=== PATIENT | male | born 1945 | race Caucasian/White ===

== ENCOUNTER 2017-04-28 06:37 | Day surgery (SDC) | payer MEDICARE ==
[2017-04-21 23:06] VITALS: BMI 24.0
[~2017-04-28 06:37] MED LIST: SODIUM CHLORIDE 0.9% 1,000 ML in EMPTY BAG 1 BAG IV ONE
[2017-04-28] MEDS ORDERED: ASPIRIN 81 MG ONE (06:57)
[2017-04-28] MEDS ORDERED: ALPRAZolam 0.25 MG TAB ONE (06:58)
[2017-04-28] MEDS ORDERED: ALPRAZolam 0.25 MG TAB PO PRN (07:00)
[2017-04-28 07:20] LABS: Glucose,Whole Blood 237 mg/dL (75-99)
[2017-04-28 07:26] LABS: Basophils % (A) 1 %; Eosinophils # (A) 0.1 k/uL (0-0.7); Eosinophils % (A) 2 %; HCT 45.9 % (39.0-53.0); HGB 14.6 gm/dL (13.0-17.5); Lymphocytes # (A) 1.3 k/uL (1.0-4.8); Lymphocytes % (A) 22 %; MCH 27.8 pg (25.0-35.0); MCHC 31.8 g/dL (31.0-37.0); MCV 87.3 fL (80.0-100.0); Mean Platelet Volume 9.1; Monocytes # (A) 0.4 k/uL (0-1.0); Monocytes % (A) 6 %; Neutrophils # (A) 4.2 k/uL (1.3-7.7); Neutrophils % (A) 69 %; Platelet Count 183 k/uL (150-450); RBC 5.26 m/uL (4.30-5.90); WBC 6.2 k/uL (3.8-10.6)
[2017-04-28] MEDS ORDERED: MIDAZOLAM 2 MG/2 ML VIAL IV ONE ×2 (07:54→08:21)
[2017-04-28] MEDS ORDERED: SODIUM CHLORIDE 0.9% 500 ML with niCARdipine 6.25 MG, NITROGLYCERIN-D5W PMX 0.05 MG, HE... IV ONE ×4 (08:11)
[2017-04-28] MEDS ORDERED: LIDOCAINE 2% INJ 20 MG/ML SQ ONE (08:17)
[2017-04-28] MEDS ORDERED: fentaNYL (PF) 50 MCG/ML 2 ML AMP IV ONE (08:20)
[2017-04-28] MEDS ORDERED: HEPARIN SODIUM 1,000 UN/ML (10ML VL) IV ONE ×2 (08:20→10:31)
[2017-04-28] MEDS: fentaNYL (PF) 50 MCG/ML 2 ML AMP IV ONE ×2 (09:08→09:47)
[2017-04-28] MEDS: MIDAZOLAM 2 MG/2 ML VIAL IV ONE ×2 (09:17→09:49)
[2017-04-28] MEDS ORDERED: NITROGLYCERIN 1000MCG/10ML SYRINGE INTRACORON ONE (10:13)
[2017-04-28] MEDS ORDERED: niCARdipine Syringe (1,000 mcg/10 mL) INTRACORON ONE (10:13)
[2017-04-28] MEDS ORDERED: CLOPIDOGREL 75 MG TAB PO ONE (10:42)
[2017-04-28] MEDS ORDERED: IODIXANOL 320 MG/ML 100 ML INTRAARTER ONE (10:42)
[2017-04-28] MEDS ORDERED: SODIUM CHLORIDE 0.9% 1,000 ML IV SCH (11:00)
[2017-04-28 11:22] LABS: Glucose,Whole Blood 177 mg/dL (75-99)
[2017-04-28] MEDS: CARVEDILOL 6.25 MG TAB PO SCH (12:28)
--- NOTE | 2017-04-28 12:36 | LTR ---
DATE OF SERVICE: 05/08/2017 RE: Rush Krueger Dear Donavan; Mr. Rush Krueger underwent successful stenting of the right femoral artery with good angiographic results and without any complication. I want to thank you for allowing me to participate in his care and please do not hesitate to call if you have any question or concern. Sincerely, MD CHELITA SánchezL / SARAHN: [id number] /
--- NOTE | 2017-04-28 12:36 | AN ---
ANGIOGRAPHY REPORT DATE OF SERVICE: 04/28/2017. PERFORMING PHYSICIAN: Ryan Benoit MD, Shingle Packer. PROCEDURE PERFORMED: 1. An abdominal aortogram. 2. Bilateral iliacs angiogram. 3. Selective bilateral [id number] angiogram. 4. Selective bilateral popliteals/SFA angiogram. 5. 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 6. Balloon angioplasty of the right superficial femoral artery in the proximal, mid, and distal portion. 7. Stenting of the right superficial femoral artery as it will be described later in this report. INDICATION: This is a pleasant 71-year-old gentleman who sees Dr. Keon River as an outpatient and sees Dr. Hill as well as an outpatient who was diagnosed recently with critical limb ischemia of the right foot. The patient has been seen and evaluated by Dr. Parkinson. He underwent selective right leg angiogram, which revealed an occluded right SFA from the ostium. The patient initially treated conservatively without any improvement, then we decided to pursue with an interventional procedure on him. APPROACH: Left common femoral artery. COMPLICATION: None. LEVEL OF SEDATION: Moderate with sedation length of 144 minutes. PROCEDURE DESCRIPTION: After obtaining an informed consent, the patient was brought to the [facility]. The left common femoral artery was cannulated using micropuncture technique under ultrasound guidance, the micropuncture wire passed easily. Subsequently, I did place an 11 cm 6-[place] sheath in the left common femoral artery. After that, I did an abdominal aortogram and bilateral iliacs angiogram. I did that using 5-[place] pigtail catheter which was placed at the level of the renal arteries. After that, I did select the right profunda using an 0.35 Advantage wire. I did use also a 5-[place] rim catheter. Subsequently. I did exchange my 11 cm 6-[place] sheath into 70 cm 6-[place] Raabe sheath using the Advantage wire. After that, I did start anticoagulation using heparin and the patient initially given 10,000 units of heparin in at the beginning of the procedure and subsequently 3,000 units in the middle of the procedure with continuous monitoring ACT throughout the procedure. I did cross the chronic total occlusion of the right superficial femoral artery using an 0.18 wire. After that, I did prove that I was in the true lumen using an injection through an 0.18 CXI catheter. After that, I did balloon angioplasty of the right superficial femoral artery using initially 2.0 mm balloon because I was unable to advance 4.0 balloon and subsequently 4.0 balloon. After that, I did drug-coated balloon of the distal right superficial femoral artery where I did use 5.0 x 120 mm balloon and subsequently, for the proximal and mid right SFA, I stented both of them in view of the large residual thrombus at these segments. For the mid right SFA, I did use Zilver PTX drug-coated stent and I did deploy 7.0 x 120 mm stent. For the ostial and proximal right SFA, I did deploy 7.0 x 100 mm stents. Subsequently, both the stents were dilated using 6 mm balloon. The following angiogram showed good angiographic results for that segment. For the distal right SFA, I did another balloon angioplasty using 6 mm balloon but the following angiogram continues to show residual thrombus/dissection which I decided to cover using stent. At that point, I did deploy just regular self-expandable stent, which was 7.0 x 120 mm self-expandable stent and subsequently the stent was dilated using 6 mm balloon. The final angiogram showed good angiographic results without perforation and without dissection with good flow. SELECTIVE PERIPHERAL ANGIOGRAM: 1. The abdominal aorta appeared to be calcified with mild disease only. 2. COMMON ILIAC ARTERIES: The right and left common iliac arteries appear to have mild disease only. 3. EXTERNAL ILIAC ARTERIES: The right and left external iliac arteries are angiographically normal. 4. INTERNAL ILIAC ARTERIES: The right internal iliac artery is patent and the left internal iliac artery appeared to be occluded. 5. COMMON FEMORAL ARTERIES: The right and left common femoral artery appeared to have mild disease only. 6. SFA: The right SFA is known to be totally and chronically occluded from before. The left SFA appeared to have mild to moderate diffuse disease. 7. POPLITEAL: The right popliteal appeared to have moderate diffuse disease and the left popliteal is occluded in the proximal portion. 8. BELOW THE KNEE: Below the knee I could not visualize any vessel below the knee bilaterally. By the foot, I was able to visualize the anterior tibial and posterior tibial arteries. POSTPROCEDURE MANAGEMENT: 1. Maximize medical treatment. 2. Follow up with the patient. MMODL / IJN: [id number] /
[2017-04-28] MEDS: INSULIN ASPART 100 UNIT/ML 1 ML 10 ML VIAL SQ SCH ×4 (12:45→20:46)
[2017-04-28] MEDS: LISINOPRIL 20 MG TAB PO SCH (13:37)
[2017-04-28] MEDS ORDERED: ATROPINE SULFATE 0.1 MG/ML 10ML SYRINGE ONE (14:33)
[2017-04-28] MEDS ORDERED: hydrALAZINE HCL 20 MG/ML 1 ML VIAL IVP PRN (14:42)
--- NOTE | 2017-04-28 14:59 | IR ---
Fluoroscopy HISTORY: Peripheral vascular occlusive disease 46.6 minutes fluoroscopy time supplied to the referring clinician. 1000 intraoperative C-arm images document the procedure. See dictated report from cardiology.
[2017-04-28] MEDS: ALPRAZolam 0.5 MG TAB PO PRN ×2 (15:30→21:12)
[2017-04-28] MEDS ORDERED: ONDANSETRON 4 MG/2 ML VIAL IVP STA (15:39)
[2017-04-28 16:42] LABS: Glucose,Whole Blood 257 mg/dL (75-99)
[2017-04-28 19:52] VITALS: RESP 16
[2017-04-28 20:55] LABS: Glucose,Whole Blood 293 mg/dL (75-99)
[2017-04-29 05:56] LABS: Basophils % (A) 0 %; Eosinophils # (A) 0.1 k/uL (0-0.7); Eosinophils % (A) 1 %; HCT 46.3 % (39.0-53.0); HGB 15.1 gm/dL (13.0-17.5); Lymphocytes # (A) 0.9 k/uL (1.0-4.8); Lymphocytes % (A) 10 %; MCH 28.6 pg (25.0-35.0); MCHC 32.5 g/dL (31.0-37.0); MCV 87.8 fL (80.0-100.0); Mean Platelet Volume 8.6; Monocytes # (A) 0.5 k/uL (0-1.0); Monocytes % (A) 6 %; Neutrophils # (A) 7.4 k/uL (1.3-7.7); Neutrophils % (A) 82 %; Platelet Count 167 k/uL (150-450); RBC 5.28 m/uL (4.30-5.90); RDW 14.2 % (11.5-15.5)
[2017-04-29 06:16] LABS: Glucose,Whole Blood 227 mg/dL (75-99)
[2017-04-29 06:21] LABS: Anion Gap 10 mmol/L; Blood Urea Nitrogen 21 mg/dL (9-20); Carbon Dioxide 25 mmol/L (22-30); Chloride 102 mmol/L (98-107); Glucose 228 mg/dL (74-99); Potassium 4.5 mmol/L (3.5-5.1); Sodium 137 mmol/L (137-145)
[2017-04-29] MEDS: INSULIN ASPART 100 UNIT/ML 1 ML 10 ML VIAL SQ SCH ×2 (06:23→12:12)
[2017-04-29] MEDS: CARVEDILOL 6.25 MG TAB PO SCH (08:26)
[2017-04-29 08:44] VITALS: TEMP 100
[2017-04-29] MEDS ORDERED: FUROSEMIDE 40 MG TAB PO SCH (09:00)
[2017-04-29] MEDS ORDERED: ASPIRIN 325 MG TAB PO SCH ×2 (09:00)
[2017-04-29] MEDS ORDERED: ASPIRIN 81 MG PO SCH (09:00)
[2017-04-29] MEDS ORDERED: CLOPIDOGREL 75 MG TAB PO SCH ×2 (09:00)
[2017-04-29] MEDS ORDERED: ATORVASTATIN 40 MG TAB PO SCH (09:00)
--- NOTE | 2017-04-29 09:31 | DS ---
DISCHARGE SUMMARY ADMISSION DATE: 04/28/2017 DISCHARGE DATE: 04/29/2017 BRIEF HISTORY: This is a pleasant 71-year-old gentleman who sees Dr. oMdesta River on a regular basis who was diagnosed recently with critical limb ischemia of the right leg. He underwent a peripheral angiogram and that revealed the occlusion of the SFA from the ostium to the popliteal. He was admitted to the hospital yesterday and underwent successful angioplasty and stenting of the right SFA with good angiographic results and without any complication where the procedure was performed from the left groin, which is soft and nontender and without any bruises. The patient is going to be discharged home on dual anti-platelet therapy and I will follow up with the patient next week in the office. MMEFRAIN / PREET: [id number] /
[2017-04-29 11:28] LABS: Glucose,Whole Blood 303 mg/dL (75-99)
[2017-04-29 12:08] VITALS: BP 174/93; PULSE 75
[2017-04-29] MEDS: LISINOPRIL 20 MG TAB PO SCH (12:12)
== END 2017-04-29 13:06 | disposition home or self-care (01) ==
LOC: CATHCVL 06:37 → 6SEL 10:50 → CATHCVL 04-29 13:06
PROVIDERS: ATTEND Internal Medicine Interventional Cardiology
DX: I70.92 Chronic total occlusion of artery of the extremities (principal); I77.9 Disorder of arteries and arterioles, unspecified; I70.0 Atherosclerosis of aorta; I73.9 Peripheral vascular disease, unspecified; E78.00 Pure hypercholesterolemia, unspecified; I25.10 Atherosclerotic heart disease of native coronary artery without angina pectoris; E11.9 Type 2 diabetes mellitus without complications; I10 Essential (primary) hypertension; Z95.5 Presence of coronary angioplasty implant and graft; Z95.1 Presence of aortocoronary bypass graft; Z86.73 Personal history of transient ischemic attack (TIA), and cerebral infarction without residual deficits; Z82.49 Family history of ischemic heart disease and other diseases of the circulatory system; Z79.84 Long term (current) use of oral hypoglycemic drugs; Z79.82 Long term (current) use of aspirin; Z79.4 Long term (current) use of insulin; Z79.899 Other long term (current) drug therapy
CPT/HCPCS: 37226; 75625; 75716; 85347; 80048; 85025 ×2; C1894 ×2; C1725 ×2; C1769 ×5; C1887; C1876; C2623; C1874 ×2; J2001; J2250; J0360; Q9967; J2405; J3010; J1644

== ENCOUNTER 2017-09-06 15:05 | Emergency (ER) | payer MEDICARE ==
[2017-09-06 15:46] VITALS: PULSE 93; RESP 18; TEMP 98
--- NOTE | 2017-09-06 16:31 | XR ---
EXAMINATION TYPE: XR shoulder complete RT DATE OF EXAM: 09/06/2017 CLINICAL HISTORY: pain TECHNIQUE: Three views of the right shoulder are obtained. COMPARISON: None FINDINGS: There is no acute fracture/dislocation evident. The acromioclavicular and glenohumeral fernando int spaces appear mildly narrowed. The visualized ribs are intact and unremarkable. IMPRESSION: 1. There is no acute fracture or dislocation. ICD 10 NO FRACTURE, INITIAL EVALUATION
--- NOTE | 2017-09-06 16:32 | ED ---
General Adult HPI - General Chief complaint: Extremity Injury, Upper Stated complaint: shoulder pain Time Seen by Provider: 09/06/17 15:50 Source: patient, RN notes reviewed Mode of arrival: ambulatory Limitations: no limitations - History of Present Illness Initial comments: 72-year-old male presents to the emergency department for a chief complaint of right shoulder pain. Patient states that 2 days ago he was pull starting his lawnmower when he injured his right shoulder. Patient states it is painful to move ever since. Patient denies pain at rest. Patient denies falling or any other injuries from this incident. Patient denies pain in the hand or forearm. Patient has no other complaints at this time including shortness of breath, chest pain, abdominal pain, nausea or vomiting, headache, or visual changes. - Related Data Home Medications Medication Instructions Recorded Confirmed ALPRAZolam [Xanax] 0.5 mg PO TID PRN 09/26/13 09/06/17 Insulin Aspart Protam & Aspart 20 units SQ BID 09/26/13 09/06/17 [NovoLOG MIX 70-30 Flexpen] Atorvastatin [Lipitor] 40 mg PO DAILY 03/30/17 09/06/17 Carvedilol [Coreg] 6.25 mg PO BID 03/30/17 09/06/17 metFORMIN HCL [Glucophage] 500 mg PO BID 03/30/17 09/06/17 Aspirin 81 mg PO DAILY 04/20/17 09/06/17 Lisinopril [Zestril] 20 mg PO BID 04/20/17 09/06/17 Furosemide [Lasix] 40 mg PO DAILY 09/06/17 09/06/17 Isosorbide Mononitrate ER [Imdur] 60 mg PO BID 09/06/17 09/06/17 Previous Rx's Medication Instructions Recorded Clopidogrel [Plavix] 75 mg PO DAILY #90 tab 03/20/17 Ibuprofen [Motrin] 600 mg PO Q8HR PRN #20 tab 09/06/17 Allergies Allergy/AdvReac Type Severity Reaction Status Date / Time No Known Allergies Allergy Verified 09/06/17 16:05 Review of Systems ROS Statement: Those systems with pertinent positive or pertinent negative responses have been documented in the HPI. ROS Other: All systems not noted in ROS Statement are negative. Past Medical History Past Medical History: Coronary Artery Disease (CAD), Heart Failure, CVA/TIA, Diabetes Mellitus, Hyperlipidemia, Hypertension, Myocardial Infarction ([place]), Osteoarthritis ([place]) Additional Past Medical History / Comment(s): GOUT,NEUROPATHY IN FEET, TIA 2014- no residual effects, STENT LEFT CAROTID ARTERY 03/19/17., WOUNDS ON RIGHT FOOT- STATES HEEL AND RIGHT SIDE OF FOOT. Last Myocardial Infarction Date:: 2010 History of Any Multi-Drug Resistant Organisms: None Reported Past Surgical History: Coronary Bypass/CABG, Heart Catheterization With Stent, Hernia Repair Additional Past Surgical History / Comment(s): 5 VESSELS, NASAL SURG., LEFT CAROTID STENT (03/19/17). Past Anesthesia/Blood Transfusion Reactions: No Reported Reaction Date of Last Stent Placement:: 2015 Past Psychological History: No Psychological Hx Reported Smoking Status: Never smoker Past Alcohol Use History: None Reported Past Drug Use History: None Reported - Past Family History Father Family Medical History: Hypertension, Myocardial Infarction ([place]) Mother Family Medical History: No Reported History, Myocardial Infarction ([place]) Brother(s) Family Medical History: Hypertension, Myocardial Infarction ([place]) General Exam Limitations: no limitations General appearance: alert, in no apparent distress Head exam: Present: atraumatic, normocephalic, normal inspection Respiratory exam: Present: normal lung sounds bilaterally. Absent: respiratory distress, wheezes, rales, rhonchi, stridor Cardiovascular Exam: Present: regular rate, normal rhythm, normal heart sounds. Absent: systolic murmur, diastolic murmur, rubs, gallop, clicks Extremities exam: Present: normal capillary refill (Refill less than 2 seconds in the right upper extremity and radial pulse 2+.), other (Sensation intact in the right upper extremity.). Absent: full ROM (Patient has about 30 of flexion of the right shoulder and about 90 abduction. 15 extension. Positive Burnett and empty can test.), tenderness (No tenderness to palpation of the acromioclavicular joint or shoulder joint on the right upper extremity.) , pedal edema, joint swelling, calf tenderness Course Vital Signs 09/06/17 09/06/17 15:41 16:48 Temperature 98.0 F Pulse Rate 93 Respiratory 18 Rate Blood Pressure 191/93 182/80 O2 Sat by Pulse 99 Oximetry Medical Decision Making - Medical Decision Making 72-year-old male presents to the emergency department for a chief complaint of right shoulder pain 2 days. Patient was pull starting his lawnmower when he injured his right shoulder. Patient has no other complaints. On exam patient has limited range of motion of the right shoulder. Neurovascular intact. X- ray shows no fractures or dislocations. Patient will be referred to orthopedics for further workup. He will return to the emergency room if he has any worsening symptoms. In the meantime he'll take Motrin or Tylenol for pain and ice the shoulder. A sling was given in the emergency department. Patient was educated on the importance of range of motion exercises for the shoulder. Disposition Clinical Impression: Shoulder pain, right Disposition: HOME SELF-CARE Condition: Good Instructions: Shoulder Pain (ED) Additional Instructions: Please take Motrin or Tylenol for pain. Please follow-up with orthopedics in one to 2 days. Return to the emergency department if you have any worsening symptoms. Remember to do range of motion exercises while wearing the sling. Prescriptions: Ibuprofen [Motrin] 600 mg PO Q8HR PRN #20 tab PRN Reason: Pain Is patient prescribed a controlled substance at d/c from ED?: No Referrals: Donavan Hill MD [Primary Care Provider] - 1-2 days Time of Disposition: 16:43
[2017-09-06 16:49] VITALS: BP 182/80
== END 2017-09-06 17:00 | disposition home or self-care (01) ==
LOC: EC 15:05
DX: M25.511 Pain in right shoulder (principal); I25.10 Atherosclerotic heart disease of native coronary artery without angina pectoris; I11.0 Hypertensive heart disease with heart failure; I50.9 Heart failure, unspecified; E78.5 Hyperlipidemia, unspecified; I25.2 Old myocardial infarction; E11.40 Type 2 diabetes mellitus with diabetic neuropathy, unspecified; Z86.73 Personal history of transient ischemic attack (TIA), and cerebral infarction without residual deficits; Z95.1 Presence of aortocoronary bypass graft; Z95.5 Presence of coronary angioplasty implant and graft; Z79.4 Long term (current) use of insulin; Z79.02 Long term (current) use of antithrombotics/antiplatelets; Z79.82 Long term (current) use of aspirin; Z79.899 Other long term (current) drug therapy; X50.9XXA Other and unspecified overexertion or strenuous movements or postures, initial encounter; Y93.A6 Activity, grass drills
CPT/HCPCS: 99283

== ENCOUNTER 2018-08-08 16:38 | Emergency (ER) | payer MEDICARE ==
[2018-08-08 17:43] VITALS: RESP 18
[2018-08-08 17:54] LABS: Glucose,Whole Blood 529 mg/dL (75-99)
[2018-08-08] MEDS ORDERED: SODIUM CHLORIDE 0.9% 1,000 ML IV ONE (18:15)
[2018-08-08 18:36] LABS: Basophils % (A) 0 %; Eosinophils # (A) 0.1 k/uL (0-0.7); Eosinophils % (A) 1 %; HCT 50.3 % (39.0-53.0); HGB 16.5 gm/dL (13.0-17.5); Lymphocytes # (A) 1.5 k/uL (1.0-4.8); Lymphocytes % (A) 19 %; MCHC 32.9 g/dL (31.0-37.0); MCV 88.1 fL (80.0-100.0); Mean Platelet Volume 9.1; Monocytes # (A) 0.4 k/uL (0-1.0); Monocytes % (A) 5 %; Neutrophils # (A) 5.5 k/uL (1.3-7.7); Neutrophils % (A) 72 %; Platelet Count 169 k/uL (150-450); RBC 5.71 m/uL (4.30-5.90); RDW 13.3 % (11.5-15.5); WBC 7.7 k/uL (3.8-10.6)
[2018-08-08 18:47] LABS: ALT 32 U/L (21-72); AST 21 U/L (17-59); Albumin 4.5 g/dL (3.5-5.0); Alkaline Phosphatase 199 U/L (38-126); Anion Gap 9 mmol/L; Blood Urea Nitrogen 41 mg/dL (9-20); Calcium 10.2 mg/dL (8.4-10.2); Carbon Dioxide 27 mmol/L (22-30); Chloride 98 mmol/L (98-107); Glucose 461 mg/dL (74-99); Sodium 134 mmol/L (137-145); Total Bilirubin 0.7 mg/dL (0.2-1.3); Total Protein 7.1 g/dL (6.3-8.2)
[2018-08-08] MEDS ORDERED: INSULIN ASPART (NovoLOG) 100 UNIT/ML VIAL SQ STA ×2 (18:48→19:58)
[2018-08-08] MEDS ORDERED: SODIUM CHLORIDE 0.9% 500 ML 500 ML IV ONE (18:55)
--- NOTE | 2018-08-08 18:55 | ED ---
General Adult HPI - General Chief complaint: Recheck/Abnormal Lab/Rx Stated complaint: High sugar/lightheaded Time Seen by Provider: 08/08/18 18:05 Source: patient Mode of arrival: ambulatory Limitations: no limitations - History of Present Illness Initial comments: 73-year-old male patient presents to the emergency department today for evaluation of hyperglycemia. Patient states he has a history of type 2 diabetes, generally takes oral medication and insulin. States he has been out of his insulin for the last 2 weeks. States that his doctor's office today his glucose and HgbA1C were reading "high". Patient states he is feeling well. States he is eating without difficulty. He denies any abdominal pain, nausea, vomiting, constipation, diarrhea, hematuria, dysuria, urinary frequency, urinary urgency. Patient states he has been taking all of his other medications as directed. Patient denies any recent rash, fever, chills, shortness breath, chest pain, back pain, numbness, tingling, dizziness, weakness, headache, visual changes, or any other complaints. - Related Data Home Medications Medication Instructions Recorded Confirmed ALPRAZolam [Xanax] 0.5 mg PO TID PRN 09/26/13 08/08/18 Atorvastatin [Lipitor] 40 mg PO DAILY 03/30/17 08/08/18 Carvedilol [Coreg] 6.25 mg PO BID 03/30/17 08/08/18 metFORMIN HCL [Glucophage] 500 mg PO BID 03/30/17 08/08/18 Aspirin 81 mg PO DAILY 04/20/17 08/08/18 Lisinopril [Zestril] 20 mg PO BID 04/20/17 08/08/18 Isosorbide Mononitrate ER [Imdur] 60 mg PO BID 09/06/17 08/08/18 Insulin Aspart Protam & Aspart 30 units SQ BID 08/08/18 08/08/18 [NovoLOG MIX 70-30 Flexpen] Allergies Allergy/AdvReac Type Severity Reaction Status Date / Time No Known Allergies Allergy Verified 08/08/18 18:42 Review of Systems ROS Statement: Those systems with pertinent positive or pertinent negative responses have been documented in the HPI. ROS Other: All systems not noted in ROS Statement are negative. Past Medical History Past Medical History: Coronary Artery Disease (CAD), Heart Failure, CVA/TIA, Diabetes Mellitus, Hyperlipidemia, Hypertension, Myocardial Infarction ([place]), Osteoarthritis ([place]) Additional Past Medical History / Comment(s): GOUT,NEUROPATHY IN FEET, TIA 2014- no residual effects, STENT LEFT CAROTID ARTERY 03/19/17., WOUNDS ON RIGHT FOOT- STATES HEEL AND RIGHT SIDE OF FOOT. Last Myocardial Infarction Date:: 2010 History of Any Multi-Drug Resistant Organisms: None Reported Past Surgical History: Coronary Bypass/CABG, Heart Catheterization With Stent, Hernia Repair Additional Past Surgical History / Comment(s): 5 VESSELS, NASAL SURG., LEFT CAROTID STENT (03/19/17). Past Anesthesia/Blood Transfusion Reactions: No Reported Reaction Date of Last Stent Placement:: 2015 Past Psychological History: No Psychological Hx Reported Smoking Status: Never smoker Past Alcohol Use History: None Reported Past Drug Use History: None Reported - Past Family History Father Family Medical History: Hypertension, Myocardial Infarction ([place]) Mother Family Medical History: No Reported History, Myocardial Infarction ([place]) Brother(s) Family Medical History: Hypertension, Myocardial Infarction ([place]) General Exam Limitations: no limitations General appearance: alert, in no apparent distress, other (Physical well- developed, well-nourished elderly male patient in no acute distress. Vital signs upon presentation are temperature 98.2F, pulse 86, respirations 18, blood pressure 174/89, pulse ox 98% on room air.) Eye exam: Present: normal appearance, PERRL, EOMI. Absent: scleral icterus, conjunctival injection, periorbital swelling ENT exam: Present: normal exam, normal oropharynx, mucous membranes moist Respiratory exam: Present: normal lung sounds bilaterally. Absent: respiratory distress, wheezes, rales, rhonchi, stridor Cardiovascular Exam: Present: regular rate, normal rhythm, normal heart sounds. Absent: systolic murmur, diastolic murmur, rubs, gallop, clicks GI/Abdominal exam: Present: soft, normal bowel sounds. Absent: distended, tenderness, guarding, rebound, rigid Neurological exam: Present: alert, oriented X3, CN II-XII intact Psychiatric exam: Present: normal affect, normal mood Skin exam: Present: warm, dry, intact, normal color. Absent: rash Course Vital Signs 08/08/18 08/08/18 08/08/18 17:33 20:03 21:47 Temperature 98.2 F 98.0 F Pulse Rate 86 75 75 Respiratory 18 18 18 Rate Blood Pressure 174/89 120/55 145/82 O2 Sat by Pulse 98 100 98 Oximetry Medical Decision Making - Medical Decision Making 73-year-old male patient presents to the emergency department today for evaluation of elevated blood sugar. Patient states he presented to his primary care physician's office today had a blood sugar check which read high on their machine so they sent him here for further evaluation. He states that his physician is out of town and unable to refill his insulin. Physical examination is unremarkable. Patient states he is currently asymptomatic and feels well. Labs reviewed and revealed a negative acetone. Blood sugar was elevated. He was given 2 doses of insulin here in the emergency department blood sugar did decrease. Patient was given refill of his NovoLog 70/30. He is instructed follow-up with his primary care physician for recheck as soon as possible. Return parameters were discussed in detail. He verbalizes understanding and agrees with this plan. - Lab Data Result diagrams: 08/08/18 18:26 08/08/18 18:26 Lab Results 08/08/18 08/08/18 08/08/18 Range/Units 17:40 18:26 18:26 WBC 7.7 (3.8-10.6) k/uL RBC 5.71 (4.30-5.90) m/uL Hgb 16.5 (13.0-17.5) gm/dL Hct 50.3 (39.0-53.0) % MCV 88.1 (80.0-100.0) fL MCH 29.0 (25.0-35.0) pg MCHC 32.9 (31.0-37.0) g/dL RDW 13.3 (11.5-15.5) % Plt Count 169 (150-450) k/uL Neutrophils % 72 % Lymphocytes % 19 % Monocytes % 5 % Eosinophils % 1 % Basophils % 0 % Neutrophils # 5.5 (1.3-7.7) k/uL Lymphocytes # 1.5 (1.0-4.8) k/uL Monocytes # 0.4 (0-1.0) k/uL Eosinophils # 0.1 (0-0.7) k/uL Basophils # 0.0 (0-0.2) k/uL Sodium 134 L (137-145) mmol/L Potassium 5.0 (3.5-5.1) mmol/L Chloride 98 (98-107) mmol/L Carbon Dioxide 27 (22-30) mmol/L Anion Gap 9 mmol/L BUN 41 H (9-20) mg/dL Creatinine 1.33 H (0.66-1.25) mg/dL Est GFR (CKD-EPI)AfAm 61 (>60 ml/min/1.73 sqM) Est GFR (CKD-EPI)NonAf 53 (>60 ml/min/1.73 sqM) Glucose 461 H (74-99) mg/dL POC Glucose (mg/dL) 529 H (75-99) mg/dL POC Glu Helicopter Mechanic ID Debra Flores Calcium 10.2 (8.4-10.2) mg/dL Total Bilirubin 0.7 (0.2-1.3) mg/dL AST 21 (17-59) U/L ALT 32 (21-72) U/L Alkaline Phosphatase 199 H (38-126) U/L Total Protein 7.1 (6.3-8.2) g/dL Albumin 4.5 (3.5-5.0) g/dL Urine Color Urine Appearance (Clear) Urine pH (5.0-8.0) Ur Specific Lloyd (1.001-1.035) Urine Protein (Negative) Urine Glucose (UA) (Negative) Urine Ketones (Negative) Urine Blood (Negative) Urine Nitrite (Negative) Urine Bilirubin (Negative) Urine Urobilinogen (<2.0) mg/dL Ur Leukocyte Esterase (Negative) Acetone, Qual Negative (Negative) 08/08/18 08/08/18 08/08/18 Range/Units 19:42 19:43 21:01 WBC (3.8-10.6) k/uL RBC (4.30-5.90) m/uL Hgb (13.0-17.5) gm/dL Hct (39.0-53.0) % MCV (80.0-100.0) fL MCH (25.0-35.0) pg MCHC (31.0-37.0) g/dL RDW (11.5-15.5) % Plt Count (150-450) k/uL Neutrophils % % Lymphocytes % % Monocytes % % Eosinophils % % Basophils % % Neutrophils # (1.3-7.7) k/uL Lymphocytes # (1.0-4.8) k/uL Monocytes # (0-1.0) k/uL Eosinophils # (0-0.7) k/uL Basophils # (0-0.2) k/uL Sodium (137-145) mmol/L Potassium (3.5-5.1) mmol/L Chloride (98-107) mmol/L Carbon Dioxide (22-30) mmol/L Anion Gap mmol/L BUN (9-20) mg/dL Creatinine (0.66-1.25) mg/dL Est GFR (CKD-EPI)AfAm (>60 ml/min/1.73 sqM) Est GFR (CKD-EPI)NonAf (>60 ml/min/1.73 sqM) Glucose (74-99) mg/dL POC Glucose (mg/dL) 365 H 271 H (75-99) mg/dL POC Glu Helicopter Mechanic Clotilde Gardner Alison Calcium (8.4-10.2) mg/dL Total Bilirubin (0.2-1.3) mg/dL AST (17-59) U/L ALT (21-72) U/L Alkaline Phosphatase (38-126) U/L Total Protein (6.3-8.2) g/dL Albumin (3.5-5.0) g/dL Urine Color Colorless Urine Appearance Clear (Clear) Urine pH 6.0 (5.0-8.0) Ur Specific Lloyd 1.018 (1.001-1.035) Urine Protein Negative (Negative) Urine Glucose (UA) 4+ H (Negative) Urine Ketones Negative (Negative) Urine Blood Negative (Negative) Urine Nitrite Negative (Negative) Urine Bilirubin Negative (Negative) Urine Urobilinogen <2.0 (<2.0) mg/dL Ur Leukocyte Esterase Negative (Negative) Acetone, Qual (Negative) Disposition Clinical Impression: Hyperglycemia Disposition: HOME SELF-CARE Condition: Good Instructions (If sedation given, give patient instructions): Diabetic Hyperglycemia (ED) Additional Instructions: Increase fluids. Take insulin as directed. Follow-up with your primary care physician for recheck in 1-2 days. Return to the emergency department immediately for any new, worsening, or concerning symptoms. Is patient prescribed a controlled substance at d/c from ED?: No Referrals: Donavan Hill MD [Primary Care Provider] - 1-2 days Time of Disposition: 21:28
[2018-08-08 19:43] LABS: Glucose,Whole Blood 365 mg/dL (75-99)
[2018-08-08 20:04] VITALS: PULSE 75
[2018-08-08 20:34] LABS: Appearance,Urine Clear (Clear); Bilirubin,Urine Negative (Negative); Blood,Urine Negative (Negative); Color,Urine Colorless; Glucose,Urine (UA) 4+ (Negative); Ketones,Urine Negative (Negative); Leukocyte Esterase,Urine Negative (Negative); Nitrite,Urine Negative (Negative); Protein,Urine Negative (Negative); Specific Gravity,Urine 1.018 (1.001-1.035); Urobilinogen,Urine <2.0 mg/dL (<2.0)
[2018-08-08 21:04] LABS: Glucose,Whole Blood 271 mg/dL (75-99)
[2018-08-08] MEDS ORDERED: INSULN ASP PRT/INSULIN ASPART 100 UNIT/ML 10 ML VIAL SQ STA (21:27)
[2018-08-08 21:48] VITALS: BP 145/82; TEMP 98
== END 2018-08-08 21:48 | disposition home or self-care (01) ==
LOC: EC 16:38
DX: E11.65 Type 2 diabetes mellitus with hyperglycemia (principal); I25.10 Atherosclerotic heart disease of native coronary artery without angina pectoris; I11.0 Hypertensive heart disease with heart failure; I50.9 Heart failure, unspecified; I25.2 Old myocardial infarction; E11.40 Type 2 diabetes mellitus with diabetic neuropathy, unspecified; Z86.73 Personal history of transient ischemic attack (TIA), and cerebral infarction without residual deficits; Z95.1 Presence of aortocoronary bypass graft; Z95.5 Presence of coronary angioplasty implant and graft; Z98.890 Other specified postprocedural states; Z79.4 Long term (current) use of insulin; Z79.82 Long term (current) use of aspirin; Z79.899 Other long term (current) drug therapy
CPT/HCPCS: 36415; 80053; 81003; 82009; 85025; 96360; 96361; 99283

== ENCOUNTER 2018-08-20 19:18 | Inpatient (IN) | payer MEDICARE ==
--- NOTE | 2018-08-20 20:03 | XR ---
EXAMINATION TYPE: XR chest 2V DATE OF EXAM: 08/20/2018 COMPARISON: 05/03/2015 HISTORY: Short of breath TECHNIQUE: Frontal and lateral views of the chest are obtained. FINDINGS: Heart appears slightly enlarged. There is pulmonary vascular congestion. There is mild ursula nting of costophrenic angles. There are sternal wires. Bony thorax appears intact. IMPRESSION: Mild congestive heart failure with pleural small effusions. No change.
[2018-08-20 20:31] VITALS: RESP 18
--- NOTE | 2018-08-20 20:31 | ED ---
SOB HPI - General Source: patient Mode of arrival: wheelchair Limitations: no limitations <Kelly Parry - Last Filed: 08/20/18 23:18> <Raquel Mullen - Last Filed: 08/24/18 04:31> - General Chief Complaint: Shortness of Breath Stated Complaint: POSS CHF Time Seen by Provider: 08/20/18 19:29 - History of Present Illness Initial Comments: 73-year-old male patient presents to the emergency department today for evaluation of shortness of breath and lower leg edema. Patient is last 2 days he has noticed an increase in difficulty breathing when lying down is also noticed that his legs up and swollen. 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 Patient states he has taken 3 doses of 40 mg of Lasix. Does not yet report improvement of symptoms. Patient states he did have a an episode of congestive heart failure once many years ago. He denies any cough or hemoptysis. Denies any racing heart or palpitations. Denies any chest pain. Denies any recent travel, leg pain, or history of DVT. Patient denies any recent rash, fever, chills, abdominal pain, n ausea, vomiting, diarrhea, constipation, back pain, numbness, tingling, dizziness, weakness, hematuria, dysuria, urinary urgency, urinary frequency, headache, visual changes, or any other complaints. (Kelly Parry) - Related Data Home Medications Medication Instructions Recorded Confirmed ALPRAZolam [Xanax] 0.5 mg PO TID PRN 09/26/13 08/20/18 Atorvastatin [Lipitor] 40 mg PO DAILY 03/30/17 08/20/18 Carvedilol [Coreg] 6.25 mg PO BID 03/30/17 08/20/18 metFORMIN HCL [Glucophage] 500 mg PO BID 03/30/17 08/20/18 Lisinopril [Zestril] 20 mg PO BID 04/20/17 08/20/18 Insulin Aspart Protam & Aspart 30 units SQ BID 08/08/18 08/20/18 [NovoLOG MIX 70-30 Flexpen] Aspirin EC [Ecotrin] 325 mg PO DAILY 08/20/18 08/20/18 Previous Rx's Medication Instructions Recorded Furosemide [Lasix] 40 mg PO BID@0900,1600 #60 tablet 08/23/18 Isosorbide Mononitrate ER [Imdur] 60 mg PO BID #30 tab.er.24h 08/23/18 Allergies Allergy/AdvReac Type Severity Reaction Status Date / Time No Known Allergies Allergy Verified 08/20/18 20:08 Review of Systems ROS Other: All systems not noted in ROS Statement are negative. <Kelly Parry - Last Filed: 08/20/18 23:18> ROS Other: All systems not noted in ROS Statement are negative. <Raquel Mullen - Last Filed: 08/24/18 04:31> ROS Statement: Those systems with pertinent positive or pertinent negative responses have been documented in the HPI. Past Medical History Past Medical History: Coronary Artery Disease (CAD), Heart Failure, CVA/TIA, Diabetes Mellitus, Hyperlipidemia, Hypertension, Myocardial Infarction ([place]), Osteoarthritis ([place]) Additional Past Medical History / Comment(s): GOUT,NEUROPATHY IN FEET, TIA 2014- no residual effects, STENT LEFT CAROTID ARTERY 03/19/17., WOUNDS ON RIGHT FOOT- STATES HEEL AND RIGHT SIDE OF FOOT. Last Myocardial Infarction Date:: 2010 History of Any Multi-Drug Resistant Organisms: None Reported Past Surgical History: Coronary Bypass/CABG, Heart Catheterization With Stent, Hernia Repair Additional Past Surgical History / Comment(s): 5 VESSELS, NASAL SURG., LEFT CAROTID STENT (03/19/17). Past Anesthesia/Blood Transfusion Reactions: No Reported Reaction Date of Last Stent Placement:: 2015 Past Psychological History: No Psychological Hx Reported Smoking Status: Never smoker Past Alcohol Use History: None Reported Past Drug Use History: None Reported - Past Family History Father Family Medical History: Hypertension, Myocardial Infarction ([place]) Mother Family Medical History: No Reported History, Myocardial Infarction ([place]) Brother(s) Family Medical History: Hypertension, Myocardial Infarction ([place]) <Kelly Parry - Last Filed: 08/20/18 23:18> General Exam Limitations: no limitations General appearance: alert, in no apparent distress, other (So well-developed, well-nourished elderly male patient in no acute distress. Vital signs upon presentation are temperature 97.7F, pulse 79, respirations 20, blood pressure 154/91, pulse ox 98% on room air.) Eye exam: Present: normal appearance, PERRL, EOMI. Absent: scleral icterus, conjunctival injection, periorbital swelling ENT exam: Present: normal exam, normal oropharynx, mucous membranes moist Respiratory exam: Present: normal lung sounds bilaterally. Absent: respiratory distress, wheezes, rales, rhonchi, stridor Cardiovascular Exam: Present: regular rate, normal rhythm, normal heart sounds. Absent: systolic murmur, diastolic murmur, rubs, gallop, clicks GI/Abdominal exam: Present: soft, normal bowel sounds. Absent: distended, tenderness, guarding, rebound, rigid Extremities exam: Present: full ROM, normal capillary refill, other (Patient has 1+ pitting edema noted to the bilateral lower legs and feet. Skin is otherwise pink, warm, dry. Cap refills less than 3 seconds. Pedal and posttibial pulses are 2+ and equal bilaterally.). Absent: normal inspection, tenderness, pedal edema, joint swelling, calf tenderness Neurological exam: Present: alert, oriented X3, CN II-XII intact Psychiatric exam: Present: normal affect, normal mood Skin exam: Present: warm, dry, intact, normal color. Absent: rash <Kelly Parry - Last Filed: 08/20/18 23:18> Course Vital Signs 08/20/18 08/20/18 08/20/18 19:22 20:28 22:13 Temperature 97.7 F Pulse Rate 79 73 72 Respiratory 20 18 18 Rate Blood Pressure 154/91 138/78 161/97 O2 Sat by Pulse 98 98 97 Oximetry 08/20/18 08/20/18 08/20/18 22:41 23:43 23:46 Temperature 97.6 F Pulse Rate 69 67 Respiratory 18 18 Rate Blood Pressure 121/88 137/75 O2 Sat by Pulse 96 97 Oximetry Medical Decision Making - Lab Data Result diagrams: 08/20/18 19:52 08/20/18 19:52 - EKG Data -: EKG Interpreted by Oh - Radiology Data Radiology results: report reviewed, image reviewed <Kelly Parry - Last Filed: 08/20/18 23:18> - Lab Data Result diagrams: 08/22/18 07:40 08/23/18 07:13 <Raquel Mullen - Last Filed: 08/24/18 04:31> - Medical Decision Making 73-year-old male patient is brought to the emergency department today for evaluation of shortness of breath and lower leg edema. Lungs are clear to auscultation. Has 1+ pitting edema to the bilateral lower legs and feet. Labs reviewed and did reveal elevated BNP at 12,800, troponin 0.026, AST 171, a LT 297. Blood sugar was 412. Was given dose of Humalog here in the emergency department. Patient did take 3 doses of 40 mg Lasix at home today. Chest x-ray did reveal bilateral pleural effusions and pulmonary vascular congestion consistent with congestive heart failure. Patient will be admitted to the hospital for IV Lasix. (Kelly Parry) I personally saw and examined the patient. I reviewed and agree with the mid- level provider findings including all diagnostic interpretations and treatment plans as written unless otherwise stated. (Raquel Mullen) - Lab Data Lab Results 08/20/18 08/20/18 08/20/18 Range/Units 19:52 19:52 19:52 WBC 4.8 (3.8-10.6) k/uL RBC 4.77 (4.30-5.90) m/uL Hgb 13.8 (13.0-17.5) gm/dL Hct 42.8 (39.0-53.0) % MCV 89.8 (80.0-100.0) fL MCH 29.0 (25.0-35.0) pg MCHC 32.3 (31.0-37.0) g/dL RDW 13.1 (11.5-15.5) % Plt Count 149 L (150-450) k/uL Neutrophils % 68 % Lymphocytes % 19 % Monocytes % 9 % Eosinophils % 1 % Basophils % 1 % Neutrophils # 3.3 (1.3-7.7) k/uL Lymphocytes # 0.9 L (1.0-4.8) k/uL Monocytes # 0.4 (0-1.0) k/uL Eosinophils # 0.1 (0-0.7) k/uL Basophils # 0.0 (0-0.2) k/uL PT (9.0-12.0) sec INR (<1.2) APTT (22.0-30.0) sec Sodium 134 L (137-145) mmol/L Potassium 4.4 (3.5-5.1) mmol/L Chloride 99 (98-107) mmol/L Carbon Dioxide 24 (22-30) mmol/L Anion Gap 11 mmol/L BUN 39 H (9-20) mg/dL Creatinine 1.19 (0.66-1.25) mg/dL Est GFR (CKD-EPI)AfAm 70 (>60 ml/min/1.73 sqM) Est GFR (CKD-EPI)NonAf 60 (>60 ml/min/1.73 sqM) Glucose 412 H (74-99) mg/dL Calcium 9.7 (8.4-10.2) mg/dL Total Bilirubin 0.9 (0.2-1.3) mg/dL AST 171 H (17-59) U/L ALT 297 H (21-72) U/L Alkaline Phosphatase 231 H (38-126) U/L Troponin I (0.000-0.034) ng/mL NT-Pro-B Natriuret Pep 26696 pg/mL Total Protein 6.4 (6.3-8.2) g/dL Albumin 4.1 (3.5-5.0) g/dL 08/20/18 08/20/18 Range/Units 19:52 19:52 WBC (3.8-10.6) k/uL RBC (4.30-5.90) m/uL Hgb (13.0-17.5) gm/dL Hct (39.0-53.0) % MCV (80.0-100.0) fL MCH (25.0-35.0) pg MCHC (31.0-37.0) g/dL RDW (11.5-15.5) % Plt Count (150-450) k/uL Neutrophils % % Lymphocytes % % Monocytes % % Eosinophils % % Basophils % % Neutrophils # (1.3-7.7) k/uL Lymphocytes # (1.0-4.8) k/uL Monocytes # (0-1.0) k/uL Eosinophils # (0-0.7) k/uL Basophils # (0-0.2) k/uL PT 10.5 (9.0-12.0) sec INR 1.0 (<1.2) APTT 23.0 (22.0-30.0) sec Sodium (137-145) mmol/L Potassium (3.5-5.1) mmol/L Chloride (98-107) mmol/L Carbon Dioxide (22-30) mmol/L Anion Gap mmol/L BUN (9-20) mg/dL Creatinine (0.66-1.25) mg/dL Est GFR (CKD-EPI)AfAm (>60 ml/min/1.73 sqM) Est GFR (CKD-EPI)NonAf (>60 ml/min/1.73 sqM) Glucose (74-99) mg/dL Calcium (8.4-10.2) mg/dL Total Bilirubin (0.2-1.3) mg/dL AST (17-59) U/L ALT (21-72) U/L Alkaline Phosphatase (38-126) U/L Troponin I 0.026 (0.000-0.034) ng/mL NT-Pro-B Natriuret Pep pg/mL Total Protein (6.3-8.2) g/dL Albumin (3.5-5.0) g/dL - EKG Data EKG Comments: EKG obtained at 1945 shows normal sinus rhythm with a ventricular rate of 72, OH interval 166, QRS duration 104, QTC 416, QTC 455. No evidence of ST elevation or depression. (Kelly Parry) - Radiology Data Two-view x-ray of the chest is obtained. Report was reviewed in its entirety. Impression by Dr. Chaidez shows mild congestive heart failure with pleural small effusions. No change. (Kelly Parry) Disposition Decision to Admit Reason: Admit from EC Decision Date: 08/20/18 Decision Time: 22:12 <Kelly Parry - Last Filed: 08/20/18 23:18> <Raquel Mullen - Last Filed: 08/24/18 04:31> Clinical Impression: Congestive heart failure Disposition: ADMITTED IP TO THIS [facility] Condition: Stable
[2018-08-20 20:36] LABS: Basophils % (A) 1 %; Eosinophils # (A) 0.1 k/uL (0-0.7); Eosinophils % (A) 1 %; HCT 42.8 % (39.0-53.0); HGB 13.8 gm/dL (13.0-17.5); Lymphocytes # (A) 0.9 k/uL (1.0-4.8); Lymphocytes % (A) 19 %; MCHC 32.3 g/dL (31.0-37.0); MCV 89.8 fL (80.0-100.0); Mean Platelet Volume 8.7; Monocytes # (A) 0.4 k/uL (0-1.0); Monocytes % (A) 9 %; Neutrophils # (A) 3.3 k/uL (1.3-7.7); Neutrophils % (A) 68 %; Platelet Count 149 k/uL (150-450); RBC 4.77 m/uL (4.30-5.90); RDW 13.1 % (11.5-15.5); WBC 4.8 k/uL (3.8-10.6)
[2018-08-20 20:44] LABS: Prothrombin Time 10.5 sec (9.0-12.0)
[2018-08-20 20:45] LABS: Albumin 4.1 g/dL (3.5-5.0); Calcium 9.7 mg/dL (8.4-10.2); Potassium 4.4 mmol/L (3.5-5.1); Total Bilirubin 0.9 mg/dL (0.2-1.3); Total Protein 6.4 g/dL (6.3-8.2)
[2018-08-20] MEDS ORDERED: INSULIN ASPART (NovoLOG) 100 UNIT/ML VIAL SQ STA (20:47)
[2018-08-20] MEDS ORDERED: ALPRAZolam 0.5 MG TAB PO PRN (22:02)
[2018-08-20] MEDS: FUROSEMIDE 10 MG/ML 4 ML VIAL IV SCH (22:15)
[2018-08-20 23:51] LABS: Glucose,Whole Blood 102 mg/dL (75-99)
[2018-08-21] MEDS: FUROSEMIDE 10 MG/ML 4 ML VIAL IV SCH ×3 (05:59→21:56)
[2018-08-21 06:01] LABS: Glucose,Whole Blood 297 mg/dL (75-99)
[2018-08-21] MEDS: INSULIN ASPART (NovoLOG) 100 UNIT/ML VIAL SQ SCH ×4 (06:02→20:11)
[2018-08-21] MEDS: ASPIRIN 325 MG TAB PO SCH (08:02)
[2018-08-21] MEDS: CARVEDILOL 6.25 MG TAB PO SCH ×2 (08:02→17:31)
[2018-08-21] MEDS: ISOSORBIDE MONONITRATE ER 60 MG TAB.ER.24H PO SCH ×2 (08:02→21:56)
[2018-08-21] MEDS: LISINOPRIL 20 MG TAB PO SCH ×2 (08:02→21:56)
[2018-08-21] MEDS: ATORVASTATIN 40 MG TAB PO SCH (08:02)
--- NOTE | 2018-08-21 10:02 | P.CRDCN ---
History of Present Illness Consult date: 08/21/18 Chief complaint: Shortness of breath History of present illness: This is a pleasant 73-year-old gentleman who sees Dr. KAYLA River in the office as an outpatient with a past medical history significant for coronary artery disease and status post coronary artery bypass grafting, peripheral arterial disease and prior peripheral revascularization, diabetes, hypertension, and dyslipidemia, presented to the emergency room complaining of shortness of breath. The patient was not taking his Lasix for the last 2-3 weeks. He was running out of the medication and he did not call for refill. He was experiencing progressive exertional dyspnea and for the last few days orthopnea. He developed severe bilateral lower extremities edema. He did gained 22 pounds within the last 2 weeks. No symptoms of chest pain or chest discomfort, dizziness or lightheadedness, heart racing or fluttering, or syncope. The BNP came in to be elevated. The chest x-ray showed findings consistent with CHF. The troponin came in to be within normal limits. The rest of the blood work came in to be unremarkable. Yesterday the patient's cold before he presented to the hospital and he was restarted back on his oral Lasix but he did not feel better and because of that he called again I advised the patient to present to the emergency room. He was stated on Lasix IV and since then he diuresed very very well. Overall he is feeling better. Past Medical History Past Medical History: Coronary Artery Disease (CAD), Heart Failure, CVA/TIA, Diabetes Mellitus, Hyperlipidemia, Hypertension, Myocardial Infarction ([place]), Osteoarthritis (OA) Additional Past Medical History / Comment(s): GOUT,NEUROPATHY IN FEET, TIA 2014- no residual effects, STENT LEFT CAROTID ARTERY 03/19/17., WOUNDS ON RIGHT FOOT-STATES HEEL AND RIGHT SIDE OF FOOT. Last Myocardial Infarction Date:: 2010 History of Any Multi-Drug Resistant Organisms: None Reported Past Surgical History: Coronary Bypass/CABG, Heart Catheterization With Stent, Hernia Repair Additional Past Surgical History / Comment(s): -2010 5 VESSELS, NASAL SURG., LEFT CAROTID STENT (03/19/17). Past Anesthesia/Blood Transfusion Reactions: No Reported Reaction Date of Last Stent Placement:: 2015 Past Psychological History: No Psychological Hx Reported Smoking Status: Never smoker Past Alcohol Use History: None Reported Past Drug Use History: None Reported - Past Family History Father Family Medical History: Hypertension, Myocardial Infarction ([place]) Mother Family Medical History: No Reported History, Myocardial Infarction ([place]) Brother(s) Family Medical History: Hypertension, Myocardial Infarction ([place]) Medications and Allergies Home Medications Medication Instructions Recorded Confirmed Type ALPRAZolam [Xanax] 0.5 mg PO TID PRN 09/26/13 08/20/18 History Atorvastatin [Lipitor] 40 mg PO DAILY 03/30/17 08/20/18 History Carvedilol [Coreg] 6.25 mg PO BID 03/30/17 08/20/18 History metFORMIN HCL [Glucophage] 500 mg PO BID 03/30/17 08/20/18 History Lisinopril [Zestril] 20 mg PO BID 04/20/17 08/20/18 History Isosorbide Mononitrate ER [Imdur] 60 mg PO BID 09/06/17 08/20/18 History Insulin Aspart Protam & Aspart 30 units SQ BID 08/08/18 08/20/18 History [NovoLOG MIX 70-30 Flexpen] Aspirin EC [Ecotrin] 325 mg PO DAILY 08/20/18 08/20/18 History Furosemide [Lasix] 40 mg PO DAILY 08/20/18 08/20/18 History Allergies Allergy/AdvReac Type Severity Reaction Status Date / Time No Known Allergies Allergy Verified 08/20/18 20:08 Physical Exam Vitals: Vital Signs Temp Pulse Pulse Resp BP BP Pulse Ox 08/21/18 08:00 98.3 F 72 18 132/69 96 08/21/18 04:00 98.1 F 75 18 131/62 96 08/21/18 00:05 97.2 F L 72 18 126/95 100 08/20/18 23:46 97.6 F 08/20/18 23:43 67 18 137/75 97 08/20/18 22:41 69 18 121/88 96 08/20/18 22:13 72 18 161/97 97 08/20/18 20:28 73 18 138/78 98 08/20/18 19:22 97.7 F 79 20 154/91 98 Intake and Output 08/20/18 08/21/18 08/21/18 22:59 06:59 14:59 Intake Total 480 Output Total 600 Balance -120 Intake: Oral 480 Output: Urine 600 Other: Weight 72.938 kg 70.5 kg - Constitutional General appearance: no acute distress - Respiratory Respiratory: bilateral: diminished - Cardiovascular Rhythm: regular Heart sounds: normal: S1, S2 Results 08/20/18 19:52 08/20/18 19:52 Cardiac Enzymes 08/20/18 08/20/18 08/21/18 Range/Units 19:52 19:52 04:19 AST 171 H (17-59) U/L Troponin I 0.026 0.043 H* (0.000-0.034) ng/mL Coagulation 08/20/18 Range/Units 19:52 PT 10.5 (9.0-12.0) sec APTT 23.0 (22.0-30.0) sec CBC 08/20/18 Range/Units 19:52 WBC 4.8 (3.8-10.6) k/uL RBC 4.77 (4.30-5.90) m/uL Hgb 13.8 (13.0-17.5) gm/dL Hct 42.8 (39.0-53.0) % Plt Count 149 L (150-450) k/uL Comprehensive Metabolic Panel 08/20/18 Range/Units 19:52 Sodium 134 L (137-145) mmol/L Potassium 4.4 (3.5-5.1) mmol/L Chloride 99 (98-107) mmol/L Carbon Dioxide 24 (22-30) mmol/L BUN 39 H (9-20) mg/dL Creatinine 1.19 (0.66-1.25) mg/dL Glucose 412 H (74-99) mg/dL Calcium 9.7 (8.4-10.2) mg/dL AST 171 H (17-59) U/L ALT 297 H (21-72) U/L Alkaline Phosphatase 231 H (38-126) U/L Total Protein 6.4 (6.3-8.2) g/dL Albumin 4.1 (3.5-5.0) g/dL Current Medications Generic Name Dose Route Start Last Admin Trade Name Freq PRN Reason Stop Dose Admin Alprazolam 0.5 mg 08/20/18 22:02 Xanax PO TID PRN Anxiety Aspirin 325 mg 08/21/18 09:00 05/05/19 08:02 Aspirin PO 325 mg DAILY TODD Administration Atorvastatin Calcium 40 mg 08/21/18 09:00 08/21/18 08:02 Lipitor PO 40 mg DAILY TODD Administration Carvedilol 6.25 mg 08/21/18 07:30 08/21/18 08:02 Coreg PO 6.25 mg BID-W/MEALS TODD Administration Furosemide 40 mg 08/20/18 22:00 08/21/18 05:59 Lasix IV 40 mg Q8H TODD Administration Insulin Aspart 0 unit 08/21/18 07:30 08/21/18 06:02 Novolog SQ 5 unit ACHS TODD Administration Protocol Isosorbide Mononitrate 60 mg 08/21/18 09:00 08/21/18 08:02 Imdur PO 60 mg BID TODD Administration Lisinopril 20 mg 08/21/18 09:00 08/21/18 08:02 Zestril PO 20 mg BID TODD Administration Intake and Output 08/20/18 08/21/18 08/21/18 22:59 06:59 14:59 Intake Total 480 Output Total 600 Balance -120 Intake: Oral 480 Output: Urine 600 Other: Weight 72.938 kg 70.5 kg 08/20/18 19:52 08/20/18 19:52 Assessment and Plan Assessment: Assessment #1 congestive heart failure exacerbation and known if it's due to systolic or diastolic dysfunction at this point #2 known severe underlying coronary artery disease and prior CABG #3 peripheral arterial disease #4 diabetes #5 hypertension #6 dyslipidemia Plan #1 continue IV Lasix #2 continue monitor the kidney function and electrolytes #3 obtain an echocardiogram was Doppler to establish LV function #4 follow-up with the patient Thank you for allowing us participate in his care and we'll continue following up with the patient
[2018-08-21 11:25] LABS: Glucose,Whole Blood 351 mg/dL (75-99)
[2018-08-21] MEDS ORDERED: INSULIN ASPART (NovoLOG) 100 UNIT/ML VIAL SQ ONE (11:35)
[2018-08-21 12:56] VITALS: BMI 23.6
--- NOTE | 2018-08-21 15:05 | P.HPIM ---
History of Present Illness H&P Date: 08/21/18 73-year-old gentleman who sees Dr. KAYLA River in the office as an outpatient with a past medical history significant for coronary artery disease and status post coronary artery bypass grafting, peripheral arterial disease and prior peripheral revascularization, diabetes, hypertension, and dyslipidemia, presented to the emergency room complaining of shortness of breath. The patient was not taking his Lasix for the last 2-3 weeks. He was running out of the medication and he did not call for refill. He was experiencing progressive exertional dyspnea and for the last few days orthopnea. He developed severe bilateral lower extremities edema. He did gained 22 pounds within the last 2 weeks. No symptoms of chest pain or chest discomfort, dizziness or lightheadedness, heart racing or fluttering, or syncope. The BNP came in to be elevated. The chest x-ray showed findings consistent with CHF. The troponin came in to be within normal limits. The rest of the blood work came in to be unremarkable. Yesterday the patient's cold before he presented to the hospital and he was restarted back on his oral Lasix but he did not feel better and because of that he called again I advised the patient to present to the emergency room. He was stated on Lasix IV and since then he diuresed very very well. Overall he is feeling better. Review of Systems Constitutional: Denies chills, Denies fever Eyes: denies blurred vision Cardiovascular: Reports shortness of breath, Denies chest pain Respiratory: Denies cough with sputum Gastrointestinal: Denies abdominal pain, Denies nausea, Denies vomiting Genitourinary: Denies dysuria, Denies hematuria Past Medical History Past Medical History: Coronary Artery Disease (CAD), Heart Failure, CVA/TIA, Diabetes Mellitus, Hyperlipidemia, Hypertension, Myocardial Infarction ([place]), Osteoarthritis ([place]) Additional Past Medical History / Comment(s): GOUT,NEUROPATHY IN FEET, TIA 2014- no residual effects, STENT LEFT CAROTID ARTERY 03/19/17., WOUNDS ON RIGHT FOOT- STATES HEEL AND RIGHT SIDE OF FOOT. Last Myocardial Infarction Date:: 2010 History of Any Multi-Drug Resistant Organisms: None Reported Past Surgical History: Coronary Bypass/CABG, Heart Catheterization With Stent, Hernia Repair Additional Past Surgical History / Comment(s): 5 VESSELS, NASAL SURG., LEFT CAROTID STENT (03/19/17). Past Anesthesia/Blood Transfusion Reactions: No Reported Reaction Date of Last Stent Placement:: 2015 Past Psychological History: No Psychological Hx Reported Smoking Status: Never smoker Past Alcohol Use History: None Reported Past Drug Use History: None Reported - Past Family History Father Family Medical History: Hypertension, Myocardial Infarction ([place]) Mother Family Medical History: No Reported History, Myocardial Infarction ([place]) Brother(s) Family Medical History: Hypertension, Myocardial Infarction ([place]) Medications and Allergies Home Medications Medication Instructions Recorded Confirmed Type ALPRAZolam [Xanax] 0.5 mg PO TID PRN 09/26/13 08/20/18 History Atorvastatin [Lipitor] 40 mg PO DAILY 03/30/17 08/20/18 History Carvedilol [Coreg] 6.25 mg PO BID 03/30/17 08/20/18 History metFORMIN HCL [Glucophage] 500 mg PO BID 03/30/17 08/20/18 History Lisinopril [Zestril] 20 mg PO BID 04/20/17 08/20/18 History Isosorbide Mononitrate ER [Imdur] 60 mg PO BID 09/06/17 08/20/18 History Insulin Aspart Protam & Aspart 30 units SQ BID 08/08/18 08/20/18 History [NovoLOG MIX 70-30 Flexpen] Aspirin EC [Ecotrin] 325 mg PO DAILY 08/20/18 08/20/18 History Furosemide [Lasix] 40 mg PO DAILY 08/20/18 08/20/18 History Allergies Allergy/AdvReac Type Severity Reaction Status Date / Time No Known Allergies Allergy Verified 08/20/18 20:08 Physical Exam Vitals: Vital Signs Temp Pulse Pulse Resp BP BP Pulse Ox 08/21/18 08:00 98.3 F 72 18 132/69 96 08/21/18 04:00 98.1 F 75 18 131/62 96 08/21/18 00:05 97.2 F L 72 18 126/95 100 08/20/18 23:46 97.6 F 08/20/18 23:43 67 18 137/75 97 08/20/18 22:41 69 18 121/88 96 08/20/18 22:13 72 18 161/97 97 08/20/18 20:28 73 18 138/78 98 08/20/18 19:22 97.7 F 79 20 154/91 98 Intake and Output 08/20/18 08/21/18 08/21/18 22:59 06:59 14:59 Intake Total 480 Output Total 600 Balance -120 Intake: Oral 480 Output: Urine 600 Other: Weight 72.938 kg 70.5 kg PHYSICAL EXAMINATION: GENERAL: The patient is alert and oriented x3, not in any acute distress. Well developed, well nourished. HEENT: Pupils are round and equally reacting to light. EOMI. No scleral icterus. No conjunctival pallor. Normocephalic, atraumatic. No pharyngeal erythema. No thyromegaly. CARDIOVASCULAR: S1 and S2 present. No murmurs, rubs, or gallops. PULMONARY: Chest is clear to auscultation, no wheezing or crackles. ABDOMEN: Soft, nontender, nondistended, normoactive bowel sounds. No palpable organomegaly. MUSCULOSKELETAL: No joint swelling or deformity. EXTREMITIES: No cyanosis, clubbing, or pedal edema. NEUROLOGICAL: Gross neurological examination did not reveal any focal deficits. SKIN: No rashes. Results CBC & Chem 7: 08/20/18 19:52 08/20/18 19:52 Labs: Abnormal Lab Results - Last 24 Hours (Table) 08/20/18 08/20/18 08/20/18 Range/Units 19:52 19:52 23:49 Plt Count 149 L (150-450) k/uL Lymphocytes # 0.9 L (1.0-4.8) k/uL Sodium 134 L (137-145) mmol/L BUN 39 H (9-20) mg/dL Glucose 412 H (74-99) mg/dL POC Glucose (mg/dL) 102 H (75-99) mg/dL AST 171 H (17-59) U/L ALT 297 H (21-72) U/L Alkaline Phosphatase 231 H (38-126) U/L Troponin I (0.000-0.034) ng/mL 08/21/18 08/21/18 08/21/18 Range/Units : 06:00 10:04 Plt Count (150-450) k/uL Lymphocytes # (1.0-4.8) k/uL Sodium (137-145) mmol/L BUN (9-20) mg/dL Glucose (74-99) mg/dL POC Glucose (mg/dL) 297 H (75-99) mg/dL AST (17-59) U/L ALT (21-72) U/L Alkaline Phosphatase (38-126) U/L Troponin I 0.043 H* 0.038 H* (0.000-0.034) ng/mL 08/21/18 Range/Units 11:21 Plt Count (150-450) k/uL Lymphocytes # (1.0-4.8) k/uL Sodium (137-145) mmol/L BUN (9-20) mg/dL Glucose (74-99) mg/dL POC Glucose (mg/dL) 351 H (75-99) mg/dL AST (17-59) U/L ALT (21-72) U/L Alkaline Phosphatase (38-126) U/L Troponin I (0.000-0.034) ng/mL Thrombosis Risk Factor Assmnt - Choose All That Apply Any of the Below Risk Factors Present?: Yes Each Factor Represents 1 point: Swollen legs (current) Other Risk Factors: Yes Each Risk Factor Represents 2 Points: Age 61-74 years Other congenital or acquired thrombophilia - If yes, enter type in comment: No Thrombosis Risk Factor Assessment Total Risk Factor Score: 3 Thrombosis Risk Factor Assessment Level: Moderate Risk Assessment and Plan Assessment: 1. Acute exacerbation CHF - We will monitor patient on cardiac telemetry; monitor EKG and trend troponin - Patient is started on IV Lasix; we will monitor strict BRIDGET's and daily weights; monitor renal function and electrolytes - Order 2-D echo; consult cardiology for further recommendations 2. Diabetes mellitus type 1; we will restart patient on home dose of 7030 and continue to monitor Accu-Cheks with insulin sliding scale 3. Hypertension; stable on Coreg 6.25 mg twice a day and Zestril 20 mg twice a day 4. Hyperlipidemia; continue with Lipitor 40 mg by mouth daily at bedtime 5. DVT prophylaxis; SCDs CODE STATUS; full code Time with Patient: Greater than 30
[2018-08-21 17:04] LABS: Glucose,Whole Blood 143 mg/dL (75-99)
[2018-08-21] MEDS: INSULN ASP PRT/INSULIN ASPART 100 UNIT/ML 10 ML VIAL SQ SCH (17:32)
[2018-08-21 20:01] LABS: Glucose,Whole Blood 101 mg/dL (75-99)
[2018-08-22 06:20] LABS: Glucose,Whole Blood 184 mg/dL (75-99)
[2018-08-22] MEDS: CARVEDILOL 6.25 MG TAB PO SCH ×2 (06:31→18:00)
[2018-08-22] MEDS: FUROSEMIDE 10 MG/ML 4 ML VIAL IV SCH ×3 (06:31→21:19)
[2018-08-22] MEDS: INSULN ASP PRT/INSULIN ASPART 100 UNIT/ML 10 ML VIAL SQ SCH ×2 (06:32→18:01)
[2018-08-22] MEDS: INSULIN ASPART (NovoLOG) 100 UNIT/ML VIAL SQ SCH ×4 (06:32→21:19)
[2018-08-22 08:03] LABS: Basophils % (A) 0 %; Eosinophils # (A) 0.1 k/uL (0-0.7); Eosinophils % (A) 2 %; HCT 40.9 % (39.0-53.0); HGB 13.4 gm/dL (13.0-17.5); Lymphocytes # (A) 1.2 k/uL (1.0-4.8); Lymphocytes % (A) 16 %; MCH 29.4 pg (25.0-35.0); MCHC 32.6 g/dL (31.0-37.0); MCV 90.1 fL (80.0-100.0); Mean Platelet Volume 8.6; Monocytes # (A) 0.5 k/uL (0-1.0); Monocytes % (A) 7 %; Neutrophils # (A) 5.3 k/uL (1.3-7.7); Neutrophils % (A) 74 %; Platelet Count 187 k/uL (150-450); RBC 4.54 m/uL (4.30-5.90); RDW 13.2 % (11.5-15.5); WBC 7.1 k/uL (3.8-10.6)
--- NOTE | 2018-08-22 08:08 | P.PN ---
Subjective Progress Note Date: 08/22/18 Principal diagnosis: Dyspnea This is a continue present 73-year-old white male with known history of poorly controlled diabetes who comes in with worsening shortness of breath and edema. Diuresis has been done and we are working patient up for recurrent CHF with cardiomyopathy. Patient states no voiding difficulties. He states less dyspnea on exertion now that he said significant increase diuresis. No other voiding difficulties. No significant nausea, vomiting or diarrhea stated. Objective - Vital Signs Vital signs: Vital Signs Temp 97.4 F L 08/22/18 07:45 Pulse 73 08/22/18 07:45 Resp 18 08/22/18 07:45 BP 106/53 08/22/18 07:45 Pulse Ox 96 08/22/18 07:45 Intake & Output 08/21/18 08/22/18 08/22/18 18:59 06:59 18:59 Intake Total 410 470 360 Output Total 2500 1900 Balance -2089 -143 360 Weight 70.5 kg 66.3 kg Intake: Oral 410 470 360 Output: Urine 2500 1900 Other: # Voids 2 - Constitutional General appearance: Present: average body habitus - EENT Eyes: Absent: abnormal pupil - Respiratory Respiratory: bilateral: diminished - Cardiovascular Rhythm: regular Heart sounds: normal: S1, S2 Abnormal Heart Sounds: Absent: S3 Gallop - Gastrointestinal General gastrointestinal: Present: soft. Absent: tenderness - Psychiatric Psychiatric: Present: A&O x's 3, appropriate affect - Labs CBC & Chem 7: 08/20/18 19:52 08/20/18 19:52 Labs: Abnormal Lab Results - Last 24 Hours (Table) 08/21/18 08/21/18 08/21/18 Range/Units 10:04 11:21 17:03 POC Glucose (mg/dL) 351 H 143 H (75-99) mg/dL Troponin I 0.038 H* (0.000-0.034) ng/mL 08/21/18 08/22/18 Range/Units 20:00 : POC Glucose (mg/dL) 101 H 184 H (75-99) mg/dL Troponin I (0.000-0.034) ng/mL Assessment and Plan (1) Congestive heart failure Current Visit: Yes Status: Acute Code(s): I50.9 - HEART FAILURE, UNSPECIFIED SNOMED Code(s): 76920181 (2) CAD (coronary artery disease) Current Visit: No Status: Acute Code(s): I25.10 - ATHSCL HEART DISEASE OF [place] CORONARY ARTERY W/O ANG PCTRS SNOMED Code(s): 851741735 (3) Cardiomyopathy Current Visit: No Status: Acute Code(s): I42.9 - CARDIOMYOPATHY, UNSPECIFIED SNOMED Code(s): 62497586 (4) Dyspnea Current Visit: No Status: Acute Code(s): R06.00 - DYSPNEA, UNSPECIFIED SNOMED Code(s): 224304194 (5) Hyperglycemia Current Visit: No Status: Acute Code(s): R73.9 - HYPERGLYCEMIA, UNSPECIFIED SNOMED Code(s): 66379055 (6) Type 2 diabetes mellitus Current Visit: No Status: Acute Code(s): E11.9 - TYPE 2 DIABETES MELLITUS WITHOUT COMPLICATIONS SNOMED Code(s): 16517384 Plan: Await echocardiogram. Check CMP in a.m. Reiterated compliance with insulin treatment. Watch vitals closely. Appreciate cardiology input. Time with Patient: Greater than 30
[2018-08-22 08:09] LABS: Calcium 9.3 mg/dL (8.4-10.2); Potassium 3.7 mmol/L (3.5-5.1)
[2018-08-22] MEDS: ATORVASTATIN 40 MG TAB PO SCH (09:02)
[2018-08-22] MEDS: LISINOPRIL 20 MG TAB PO SCH ×2 (09:02→21:19)
[2018-08-22] MEDS: ISOSORBIDE MONONITRATE ER 60 MG TAB.ER.24H PO SCH ×2 (09:02→21:19)
[2018-08-22] MEDS: ASPIRIN 325 MG TAB PO SCH (09:02)
[2018-08-22 11:33] LABS: Glucose,Whole Blood 91 mg/dL (75-99)
--- NOTE | 2018-08-22 12:16 | ECHOF ---
Referral Reason:CHF MEASUREMENTS -------- HEIGHT: 172.7 cm WEIGHT: 66.2 kg BP: 116/59 IVSd: 1.4 cm (0.6 - 1.1) LVIDd: 4.8 cm (3.9 - 5.3) LVPWd: 1.2 cm (0.6 - 1.1) IVSs: 1.3 cm LVIDs: 4.2 cm LVPWs: 1.3 cm RVIDd: 3.1 cm (< 3.3) LAESV Index (A-L): 46.04 ml/m Ao Diam: 3.0 cm (2.0 - 3.7) LA Diam: 4.9 cm (2.7 - 3.8) AV Cusp: 1.5 cm (1.5 - 2.6) EPSS: 1.0 cm MV E To: 0.98 m/s MV DecT: 204 ms MV A To: 0.88 m/s MV E/A Ratio: 1.11 RAP: 5.00 mmHg RVSP: 21.56 mmHg MV EF SLOPE: 77.91 mm/s (70 - 150) MV EXCURSION: 17.70 mm (> 18.000) FINDINGS -------- Sinus rhythm. This was a technically good study. The left ventricular size is normal. There is mild concentric left ventricular hypertrophy. Overa ll left ventricular systolic function is moderately impaired with, an EF between 35 - 40 %. Septal Hypokinesis [place] Hypokinesis. The right ventricle is normal in size. The left atrium is moderately dilated. LA is severely dilated >40 ml/m2 The right atrial size is normal. Interatrial and interventricular septum intact. There is mild aortic valve sclerosis. There is no evidence of aortic regurgitation. Mild mitral annular calcification present. Mild mitral regurgitation is present. Mild tricuspid regurgitation present. There is no evidence of pulmonary hypertension. The right v entricular systolic pressure, as measured by Doppler, is 21.56mmHg. There is no pulmonic regurgitation present. The aortic root size is normal. Normal inferior vena cava with normal inspiratory collapse consistent with estimated right atrial pre ssure of 5 mmHg. There is no pericardial effusion. CONCLUSIONS -------- 1. The left ventricular size is normal. 2. There is mild concentric left ventricular hypertrophy. 3. Overall left ventricular systolic function is moderately impaired with, an EF between 35 - 40 %. 4. Septal Hypokinesis 5. [place] Hypokinesis. 6. The right ventricle is normal in size. 7. The left atrium is moderately dilated. 8. LA is severely dilated >40 ml/m2 9. The right atrial size is normal. 10. Interatrial and interventricular septum intact. 11. There is mild aortic valve sclerosis. 12. Mild mitral annular calcification present. 13. Mild mitral regurgitation is present. 14. Mild tricuspid regurgitation present. 15. There is no evidence of pulmonary hypertension. 16. The right ventricular systolic pressure, as measured by Doppler, is 21.56mmHg. 17. There is no pulmonic regurgitation present. 18. The aortic root size is normal. 19. Normal inferior vena cava with normal inspiratory collapse consistent with estimated right atrial pressure of 5 mmHg. 20. There is no pericardial effusion. DIRECTOR FRANCHISE SALES: Verenice Marroquin RDCS
--- NOTE | 2018-08-22 13:56 | P.PN ---
Subjective Progress Note Date: 08/22/18 This is a pleasant 73-year-old gentleman who sees Dr. KAYLA River in the office as an outpatient with a past medical history significant for coronary artery disease and status post coronary artery bypass grafting, peripheral arterial disease and prior peripheral revascularization, diabetes, hypertension, and dyslipidemia, presented to the emergency room complaining of shortness of breath. The patient was not taking his Lasix for the last 2-3 weeks. He was running out of the medication and he did not call for refill. He was experiencing progressive exertional dyspnea and for the last few days orthopnea. He developed severe bilateral lower extremities edema. He did gained 22 pounds within the last 2 weeks. No symptoms of chest pain or chest discomfort, dizziness or lightheadedness, heart racing or fluttering, or syncope. The BNP came in to be elevated. The chest x-ray showed findings consistent with CHF. The troponin came in to be within normal limits. The rest of the blood work came in to be unremarkable. Yesterday the patient's cold before he presented to the hospital and he was restarted back on his oral Lasix but he did not feel better and because of that he called again I advised the patient to present to the emergency room. He was stated on Lasix IV and since then he diuresed very very well. Overall he is feeling better. 08/22/2018 Patient was seen and examined this morning, feels significantly better overall. Denies any shortness of breath. Echocardiogram with Doppler study revealed an ejection fraction of 35-40% with apical septal hypokinesia noted. Weight is down 4 kg from admission, creatinine today 1.1. We'll discontinue the IV Lasix, start the patient on oral diuretics from tomorrow. Objective - Vital Signs Vital signs: Vital Signs Temp 97.4 F L 08/22/18 07:45 Pulse 73 08/22/18 07:45 Resp 18 08/22/18 07:45 BP 106/53 08/22/18 07:45 Pulse Ox 96 08/22/18 07:45 Intake & Output 08/21/18 08/22/18 08/22/18 18:59 06:59 18:59 Intake Total 410 470 600 Output Total 2500 1900 Balance -2089 600 Weight 70.5 kg 66.3 kg Intake: Oral 410 470 600 Output: Urine 2500 1900 Other: # Voids 2 - Exam PHYSICAL EXAMINATION: GENERAL: Charles he 3-year-old gentleman in no acute distress at the time of my examination HEENT: Head is atraumatic, normocephalic. Pupils equal, round. Sclera anicteric. Conjunctiva are clear. Mucous membranes of the mouth are moist. Neck is supple. There is no elevated jugular venous pressure. No carotid bruit is heard. HEART EXAMINATION: Heart S1, S2 normal. No murmur or gallop heard. CHEST EXAMINATION: Lungs are clear to auscultation and precussion. No chest wall tenderness is noted on palpation or with deep breathing. ABDOMEN: Soft, nontender. Bowel sounds are heard. No organomegaly noted. EXTREMITIES: 2+ peripheral pulses with no evidence of peripheral edema and no calf tenderness noted. NEUROLOGIC patient is awake, alert and oriented 3 . . - Labs CBC & Chem 7: 08/22/18 07:40 08/22/18 07:40 Labs: Abnormal Lab Results - Last 24 Hours (Table) 08/21/18 08/21/18 08/22/18 Range/Units 17:03 20:00 06:19 Sodium (137-145) mmol/L Chloride (98-107) mmol/L Carbon Dioxide (22-30) mmol/L BUN (9-20) mg/dL Glucose (74-99) mg/dL POC Glucose (mg/dL) 143 H 101 H 184 H (75-99) mg/dL 08/22/18 Range/Units 07:40 Sodium 136 L (137-145) mmol/L Chloride 96 L (98-107) mmol/L Carbon Dioxide 31 H (22-30) mmol/L BUN 37 H (9-20) mg/dL Glucose 214 H (74-99) mg/dL POC Glucose (mg/dL) (75-99) mg/dL Assessment and Plan Plan: Assessment #1 congestive heart failure exacerbation systolic acute on chronic #2 known severe underlying coronary artery disease and prior CABG #3 peripheral arterial disease #4 diabetes #5 hypertension #6 dyslipidemia Plan We will discontinue the IV Lasix after this evening's dose, start the patient on Lasix 40 mg by mouth twice a day from tomorrow. Echo revealed an ejection fraction of 35%. Continue Coreg, lisinopril, Imdur, baby aspirin, and Lipitor. DNP note has been reviewed, I agree with a documented findings and plan of care. Patient was seen and examined.
--- NOTE | 2018-08-22 15:14 | CDI ---
Documentation Clarification Form Date: 08/22/2018 2:57:22 PM From: Irene Brito RN, CCDS Phone: ext [phone] Admit Date: 08/20/2018 10:00:00 PM Patient Name: Rush Krueger Visit Number: [id number] ATTENTION: The Clinical Documentation Specialists (CDI) and [facility] Coding Staff appreciate your assistance in clarifying documentation. Please respond to the clarification below the line at the bottom and electronically sign. The CDI & [facility] Coding staff will review the response and follow-up if needed. Please note: Queries are made part of the Legal Health Record. If you have any questions, please contact the author of this message via ITS. Dr. Donavan Hill Cardiomyopathy is documented in the 08/22 Progress Note and requires further specificity History/Risk Factors: CAD, Heart failure, DM, HTN, NM, Left CEA Clinical indicators: Patient C/O: SOB and LE Edema CXR: Heart sightly enlarged, pulmonary vascular congestion, Mild CHF with small pleural effusions. 08/22/18 Echocardiogram: EF 35-40% Septal and apex hypokinesis, LA severe dilated Treatment: Lasix 40 mg IV Q8hrs changed to 40 mg PO BID Imdur 60 mg PO BID Zestril 60 mg PO BID In your professional opinion, can you please clarify the type of cardiomyopathy and underlying cause if known? Dilated Hypertrophic Ischemic Secondary, please indicate underlying cause if known Other, please specify Unable to determine (Last Revision: January 2017) MTDD
[2018-08-22 16:50] LABS: Glucose,Whole Blood 263 mg/dL (75-99)
[2018-08-22 20:27] LABS: Glucose,Whole Blood 158 mg/dL (75-99)
[2018-08-23 06:01] LABS: Glucose,Whole Blood 263 mg/dL (75-99)
[2018-08-23] MEDS: CARVEDILOL 6.25 MG TAB PO SCH (06:57)
[2018-08-23] MEDS: INSULIN ASPART (NovoLOG) 100 UNIT/ML VIAL SQ SCH ×2 (06:57→12:20)
[2018-08-23] MEDS: FUROSEMIDE 10 MG/ML 4 ML VIAL IV SCH (06:57)
[2018-08-23] MEDS: INSULN ASP PRT/INSULIN ASPART 100 UNIT/ML 10 ML VIAL SQ SCH (06:58)
[2018-08-23 07:50] LABS: Albumin 3.5 g/dL (3.5-5.0); Calcium 9.4 mg/dL (8.4-10.2); Potassium 4.2 mmol/L (3.5-5.1); Total Bilirubin 0.7 mg/dL (0.2-1.3); Total Protein 5.9 g/dL (6.3-8.2)
[2018-08-23] MEDS ORDERED: ASPIRIN 81 MG PO SCH (09:00)
[2018-08-23] MEDS: ATORVASTATIN 40 MG TAB PO SCH (09:14)
[2018-08-23] MEDS: ISOSORBIDE MONONITRATE ER 60 MG TAB.ER.24H PO SCH (09:14)
[2018-08-23] MEDS: LISINOPRIL 20 MG TAB PO SCH (09:15)
[2018-08-23 11:49] LABS: Glucose,Whole Blood 235 mg/dL (75-99)
--- NOTE | 2018-08-23 12:25 | P.PN ---
Subjective Progress Note Date: 08/23/18 This is a pleasant 73-year-old gentleman who sees Dr. KAYLA River in the office as an outpatient with a past medical history significant for coronary artery disease and status post coronary artery bypass grafting, peripheral arterial disease and prior peripheral revascularization, diabetes, hypertension, and dyslipidemia, presented to the emergency room complaining of shortness of breath. The patient was not taking his Lasix for the last 2-3 weeks. He was running out of the medication and he did not call for refill. He was experiencing progressive exertional dyspnea and for the last few days orthopnea. He developed severe bilateral lower extremities edema. He did gained 22 pounds within the last 2 weeks. No symptoms of chest pain or chest discomfort, dizziness or lightheadedness, heart racing or fluttering, or syncope. The BNP came in to be elevated. The chest x-ray showed findings consistent with CHF. The troponin came in to be within normal limits. The rest of the blood work came in to be unremarkable. Yesterday the patient's cold before he presented to the hospital and he was restarted back on his oral Lasix but he did not feel better and because of that he called again I advised the patient to present to the emergency room. He was stated on Lasix IV and since then he diuresed very very well. Overall he is feeling better. 08/22/2018 Patient was seen and examined this morning, feels significantly better overall. Denies any shortness of breath. Echocardiogram with Doppler study revealed an ejection fraction of 35-40% with apical septal hypokinesia noted. Weight is down 4 kg from admission, creatinine today 1.1. We'll discontinue the IV Lasix, start the patient on oral diuretics from tomorrow. 08/23/2018 Patient was seen and examined this morning, feels well, breathing is overall stable. Blood pressure 106/60 with a heart rate in the 70s, 97% on room air. Sodium 135, potassium 4.2, BUN 43 and creatinine 1.0. AST 29, ALT 135, alk phos 150. Objective - Vital Signs Vital signs: Vital Signs Temp 98.4 F 08/23/18 03:54 Pulse 74 08/23/18 08:00 Resp 18 08/23/18 08:00 BP 105/54 08/23/18 08:00 Pulse Ox 97 08/23/18 08:00 Intake & Output 08/22/18 08/23/18 08/23/18 18:59 06:59 18:59 Intake Total 960 240 Output Total 700 Balance 960 -700 240 Weight 66.5 kg Intake: Oral 960 240 Output: Urine 700 Other: # Voids 1 1 - Exam PHYSICAL EXAMINATION: GENERAL: Charles he 3-year-old gentleman in no acute distress at the time of my examination HEENT: Head is atraumatic, normocephalic. Pupils equal, round. Sclera anicteric. Conjunctiva are clear. Mucous membranes of the mouth are moist. Neck is supple. There is no elevated jugular venous pressure. No carotid bruit is heard. HEART EXAMINATION: Heart S1, S2 normal. No murmur or gallop heard. CHEST EXAMINATION: Lungs are clear to auscultation and precussion. No chest wall tenderness is noted on palpation or with deep breathing. ABDOMEN: Soft, nontender. Bowel sounds are heard. No organomegaly noted. EXTREMITIES: 2+ peripheral pulses with no evidence of peripheral edema and no calf tenderness noted. NEUROLOGIC patient is awake, alert and oriented 3 . . - Labs CBC & Chem 7: 08/22/18 07:40 08/23/18 07:13 Labs: Abnormal Lab Results - Last 24 Hours (Table) 08/22/18 08/22/18 08/23/18 Range/Units 16:43 20:26 06:00 Sodium (137-145) mmol/L BUN (9-20) mg/dL Glucose (74-99) mg/dL POC Glucose (mg/dL) 263 H 158 H 263 H (75-99) mg/dL ALT (21-72) U/L Alkaline Phosphatase (38-126) U/L Total Protein (6.3-8.2) g/dL 08/23/18 08/23/18 Range/Units 07:13 11:27 Sodium 135 L (137-145) mmol/L BUN 43 H (9-20) mg/dL Glucose 233 H (74-99) mg/dL POC Glucose (mg/dL) 235 H (75-99) mg/dL ALT 135 H (21-72) U/L Alkaline Phosphatase 150 H (38-126) U/L Total Protein 5.9 L (6.3-8.2) g/dL Assessment and Plan Plan: Assessment #1 congestive heart failure exacerbation systolic acute on chronic #2 known severe underlying coronary artery disease and prior CABG #3 peripheral arterial disease #4 diabetes #5 hypertension #6 dyslipidemia Plan From cardiology's perspective, patient may be able to be discharged home today. We'll make him a follow-up appointment to see Dr. KAYLA River in the office post discharge. DNP note has been reviewed, I agree with a documented findings and plan of care. Patient was seen and examined.
--- NOTE | 2018-08-23 12:47 | P.DS ---
Providers Date of admission: 08/20/18 22:00 Attending physician: Donavan Hill Consults: 08/20/18 22:00 Consult Physician Routine Consulting Provider: [facility] Consult Reason/Comments: CHF exacerbation, Skaf pt Do you want consulting provider notified?: Yes, Notify in am Primary care physician: Dnoavan Hill - Discharge Diagnosis(es) (1) Congestive heart failure Current Visit: Yes Status: Acute (2) CAD (coronary artery disease) Current Visit: No Status: Acute (3) Cardiomyopathy Current Visit: No Status: Acute (4) Dyspnea Current Visit: No Status: Acute (5) Hyperglycemia Current Visit: No Status: Acute (6) Type 2 diabetes mellitus Current Visit: No Status: Acute Hospital Course: This discharge summary 70-year-old white male with known history of diabetes which is fairly controlled came in with congestive heart failure. The patient was stabilized with appropriate treatment. Cardiology is consulted and the patient was then stabilized. He is tolerating medication. We reiterated poor control and better compliance with diet and medication as far as his diabetes is related. The patient is nonsmoker and is now tolerating diet and voiding without difficulty. The patient will be discharged in stable condition to follow-up with me in 3-5 days. Patient Condition at Discharge: Stable Plan - Discharge Summary Discharge Rx Participant: Yes New Discharge Prescriptions: New Isosorbide Mononitrate ER [Imdur] 60 mg PO BID #30 tab.er.24h Continue ALPRAZolam [Xanax] 0.5 mg PO TID PRN PRN Reason: Anxiety Atorvastatin [Lipitor] 40 mg PO DAILY Carvedilol [Coreg] 6.25 mg PO BID metFORMIN HCL [Glucophage] 500 mg PO BID Lisinopril [Zestril] 20 mg PO BID Insulin Aspart Protam & Aspart [NovoLOG MIX 70-30 Flexpen] 30 units SQ BID Aspirin EC [Ecotrin] 325 mg PO DAILY Furosemide [Lasix] 40 mg PO DAILY Discontinued Isosorbide Mononitrate ER [Imdur] 60 mg PO BID Discharge Medication List ALPRAZolam [Xanax] 0.5 mg PO TID PRN 09/26/13 [History] Atorvastatin [Lipitor] 40 mg PO DAILY 03/30/17 [History] Carvedilol [Coreg] 6.25 mg PO BID 03/30/17 [History] metFORMIN HCL [Glucophage] 500 mg PO BID 03/30/17 [History] Lisinopril [Zestril] 20 mg PO BID 04/20/17 [History] Insulin Aspart Protam & Aspart [NovoLOG MIX 70-30 Flexpen] 30 units SQ BID 08/08/18 [History] Aspirin EC [Ecotrin] 325 mg PO DAILY 08/20/18 [History] Furosemide [Lasix] 40 mg PO DAILY 08/20/18 [History] Isosorbide Mononitrate ER [Imdur] 60 mg PO BID #30 tab.er.24h 08/23/18 [Rx] Follow up Appointment(s)/Referral(s): Radha River MD [STAFF PHYSICIAN] - 1 Week (Office will call with follow up appointment. ) Donavan Hill MD [Primary Care Provider] - 08/29/18 11:40 am Patient Instructions/Handouts: Heart Failure (DC), Heart Healthy Diet (DC)
[2018-08-23 13:32] VITALS: BP 115/53; PULSE 72; TEMP 97.9
[2018-08-23] MEDS ORDERED: FUROSEMIDE 40 MG TAB PO SCH (16:00)
== END 2018-08-23 14:32 | disposition home or self-care (01) | DRG 293 ==
LOC: EC 19:18 → 3SCARD 22:00
PROVIDERS: ADMIT Family Medicine; ATTEND Family Medicine
DX: I11.0 Hypertensive heart disease with heart failure (principal); I50.23 Acute on chronic systolic (congestive) heart failure; E10.51 Type 1 diabetes mellitus with diabetic peripheral angiopathy without gangrene; E10.42 Type 1 diabetes mellitus with diabetic polyneuropathy; I42.9 Cardiomyopathy, unspecified; E10.65 Type 1 diabetes mellitus with hyperglycemia; I25.10 Atherosclerotic heart disease of native coronary artery without angina pectoris; E78.5 Hyperlipidemia, unspecified; M19.90 Unspecified osteoarthritis, unspecified site; M10.9 Gout, unspecified; I25.2 Old myocardial infarction; Z71.3 Dietary counseling and surveillance; Z68.22 Body mass index [BMI] 22.0-22.9, adult; Z79.899 Other long term (current) drug therapy; Z79.4 Long term (current) use of insulin; Z79.82 Long term (current) use of aspirin; Z86.73 Personal history of transient ischemic attack (TIA), and cerebral infarction without residual deficits; Z95.1 Presence of aortocoronary bypass graft; Z95.5 Presence of coronary angioplasty implant and graft; Z82.49 Family history of ischemic heart disease and other diseases of the circulatory system
CPT/HCPCS: 36415; 71046; 80048; 80053; 83880; 84484; 85025; 85610; 85730; 93005; 93306; 96374; 99285

== ENCOUNTER 2018-09-01 15:59 | Emergency (ER) | payer MEDICARE ==
[2018-09-01 16:20] VITALS: TEMP 98.5
[2018-09-01] MEDS ORDERED: FUROSEMIDE 10 MG/ML 4 ML VIAL IV STA (17:01)
--- NOTE | 2018-09-01 17:06 | ED ---
General Adult HPI - General Chief complaint: Shortness of Breath Stated complaint: fluid on lungs Time Seen by Provider: 09/01/18 16:47 Source: patient Mode of arrival: ambulatory Limitations: no limitations - History of Present Illness Initial comments: Dictation was produced using [employer] dictation software. please excuse any grammatical, word or spelling errors. Chief Complaint: 73-year-old male presents with 2 days of dyspnea. History of Present Illness: Patient is 73-year-old male who has past medical history of heart failure with ejection fraction measured at 35%. He was recently admitted to the hospital last week for proximal 4 days for dyspnea. Patient states he was prescribed Imdur and had increase in his Lasix prescription. Patient states he is prescribed 40 mg of Lasix twice a day. He is also instructed occasionally to take an extra dose of 40 mg by mouth if he feels like he needs it. Patient states his shortness breath has been worse over the last 2 days. 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 Patient has no pain complaints at this time. He does rep ort significant dyspnea when lying flat. Patient has history of coronary artery disease status post coronary artery bypass grafting. Patient denies any coughing or constitutional symptoms. Chart review shows that patient was admitted was evaluated by cardiology for CHF secondary to cardiomyopathy. According to chart review patient also has had poor compliance with diet and medication demonstration. ROS documented in this emergency department record has been reviewed and confirmed by me. Those systems with pertinent positive or negative responses have been documented in the HPI. All other systems are other negative and/or noncontributory. PHYSICAL EXAM: General Impression: Alert and oriented x3, not in acute distress HEENT: Normocephalic atraumatic, extra-ocular movements intact, pupils equal and reactive to light bilaterally, mucous membranes moist. Cardiovascular: Heart regular rate and rhythm, S1&S2 audible, no murmurs, rubs or gallops Chest: Lungs clear to auscultation bilaterally, no rhonchi, no wheeze, no rales Abdomen: Bowel sounds present, abdomen soft, non-tender, non-distended, no organomegaly Musculoskeletal: Pulses present and equal in all extremities, no peripheral edema Motor: no focal deficits noted Neurological: CN II-XII grossly intact, no focal motor or sensory deficits noted Skin: Intact with no visualized rashes Psych: Normal affect and mood ED course: 73-year-old male presents with orthopnea and dyspnea over the last 2 days. He has a history of heart failure with ejection fraction of 35%. Vital signs upon arrival are within acceptable limits. Patient's well-appearing not showing signs of respiratory distress. He is lying down flat at bedside and did not show any respiratory distress. Laboratory evaluation obtained. CBC, metabolic panel was obtained. Coag panel is unremarkable. CBC is negative. Metabolic panel is unremarkable. Troponin 0.039 which is around his baseline likely secondary to troponin leak from congestive heart failure. Prematurity peptide is 6030 and 40 which appears to be improved for him. Patient given 40 mg of IV Lasix. Patient is clear for discharge. He is told to take 120 mg of by mouth Lasix daily until evaluated by cardiology or primary care physician. Return parameters discussed. Patient is understandable and agreeable to plan. Patient counseled on salt restriction and fluid restriction. EKG interpretation: Ventricular rate 74, normal sinus rhythm, ND interval 150, QRS 102, QTC 488. No ND prolongation, no QTC prolongation, no ST or T-wave changes noted. EKG compared to 08/20/2018 showing no changes. Overall, this EKG is unremarkable - Related Data Home Medications Medication Instructions Recorded Confirmed ALPRAZolam [Xanax] 0.5 mg PO TID PRN 09/26/13 09/01/18 Atorvastatin [Lipitor] 40 mg PO DAILY 03/30/17 09/01/18 Carvedilol [Coreg] 6.25 mg PO BID 03/30/17 09/01/18 metFORMIN HCL [Glucophage] 500 mg PO BID 03/30/17 09/01/18 Lisinopril [Zestril] 20 mg PO BID 04/20/17 09/01/18 Insulin Aspart Protam & Aspart 30 units SQ BID 08/08/18 09/01/18 [NovoLOG MIX 70-30 Flexpen] Aspirin EC [Ecotrin] 325 mg PO DAILY 08/20/18 09/01/18 Previous Rx's Medication Instructions Recorded Furosemide [Lasix] 40 mg PO BID@0900,1600 #60 tablet 08/23/18 Isosorbide Mononitrate ER [Imdur] 60 mg PO BID #30 tab.er.24h 08/23/18 Allergies Allergy/AdvReac Type Severity Reaction Status Date / Time No Known Allergies Allergy Verified 09/01/18 17:04 Review of Systems ROS Statement: Those systems with pertinent positive or pertinent negative responses have been documented in the HPI. ROS Other: All systems not noted in ROS Statement are negative. Past Medical History Past Medical History: Coronary Artery Disease (CAD), Heart Failure, CVA/TIA, Diabetes Mellitus, Hyperlipidemia, Hypertension, Myocardial Infarction ([place]), Osteoarthritis (OA) Additional Past Medical History / Comment(s): GOUT,NEUROPATHY IN FEET, TIA 2014- no residual effects, STENT LEFT CAROTID ARTERY 03/19/17., WOUNDS ON RIGHT FOOT- STATES HEEL AND RIGHT SIDE OF FOOT. Last Myocardial Infarction Date:: 2010 History of Any Multi-Drug Resistant Organisms: None Reported Past Surgical History: Coronary Bypass/CABG, Heart Catheterization With Stent, Hernia Repair Additional Past Surgical History / Comment(s): 5 VESSELS, NASAL SURG., LEFT CAROTID STENT (03/19/17). Past Anesthesia/Blood Transfusion Reactions: No Reported Reaction Date of Last Stent Placement:: 2015 Past Psychological History: No Psychological Hx Reported Smoking Status: Never smoker Past Alcohol Use History: None Reported Past Drug Use History: None Reported - Past Family History Father Family Medical History: Hypertension, Myocardial Infarction ([place]) Mother Family Medical History: No Reported History, Myocardial Infarction ([place]) Brother(s) Family Medical History: Hypertension, Myocardial Infarction ([place]) General Exam Limitations: no limitations Course Vital Signs 09/01/18 09/01/18 09/01/18 16:17 17:00 17:30 Temperature 98.5 F Pulse Rate 73 79 72 Respiratory 18 18 16 Rate Blood Pressure 128/72 133/88 139/76 O2 Sat by Pulse 97 97 97 Oximetry 09/01/18 18:00 Temperature Pulse Rate 73 Respiratory 17 Rate Blood Pressure 144/95 O2 Sat by Pulse 96 Oximetry Medical Decision Making - Lab Data Result diagrams: 09/01/18 16:53 09/01/18 16:53 Lab Results 09/01/18 09/01/18 09/01/18 Range/Units 16:53 16:53 16:53 WBC 7.3 (3.8-10.6) k/uL RBC 4.89 (4.30-5.90) m/uL Hgb 13.8 (13.0-17.5) gm/dL Hct 43.8 (39.0-53.0) % MCV 89.5 (80.0-100.0) fL MCH 28.2 (25.0-35.0) pg MCHC 31.5 (31.0-37.0) g/dL RDW 13.2 (11.5-15.5) % Plt Count 236 (150-450) k/uL Neutrophils % 76 % Lymphocytes % 15 % Monocytes % 6 % Eosinophils % 2 % Basophils % 0 % Neutrophils # 5.5 (1.3-7.7) k/uL Lymphocytes # 1.1 (1.0-4.8) k/uL Monocytes # 0.4 (0-1.0) k/uL Eosinophils # 0.1 (0-0.7) k/uL Basophils # 0.0 (0-0.2) k/uL PT 10.0 (9.0-12.0) sec INR 0.9 (<1.2) APTT 22.6 (22.0-30.0) sec Sodium 140 (137-145) mmol/L Potassium 5.0 (3.5-5.1) mmol/L Chloride 101 (98-107) mmol/L Carbon Dioxide 31 H (22-30) mmol/L Anion Gap 8 mmol/L BUN 27 H (9-20) mg/dL Creatinine 0.87 (0.66-1.25) mg/dL Est GFR (CKD-EPI)AfAm >90 (>60 ml/min/1.73 sqM) Est GFR (CKD-EPI)NonAf 86 (>60 ml/min/1.73 sqM) Glucose 53 L (74-99) mg/dL Calcium 9.9 (8.4-10.2) mg/dL Total Bilirubin 0.7 (0.2-1.3) mg/dL AST 72 H (17-59) U/L ALT 142 H (21-72) U/L Alkaline Phosphatase 144 H (38-126) U/L Troponin I (0.000-0.034) ng/mL NT-Pro-B Natriuret Pep pg/mL Total Protein 7.0 (6.3-8.2) g/dL Albumin 4.4 (3.5-5.0) g/dL 09/01/18 09/01/18 Range/Units 17:08 17:08 WBC (3.8-10.6) k/uL RBC (4.30-5.90) m/uL Hgb (13.0-17.5) gm/dL Hct (39.0-53.0) % MCV (80.0-100.0) fL MCH (25.0-35.0) pg MCHC (31.0-37.0) g/dL RDW (11.5-15.5) % Plt Count (150-450) k/uL Neutrophils % % Lymphocytes % % Monocytes % % Eosinophils % % Basophils % % Neutrophils # (1.3-7.7) k/uL Lymphocytes # (1.0-4.8) k/uL Monocytes # (0-1.0) k/uL Eosinophils # (0-0.7) k/uL Basophils # (0-0.2) k/uL PT (9.0-12.0) sec INR (<1.2) APTT (22.0-30.0) sec Sodium (137-145) mmol/L Potassium (3.5-5.1) mmol/L Chloride (98-107) mmol/L Carbon Dioxide (22-30) mmol/L Anion Gap mmol/L BUN (9-20) mg/dL Creatinine (0.66-1.25) mg/dL Est GFR (CKD-EPI)AfAm (>60 ml/min/1.73 sqM) Est GFR (CKD-EPI)NonAf (>60 ml/min/1.73 sqM) Glucose (74-99) mg/dL Calcium (8.4-10.2) mg/dL Total Bilirubin (0.2-1.3) mg/dL AST (17-59) U/L ALT (21-72) U/L Alkaline Phosphatase (38-126) U/L Troponin I 0.039 H* (0.000-0.034) ng/mL NT-Pro-B Natriuret Pep 6340 pg/mL Total Protein (6.3-8.2) g/dL Albumin (3.5-5.0) g/dL Disposition Clinical Impression: CHF exacerbation Disposition: HOME SELF-CARE Condition: Good Instructions (If sedation given, give patient instructions): Heart Failure (ER) Is patient prescribed a controlled substance at d/c from ED?: No Referrals: Donavan Hill MD [Primary Care Provider] - 1-2 days Glen Newberyr MD [STAFF PHYSICIAN] - 1-2 days Time of Disposition: 18:52
[2018-09-01 17:24] LABS: Basophils % (A) 0 %; Eosinophils # (A) 0.1 k/uL (0-0.7); Eosinophils % (A) 2 %; HCT 43.8 % (39.0-53.0); HGB 13.8 gm/dL (13.0-17.5); Lymphocytes # (A) 1.1 k/uL (1.0-4.8); Lymphocytes % (A) 15 %; MCH 28.2 pg (25.0-35.0); MCHC 31.5 g/dL (31.0-37.0); MCV 89.5 fL (80.0-100.0); Mean Platelet Volume 8.6; Monocytes # (A) 0.4 k/uL (0-1.0); Monocytes % (A) 6 %; Neutrophils # (A) 5.5 k/uL (1.3-7.7); Neutrophils % (A) 76 %; Platelet Count 236 k/uL (150-450); RBC 4.89 m/uL (4.30-5.90); RDW 13.2 % (11.5-15.5); WBC 7.3 k/uL (3.8-10.6)
[2018-09-01 17:36] LABS: ALT 142 U/L (21-72); AST 72 U/L (17-59); Albumin 4.4 g/dL (3.5-5.0); Alkaline Phosphatase 144 U/L (38-126); Anion Gap 8 mmol/L; Blood Urea Nitrogen 27 mg/dL (9-20); Calcium 9.9 mg/dL (8.4-10.2); Carbon Dioxide 31 mmol/L (22-30); Chloride 101 mmol/L (98-107); Glucose 53 mg/dL (74-99); Sodium 140 mmol/L (137-145); Total Bilirubin 0.7 mg/dL (0.2-1.3)
[2018-09-01 18:00] LABS: INR 0.9 (<1.2); Partial Thromboplastin Time 22.6 sec (22.0-30.0)
--- NOTE | 2018-09-01 18:39 | XR ---
EXAMINATION TYPE: XR chest 2V DATE OF EXAM: 09/01/2018 COMPARISON: 08/20/2018 HISTORY: Short of breath TECHNIQUE: Frontal and lateral views of the chest are obtained. FINDINGS: There is no heart failure nor confluent pneumonic infiltrate. There is coarsening of the l keyanna markings. There are sternal wires. There is slight blunting of the costophrenic angles. IMPRESSION: Small pleural effusions or pleural reaction. Mild pulmonary fibrosis. No heart failure. No significant change compared to last exam.
[2018-09-01 18:58] VITALS: BP 151/96; PULSE 65; RESP 9
== END 2018-09-01 19:03 | disposition home or self-care (01) ==
LOC: EC 15:59
DX: I11.0 Hypertensive heart disease with heart failure (principal); I50.9 Heart failure, unspecified; I25.10 Atherosclerotic heart disease of native coronary artery without angina pectoris; E78.5 Hyperlipidemia, unspecified; I25.2 Old myocardial infarction; E11.40 Type 2 diabetes mellitus with diabetic neuropathy, unspecified; Z86.73 Personal history of transient ischemic attack (TIA), and cerebral infarction without residual deficits; Z79.4 Long term (current) use of insulin; Z79.82 Long term (current) use of aspirin; Z79.899 Other long term (current) drug therapy; Z95.1 Presence of aortocoronary bypass graft; Z95.5 Presence of coronary angioplasty implant and graft
CPT/HCPCS: 36415; 93005; 83880; 80053; 84484; 85025; 85610; 85730; 71046; 99285; 96374; J1940

== ENCOUNTER 2018-11-27 12:55 | Inpatient (IN) | payer MEDICARE ==
--- NOTE | 2018-11-27 13:26 | ED ---
General Adult HPI - General Chief complaint: Shortness of Breath Stated complaint: Diff Breathing Time Seen by Provider: 11/27/18 13:03 Source: patient, family, RN notes reviewed, old records reviewed Mode of arrival: wheelchair Limitations: no limitations - History of Present Illness Initial comments: Chief complaint and history of present illness this is a 73-year-old male here with his . Patient reports a short of breath lately. It increases when he bends over to tie his shoes. He states he is usually able to lay flat in bed asleep but his had to sleep - Related Data Home Medications Medication Instructions Recorded Confirmed ALPRAZolam [Xanax] 0.5 mg PO TID PRN 09/26/13 11/27/18 metFORMIN HCL [Glucophage] 500 mg PO BID 03/30/17 11/27/18 Lisinopril [Zestril] 20 mg PO BID 04/20/17 11/27/18 Aspirin EC [Ecotrin] 325 mg PO DAILY 08/20/18 11/27/18 Atorvastatin [Lipitor] 40 mg PO DAILY 11/27/18 11/27/18 Carvedilol [Coreg] 6.25 mg PO BID 11/27/18 11/27/18 Furosemide [Lasix] 40 mg PO BID 11/27/18 11/27/18 Insulin Degludec [Tresiba 40 units SQ HS 11/27/18 11/27/18 Flextouch U-100] Previous Rx's Medication Instructions Recorded Isosorbide Mononitrate ER [Imdur] 60 mg PO BID #30 tab.er.24h 08/23/18 Allergies Allergy/AdvReac Type Severity Reaction Status Date / Time No Known Allergies Allergy Verified 11/27/18 13:11 Review of Systems ROS Statement: Those systems with pertinent positive or pertinent negative responses have been documented in the HPI. Review of systems. Patient denies headache no visual acuity changes denies any chest pain reports he short of breath when bending over to tie his shoes on Lasix flat to try to sleep. He is on Lasix 40 mg twice a day. History of ejection fraction 35% and recurrent CHF issues. No neuro deficits. Patient denies any significant leg swelling. All systems are reviewed. Past medical problems significant for coronary artery disease, TIA, diabetes mellitus, hyperlipidemia and hypertension. Previous IN and osteoarthritis. The patient's surgeries include a 5 way bypass followed by cardiac cath with a stent placed. Chronic neuropathy in his feet also a stent in the left carotid artery patient's family history hypertension and heart attack. The patient denies smoking denies drinking. ROS Other: All systems not noted in ROS Statement are negative. Past Medical History Past Medical History: Coronary Artery Disease (CAD), Heart Failure, CVA/TIA, Diabetes Mellitus, Hyperlipidemia, Hypertension, Myocardial Infarction ([place]), Osteoarthritis ([place]) Additional Past Medical History / Comment(s): GOUT,NEUROPATHY IN FEET, TIA 2014- no residual effects, STENT LEFT CAROTID ARTERY 03/19/17., WOUNDS ON RIGHT FOOT- STATES HEEL AND RIGHT SIDE OF FOOT. Last Myocardial Infarction Date:: 2010 History of Any Multi-Drug Resistant Organisms: None Reported Past Surgical History: Coronary Bypass/CABG, Heart Catheterization With Stent, Hernia Repair Additional Past Surgical History / Comment(s): 5 VESSELS, NASAL SURG., LEFT CAROTID STENT (03/19/17). Past Anesthesia/Blood Transfusion Reactions: No Reported Reaction Date of Last Stent Placement:: 2015 Past Psychological History: No Psychological Hx Reported Smoking Status: Never smoker Past Alcohol Use History: None Reported Past Drug Use History: None Reported - Past Family History Father Family Medical History: Hypertension, Myocardial Infarction ([place]) Mother Family Medical History: No Reported History, Myocardial Infarction ([place]) Brother(s) Family Medical History: Hypertension, Myocardial Infarction ([place]) General Exam - General Exam Comments Initial Comments: General: The patient is awake and alert, in no distress, and does not appear acutely ill. Planes or shortness of breath when bending over or laying flat while trying to sleep. No pain. Vital signs shows temperature 97.4 pulse 70 respiratory rate 18 pulse ox 99% room air blood pressure 120/75 Eye: Pupils are equal, round and reactive to light, extra-ocular movements are intact; there is normal conjunctiva bilaterally. No signs of icterus. Ears, nose, mouth and throat: There are moist mucous membranes and no oral lesions. Neck: The neck is supple, there is no tenderness, no anterior cervical lymphadenopathy, no JVD. Cardiovascular: There is a regular rate and rhythm. No murmur, rub or gallop is appreciated. Respiratory: Faint crepitant rales both bases. Gastrointestinal: Soft, non-distended, non-tender abdomen without masses or organomegaly noted. There is no rebound or guarding present. No CVA tenderness. Bowel sounds are unremarkable. Back: There is no tenderness to palpation in the midline. There is no obvious deformity. No rashes noted. Musculoskeletal: Normal ROM, no tenderness, mild pitting edema. Patient denies any increase in swelling There is no calf tenderness or swelling. Sensation intact. Neurological: No complaint of any neuro deficits, no evidence of any focal or lateralizing findings. Skin: Skin is warm and dry and no rashes or lesions are noted. Psychiatric: Cooperative, appropriate mood & affect, Limitations: no limitations Course Vital Signs 11/27/18 11/27/18 11/27/18 12:57 13:17 15:00 Temperature 97.4 F L Pulse Rate 70 Respiratory 18 20 Rate Blood Pressure 120/75 O2 Sat by Pulse 99 96 Oximetry 11/27/18 16:00 Temperature Pulse Rate 70 Respiratory 16 Rate Blood Pressure 161/99 O2 Sat by Pulse Oximetry EKG Findings - EKG Comments: EKG Findings:: EKG was done and reviewed at 1327 showing normal sinus rhythm no acute ST elevation ventricular rate 67, TX interval was 180 QRS 98 QT 44 QTc 479. This EKG was compared to one done on 09/01/2018 and they are [address]. Dr. James Medical Decision Making - Medical Decision Making Medical decision making; this is a 73-year-old male here for complaint of shortness of breath when he bends over to tie his shoes already lays down a bit. The patient has long history of CHF with a ejection fraction of 35%. The patient is on 40 mg of Lasix twice a day. He has noticed increased peripheral edema bilaterally. He is not complaining of chest pain. Lab results show white count of 5 hemoglobin 13 crit of 4301.0. Potassium 4.2. BUN 35 creatinine 1.08 GFR 68. AST and ALT are both elevated. Troponin 0.037 which is chronically elevated. BNP elevated 9660. Patient had a chest x-ray done and reviewed by radiologist his findings are there is some coarsening of interstitial pulmonary markings. There is mild blunting of the costophrenic angles. Thoracic aorta is atheromatous. There are sternal wires. There is no heart failure. Impression pulmonary interstitial fibrosis and pleural diaphragmatic scarring. No heart failure. No significant change compared to old exam. As read by Dr. Varela I discussed with the patient the findings including troponin and BNP. These are chronically elevated numbers. The patient states on last visit he received IV Lasix and urinated a fair amount and was fine for several months.. The patient will receive Lasix, 60 mg IV push. She did urinate 500 but still feels short of breath. Patient be admitted for diuresis. - Lab Data Result diagrams: 11/27/18 13:40 11/27/18 13:40 Lab Results 11/27/18 11/27/18 11/27/18 Range/Units 13:40 13:40 13:40 WBC 5.6 (3.8-10.6) k/uL RBC 4.77 (4.30-5.90) m/uL Hgb 13.7 (13.0-17.5) gm/dL Hct 43.4 (39.0-53.0) % MCV 90.9 (80.0-100.0) fL MCH 28.7 (25.0-35.0) pg MCHC 31.6 (31.0-37.0) g/dL RDW 13.5 (11.5-15.5) % Plt Count 172 (150-450) k/uL Neutrophils % 72 % Lymphocytes % 17 % Monocytes % 6 % Eosinophils % 3 % Basophils % 1 % Neutrophils # 4.0 (1.3-7.7) k/uL Lymphocytes # 1.0 (1.0-4.8) k/uL Monocytes # 0.4 (0-1.0) k/uL Eosinophils # 0.1 (0-0.7) k/uL Basophils # 0.0 (0-0.2) k/uL PT (9.0-12.0) sec INR (<1.2) APTT (22.0-30.0) sec Sodium 143 (137-145) mmol/L Potassium 4.2 (3.5-5.1) mmol/L Chloride 110 H (98-107) mmol/L Carbon Dioxide 23 (22-30) mmol/L Anion Gap 10 mmol/L BUN 35 H (9-20) mg/dL Creatinine 1.08 (0.66-1.25) mg/dL Est GFR (CKD-EPI)AfAm 78 (>60 ml/min/1.73 sqM) Est GFR (CKD-EPI)NonAf 68 (>60 ml/min/1.73 sqM) Glucose 81 (74-99) mg/dL Calcium 9.6 (8.4-10.2) mg/dL Total Bilirubin 0.7 (0.2-1.3) mg/dL AST 121 H (17-59) U/L ALT 155 H (21-72) U/L Alkaline Phosphatase 111 (38-126) U/L Creatine Kinase 153 (55-170) U/L Troponin I (0.000-0.034) ng/mL NT-Pro-B Natriuret Pep 9660 pg/mL Total Protein 6.1 L (6.3-8.2) g/dL Albumin 3.8 (3.5-5.0) g/dL 11/27/18 11/27/18 Range/Units 13:40 13:40 WBC (3.8-10.6) k/uL RBC (4.30-5.90) m/uL Hgb (13.0-17.5) gm/dL Hct (39.0-53.0) % MCV (80.0-100.0) fL MCH (25.0-35.0) pg MCHC (31.0-37.0) g/dL RDW (11.5-15.5) % Plt Count (150-450) k/uL Neutrophils % % Lymphocytes % % Monocytes % % Eosinophils % % Basophils % % Neutrophils # (1.3-7.7) k/uL Lymphocytes # (1.0-4.8) k/uL Monocytes # (0-1.0) k/uL Eosinophils # (0-0.7) k/uL Basophils # (0-0.2) k/uL PT 10.4 (9.0-12.0) sec INR 1.0 (<1.2) APTT 23.1 (22.0-30.0) sec Sodium (137-145) mmol/L Potassium (3.5-5.1) mmol/L Chloride (98-107) mmol/L Carbon Dioxide (22-30) mmol/L Anion Gap mmol/L BUN (9-20) mg/dL Creatinine (0.66-1.25) mg/dL Est GFR (CKD-EPI)AfAm (>60 ml/min/1.73 sqM) Est GFR (CKD-EPI)NonAf (>60 ml/min/1.73 sqM) Glucose (74-99) mg/dL Calcium (8.4-10.2) mg/dL Total Bilirubin (0.2-1.3) mg/dL AST (17-59) U/L ALT (21-72) U/L Alkaline Phosphatase (38-126) U/L Creatine Kinase (55-170) U/L Troponin I 0.032 (0.000-0.034) ng/mL NT-Pro-B Natriuret Pep pg/mL Total Protein (6.3-8.2) g/dL Albumin (3.5-5.0) g/dL Disposition Clinical Impression: CHF exacerbation Disposition: ADMITTED IP TO THIS HOSP Condition: Fair Is patient prescribed a controlled substance at d/c from ED?: No Referrals: Donavan Hill MD [Primary Care Provider] - 1-2 days
[2018-11-27 14:00] LABS: Basophils % (A) 1 %; Eosinophils # (A) 0.1 k/uL (0-0.7); Eosinophils % (A) 3 %; HCT 43.4 % (39.0-53.0); HGB 13.7 gm/dL (13.0-17.5); Lymphocytes % (A) 17 %; MCH 28.7 pg (25.0-35.0); MCHC 31.6 g/dL (31.0-37.0); MCV 90.9 fL (80.0-100.0); Mean Platelet Volume 9.1; Monocytes # (A) 0.4 k/uL (0-1.0); Monocytes % (A) 6 %; Neutrophils % (A) 72 %; Platelet Count 172 k/uL (150-450); RBC 4.77 m/uL (4.30-5.90); RDW 13.5 % (11.5-15.5); WBC 5.6 k/uL (3.8-10.6)
[2018-11-27 14:08] LABS: Partial Thromboplastin Time 23.1 sec (22.0-30.0); Prothrombin Time 10.4 sec (9.0-12.0)
[2018-11-27 14:11] LABS: Albumin 3.8 g/dL (3.5-5.0); Calcium 9.6 mg/dL (8.4-10.2); Potassium 4.2 mmol/L (3.5-5.1); Total Bilirubin 0.7 mg/dL (0.2-1.3); Total Protein 6.1 g/dL (6.3-8.2)
--- NOTE | 2018-11-27 14:48 | XR ---
EXAMINATION TYPE: XR chest 2V DATE OF EXAM: 11/27/2018 COMPARISON: 09/01/2018 HISTORY: Difficulty breathing TECHNIQUE: Frontal and lateral views of the chest are obtained. FINDINGS: There is some coarsening of interstitial pulmonary markings. There is mild blunting of the costophrenic angles. Thoracic aorta is atheromatous. There are sternal wires. There is no heart fail ure. IMPRESSION: Pulmonary interstitial fibrosis and pleural diaphragmatic scarring. No heart failure. No significant change compared to old exam.
[2018-11-27] MEDS ORDERED: FUROSEMIDE 10 MG/ML 4 ML VIAL IV STA (15:06)
[2018-11-27] MEDS ORDERED: FUROSEMIDE 10 MG/ML 10 ML VIAL IV STA ×2 (15:09→16:28)
[2018-11-27] MEDS ORDERED: NALOXONE 0.4 MG/ML 1 ML VIAL IV PRN (16:24)
[2018-11-27] MEDS ORDERED: ALPRAZolam 0.5 MG TAB PO PRN (16:29)
[2018-11-27 17:15] VITALS: RESP 18
[2018-11-27] MEDS: CARVEDILOL 6.25 MG TAB PO SCH (18:00)
[2018-11-27] MEDS ORDERED: ACETAMINOPHEN TAB 500 MG TAB PO PRN (19:29)
[2018-11-27] MEDS ORDERED: TEMAZEPAM 15 MG CAP PO PRN (19:29)
[2018-11-27 20:31] LABS: Glucose,Whole Blood 143 mg/dL (75-99)
[2018-11-27] MEDS: metFORMIN 500 MG TAB PO SCH (20:33)
[2018-11-27] MEDS: HEPARIN SODIUM,PORCINE 5,000 UNIT/ML 1 ML VIAL SQ SCH (20:33)
[2018-11-27] MEDS: ISOSORBIDE MONONITRATE ER 60 MG TAB.ER.24H PO SCH (20:34)
[2018-11-27] MEDS: LISINOPRIL 20 MG TAB PO SCH (20:34)
[2018-11-27] MEDS: INSULIN ASPART (NovoLOG) 100 UNIT/ML VIAL SQ SCH (20:34)
[2018-11-27] MEDS ORDERED: INSULIN DETEMIR (LEVEMIR) 100 UNIT/ML SYR SQ SCH (21:00)
--- NOTE | 2018-11-27 23:45 | HP ---
HISTORY AND PHYSICAL I am covering for Dr. Hill. DATE OF SERVICE: 11/27/2018 CHIEF COMPLAINT: Shortness of breath. HISTORY OF PRESENT ILLNESS: This 73-year-old gentleman with a past medical history of coronary artery disease, congestive heart failure, cerebrovascular accident, transient ischemic attack, diabetes, hypertension, hyperlipidemia, diabetes mellitus type 2 myocardial infarction, history of DJD, history of gout, being followed by Dr. Hill in the outpatient, was complaining of shortness of breath for the past several days. The patient has increasing shortness of breath and the patient is also complaining of bilateral leg edema. Shortness of breath increasing when bending down and the patient came to [facility] and admitted for further evaluation and treatment. BNP was 9660. Patient given Lasix. The chest x-ray which was personally reviewed by me showed evidence of some pulmonary interstitial fibrosis and possibly some mild fluid overload and a 2D echocardiogram done in August this year showed ejection fraction about 35-40 percent with septal and apical hypokinesis. There is no history of fever, rigors or chills. No history of headache, loss of consciousness, seizures at this time. PAST MEDICAL HISTORY: History of CHF, history of CAD, CVA, TIA, diabetes, hypertension, hyperlipidemia, myocardial infarction, history of DJD. MEDICATIONS: Prior to admission include: 1. Glucophage 500 mg p.o. b.i.d. 2. Zestril 20 mg p.o. b.i.d. 3. Imdur 60 mg p.o. b.i.d. 4. Tresiba Flex Touch 40 units subcu q.h.s. 5. Lasix 40 mg p.o. b.i.d. 6. Coreg 6.25 mg p.o. b.i.d. 7. Lipitor 40 mg p.o. daily. 8. Ecotrin 320 mg daily. 9. Xanax 0.5 daily t.i.d. p.r.n. ALLERGIES: None. FAMILY HISTORY: History of myocardial infarction in the family. SOCIAL HISTORY: No history of smoking. No history of alcohol intake. REVIEW OF SYSTEMS: ENT: No diminished hearing or vision. CARDIOVASCULAR: As mentioned earlier. RESPIRATORY: As mentioned earlier. GI no nausea or vomiting. no dysuria. CENTRAL NERVOUS SYSTEM: No numbness or weakness. ALLERGIES/IMMUNOLOGY: No asthma or hayfever. MUSCULOSKELETAL as mentioned earlier. HEMATOLOGY/ONCOLOGY: No history of anemia. ENDOCRINE: Diabetes. CONSTITUTIONAL: As mentioned earlier. DERMATOLOGY negative. RHEUMATOLOGY: Negative. PSYCHIATRIC: As mentioned earlier. PHYSICAL EXAMINATION: Alert and oriented times three. Pulse 70. Blood pressure 142/84. Respirations 18, temperature 97.5, pulse ox 99% on room air. HEENT: Conjunctivae normal. Oral mucosa moist. NECK: Jugular venous distention at the root of the neck. No carotid bruit. No lymph node enlargement. Cardiovascular system: S1, S2 muffled. Ejection systolic murmur. No S3, no S4. RESPIRATORY: Breath sounds diminished in the bases. A few scattered rhonchi and crackles. ABDOMEN: Soft, nontender. No mass palpable. No hepatosplenomegaly. Obese. LEGS: Bilateral leg edema present. Pulses felt normally. NERVOUS SYSTEM: Higher functions as mentioned earlier. Moves all 4 limbs. No focal motor or sensory deficits. Lymphatics: No lymph nodes palpable in the neck, axillae or groin. JOINTS: No active deforming arthropathy. LABS: CBC within normal limits. Sodium 143, potassium 4.2. AST is 121, ALT is 155. ASSESSMENT: 1. Congestive heart failure acute exacerbation with acute on chronic systolic dysfunction, ejection fraction 35% to 40 percent. 2. Increased AST/ALT. 3. History of coronary artery disease. 4. History of cerebrovascular accident, transient ischemic attack. 5. Diabetes type 2. 6. Hypertension. 7. Hyperlipidemia. 8. Myocardial infarction. 9. History of gout. 10.History of degenerative joint disease. 11.History of peripheral neuropathy. 12.History of left carotid stent. 13.History of coronary artery disease, coronary artery bypass grafting stent. 14.FULL CODE. RECOMMENDATION AND DISCUSSION: In this 73-year-old gentleman who presented with multiple complex medical issues, we will monitor the patient closely, continue the current medications, management and symptomatic treatment. We will initiate intravenous Lasix and monitor fluid and electrolyte balance and electrolytes closely. Resume the home medications. Alin inhibitors and beta blockers. Otherwise cardiology consultation. The symptomatic treatment also provided. Resume the home medications. Prognosis guarded because of multiple complex medical issues. Discussed with the patient who understands and agrees. Further recommendations to follow. A copy of dictation being forwarded to Dr. Hill's office who is the primary physician. CHF instructions also given. MMODL / IJN: [id number] /
[2018-11-27] MEDS: FUROSEMIDE 10 MG/ML 10 ML VIAL IV SCH (23:59)
[2018-11-28 07:20] LABS: Glucose,Whole Blood 45 mg/dL (75-99)
[2018-11-28 07:20] LABS: Glucose,Whole Blood 44 mg/dL (75-99)
[2018-11-28] MEDS: INSULIN ASPART (NovoLOG) 100 UNIT/ML VIAL SQ SCH ×2 (07:23→11:44)
[2018-11-28] MEDS ORDERED: PANTOPRAZOLE 40 MG TABLET PO SCH (07:30)
[2018-11-28 07:36] LABS: Glucose,Whole Blood 75 mg/dL (75-99)
[2018-11-28] MEDS: HEPARIN SODIUM,PORCINE 5,000 UNIT/ML 1 ML VIAL SQ SCH (07:50)
[2018-11-28] MEDS: LISINOPRIL 20 MG TAB PO SCH (07:50)
[2018-11-28] MEDS: ISOSORBIDE MONONITRATE ER 60 MG TAB.ER.24H PO SCH (07:50)
[2018-11-28] MEDS: CARVEDILOL 6.25 MG TAB PO SCH (07:51)
[2018-11-28] MEDS: FUROSEMIDE 10 MG/ML 10 ML VIAL IV SCH ×2 (07:51→17:43)
[2018-11-28] MEDS: metFORMIN 500 MG TAB PO SCH (07:52)
--- NOTE | 2018-11-28 07:57 | P.HPIM ---
History of Present Illness H&P Date: 11/28/18 Chief Complaint: Worsening shortness of breath This is a history of physical and a 73-year-old white male with known history of diabetes who was having worsening shortness of breath. The patient was admitted for exacerbation of CHF after evaluation in the emergency room. The patient states he feels much better after significant diuresis. The patient states he ran out of medication of furosemide in the last day or 2. No diarrhea stated. Review of Systems Constitutional: Denies chills, Denies fever Eyes: denies blurred vision, denies pain Ears, nose, mouth and throat: Denies headache, Denies sore throat Cardiovascular: Reports as per HPI, Reports dyspnea on exertion, Reports edema Gastrointestinal: Denies abdominal pain, Denies diarrhea, Denies nausea, Denies vomiting Musculoskeletal: Denies myalgias Past Medical History Past Medical History: Coronary Artery Disease (CAD), Heart Failure, CVA/TIA, Diabetes Mellitus, Hyperlipidemia, Hypertension, Myocardial Infarction ([place]), Osteoarthritis (OA) Additional Past Medical History / Comment(s): GOUT,NEUROPATHY IN FEET, TIA 2014- no residual effects, STENT LEFT CAROTID ARTERY 03/19/17., WOUNDS ON RIGHT FOOT- STATES HEEL AND RIGHT SIDE OF FOOT. Last Myocardial Infarction Date:: 2010 History of Any Multi-Drug Resistant Organisms: None Reported Past Surgical History: Coronary Bypass/CABG, Heart Catheterization With Stent, Hernia Repair Additional Past Surgical History / Comment(s): 5 VESSELS, LEFT CAROTID STENT (03/19/17). Past Anesthesia/Blood Transfusion Reactions: No Reported Reaction Date of Last Stent Placement:: 2015 Past Psychological History: No Psychological Hx Reported Smoking Status: Never smoker Past Alcohol Use History: None Reported Past Drug Use History: None Reported - Past Family History Father Family Medical History: Hypertension, Myocardial Infarction ([place]) Mother Family Medical History: No Reported History, Myocardial Infarction ([place]) Brother(s) Family Medical History: Hypertension, Myocardial Infarction ([place]) Medications and Allergies Home Medications Medication Instructions Recorded Confirmed Type ALPRAZolam [Xanax] 0.5 mg PO TID PRN 09/26/13 11/27/18 History metFORMIN HCL [Glucophage] 500 mg PO BID 03/30/17 11/27/18 History Lisinopril [Zestril] 20 mg PO BID 04/20/17 11/27/18 History Aspirin EC [Ecotrin] 325 mg PO DAILY 08/20/18 11/27/18 History Isosorbide Mononitrate ER [Imdur] 60 mg PO BID #30 tab.er.24h 08/23/18 11/27/18 Rx Atorvastatin [Lipitor] 40 mg PO DAILY 11/27/18 11/27/18 History Carvedilol [Coreg] 6.25 mg PO BID 11/27/18 11/27/18 History Furosemide [Lasix] 40 mg PO BID 11/27/18 11/27/18 History Insulin Degludec [Tresiba 40 units SQ HS 11/27/18 11/27/18 History Flextouch U-100] Allergies Allergy/AdvReac Type Severity Reaction Status Date / Time No Known Allergies Allergy Verified 11/27/18 13:11 Physical Exam Vitals: Vital Signs Temp Pulse Pulse Resp BP BP BP 11/28/18 07:38 97.4 F L 55 L 18 100/53 11/27/18 21:36 97.6 F 70 18 140/86 11/27/18 17:13 97.5 F L 70 18 142/84 11/27/18 16:45 11/27/18 16:00 70 16 161/99 11/27/18 15:00 11/27/18 13:17 20 11/27/18 12:57 97.4 F L 70 18 120/75 Pulse Ox 11/28/18 07:38 97 11/27/18 21:36 96 11/27/18 17:13 99 11/27/18 16:45 96 11/27/18 16:00 11/27/18 15:00 96 11/27/18 13:17 11/27/18 12:57 99 Intake and Output 11/27/18 11/28/18 11/28/18 22:59 06:59 14:59 Other: Voiding Method Toilet # Voids 2 3 Weight 73.5 kg 73.5 kg - Constitutional General appearance: no acute distress - EENT Eyes: EOMI - Neck Neck: no lymphadenopathy - Respiratory Respiratory: bilateral: CTA - Cardiovascular Rhythm: regular Heart sounds: normal: S1, S2 Abnormal Heart Sounds: no S3 Gallop - Gastrointestinal General gastrointestinal: soft - Integumentary Integumentary: no cyanotic, normal - Neurologic Neurologic: CNII-XII intact - Psychiatric Psychiatric: A&O x's 3, appropriate affect, intact judgment & insight Results CBC & Chem 7: 11/27/18 13:40 11/27/18 13:40 Labs: Abnormal Lab Results - Last 24 Hours (Table) 11/27/18 11/27/18 11/28/18 Range/Units 13:40 20:29 07:13 Chloride 110 H (98-107) mmol/L BUN 35 H (9-20) mg/dL POC Glucose (mg/dL) 143 H 44 L (75-99) mg/dL AST 121 H (17-59) U/L ALT 155 H (21-72) U/L Total Protein 6.1 L (6.3-8.2) g/dL 11/28/18 Range/Units 07:18 Chloride (98-107) mmol/L BUN (9-20) mg/dL POC Glucose (mg/dL) 45 L (75-99) mg/dL AST (17-59) U/L ALT (21-72) U/L Total Protein (6.3-8.2) g/dL Thrombosis Risk Factor Assmnt - Choose All That Apply Each Factor Represents 1 point: Heart failure (<1month), Swollen legs (current) Each Risk Factor Represents 2 Points: Age 61-74 years Thrombosis Risk Factor Assessment Total Risk Factor Score: 4 Thrombosis Risk Factor Assessment Level: Moderate Risk Assessment and Plan (1) CHF exacerbation Current Visit: Yes Status: Acute Code(s): I50.9 - HEART FAILURE, UNSPECIFIED SNOMED Code(s): 279377455 (2) CAD (coronary artery disease) Current Visit: No Status: Acute Code(s): I25.10 - ATHSCL HEART DISEASE OF [place] CORONARY ARTERY W/O ANG PCTRS SNOMED Code(s): 796508949 (3) Dyspnea Current Visit: No Status: Acute Code(s): R06.00 - DYSPNEA, UNSPECIFIED SNOMED Code(s): 186895762 (4) Type 2 diabetes mellitus Current Visit: No Status: Acute Code(s): E11.9 - TYPE 2 DIABETES MELLITUS WITHOUT COMPLICATIONS SNOMED Code(s): 47452293 Plan: We'll go ahead and place the patient on sliding scale. Reconcile home medications. Echocardiogram if not done within the last 6-12 months. Consult cardiology. Anticipate discharge in the next 24 hours Time with Patient: Less than 30
[2018-11-28 09:00] LABS: Basophils % (A) 0 %; Eosinophils # (A) 0.1 k/uL (0-0.7); Eosinophils % (A) 1 %; HCT 47.5 % (39.0-53.0); HGB 14.9 gm/dL (13.0-17.5); Lymphocytes # (A) 0.6 k/uL (1.0-4.8); Lymphocytes % (A) 8 %; MCHC 31.4 g/dL (31.0-37.0); MCV 92.2 fL (80.0-100.0); Mean Platelet Volume 8.6; Monocytes # (A) 0.4 k/uL (0-1.0); Monocytes % (A) 5 %; Neutrophils # (A) 6.6 k/uL (1.3-7.7); Neutrophils % (A) 85 %; Platelet Count 190 k/uL (150-450); RBC 5.15 m/uL (4.30-5.90); RDW 13.4 % (11.5-15.5); WBC 7.8 k/uL (3.8-10.6)
[2018-11-28] MEDS ORDERED: ATORVASTATIN 40 MG TAB PO SCH (09:00)
[2018-11-28] MEDS ORDERED: ASPIRIN 325 MG TAB PO SCH (09:00)
[2018-11-28 09:11] LABS: Calcium 9.7 mg/dL (8.4-10.2)
[2018-11-28 11:24] LABS: Glucose,Whole Blood 188 mg/dL (75-99)
[2018-11-28 12:06] VITALS: BP 104/59; PULSE 57; TEMP 97.5
[2018-11-28 12:59] VITALS: BMI 24.6
--- NOTE | 2018-11-28 15:31 | P.CRDCN ---
History of Present Illness History of present illness: This is a pleasant 73-year-old male past medical history significant for coronary artery disease status post bypass grafting, peripheral vascular disease status post left carotid stent placement, diabetes mellitus, dyslipidemia, hypertension, myocardial infarction, chronic systolic heart failure and ischemic cardiomyopathy. He follows in the office with Dr. River. We have been asked to see him in consultation secondary to congestive heart failure. He presented to the hospital with complaints of shortness of breath worse when he bends down to tie his shoes and unable to lay flat in bed. 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 Since admission he has received IV lasix and states he is feeling back to baseline with no further shortness of breath. Chest x-ray reveals pulmonary interstitial fibrosis and pleural diaphragmatic scarring, no overt heart failure. No change from previous exam. Laboratory data reviewed, WBC 7.8, hemoglobin 14.9, platelets 190, sodium 142, potassium 4.0, creatinine 1.11, cardiac enzymes negative 3, proBNP 9660, AST 121 and ALT 155. Current cardiac medications include aspirin 325 mg daily, atorvastatin 40 mg daily, carvedilol 6.25 mg twice a day, Lasix 40 mg twice a day, Imdur 60 mg t wice a day and lisinopril 20 mg twice a day. Most recent echocardiogram obtained August 2018 reveals impaired LV systolic function with ejection fraction 35-40%, septal hypokinesia, apex hypokinesia, severely dilated left atrium, mild mitral regurgitation and mild tricuspid regurgitation. At the time of my exam: CONSTITUTIONAL: Denies fever. Denies chills. EYES: Denies blurred vision. Denies vision changes. Denies eye pain. EARS, NOSE, MOUTH & THROAT: Denies headache. Denies sore throat. Denies ear pain. CARDIOVASCULAR: Denies chest pain. Denies shortness of breath. Denies orthopnea. Denies PND. Denies palpitations. RESPIRATORY: Denies cough. GASTROINTESTINAL: Denies abdominal pain. Denies diarrhea. Denies constipation. Denies nausea. Denies vomiting. MUSCULOSKELETAL: Denies myalgias. INTEGUMENTARY: Denies pruitis. Denies rash. NEUROLOGIC: Denies numbness. Denies tingling. Denies weakness. PSYCHIATRIC: Denies anxiety. Denies depression. ENDOCRINE: Denies fatigue. Denies weight change. Denies polydipsia. Denies polyurina. GENITOURINARY: Denies burning, hematuria or urgency with micturation. HEMATOLOGIC: Denies history of anemia. Denies bleeding. Blood pressure 104/59 heart rate 57 afebrile maintaining oxygen saturation on room air GENERAL: This is a 73-year-old male in no apparent distress at the time of my examination. HEENT: Head is atraumatic, normocephalic. Pupils are equal, round. Sclerae anicteric. Conjunctivae are clear. Mucous membranes of the mouth are moist. Neck is supple. There is no jugular venous distention. No carotid bruit is heard. LUNGS: Clear to auscultation no wheezes, rales or rhonchi. No chest wall tenderness is noted on palpation or with deep breathing. HEART: Regular rate and rhythm without murmurs, rubs or gallops. S1 and S2 heard. ABDOMEN: Soft, nontender. Bowel sounds are heard. No organomegaly noted. EXTREMITIES: No evidence of peripheral edema and no calf tenderness noted. VASCULAR: Radial and dorsalis pedis pulses palpated, no evidence of clubbing. NEUROLOGIC: Patient is awake, alert and oriented x3. ASSESSMENT Acute on chronic systolic heart failure Pulmonary fibrosis Ischemic cardiomyopathy History of underlying coronary artery disease status post bypass grafting Peripheral arterial disease Diabetes mellitus Hypertension Dyslipidemia PLAN Stable from a cardiac perspective. He is back to his baseline. Prescription for lasix already at the pharmacy per the patient he just has to pick it up. Recommend compliance with lasix in the future. Follow up with Dr. River as an outpatient. Thank you kindly for this consultation. Nurse Practitioner note has been reviewed, I agree with a documented findings and plan of care. Patient was seen and examined. Past Medical History Past Medical History: Coronary Artery Disease (CAD), Heart Failure, CVA/TIA, Diabetes Mellitus, Hyperlipidemia, Hypertension, Myocardial Infarction ([place]), Osteoarthritis (OA) Additional Past Medical History / Comment(s): GOUT,NEUROPATHY IN FEET, TIA 2014- no residual effects, STENT LEFT CAROTID ARTERY 03/19/17., WOUNDS ON RIGHT FOOT- STATES HEEL AND RIGHT SIDE OF FOOT. Last Myocardial Infarction Date:: 2010 History of Any Multi-Drug Resistant Organisms: None Reported Past Surgical History: Coronary Bypass/CABG, Heart Catheterization With Stent, Hernia Repair Additional Past Surgical History / Comment(s): 5 VESSELS, LEFT CAROTID STENT (03/19/17). Past Anesthesia/Blood Transfusion Reactions: No Reported Reaction Date of Last Stent Placement:: 2015 Past Psychological History: No Psychological Hx Reported Smoking Status: Never smoker Past Alcohol Use History: None Reported Past Drug Use History: None Reported - Past Family History Father Family Medical History: Hypertension, Myocardial Infarction ([place]) Mother Family Medical History: No Reported History, Myocardial Infarction ([place]) Brother(s) Family Medical History: Hypertension, Myocardial Infarction ([place]) Medications and Allergies Home Medications Medication Instructions Recorded Confirmed Type ALPRAZolam [Xanax] 0.5 mg PO TID PRN 09/26/13 11/27/18 History metFORMIN HCL [Glucophage] 500 mg PO BID 03/30/17 11/27/18 History Lisinopril [Zestril] 20 mg PO BID 04/20/17 11/27/18 History Aspirin EC [Ecotrin] 325 mg PO DAILY 08/20/18 11/27/18 History Isosorbide Mononitrate ER [Imdur] 60 mg PO BID #30 tab.er.24h 08/23/18 11/27/18 Rx Atorvastatin [Lipitor] 40 mg PO DAILY 11/27/18 11/27/18 History Carvedilol [Coreg] 6.25 mg PO BID 11/27/18 11/27/18 History Furosemide [Lasix] 40 mg PO BID 11/27/18 11/27/18 History Insulin Degludec [Tresiba 40 units SQ HS 11/27/18 11/27/18 History Flextouch U-100] Allergies Allergy/AdvReac Type Severity Reaction Status Date / Time No Known Allergies Allergy Verified 11/27/18 13:11 Physical Exam Vitals: Vital Signs Temp Pulse Pulse Resp BP BP BP 11/28/18 11:41 97.5 F L 57 L 18 104/59 11/28/18 07:50 18 11/28/18 07:38 97.4 F L 55 L 18 100/53 11/27/18 21:36 97.6 F 70 18 140/86 11/27/18 17:13 97.5 F L 70 18 142/84 11/27/18 16:45 11/27/18 16:00 70 16 161/99 11/27/18 15:00 Pulse Ox 11/28/18 11:41 94 L 11/28/18 07:50 11/28/18 07:38 97 11/27/18 21:36 96 11/27/18 17:13 99 11/27/18 16:45 96 11/27/18 16:00 11/27/18 15:00 96 Intake and Output 11/27/18 11/28/18 11/28/18 22:59 06:59 14:59 Other: Voiding Method Toilet # Voids 2 3 Weight 73.5 kg 73.5 kg 73.5 kg Results 11/28/18 08:44 11/28/18 08:44 Cardiac Enzymes 11/27/18 11/27/18 11/27/18 Range/Units 13:40 13:40 19:24 AST 121 H (17-59) U/L Troponin I 0.032 0.026 (0.000-0.034) ng/mL 11/28/18 Range/Units 01:46 AST (17-59) U/L Troponin I 0.034 (0.000-0.034) ng/mL CBC 11/28/18 Range/Units 08:44 WBC 7.8 (3.8-10.6) k/uL RBC 5.15 (4.30-5.90) m/uL Hgb 14.9 (13.0-17.5) gm/dL Hct 47.5 (39.0-53.0) % Plt Count 190 (150-450) k/uL Comprehensive Metabolic Panel 11/27/18 11/28/18 Range/Units 13:40 08:44 Sodium 143 142 (137-145) mmol/L Potassium 4.2 4.0 (3.5-5.1) mmol/L Chloride 110 H 102 (98-107) mmol/L Carbon Dioxide 23 30 (22-30) mmol/L BUN 35 H 36 H (9-20) mg/dL Creatinine 1.08 1.11 (0.66-1.25) mg/dL Glucose 81 120 H (74-99) mg/dL Calcium 9.6 9.7 (8.4-10.2) mg/dL AST 121 H (17-59) U/L ALT 155 H (21-72) U/L Alkaline Phosphatase 111 (38-126) U/L Total Protein 6.1 L (6.3-8.2) g/dL Albumin 3.8 (3.5-5.0) g/dL Current Medications Generic Name Dose Route Start Last Admin Trade Name Freq PRN Reason Stop Dose Admin Acetaminophen 500 mg 11/27/18 19:29 Tylenol Tab PO Q6HR PRN Fever and/ or Pain Alprazolam 0.5 mg 11/27/18 16:29 11/27/18 20:26 Xanax PO 0.5 mg TID PRN Administration Anxiety Aspirin 325 mg 11/28/18 09:00 11/28/18 07:51 Aspirin PO 325 mg DAILY TODD Administration Atorvastatin Calcium 40 mg 11/28/18 09:00 11/28/18 07:50 Lipitor PO 40 mg DAILY TODD Administration Carvedilol 6.25 mg 11/27/18 17:30 11/28/18 07:51 Coreg PO 6.25 mg BID-W/MEALS TODD Administration Furosemide 60 mg 11/28/18 00:00 11/28/18 07:51 Lasix IV 60 mg Q8HR TODD Administration Heparin Sodium (Porcine) 5,000 unit 11/27/18 21:00 11/28/18 07:50 Heparin SQ 5,000 unit Q12HR TODD Administration Insulin Aspart 0 unit 11/27/18 21:00 11/28/18 11:44 Novolog SQ 2 unit ACHS TODD Administration Protocol Insulin Detemir 40 unit 11/27/18 21:00 11/27/18 20:34 Levemir SQ 40 unit HS TODD Administration Isosorbide Mononitrate 60 mg 11/27/18 21:00 11/28/18 07:50 Imdur PO 60 mg BID TODD Administration Lisinopril 20 mg 11/27/18 21:00 11/28/18 07:50 Zestril PO 20 mg BID TODD Administration Metformin HCl 500 mg 11/27/18 21:00 11/28/18 07:52 Glucophage PO Not Given BID TODD Naloxone HCl 0.2 mg 11/27/18 16:24 Narcan IV Q2M PRN Opioid Reversal Pantoprazole Sodium 40 mg 11/28/18 07:30 11/28/18 07:50 Protonix PO 40 mg [id number] TODD Administration Temazepam 15 mg 11/27/18 19:29 Restoril PO HS PRN Insomnia Intake and Output 11/27/18 11/28/18 11/28/18 22:59 06:59 14:59 Other: Voiding Method Toilet # Voids 2 3 Weight 73.5 kg 73.5 kg 73.5 kg Patient Weight 11/29/18 06:59 Weight 73.5 kg 11/28/18 08:44 11/28/18 08:44
[2018-11-28 17:31] LABS: Glucose,Whole Blood 89 mg/dL (75-99)
--- NOTE | 2019-01-12 18:11 | P.DS ---
Providers Date of admission: 11/28/18 13:59 Attending physician: Donavan Hill Consults: 11/27/18 19:29 Consult Physician Routine Consulting Provider: Ryan Benoit Consult Reason/Comments: chf Do you want consulting provider notified?: Yes Primary care physician: Donavan Hill - Discharge Diagnosis(es) (1) CHF exacerbation Status: Acute (2) CAD (coronary artery disease) Status: Acute (3) Dyspnea Status: Acute (4) Type 2 diabetes mellitus Status: Acute Hospital Course: This is discharge summary on a 73-year-old white male with history of diabetes and known coronary disease. The patient came in with element of heart failure and chest pain. We had a long discussion regarding compliance with treatment and medications. He tends to stretch medications out due to cost issues. The patient had cardiology consultation which cleared the patient with adjust the medication. Again blood sugar was at the for most of his overall treatment element. The patient was discharged in stable condition to follow-up with me in 1 week. Patient Condition at Discharge: Fair Plan - Discharge Summary Discharge Rx Participant: No New Discharge Prescriptions: Continue ALPRAZolam [Xanax] 0.5 mg PO TID PRN PRN Reason: Anxiety metFORMIN HCL [Glucophage] 500 mg PO BID Lisinopril [Zestril] 20 mg PO BID Aspirin EC [Ecotrin] 325 mg PO DAILY Isosorbide Mononitrate ER [Imdur] 60 mg PO BID #30 tab.er.24h Atorvastatin [Lipitor] 40 mg PO DAILY Carvedilol [Coreg] 6.25 mg PO BID Furosemide [Lasix] 40 mg PO BID Insulin Degludec [Tresiba Flextouch U-100] 40 units SQ HS Discharge Medication List ALPRAZolam [Xanax] 0.5 mg PO TID PRN 09/26/13 [History] metFORMIN HCL [Glucophage] 500 mg PO BID 03/30/17 [History] Lisinopril [Zestril] 20 mg PO BID 04/20/17 [History] Aspirin EC [Ecotrin] 325 mg PO DAILY 08/20/18 [History] Isosorbide Mononitrate ER [Imdur] 60 mg PO BID #30 tab.er.24h 08/23/18 [Rx] Atorvastatin [Lipitor] 40 mg PO DAILY 11/27/18 [History] Carvedilol [Coreg] 6.25 mg PO BID 11/27/18 [History] Furosemide [Lasix] 40 mg PO BID 11/27/18 [History] Insulin Degludec [Tresiba Flextouch U-100] 40 units SQ HS 11/27/18 [History] Follow up Appointment(s)/Referral(s): Radha River MD [STAFF PHYSICIAN] - 12/20/18 9:30 am Donavan Hill MD [Primary Care Provider] - 12/05/18 11:30 am Patient Instructions/Handouts: Heart Failure (DC) Activity/Diet/Wound Care/Special Instructions: Continue consistent carbohydrate diet Activity as tolerated. Discharge Disposition: HOME SELF-CARE
== END 2018-11-28 18:24 | disposition home or self-care (01) | DRG 293 ==
LOC: EC 12:55 → 3NMEDONC 16:28 → OBSVTOIN 11-28 13:59
PROVIDERS: ADMIT Family Medicine; ATTEND Family Medicine
DX: I11.0 Hypertensive heart disease with heart failure (principal); E11.51 Type 2 diabetes mellitus with diabetic peripheral angiopathy without gangrene; E78.5 Hyperlipidemia, unspecified; I25.2 Old myocardial infarction; I25.10 Atherosclerotic heart disease of native coronary artery without angina pectoris; I25.5 Ischemic cardiomyopathy; I50.23 Acute on chronic systolic (congestive) heart failure; I70.0 Atherosclerosis of aorta; J84.10 Pulmonary fibrosis, unspecified; Z79.4 Long term (current) use of insulin; Z79.82 Long term (current) use of aspirin; Z79.899 Other long term (current) drug therapy; Z82.49 Family history of ischemic heart disease and other diseases of the circulatory system; Z86.73 Personal history of transient ischemic attack (TIA), and cerebral infarction without residual deficits; Z95.1 Presence of aortocoronary bypass graft; Z95.5 Presence of coronary angioplasty implant and graft; I08.1 Rheumatic disorders of both mitral and tricuspid valves; M10.9 Gout, unspecified; T50.1X6A Underdosing of loop [high-ceiling] diuretics, initial encounter; Z91.128 Patient's intentional underdosing of medication regimen for other reason
CPT/HCPCS: 36415; 71046; 80048; 80053; 82550; 83880; 84484; 85025; 85610; 85730; 93005; 96374; 99285

== ENCOUNTER → 2019-01-25 | Outpatient (CLI) | payer MEDICARE ==
--- NOTE | 2019-01-27 16:21 | CT ---
EXAMINATION TYPE: CT chest wo con DATE OF EXAM: 01/27/2019 COMPARISON: NONE HISTORY: Shortness of breath for [address] DLP: 319.3 mGycm. Automated Exposure Control for Dose Reduction was Utilized. TECHNIQUE: CT scan of the thorax is performed without IV contrast. FINDINGS: LUNGS: Focal subpleural scarring right middle lobe axial image 32 appear slightly more nodular on cor onal image 33 and axial image 31 where it measures 10 x 5 mm. Mild linear scarring or atelectasis in the lingula and in both bases near diaphragm. No pleural effusion or pneumothorax. MEDIASTINUM: Lack of IV contrast is noted to limit evaluation for mediastinal and especially hilar ad enopathy. There are no definitive greater than 1 cm hilar or mediastinal lymph nodes. No significan t pericardial effusion is seen. Cardiomegaly is present. Post CABG changes with mediastinal clips and sternal wires is seen as there are significant three-vessel coronary artery calcification incidental ly noted. OTHER: [id number] multilevel anterior and lateral spurring in the thoracic spine. IMPRESSION: Cardiomegaly and chronic parenchymal changes, no acute pulmonary process. Due to slight n odularity mean 7.5 mm follow-up CT in 6-12 months times recommended for low risk and high risk as per Fleischner Society recommendations.
== END | disposition home or self-care (01) ==
LOC: RADCTMAIN 11:29
PROVIDERS: ATTEND Internal Medicine Sleep Medicine
DX: Z53.9 Procedure and treatment not carried out, unspecified reason (principal)

== ENCOUNTER 2019-01-26 13:03 | Emergency (ER) | payer MEDICARE ==
[2019-01-26 13:14] VITALS: RESP 16; TEMP 97.8
--- NOTE | 2019-01-26 13:35 | XR ---
EXAMINATION TYPE: XR hand complete RT DATE OF EXAM: 01/26/2019 COMPARISON: NONE HISTORY: Pain TECHNIQUE: Three views are submitted. FINDINGS: The osseous structures are intact. There is diffuse osteopenia and there is no acute fracture or disl ocation. Severe narrowing the first carpal metacarpal joint. Vascular calcifications noted. IMPRESSION: 1. No definite acute fracture or dislocation if symptoms persist, follow-up study in 7 to 10 days wo uld be suggested. 2. severe osteoarthritis first carpometacarpal joint.
[2019-01-26] MEDS ORDERED: KETOROLAC 30 MG/ML 1 ML VIAL IM STA (13:41)
[2019-01-26] MEDS ORDERED: cefTRIAXone IN SWFI 1,000 MG/10 ML SYRINGE IVP STA (14:09)
[2019-01-26] MEDS: SODIUM CHLORIDE 0.9% 500 ML 500 ML IV SCH ×2 (14:51→15:35)
[2019-01-26 14:57] LABS: Basophils % (A) 1 %; Eosinophils # (A) 0.1 k/uL (0-0.7); Eosinophils % (A) 2 %; HCT 43.8 % (39.0-53.0); HGB 14.3 gm/dL (13.0-17.5); Lymphocytes # (A) 1.3 k/uL (1.0-4.8); Lymphocytes % (A) 18 %; MCH 29.3 pg (25.0-35.0); MCHC 32.7 g/dL (31.0-37.0); MCV 89.6 fL (80.0-100.0); Mean Platelet Volume 9.1; Monocytes # (A) 0.5 k/uL (0-1.0); Monocytes % (A) 6 %; Neutrophils # (A) 5.3 k/uL (1.3-7.7); Neutrophils % (A) 72 %; Platelet Count 166 k/uL (150-450); RBC 4.89 m/uL (4.30-5.90); RDW 13.1 % (11.5-15.5); WBC 7.4 k/uL (3.8-10.6)
[2019-01-26 15:01] LABS: INR 0.9 (<1.2); Partial Thromboplastin Time 23.3 sec (22.0-30.0); Prothrombin Time 10.1 sec (9.0-12.0)
[2019-01-26 15:03] LABS: C Reactive Protein 10.3 mg/L (<10.0); Calcium 9.7 mg/dL (8.4-10.2); Potassium 3.8 mmol/L (3.5-5.1); Total Bilirubin 0.6 mg/dL (0.2-1.3); Total Protein 6.4 g/dL (6.3-8.2)
--- NOTE | 2019-01-26 15:04 | ED ---
General Adult HPI - General Source: patient, RN notes reviewed Mode of arrival: ambulatory Limitations: no limitations <Tony Bernal - Last Filed: 01/26/19 16:55> <Seamus Hill - Last Filed: 01/27/19 09:30> - General Chief complaint: Extremity Injury, Upper Stated complaint: Hand injury Time Seen by Provider: 01/26/19 13:16 - History of Present Illness Initial comments: 73-year-old male with a past medical history of coronary artery disease, heart failure, CVA, diabetes, hyperlipidemia, hypertension, [place] presents to the emergency department for chief right hand injury x 3 days. Patient states he was using a drill when it hit his right hand. States he had a small abrasion from this. States that his hand was initially swollen but then improved. However today swelling worsen again. States it is painful. Denies fevers or chills.Patient has no other complaints at this time including shortness of breath, chest pain, abdominal pain, nausea or vomiting, headache, or visual changes. (Tony Bernal) - Related Data Home Medications Medication Instructions Recorded Confirmed ALPRAZolam [Xanax] 0.5 mg PO TID PRN 09/26/13 01/26/19 metFORMIN HCL [Glucophage] 500 mg PO BID 03/30/17 01/26/19 Lisinopril [Zestril] 20 mg PO BID 04/20/17 01/26/19 Aspirin EC [Ecotrin] 325 mg PO DAILY 08/20/18 01/26/19 Atorvastatin [Lipitor] 40 mg PO DAILY 11/27/18 01/26/19 Carvedilol [Coreg] 6.25 mg PO BID 11/27/18 01/26/19 Furosemide [Lasix] 40 mg PO BID 11/27/18 01/26/19 Insulin Degludec [Tresiba 40 units SQ HS 11/27/18 01/26/19 Flextouch U-100] HYDROcodone/APAP 5-325MG [[place] 1 tab PO Q6HR PRN 01/26/19 01/26/19 5-325] Isosorbide Mononitrate ER [Imdur] 60 mg PO DAILY 01/26/19 01/26/19 Allergies Allergy/AdvReac Type Severity Reaction Status Date / Time No Known Allergies Allergy Verified 01/26/19 17:43 Review of Systems ROS Other: All systems not noted in ROS Statement are negative. <Tony Bernal P - Last Filed: 01/26/19 16:55> ROS Other: All systems not noted in ROS Statement are negative. <Seamus Hill - Last Filed: 01/27/19 09:30> ROS Statement: Those systems with pertinent positive or pertinent negative responses have been documented in the HPI. Past Medical History Past Medical History: Coronary Artery Disease (CAD), Heart Failure, CVA/TIA, Diabetes Mellitus, Hyperlipidemia, Hypertension, Myocardial Infarction ([place]), Osteoarthritis (OA) Additional Past Medical History / Comment(s): GOUT,NEUROPATHY IN FEET, TIA 2014- no residual effects, STENT LEFT CAROTID ARTERY 03/19/17., WOUNDS ON RIGHT FOOT- STATES HEEL AND RIGHT SIDE OF FOOT. Last Myocardial Infarction Date:: 2010 History of Any Multi-Drug Resistant Organisms: None Reported Past Surgical History: Coronary Bypass/CABG, Heart Catheterization With Stent, Hernia Repair Additional Past Surgical History / Comment(s): 5 VESSELS, LEFT CAROTID STENT (03/19/17). Past Anesthesia/Blood Transfusion Reactions: No Reported Reaction Date of Last Stent Placement:: 2015 Past Psychological History: No Psychological Hx Reported Smoking Status: Never smoker Past Alcohol Use History: None Reported Past Drug Use History: None Reported - Past Family History Father Family Medical History: Hypertension, Myocardial Infarction ([place]) Mother Family Medical History: No Reported History, Myocardial Infarction ([place]) Brother(s) Family Medical History: Hypertension, Myocardial Infarction ([place]) <Tony Bernal P - Last Filed: 01/26/19 16:55> General Exam Limitations: no limitations General appearance: alert Head exam: Present: atraumatic, normocephalic, normal inspection Eye exam: Present: normal appearance, PERRL, EOMI. Absent: scleral icterus, conjunctival injection, periorbital swelling ENT exam: Present: normal exam, mucous membranes moist Neck exam: Present: normal inspection, full ROM. Absent: tenderness, meningismus, lymphadenopathy Respiratory exam: Present: normal lung sounds bilaterally. Absent: respiratory distress, wheezes, rales, rhonchi, stridor Cardiovascular Exam: Present: regular rate, normal rhythm, normal heart sounds. Absent: systolic murmur, diastolic murmur, rubs, gallop, clicks Extremities exam: Present: full ROM (Full range of motion of the right hand), tenderness (Tenderness noted to the proximal phalanges of the right thumb), normal capillary refill (Capillary refill less than for radial pulse 2+.), other (Significant edema noted to the right hand however compartments are soft. Hand is warm and erythematous.). Absent: pedal edema, joint swelling, calf te nderness <Tony Bernal - Last Filed: 01/26/19 16:55> Course Vital Signs 01/26/19 01/26/19 13:12 18:14 Temperature 97.8 F Pulse Rate 67 70 Respiratory 16 16 Rate Blood Pressure 128/68 144/72 O2 Sat by Pulse 96 Oximetry Medical Decision Making - Lab Data Result diagrams: 01/26/19 14:25 01/26/19 14:25 <Tony Bernal - Last Filed: 01/26/19 16:55> - Lab Data Result diagrams: 01/26/19 14:25 01/26/19 14:25 <Seamus Hill - Last Filed: 01/27/19 09:30> - Medical Decision Making Patient was evaluated by Dr. seamus Hill as well, who at this is also concerned for infection and recommends admission for orthopedic consult. CBC is unremarkable. White blood cell count is 7. CMP unremarkable as well. Lactic acid 1.3. CRP is noted to be mildly elevated at 10.3. ESR is 7. X-ray of the right hand shows no definite acute fracture or dislocation. However severe arthritis is noted in the first carpometacarpal joint. Discussed case with Jazmyne Bonner who has notified Dr. Townsend and recommends holding any more antibiotic therapy until evaluated by him. They will consult on this patient. He will be admitted to medicine, Dr hill accepts. (Tony Bernal) Patient was seen and evaluated in the ED by Dr. Townsend who recommends discharge and conservative management as he did not feel the patient's symptoms were infectious. (Seamus Hill) - Lab Data Lab Results 01/26/19 01/26/19 01/26/19 Range/Units 14:25 14:25 14:25 WBC 7.4 (3.8-10.6) k/uL RBC 4.89 (4.30-5.90) m/uL Hgb 14.3 (13.0-17.5) gm/dL Hct 43.8 (39.0-53.0) % MCV 89.6 (80.0-100.0) fL MCH 29.3 (25.0-35.0) pg MCHC 32.7 (31.0-37.0) g/dL RDW 13.1 (11.5-15.5) % Plt Count 166 (150-450) k/uL Neutrophils % 72 % Lymphocytes % 18 % Monocytes % 6 % Eosinophils % 2 % Basophils % 1 % Neutrophils # 5.3 (1.3-7.7) k/uL Lymphocytes # 1.3 (1.0-4.8) k/uL Monocytes # 0.5 (0-1.0) k/uL Eosinophils # 0.1 (0-0.7) k/uL Basophils # 0.0 (0-0.2) k/uL ESR 7 (0-15) mm/hr PT (9.0-12.0) sec INR (<1.2) APTT (22.0-30.0) sec Sodium 140 (137-145) mmol/L Potassium 3.8 (3.5-5.1) mmol/L Chloride 103 (98-107) mmol/L Carbon Dioxide 26 (22-30) mmol/L Anion Gap 11 mmol/L BUN 30 H (9-20) mg/dL Creatinine 1.09 (0.66-1.25) mg/dL Est GFR (CKD-EPI)AfAm 78 (>60 ml/min/1.73 sqM) Est GFR (CKD-EPI)NonAf 67 (>60 ml/min/1.73 sqM) Glucose 112 H (74-99) mg/dL Plasma Lactic Acid Jonh 1.3 (0.7-2.0) mmol/L Calcium 9.7 (8.4-10.2) mg/dL Total Bilirubin 0.6 (0.2-1.3) mg/dL AST 31 (17-59) U/L ALT 57 (21-72) U/L Alkaline Phosphatase 89 (38-126) U/L C-Reactive Protein 10.3 H (<10.0) mg/L Total Protein 6.4 (6.3-8.2) g/dL Albumin 4.0 (3.5-5.0) g/dL 01/26/19 Range/Units 14:25 WBC (3.8-10.6) k/uL RBC (4.30-5.90) m/uL Hgb (13.0-17.5) gm/dL Hct (39.0-53.0) % MCV (80.0-100.0) fL MCH (25.0-35.0) pg MCHC (31.0-37.0) g/dL RDW (11.5-15.5) % Plt Count (150-450) k/uL Neutrophils % % Lymphocytes % % Monocytes % % Eosinophils % % Basophils % % Neutrophils # (1.3-7.7) k/uL Lymphocytes # (1.0-4.8) k/uL Monocytes # (0-1.0) k/uL Eosinophils # (0-0.7) k/uL Basophils # (0-0.2) k/uL ESR (0-15) mm/hr PT 10.1 (9.0-12.0) sec INR 0.9 (<1.2) APTT 23.3 (22.0-30.0) sec Sodium (137-145) mmol/L Potassium (3.5-5.1) mmol/L Chloride (98-107) mmol/L Carbon Dioxide (22-30) mmol/L Anion Gap mmol/L BUN (9-20) mg/dL Creatinine (0.66-1.25) mg/dL Est GFR (CKD-EPI)AfAm (>60 ml/min/1.73 sqM) Est GFR (CKD-EPI)NonAf (>60 ml/min/1.73 sqM) Glucose (74-99) mg/dL Plasma Lactic Acid Jonh (0.7-2.0) mmol/L Calcium (8.4-10.2) mg/dL Total Bilirubin (0.2-1.3) mg/dL AST (17-59) U/L ALT (21-72) U/L Alkaline Phosphatase (38-126) U/L C-Reactive Protein (<10.0) mg/L Total Protein (6.3-8.2) g/dL Albumin (3.5-5.0) g/dL Disposition Is patient prescribed a controlled substance at d/c from ED?: No Time of Disposition: 16:35 <Tony Bernal P - Last Filed: 01/26/19 16:55> <Seamus Hill - Last Filed: 01/27/19 09:30> Clinical Impression: Edema of hand, Cellulitis Disposition: HOME SELF-CARE Condition: Good Referrals: Donavan Hill MD [Primary Care Provider] - 1-2 days Jack Townsend DO [Medical Doctor] - 1-2 days
[2019-01-26 15:47] LABS: Erythrocyte Sedimentation Rate 7 mm/hr (0-15)
[2019-01-26] MEDS ORDERED: DIPH,PERTUS(ACELL)TETVAC-LF 0.5 ML VIAL IM ONE (16:30)
[2019-01-26] MEDS ORDERED: NALOXONE 0.4 MG/ML 1 ML VIAL IV PRN (16:52)
[2019-01-26] MEDS ORDERED: HYDROcodone/APAP 5-325MG 1 EACH TAB PO PRN (16:52)
[2019-01-26] MEDS ORDERED: SODIUM CHLORIDE 0.9% 1,000 ML IV SCH (17:00)
--- NOTE | 2019-01-26 18:05 | ED ---
Medical Decision Making - Lab Data Result diagrams: 01/26/19 14:25 01/26/19 14:25 <Tony Bernal - Last Filed: 01/26/19 18:05> - Lab Data Result diagrams: 01/26/19 14:25 01/26/19 14:25 <PavickieIris A - Last Filed: 01/29/19 01:07> - Lab Data Lab Results 01/26/19 01/26/19 01/26/19 Range/Units 14:25 14:25 14:25 WBC 7.4 (3.8-10.6) k/uL RBC 4.89 (4.30-5.90) m/uL Hgb 14.3 (13.0-17.5) gm/dL Hct 43.8 (39.0-53.0) % MCV 89.6 (80.0-100.0) fL MCH 29.3 (25.0-35.0) pg MCHC 32.7 (31.0-37.0) g/dL RDW 13.1 (11.5-15.5) % Plt Count 166 (150-450) k/uL Neutrophils % 72 % Lymphocytes % 18 % Monocytes % 6 % Eosinophils % 2 % Basophils % 1 % Neutrophils # 5.3 (1.3-7.7) k/uL Lymphocytes # 1.3 (1.0-4.8) k/uL Monocytes # 0.5 (0-1.0) k/uL Eosinophils # 0.1 (0-0.7) k/uL Basophils # 0.0 (0-0.2) k/uL ESR 7 (0-15) mm/hr PT (9.0-12.0) sec INR (<1.2) APTT (22.0-30.0) sec Sodium 140 (137-145) mmol/L Potassium 3.8 (3.5-5.1) mmol/L Chloride 103 (98-107) mmol/L Carbon Dioxide 26 (22-30) mmol/L Anion Gap 11 mmol/L BUN 30 H (9-20) mg/dL Creatinine 1.09 (0.66-1.25) mg/dL Est GFR (CKD-EPI)AfAm 78 (>60 ml/min/1.73 sqM) Est GFR (CKD-EPI)NonAf 67 (>60 ml/min/1.73 sqM) Glucose 112 H (74-99) mg/dL Plasma Lactic Acid Jonh 1.3 (0.7-2.0) mmol/L Calcium 9.7 (8.4-10.2) mg/dL Total Bilirubin 0.6 (0.2-1.3) mg/dL AST 31 (17-59) U/L ALT 57 (21-72) U/L Alkaline Phosphatase 89 (38-126) U/L C-Reactive Protein 10.3 H (<10.0) mg/L Total Protein 6.4 (6.3-8.2) g/dL Albumin 4.0 (3.5-5.0) g/dL 01/26/19 Range/Units 14:25 WBC (3.8-10.6) k/uL RBC (4.30-5.90) m/uL Hgb (13.0-17.5) gm/dL Hct (39.0-53.0) % MCV (80.0-100.0) fL MCH (25.0-35.0) pg MCHC (31.0-37.0) g/dL RDW (11.5-15.5) % Plt Count (150-450) k/uL Neutrophils % % Lymphocytes % % Monocytes % % Eosinophils % % Basophils % % Neutrophils # (1.3-7.7) k/uL Lymphocytes # (1.0-4.8) k/uL Monocytes # (0-1.0) k/uL Eosinophils # (0-0.7) k/uL Basophils # (0-0.2) k/uL ESR (0-15) mm/hr PT 10.1 (9.0-12.0) sec INR 0.9 (<1.2) APTT 23.3 (22.0-30.0) sec Sodium (137-145) mmol/L Potassium (3.5-5.1) mmol/L Chloride (98-107) mmol/L Carbon Dioxide (22-30) mmol/L Anion Gap mmol/L BUN (9-20) mg/dL Creatinine (0.66-1.25) mg/dL Est GFR (CKD-EPI)AfAm (>60 ml/min/1.73 sqM) Est GFR (CKD-EPI)NonAf (>60 ml/min/1.73 sqM) Glucose (74-99) mg/dL Plasma Lactic Acid Jonh (0.7-2.0) mmol/L Calcium (8.4-10.2) mg/dL Total Bilirubin (0.2-1.3) mg/dL AST (17-59) U/L ALT (21-72) U/L Alkaline Phosphatase (38-126) U/L C-Reactive Protein (<10.0) mg/L Total Protein (6.3-8.2) g/dL Albumin (3.5-5.0) g/dL Disposition Is patient prescribed a controlled substance at d/c from ED?: No Time of Disposition: 18:05 <Tony Bernal - Last Filed: 01/26/19 18:05> <Iris Laws - Last Filed: 01/29/19 01:07> Clinical Impression: Edema of hand, Cellulitis Disposition: HOME SELF-CARE Condition: Good Referrals: Donavan Hill MD [Primary Care Provider] - 1-2 days Jack Townsend DO [Medical Doctor] - 1-2 days
--- NOTE | 2019-01-26 18:07 | P.CNOR ---
History of Present Illness - HPI Consult date: 01/26/19 Requesting physician: Tony Bernal Consult reason: other (Right hand injury) History of present illness: Mr. Krueger is a very pleasant 73-year-old [id number] male who sustaine d an injury to his right hand 2 days ago on 01/24/2019. He was drilling with a hole saw when the drill suddenly caught, kicked and "spun around," striking the back of his hand. This initially improved with rest and ice. Today however, the pain and swelling increased. He admits that he may have been "doing too much with it." He was seen by his PCP, Dr. Hill. There was reportedly some redness and concern for possible infection and he was given a dose of of Rocephin and referred to the emergency department. Since he has been here, he has received a dose of Toradol and has been icing and elevating the hand and states it feels much better. Past medical history significant for diabetes, gout (prior lower extremity attacks), CVD/[place] with history of stent. He is currently on 81 mg of aspirin daily. Past Medical History Past Medical History: Coronary Artery Disease (CAD), Heart Failure, CVA/TIA, Diabetes Mellitus, Hyperlipidemia, Hypertension, Myocardial Infarction ([place]), Osteoarthritis ([place]) Additional Past Medical History / Comment(s): GOUT,NEUROPATHY IN FEET, TIA 2014- no residual effects, STENT LEFT CAROTID ARTERY 03/19/17., WOUNDS ON RIGHT FOOT- STATES HEEL AND RIGHT SIDE OF FOOT. Last Myocardial Infarction Date:: 2010 History of Any Multi-Drug Resistant Organisms: None Reported Past Surgical History: Coronary Bypass/CABG, Heart Catheterization With Stent, Hernia Repair Additional Past Surgical History / Comment(s): 5 VESSELS, LEFT CAROTID STENT (03/19/17). Past Anesthesia/Blood Transfusion Reactions: No Reported Reaction Date of Last Stent Placement:: 2015 Past Psychological History: No Psychological Hx Reported Smoking Status: Never smoker Past Alcohol Use History: None Reported Past Drug Use History: None Reported - Past Family History Father Family Medical History: Hypertension, Myocardial Infarction ([place]) Mother Family Medical History: No Reported History, Myocardial Infarction ([place]) Brother(s) Family Medical History: Hypertension, Myocardial Infarction ([place]) Medications and Allergies Home Medications Medication Instructions Recorded Confirmed Type ALPRAZolam [Xanax] 0.5 mg PO TID PRN 09/26/13 01/26/19 History metFORMIN HCL [Glucophage] 500 mg PO BID 03/30/17 01/26/19 History Lisinopril [Zestril] 20 mg PO BID 04/20/17 01/26/19 History Aspirin EC [Ecotrin] 325 mg PO DAILY 08/20/18 01/26/19 History Atorvastatin [Lipitor] 40 mg PO DAILY 11/27/18 01/26/19 History Carvedilol [Coreg] 6.25 mg PO BID 11/27/18 01/26/19 History Furosemide [Lasix] 40 mg PO BID 11/27/18 01/26/19 History Insulin Degludec [Tresiba 40 units SQ HS 11/27/18 01/26/19 History Flextouch U-100] HYDROcodone/APAP 5-325MG [[place] 1 tab PO Q6HR PRN 01/26/19 01/26/19 History 5-325] Isosorbide Mononitrate ER [Imdur] 60 mg PO DAILY 01/26/19 01/26/19 History Allergies Allergy/AdvReac Type Severity Reaction Status Date / Time No Known Allergies Allergy Verified 01/26/19 17:43 Physical Examination Mild to moderate edema over the dorsum of the hand with mild rubor over the carpus but no lobo erythema. No calor. Evolving ecchymosis over the basilar and STT joints. No discrete focal fluid collection. No subcutaneous crepitus. Moderate point tenderness over the STT joint. Minimal discomfort with active digital flexion and extension. Mild to moderate pain with active circumduction of the thumb. Moderate bony enlargement of bilateral basal joints. Pain and crepitus noted with CMC grind on the left. Results X-rays of the right hand were reviewed and interpreted from an orthopedic standpoint. These demonstrate moderately advanced basal joint arthritis with near-complete loss of joint space and subchondral cystic changes in the trapezium. No obvious or displaced fractures. Prominent calcifications noted in the radial artery. - Labs Labs: Abnormal Lab Results - Last 24 Hours (Table) 01/26/19 Range/Units 14:25 BUN 30 H (9-20) mg/dL Glucose 112 H (74-99) mg/dL C-Reactive Protein 10.3 H (<10.0) mg/L H & H 01/26/19 Range/Units 14:25 Hgb 14.3 (13.0-17.5) gm/dL Hct 43.8 (39.0-53.0) % Coagulation 01/26/19 Range/Units 14:25 INR 0.9 (<1.2) Result Diagrams: 01/26/19 14:25 01/26/19 14:25 Assessment and Plan Assessment: Right hand pain & edema status post contusion on 01/24/2019 with advanced underlying thumb CMC arthritis Plan: I discussed the clinical and radiographic findings in detail with Mr. Krueger and his family. His exam and imaging findings are consistent with his reported trauma. He shows no signs concerning for an active or evolving infection. We discussed the option of admitting to observation for prophylactic antibiotics and monitoring overnight. He and I both feel comfortable treating this symptomatically for now and managing this on an outpatient basis. He does not require any formal immobilization. I instructed him to continue ice and elevation. I encouraged him to perform active and passive range of motion of the fingers, hand and wrist. He may use this hand as tolerated but I advised him to avoid excessive or strenuous use. If he notices worsening pain, swelling or increasing redness, I advised him to call our office for way or return to the ED for reevaluation. Questions were invited and answered to his satisfaction. He expressed understanding and agreement with the proposed plan. I would like to see him in the office in approximately a week, at which time we will obtain repeat x-rays of the hand. Thank you for allowing me to participate in the care of this patient. Jack Townsend D.O. [facility]
[2019-01-26 18:16] VITALS: BP 144/72; PULSE 70
== END 2019-01-26 18:35 | disposition home or self-care (01) ==
LOC: EC 13:03 → 4MS4W 17:04 → UNDOADMOB 17:04 → EC 18:35
DX: L03.113 Cellulitis of right upper limb (principal); M13.841 Other specified arthritis, right hand; S60.221A Contusion of right hand, initial encounter; Z23 Encounter for immunization; I25.10 Atherosclerotic heart disease of native coronary artery without angina pectoris; I11.0 Hypertensive heart disease with heart failure; I50.9 Heart failure, unspecified; E78.5 Hyperlipidemia, unspecified; I25.2 Old myocardial infarction; E11.40 Type 2 diabetes mellitus with diabetic neuropathy, unspecified; Z79.82 Long term (current) use of aspirin; Z79.02 Long term (current) use of antithrombotics/antiplatelets; Z79.4 Long term (current) use of insulin; Z79.899 Other long term (current) drug therapy; Z95.1 Presence of aortocoronary bypass graft; Z95.5 Presence of coronary angioplasty implant and graft; Z86.73 Personal history of transient ischemic attack (TIA), and cerebral infarction without residual deficits; W22.8XXA Striking against or struck by other objects, initial encounter
CPT/HCPCS: 36415; 80053; 85652; 83605; 85025; 85610; 85730; 86140; 87040; 73130; 90715; 99284; 96374; 96361 ×2; 90471; 96372; J0696; J1885

== ENCOUNTER 2020-01-15 13:46 | Observation (INO) | payer MEDICARE ==
[2020-01-15] MEDS ORDERED: FUROSEMIDE 10 MG/ML 4 ML VIAL IV STA (15:21)
--- NOTE | 2020-01-15 15:25 | ED ---
General Adult HPI - General Chief complaint: Shortness of Breath Stated complaint: Sent by PCP-Heart Problems Time Seen by Provider: 01/15/20 14:55 Source: patient, RN notes reviewed Mode of arrival: ambulatory Limitations: no limitations - History of Present Illness Initial comments: Patient is a pleasant 74-year-old male presenting to the emergency department with difficulty breathing. Onset of symptoms was a couple of days ago. Patient has orthopnea and exertional dyspnea. Patient does have some leg swelling. Patient has history of similar symptoms previously associated with CHF. There is some fatigue. No chest pain. No fevers. No cough. - Related Data Home Medications Medication Instructions Recorded Confirmed ALPRAZolam [Xanax] 0.5 mg PO TID PRN 09/26/13 01/15/20 metFORMIN HCL [Glucophage] 500 mg PO BID 03/30/17 01/15/20 lisinopriL [Zestril] 20 mg PO BID 04/20/17 01/15/20 Aspirin EC [Ecotrin] 325 mg PO DAILY 08/20/18 01/15/20 Atorvastatin [Lipitor] 40 mg PO HS 11/27/18 01/15/20 Furosemide [Lasix] 80 mg PO DAILY 11/27/18 01/15/20 Insulin Degludec [Tresiba 30 units SQ BID 11/27/18 01/15/20 Flextouch U-100] carvediloL [Coreg] 6.25 mg PO BID 11/27/18 01/15/20 Isosorbide Mononitrate ER [Imdur] 60 mg PO DAILY 01/26/19 01/15/20 Furosemide [Lasix] 40 mg PO HS 01/15/20 01/15/20 Allergies Allergy/AdvReac Type Severity Reaction Status Date / Time No Known Allergies Allergy Verified 01/15/20 13:56 Review of Systems ROS Statement: Those systems with pertinent positive or pertinent negative responses have been documented in the HPI. ROS Other: All systems not noted in ROS Statement are negative. Constitutional: Denies: fever Eyes: Denies: eye pain ENT: Denies: ear pain Respiratory: Reports: dyspnea Cardiovascular: Reports: dyspnea on exertion, orthopnea, edema. Denies: chest pain Endocrine: Reports: fatigue Gastrointestinal: Denies: abdominal pain Genitourinary: Denies: dysuria Musculoskeletal: Denies: back pain Skin: Denies: rash Neurological: Denies: weakness Past Medical History Past Medical History: Coronary Artery Disease (CAD), Heart Failure, CVA/TIA, Diabetes Mellitus, Hyperlipidemia, Hypertension, Myocardial Infarction ([place]), Osteoarthritis (OA) Additional Past Medical History / Comment(s): GOUT,NEUROPATHY IN FEET, TIA 2014- no residual effects, STENT LEFT CAROTID ARTERY 03/19/17., WOUNDS ON RIGHT FOOT-ST ATES HEEL AND RIGHT SIDE OF FOOT. Last Myocardial Infarction Date:: 2010 History of Any Multi-Drug Resistant Organisms: None Reported Past Surgical History: Coronary Bypass/CABG, Heart Catheterization With Stent, Hernia Repair Additional Past Surgical History / Comment(s): 5 VESSELS, LEFT CAROTID STENT (03/19/17). Past Anesthesia/Blood Transfusion Reactions: No Reported Reaction Date of Last Stent Placement:: 2015 Past Psychological History: No Psychological Hx Reported Past Alcohol Use History: None Reported Past Drug Use History: None Reported - Past Family History Father Family Medical History: Hypertension, Myocardial Infarction ([place]) Mother Family Medical History: No Reported History, Myocardial Infarction ([place]) Brother(s) Family Medical History: Hypertension, Myocardial Infarction ([place]) General Exam Limitations: no limitations General appearance: alert, in no apparent distress Head exam: Present: normocephalic Eye exam: Present: normal appearance Neck exam: Present: normal inspection Respiratory exam: Present: normal lung sounds bilaterally Cardiovascular Exam: Present: regular rate, normal rhythm GI/Abdominal exam: Present: soft. Absent: tenderness Extremities exam: Present: pedal edema. Absent: calf tenderness Neurological exam: Present: alert Psychiatric exam: Present: normal affect, normal mood Skin exam: Present: normal color Course Vital Signs 01/15/20 01/15/20 13:51 16:10 Temperature 98.3 F Pulse Rate 69 67 Respiratory 18 18 Rate Blood Pressure 154/74 172/104 O2 Sat by Pulse 98 98 Oximetry EKG Findings - EKG Comments: EKG Findings:: Normal sinus rhythm 67. VT 186. QRS 106. QT 444. QTC 469. Left axis. Normal QRS. No acute ST change. Medical Decision Making - Medical Decision Making Patient reevaluated. Patient and family updated. Dr. Hill has been paged for admission of his patient. Case was discussed with Dr. Hill, who will admit - Lab Data Result diagrams: 01/15/20 15:28 01/15/20 15:28 Lab Results 01/15/20 01/15/20 01/15/20 Range/Units 15:28 15:28 15:28 WBC 7.6 (3.8-10.6) k/uL RBC 5.34 (4.30-5.90) m/uL Hgb 15.4 (13.0-17.5) gm/dL Hct 47.6 (39.0-53.0) % MCV 89.2 (80.0-100.0) fL MCH 28.8 (25.0-35.0) pg MCHC 32.3 (31.0-37.0) g/dL RDW 13.2 (11.5-15.5) % Plt Count 182 (150-450) k/uL Neutrophils % 68 % Lymphocytes % 22 % Monocytes % 5 % Eosinophils % 3 % Basophils % 1 % Neutrophils # 5.1 (1.3-7.7) k/uL Lymphocytes # 1.6 (1.0-4.8) k/uL Monocytes # 0.4 (0-1.0) k/uL Eosinophils # 0.2 (0-0.7) k/uL Basophils # 0.1 (0-0.2) k/uL PT 10.1 (9.0-12.0) sec INR 1.0 (<1.2) APTT 22.0 (22.0-30.0) sec Sodium 137 (137-145) mmol/L Potassium 4.0 (3.5-5.1) mmol/L Chloride 103 (98-107) mmol/L Carbon Dioxide 27 (22-30) mmol/L Anion Gap 7 mmol/L BUN 31 H (9-20) mg/dL Creatinine 1.21 (0.66-1.25) mg/dL Est GFR (CKD-EPI)AfAm 68 (>60 ml/min/1.73 sqM) Est GFR (CKD-EPI)NonAf 59 (>60 ml/min/1.73 sqM) Glucose 218 H (74-99) mg/dL Calcium 9.5 (8.4-10.2) mg/dL Total Bilirubin 0.8 (0.2-1.3) mg/dL AST 38 (17-59) U/L ALT 74 H (4-49) U/L Alkaline Phosphatase 159 H (38-126) U/L Troponin I (0.000-0.034) ng/mL NT-Pro-B Natriuret Pep pg/mL Total Protein 6.6 (6.3-8.2) g/dL Albumin 4.1 (3.5-5.0) g/dL 01/15/20 01/15/20 Range/Units 15:28 15:28 WBC (3.8-10.6) k/uL RBC (4.30-5.90) m/uL Hgb (13.0-17.5) gm/dL Hct (39.0-53.0) % MCV (80.0-100.0) fL MCH (25.0-35.0) pg MCHC (31.0-37.0) g/dL RDW (11.5-15.5) % Plt Count (150-450) k/uL Neutrophils % % Lymphocytes % % Monocytes % % Eosinophils % % Basophils % % Neutrophils # (1.3-7.7) k/uL Lymphocytes # (1.0-4.8) k/uL Monocytes # (0-1.0) k/uL Eosinophils # (0-0.7) k/uL Basophils # (0-0.2) k/uL PT (9.0-12.0) sec INR (<1.2) APTT (22.0-30.0) sec Sodium (137-145) mmol/L Potassium (3.5-5.1) mmol/L Chloride (98-107) mmol/L Carbon Dioxide (22-30) mmol/L Anion Gap mmol/L BUN (9-20) mg/dL Creatinine (0.66-1.25) mg/dL Est GFR (CKD-EPI)AfAm (>60 ml/min/1.73 sqM) Est GFR (CKD-EPI)NonAf (>60 ml/min/1.73 sqM) Glucose (74-99) mg/dL Calcium (8.4-10.2) mg/dL Total Bilirubin (0.2-1.3) mg/dL AST (17-59) U/L ALT (4-49) U/L Alkaline Phosphatase (38-126) U/L Troponin I 0.032 (0.000-0.034) ng/mL NT-Pro-B Natriuret Pep 81755 pg/mL Total Protein (6.3-8.2) g/dL Albumin (3.5-5.0) g/dL - Radiology Data Radiology results: image reviewed (Chest x-ray shows COPD, bilateral infiltrate and pleural thickening or effusions similar to prior. Vague nodular densities right midlung. Cardiomegaly.) Disposition Clinical Impression: CHF exacerbation Disposition: ADMITTED IP TO THIS HOSP Is patient prescribed a controlled substance at d/c from ED?: No Referrals: Donavan Hill MD [Primary Care Provider] - 1-2 days Decision Time: 16:35
[2020-01-15 15:35] LABS: Basophils # (A) 0.1 k/uL (0-0.2); Basophils % (A) 1 %; Eosinophils # (A) 0.2 k/uL (0-0.7); Eosinophils % (A) 3 %; HCT 47.6 % (39.0-53.0); HGB 15.4 gm/dL (13.0-17.5); Lymphocytes # (A) 1.6 k/uL (1.0-4.8); Lymphocytes % (A) 22 %; MCH 28.8 pg (25.0-35.0); MCHC 32.3 g/dL (31.0-37.0); MCV 89.2 fL (80.0-100.0); Mean Platelet Volume 8.9; Monocytes # (A) 0.4 k/uL (0-1.0); Monocytes % (A) 5 %; Neutrophils # (A) 5.1 k/uL (1.3-7.7); Neutrophils % (A) 68 %; Platelet Count 182 k/uL (150-450); RBC 5.34 m/uL (4.30-5.90); RDW 13.2 % (11.5-15.5); WBC 7.6 k/uL (3.8-10.6)
--- NOTE | 2020-01-15 15:43 | XR ---
EXAMINATION TYPE: XR chest 2V DATE OF EXAM: 01/15/2020 COMPARISON: 11/27/2018 TECHNIQUE: PA and lateral views submitted. HISTORY: Difficulty breathing FINDINGS: Postoperative change and cardiomegaly noted with bilateral small effusions and basilar consolidation on the right. Hyperinflation compatible COPD. No pneumothorax. Diffuse osteopenia and arthropathy of the shoulders. Ectasia of the aorta with atherosclerotic changes. Degenerative changes of the spine. IMPRESSION: 1. COPD with bilateral infiltrate and pleural thickening or tiny effusions similar in appearance the prior exam. 2 vague nodularity measuring 1 cm within the right midlung. Recommend follow-up CT of the chest compared to previous CT of the chest which questioned a nodule in the right upper lobe.
[2020-01-15 15:47] LABS: Prothrombin Time 10.1 sec (9.0-12.0)
[2020-01-15 15:49] LABS: Albumin 4.1 g/dL (3.5-5.0); Calcium 9.5 mg/dL (8.4-10.2); Total Bilirubin 0.8 mg/dL (0.2-1.3); Total Protein 6.6 g/dL (6.3-8.2)
[2020-01-15] MEDS ORDERED: ASPIRIN 325 MG TAB PO STA (16:41)
[2020-01-15] MEDS ORDERED: ENALAPRILAT 1.25 MG/ML 1 ML VIAL IVP STA (16:41)
[2020-01-15] MEDS: NITROGLYCERIN OINT 1 INCH/GM PACKET TOPICAL SCH ×2 (18:52→21:33)
[2020-01-15] MEDS ORDERED: ALPRAZolam 0.5 MG TAB PO PRN (19:00)
[2020-01-15 20:43] LABS: Glucose,Whole Blood 332 mg/dL (75-99)
[2020-01-15] MEDS: metFORMIN 500 MG TAB PO SCH (21:31)
[2020-01-15] MEDS: ATORVASTATIN 40 MG TAB PO SCH (21:31)
[2020-01-15] MEDS: carvediloL 6.25 MG TAB PO SCH (21:31)
[2020-01-15] MEDS: INSULIN ASPART (NovoLOG) 100 UNIT/ML VIAL SQ SCH (21:32)
[2020-01-15] MEDS: INSULIN DETEMIR (LEVEMIR) 100 UNIT/ML SYR SQ SCH (21:32)
[2020-01-15] MEDS: FUROSEMIDE 10 MG/ML 4 ML VIAL IV SCH (23:58)
[2020-01-16 06:08] LABS: Glucose,Whole Blood 96 mg/dL (75-99)
[2020-01-16] MEDS: INSULIN ASPART (NovoLOG) 100 UNIT/ML VIAL SQ SCH ×4 (07:54→21:38)
--- NOTE | 2020-01-16 07:55 | P.HPIM ---
History of Present Illness H&P Date: 01/16/20 Chief Complaint: Weight gain shortness of breath. This is a history of physical 74-year-old white male with known history of coronary artery disease diabetes and systolic congestive heart failure who had about a 6 pound weight gain in several days. He is very noncompliant due to perceived costs of his medications. Blood sugar has possibly been poorly controlled. Because of his significant shortness of breath he was admitted appropriately for exacerbation of heart failure. The patient has been started diuresing and he is now feeling much better. Had a long discussion regarding compliance of treatment. Review of Systems Constitutional: Denies chills, Denies fever Eyes: denies blurred vision, denies pain Ears, nose, mouth and throat: Denies headache, Denies sore throat Cardiovascular: Reports dyspnea on exertion, Reports edema Respiratory: Denies cough Musculoskeletal: Denies myalgias Past Medical History Past Medical History: Coronary Artery Disease (CAD), Heart Failure, CVA/TIA, Diabetes Mellitus, Hyperlipidemia, Hypertension, Myocardial Infarction ([place]), Osteoarthritis ([place]) Additional Past Medical History / Comment(s): GOUT,NEUROPATHY IN FEET, TIA 2014- no residual effects, STENT LEFT CAROTID ARTERY 03/19/17., WOUNDS ON RIGHT FOOT- STATES HEEL AND RIGHT SIDE OF FOOT. Last Myocardial Infarction Date:: 2010 History of Any Multi-Drug Resistant Organisms: None Reported Past Surgical History: Coronary Bypass/CABG, Heart Catheterization With Stent, Hernia Repair Additional Past Surgical History / Comment(s): 5 VESSELS, LEFT CAROTID STENT (03/19/17). Past Anesthesia/Blood Transfusion Reactions: No Reported Reaction Date of Last Stent Placement:: 2015 Past Psychological History: No Psychological Hx Reported Smoking Status: Never smoker Past Alcohol Use History: None Reported Past Drug Use History: None Reported - Past Family History Father Family Medical History: Hypertension, Myocardial Infarction ([place]) Mother Family Medical History: No Reported History, Myocardial Infarction ([place]) Brother(s) Family Medical History: Hypertension, Myocardial Infarction ([place]) Medications and Allergies Home Medications Medication Instructions Recorded Confirmed Type RX: ALPRAZolam [Xanax] 0.5 mg PO TID PRN 09/26/13 01/15/20 History RX: metFORMIN HCL [Glucophage] 500 mg PO BID 03/30/17 01/15/20 History RX: lisinopriL [Zestril] 20 mg PO BID 04/20/17 01/15/20 History RX: Aspirin EC [Ecotrin] 325 mg PO DAILY 08/20/18 01/15/20 History RX: Atorvastatin [Lipitor] 40 mg PO HS 11/27/18 01/15/20 History RX: Furosemide [Lasix] 80 mg PO DAILY 11/27/18 01/15/20 History RX: Insulin Degludec [Tresiba 30 units SQ BID 11/27/18 01/15/20 History Flextouch U-100] RX: carvediloL [Coreg] 6.25 mg PO BID 11/27/18 01/15/20 History RX: Isosorbide Mononitrate ER 60 mg PO DAILY 01/26/19 01/15/20 History [Imdur] Furosemide [Lasix] 40 mg PO HS 01/15/20 01/15/20 History Allergies Allergy/AdvReac Type Severity Reaction Status Date / Time No Known Allergies Allergy Verified 01/15/20 13:56 Physical Exam Vitals: Vital Signs Temp Pulse Pulse Resp BP BP Pulse Ox 01/16/20 02:31 97.7 F 52 L 14 142/78 01/15/20 19:43 97.9 F 72 16 156/76 01/15/20 18:37 97.7 F 14 01/15/20 17:55 98.0 F 78 18 176/84 100 01/15/20 17:00 70 18 173/97 98 01/15/20 16:59 97.7 F 67 14 166/76 01/15/20 16:10 67 18 172/104 98 01/15/20 13:51 98.3 F 69 18 154/74 98 Intake and Output 01/15/20 01/16/20 01/16/20 22:59 06:59 14:59 Other: Voiding Method Toilet Toilet Weight 74.843 kg - Constitutional General appearance: cooperative, no acute distress - EENT Eyes: EOMI - Neck Neck: no lymphadenopathy - Respiratory Respiratory: bilateral: diminished - Cardiovascular Rhythm: regular Heart sounds: normal: S1, S2 Abnormal Heart Sounds: no S3 Gallop - Gastrointestinal General gastrointestinal: soft, no tenderness - Neurologic Neurologic: CNII-XII intact - Psychiatric Psychiatric: A&O x's 3, no appropriate affect Results CBC & Chem 7: 09/28/20 15:28 01/15/20 15:28 Labs: Abnormal Lab Results - Last 24 Hours (Table) 01/15/20 01/15/20 Range/Units 15:28 20:36 BUN 31 H (9-20) mg/dL Glucose 218 H (74-99) mg/dL POC Glucose (mg/dL) 332 H (75-99) mg/dL ALT 74 H (4-49) U/L Alkaline Phosphatase 159 H (38-126) U/L Thrombosis Risk Factor Assmnt - Choose All That Apply Any of the Below Risk Factors Present?: Yes Each Factor Represents 1 point: Heart failure (<1month) Other Risk Factors: Yes Each Risk Factor Represents 2 Points: Age 61-74 years Thrombosis Risk Factor Assessment Total Risk Factor Score: 3 Thrombosis Risk Factor Assessment Level: Moderate Risk Assessment and Plan (1) CHF exacerbation Current Visit: Yes Status: Acute Code(s): I50.9 - HEART FAILURE, UNSPECIFIED SNOMED Code(s): 791246256 (2) CAD (coronary artery disease) Current Visit: No Status: Acute Code(s): I25.10 - ATHSCL HEART DISEASE OF [place] CORONARY ARTERY W/O ANG PCTRS SNOMED Code(s): 440079688 (3) Cardiomyopathy Current Visit: No Status: Acute Code(s): I42.9 - CARDIOMYOPATHY, UNSPECIFIED SNOMED Code(s): 30280779 (4) Dyspnea Current Visit: No Status: Acute Code(s): R06.00 - DYSPNEA, UNSPECIFIED SNOMED Code(s): 266169033 (5) Type 2 diabetes mellitus Current Visit: No Status: Acute Code(s): E11.9 - TYPE 2 DIABETES MELLITUS WITHOUT COMPLICATIONS SNOMED Code(s): 18145335 (6) Noncompliance with diabetes treatment Current Visit: Yes Status: Acute Code(s): Z91.19 - PATIENT'S NONCOMPLIANCE W OTH MEDICAL TREATMENT AND REGIMEN SNOMED Code(s): 7391735 (7) Noncompliance w/medication treatment due to intermit use of medication Current Visit: Yes Status: Acute Code(s): Z91.14 - PATIENT'S OTHER NONCOMPLIANCE WITH MEDICATION REGIMEN SNOMED Code(s): 880052927 Plan: We'll go ahead and continue diuresis. Consult cardiology. Question need for echocardiogram. Check CMP in a.m. Prognosis is guarded secondary to his noncompliance and multiple comorbidities. Time with Patient: Greater than 30
[2020-01-16] MEDS: INSULIN DETEMIR (LEVEMIR) 100 UNIT/ML SYR SQ SCH ×2 (07:58→21:38)
[2020-01-16] MEDS: lisinopriL 10 MG TAB PO SCH (07:58)
[2020-01-16] MEDS: ISOSORBIDE MONONITRATE ER 60 MG TAB.ER.24H PO SCH (07:58)
[2020-01-16] MEDS: ASPIRIN 325 MG TAB PO SCH (07:58)
[2020-01-16] MEDS: NITROGLYCERIN OINT 1 INCH/GM PACKET TOPICAL SCH ×2 (07:58→11:39)
[2020-01-16] MEDS: carvediloL 6.25 MG TAB PO SCH ×2 (07:58→21:37)
[2020-01-16] MEDS: metFORMIN 500 MG TAB PO SCH ×2 (07:58→21:37)
[2020-01-16] MEDS: FUROSEMIDE 10 MG/ML 4 ML VIAL IV SCH ×2 (07:58→15:20)
[2020-01-16] MEDS ORDERED: ASPIRIN 325 MG TAB PO SCH (09:00)
[2020-01-16 11:17] LABS: Glucose,Whole Blood 119 mg/dL (75-99)
--- NOTE | 2020-01-16 11:46 | P.CRDCN ---
History of Present Illness History of present illness: HISTORY OF PRESENTING ILLNESS This is a pleasant 74-year-old male past medical history significant for coronary artery disease status post bypass grafting, peripheral vascular disease status post right SFA intervention, ischemic cardiomyopathy, chronic systolic heart failure, hypertension, dyslipidemia and diabetes mellitus. He follows in the office with Dr. River. We have been asked to see in consultation for shortness of breath. He presented to the emergency department with a three- day history of exertional shortness of breath, orthopnea and increased lower extremity edema. He states approximately one week ago he was noncompliant with his diuretics which he believes prompted this exacerbation. At home he takes Lasix 80 mg in the morning 40 mg in the evening. He has been initiated on Lasix 40 mg IV 3 times a day since admission. He is seen and examined sitting up in bed in no acute distress. He states he feels as though his breathing has improved however not back to baseline entirely. He still has trace lower extremity edema. DIAGNOSTICS EKG rev's mechanism with poor R-wave progression. Chest xray COPD with bilateral infiltrates and pleural thickening. Laboratory reviewed, CBC unremarkable, sodium 137, potassium 4.0, creatinine 1.21, cardiac enzymes negative 1, NT proBNP 11,100. Current cardiac medications include aspirin 325 mg daily, atorvastatin 40 mg daily, Lasix 80 mg in the morning and 40 mg in the evening, Imdur 60 mg daily, carvedilol 6.25 mg twice a day and lisinopril 20 mg twice a day. Most recent echocardiogram obtained in the office 12/20/2019 revealed impaired LV systolic function with ejection fraction 29%, moderate concentric LVH, hypokinesia and inferior wall at the apex and septal wall from the mid wall to the apex, hypokinesia of the anterior and lateral ordoñez at the apex, grade 3 diastolic dysfunction, severely dilated left atrium, calcified aortic valve, mild to moderate MR, [id number] TR and moderate pulmonary hypertension with an RVSP of 56 mmHg. REVIEW OF SYSTEMS At the time of my exam: CONSTITUTIONAL: Denies fever or chills. CARDIOVASCULAR: Denies chest pain, shortness of breath, orthopnea, PND or pa lpitations. RESPIRATORY: Denies cough. GASTROINTESTINAL: Denies abdominal pain, diarrhea, constipation, nausea or vomiting. MUSCULOSKELETAL: Denies myalgias. NEUROLOGIC: Denies numbness, tingling or weakness. ENDOCRINE: Denies fatigue, weight change, polydipsia or polyurina. GENITOURINARY: Denies burning, hematuria or urgency with micturation. HEMATOLOGIC: Denies history of anemia or bleeding. PHYSICAL EXAMINATION Blood pressure 147/74 heart rate 58 afebrile and maintaining oxygen saturation on room air. CONSTITUTIONAL: No apparent distress. HEENT: Head is normocephalic. Pupils are equal, round. Sclerae anicteric. Mucous membranes of the mouth are moist. No JVD. No carotid bruit. CHEST EXAMINATION: Lungs are clear to auscultation. No chest wall tenderness is noted on palpation or with deep breathing. HEART EXAMINATION: Regular rate and rhythm. S1, S2 heard. Systolic ejection murmur at the left sternal border, no gallops or rub. ABDOMEN: Soft, nontender. Positive bowel sounds. EXTREMITIES: 2+ peripheral pulses, 1+ pitting edema left lower extremity, trace on the right lower extremity and no calf tenderness. NEUROLOGIC EXAMINATION: Patient is awake, alert and oriented x3. ASSESSMENT Acute on chronic systolic heart failure Ischemic cardiomyopathy Coronary artery disease status post bypass grafting Hypertension Dyslipidemia Diabetes mellitus Peripheral vascular disease PLAN Continue IV diuresis. Document accurate intake and output along with daily weights. Follow renal function and electrolytes in the morning. Repeat chest x-ray in the morning. Thank you kindly for this consultation. Nurse Practitioner note has been reviewed, I agree with a documented findings and plan of care. Patient was seen and examined. Past Medical History Past Medical History: Coronary Artery Disease (CAD), Heart Failure, CVA/TIA, Diabetes Mellitus, Hyperlipidemia, Hypertension, [place]ocardial Infarction ([place]), Osteoarthritis ([place]) Additional Past Medical History / Comment(s): GOUT,NEUROPATHY IN FEET, TIA 2014- no residual effects, STENT LEFT CAROTID ARTERY 03/19/17., WOUNDS ON RIGHT FOOT- STATES HEEL AND RIGHT SIDE OF FOOT. Last Myocardial Infarction Date:: 2010 History of Any Multi-Drug Resistant Organisms: None Reported Past Surgical History: Coronary Bypass/CABG, Heart Catheterization With Stent, Hernia Repair Additional Past Surgical History / Comment(s): -2010 5 VESSELS, LEFT CAROTID STENT (03/19/17). Past Anesthesia/Blood Transfusion Reactions: No Reported Reaction Date of Last Stent Placement:: 2015 Past Psychological History: No Psychological Hx Reported Smoking Status: Never smoker Past Alcohol Use History: None Reported Past Drug Use History: None Reported - Past Family History Father Family Medical History: Hypertension, Myocardial Infarction ([place]) Mother Family Medical History: No Reported History, Myocardial Infarction ([place]) Brother(s) Family Medical History: Hypertension, [place]ocardial Infarction ([place]) Medications and Allergies Home Medications Medication Instructions Recorded Confirmed Type ALPRAZolam [Xanax] 0.5 mg PO TID PRN 09/26/13 01/15/20 History metFORMIN HCL [Glucophage] 500 mg PO BID 03/30/17 01/15/20 History lisinopriL [Zestril] 20 mg PO BID 04/20/17 01/15/20 History Aspirin EC [Ecotrin] 325 mg PO DAILY 08/20/18 01/15/20 History Atorvastatin [Lipitor] 40 mg PO HS 11/27/18 01/15/20 History Furosemide [Lasix] 80 mg PO DAILY 11/27/18 01/15/20 History Insulin Degludec [Tresiba 30 units SQ BID 11/27/18 01/15/20 History Flextouch U-100] carvediloL [Coreg] 6.25 mg PO BID 11/27/18 01/15/20 History Isosorbide Mononitrate ER [Imdur] 60 mg PO DAILY 01/26/19 01/15/20 History Furosemide [Lasix] 40 mg PO HS 01/15/20 01/15/20 History Allergies Allergy/AdvReac Type Severity Reaction Status Date / Time No Known Allergies Allergy Verified 01/15/20 13:56 Physical Exam Vitals: Vital Signs Temp Pulse Pulse Resp BP BP Pulse Ox 01/16/20 07:56 97.9 F 58 L 14 147/74 97 01/16/20 02:31 97.7 F 52 L 14 142/78 01/15/20 19:43 97.9 F 72 16 156/76 01/15/20 18:37 97.7 F 14 01/15/20 17:55 98.0 F 78 18 176/84 100 01/15/20 17:00 70 18 173/97 98 01/15/20 16:59 97.7 F 67 14 166/76 01/15/20 16:10 67 18 172/104 98 01/15/20 13:51 98.3 F 69 18 154/74 98 Intake and Output 01/15/20 01/16/20 01/16/20 22:59 06:59 14:59 Other: Voiding Method Toilet Toilet Toilet # Voids 2 Weight 74.843 kg Results 01/15/20 15:28 01/15/20 15:28 Cardiac Enzymes 01/15/20 01/15/20 Range/Units 15:28 15:28 AST 38 (17-59) U/L Troponin I 0.032 (0.000-0.034) ng/mL Coagulation 01/15/20 Range/Units 15:28 PT 10.1 (9.0-12.0) sec APTT 22.0 (22.0-30.0) sec CBC 01/15/20 Range/Units 15:28 WBC 7.6 (3.8-10.6) k/uL RBC 5.34 (4.30-5.90) m/uL Hgb 15.4 (13.0-17.5) gm/dL Hct 47.6 (39.0-53.0) % Plt Count 182 (150-450) k/uL Comprehensive Metabolic Panel 01/15/20 Range/Units 15:28 Sodium 137 (137-145) mmol/L Potassium 4.0 (3.5-5.1) mmol/L Chloride 103 (98-107) mmol/L Carbon Dioxide 27 (22-30) mmol/L BUN 31 H (9-20) mg/dL Creatinine 1.21 (0.66-1.25) mg/dL Glucose 218 H (74-99) mg/dL Calcium 9.5 (8.4-10.2) mg/dL AST 38 (17-59) U/L ALT 74 H (4-49) U/L Alkaline Phosphatase 159 H (38-126) U/L Total Protein 6.6 (6.3-8.2) g/dL Albumin 4.1 (3.5-5.0) g/dL Current Medications Generic Name Dose Route Start Last Admin Trade Name Freq PRN Reason Stop Dose Admin Alprazolam 0.5 mg 01/15/20 19:00 Alprazolam 0.5 Mg Tab PO TID PRN Anxiety Aspirin 325 mg 01/16/20 09:00 01/16/20 07:58 Aspirin 325 Mg Tab PO 325 mg DAILY TODD Administration Atorvastatin Calcium 40 mg 01/15/20 21:00 01/15/20 21:31 Atorvastatin 40 Mg Tab PO 40 mg HS TODD Administration Carvedilol 6.25 mg 01/15/20 21:00 01/16/20 07:58 Carvedilol 6.25 Mg Tab PO 6.25 mg BID TODD Administration Furosemide 40 mg 01/16/20 00:00 01/16/20 07:58 Furosemide 10 Mg/Ml 4 Ml Vial IV 40 mg Q8H TODD Administration Insulin Aspart 0 unit 01/15/20 22:00 01/16/20 07:54 Insulin Aspart (Novolog) 100 Unit/Ml Vial SQ Not Given ACHS [facility] Protocol Insulin Detemir 30 unit 01/15/20 21:00 01/16/20 07:58 Insulin Detemir (Levemir) 100 Unit/Ml Syr SQ Not Given BID [facility] Isosorbide Mononitrate 60 mg 01/16/20 09:00 01/16/20 07:58 Isosorbide Mononitrate Er 60 Mg Tab.Er.24h PO 60 mg DAILY TODD Administration Lisinopril 10 mg 01/16/20 09:00 01/16/20 07:58 Lisinopril 10 Mg Tab PO 10 mg DAILY TODD Administration Metformin HCl 500 mg 01/15/20 21:00 01/16/20 07:58 Metformin 500 Mg Tab PO Not Given BID [facility] Nitroglycerin 1 inch 01/15/20 18:00 01/16/20 07:58 Nitroglycerin Oint 1 Inch/Gm Packet TOPICAL 1 inch QID TODD Administration Sodium Chloride 10 ml 01/15/20 21:00 01/16/20 07:58 Sodium Chloride 0.9% Flush 10 Ml Syringe IV 10 ml BID [facility] Administration Intake and Output 01/15/20 01/16/20 01/16/20 22:59 06:59 14:59 Other: Voiding Method Toilet Toilet Toilet # Voids 2 Weight 74.843 kg 01/15/20 15:28 01/15/20 15:28
[2020-01-16 16:59] LABS: Glucose,Whole Blood 283 mg/dL (75-99)
[2020-01-16 20:04] VITALS: RESP 16
[2020-01-16 21:21] LABS: Glucose,Whole Blood 96 mg/dL (75-99)
[2020-01-16] MEDS: ATORVASTATIN 40 MG TAB PO SCH (21:37)
[2020-01-17] MEDS: FUROSEMIDE 10 MG/ML 4 ML VIAL IV SCH ×2 (00:24→07:23)
[2020-01-17 06:27] LABS: Glucose,Whole Blood 138 mg/dL (75-99)
[2020-01-17] MEDS: ASPIRIN 325 MG TAB PO SCH (07:24)
[2020-01-17] MEDS: carvediloL 6.25 MG TAB PO SCH (07:24)
[2020-01-17] MEDS: metFORMIN 500 MG TAB PO SCH (07:24)
[2020-01-17] MEDS: lisinopriL 10 MG TAB PO SCH (07:24)
[2020-01-17] MEDS: INSULIN ASPART (NovoLOG) 100 UNIT/ML VIAL SQ SCH ×3 (07:24→16:53)
[2020-01-17] MEDS: INSULIN DETEMIR (LEVEMIR) 100 UNIT/ML SYR SQ SCH (07:24)
[2020-01-17] MEDS: ISOSORBIDE MONONITRATE ER 60 MG TAB.ER.24H PO SCH (08:19)
--- NOTE | 2020-01-17 09:03 | XR ---
EXAMINATION TYPE: XR chest 2V DATE OF EXAM: 01/17/2020 COMPARISON: Prior chest x-ray 01/15/2020 HISTORY: Follow-up heart failure, abnormal chest x-ray TECHNIQUE: Frontal and lateral views of the chest are obtained. FINDINGS: Patient is post median sternotomy. Cardiomediastinal silhouette, pulmonary vascularity and ting are stable. Aorta is dense. No evident airspace disease, pneumothorax, or pleural effusion. The re are overlying cardiac leads. Prominent lung volumes suggest underlying COPD. There are coronary ar josé miguel calcifications. Minimal blunting the posterior costophrenic angles. IMPRESSION: There is improvement in aeration, minimal effusions may be present some basilar atelecta sis.
[2020-01-17 09:19] LABS: Albumin 4.3 g/dL (3.5-5.0); Calcium 9.7 mg/dL (8.4-10.2); Magnesium 1.9 mg/dL (1.6-2.3); Potassium 4.1 mmol/L (3.5-5.1); Total Bilirubin 0.8 mg/dL (0.2-1.3); Total Protein 7.2 g/dL (6.3-8.2)
[2020-01-17 11:44] LABS: Glucose,Whole Blood 298 mg/dL (75-99)
--- NOTE | 2020-01-17 12:44 | P.PN ---
Subjective HISTORY OF PRESENTING ILLNESS This is a pleasant 74-year-old male past medical history significant for coronary artery disease status post bypass grafting, peripheral vascular disease status post right SFA intervention, ischemic cardiomyopathy, chronic systolic heart failure, hypertension, dyslipidemia and diabetes mellitus. He follows in the office with Dr. River. He is seen and examined sitting up in bed in no acute distress. He denies chest pain, shortness of breath, dizziness or palpitations. Repeat chest x-ray this morning reveals improvement in aeration with minimal effusions noted. Blood pressure 171/83 heart rate 63 afebrile maintaining oxygen saturation on room air. 24 hour output is 1560 mL's. His weight is down 4 kg since admission. Laboratory data reviewed sodium 141, potassium 4.1 and creatinine 1.27. PHYSICAL EXAMINATION CONSTITUTIONAL: No apparent distress. HEENT: Head is normocephalic. Pupils are equal, round. Sclerae anicteric. Mucous membranes of the mouth are moist. No JVD. No carotid bruit. CHEST EXAMINATION: Lungs are clear to auscultation. No chest wall tenderness is noted on palpation or with deep breathing. HEART EXAMINATION: Regular rate and rhythm. S1, S2 heard. Systolic ejection m urmur at the left sternal border, no gallops or rub. EXTREMITIES: 2+ peripheral pulses, no lower extremity edema and no calf tenderness. ASSESSMENT Acute on chronic systolic heart failure Ischemic cardiomyopathy Coronary artery disease status post bypass grafting Hypertension Dyslipidemia Diabetes mellitus Peripheral vascular disease PLAN He has been transitioned to oral diuretics. Breathing is stable. Follow-up in the office with Dr. River upon discharge. Nurse Practitioner note has been reviewed, I agree with a documented findings and plan of care. Patient was seen and examined. Objective - Vital Signs Vital signs: Vital Signs Temp 97.9 F 01/17/20 07:32 Pulse 63 01/17/20 07:32 Resp 16 01/17/20 07:32 BP 171/83 01/17/20 07:32 Pulse Ox 97 01/17/20 07:32 Intake & Output 01/16/20 01/17/20 01/17/20 18:59 06:59 18:59 Output Total 1560 Balance -1560 Weight 71 kg 70.2 kg Output: Urine 1560 Other: Voiding Method Toilet Toilet Toilet # Voids 2 - Labs CBC & Chem 7: 01/15/20 15:28 01/17/20 08:10 Labs: Abnormal Lab Results - Last 24 Hours (Table) 01/16/20 01/17/20 01/17/20 Range/Units 16:57 06:26 08:10 Carbon Dioxide 34 H (22-30) mmol/L BUN 32 H (9-20) mg/dL Creatinine 1.27 H (0.66-1.25) mg/dL Glucose 140 H (74-99) mg/dL POC Glucose (mg/dL) 283 H 138 H (75-99) mg/dL ALT 51 H (4-49) U/L Alkaline Phosphatase 162 H (38-126) U/L 01/17/20 Range/Units 11:42 Carbon Dioxide (22-30) mmol/L BUN (9-20) mg/dL Creatinine (0.66-1.25) mg/dL Glucose (74-99) mg/dL POC Glucose (mg/dL) 298 H (75-99) mg/dL ALT (4-49) U/L Alkaline Phosphatase (38-126) U/L
[2020-01-17 14:41] VITALS: BMI 23.5
[2020-01-17 15:06] VITALS: BP 131/65; PULSE 69; TEMP 98.1
[2020-01-17] MEDS ORDERED: FUROSEMIDE 40 MG TAB PO SCH (16:00)
--- NOTE | 2020-01-17 16:11 | P.DS ---
Providers Date of admission: 01/15/20 16:53 Expected date of discharge: 01/17/20 Attending physician: Donavan Hill Consults: 01/15/20 16:41 Consult Physician Routine Consulting Provider: Marian Bradshaw Consult Reason/Comments: chf Do you want consulting provider notified?: Yes Primary care physician: Donavan Hill - Discharge Diagnosis(es) (1) CHF exacerbation Current Visit: Yes Status: Acute (2) CAD (coronary artery disease) Current Visit: No Status: Acute (3) Cardiomyopathy Current Visit: No Status: Acute (4) Dyspnea Current Visit: No Status: Acute (5) Type 2 diabetes mellitus Current Visit: No Status: Acute (6) Noncompliance with diabetes treatment Current Visit: Yes Status: Acute (7) Noncompliance w/medication treatment due to intermit use of medication Current Visit: Yes Status: Acute Hospital Course: The patient was admitted for CHF with hx of cardiolomyopathy and noncompliance with medication. Diuresis was done and good weight loss and appropriate return to baseline respiratory status. no voiding difficulties. Once cleared with cardiology we will DC to home in stable condition. Patient Condition at Discharge: Stable Plan - Discharge Summary Discharge Rx Participant: Yes New Discharge Prescriptions: Continue ALPRAZolam [Xanax] 0.5 mg PO TID PRN PRN Reason: Anxiety metFORMIN HCL [Glucophage] 500 mg PO BID lisinopriL [Zestril] 20 mg PO BID Aspirin EC [Ecotrin] 325 mg PO DAILY Atorvastatin [Lipitor] 40 mg PO HS carvediloL [Coreg] 6.25 mg PO BID Furosemide [Lasix] 80 mg PO DAILY Insulin Degludec [Tresiba Flextouch U-100] 30 units SQ BID Isosorbide Mononitrate ER [Imdur] 60 mg PO DAILY Furosemide [Lasix] 40 mg PO HS Discharge Medication List ALPRAZolam [Xanax] 0.5 mg PO TID PRN 09/26/13 [History] metFORMIN HCL [Glucophage] 500 mg PO BID 03/30/17 [History] lisinopriL [Zestril] 20 mg PO BID 04/20/17 [History] Aspirin EC [Ecotrin] 325 mg PO DAILY 08/20/18 [History] Atorvastatin [Lipitor] 40 mg PO HS 11/27/18 [History] Furosemide [Lasix] 80 mg PO DAILY 11/27/18 [History] Insulin Degludec [Tresiba Flextouch U-100] 30 units SQ BID 11/27/18 [History] carvediloL [Coreg] 6.25 mg PO BID 11/27/18 [History] Isosorbide Mononitrate ER [Imdur] 60 mg PO DAILY 01/26/19 [History] Furosemide [Lasix] 40 mg PO HS 01/15/20 [History] Follow up Appointment(s)/Referral(s): Donavan iHll MD [Primary Care Provider] - 1-2 days Activity/Diet/Wound Care/Special Instructions: Contact CM at [place] [facility]
[2020-01-17 16:51] LABS: Glucose,Whole Blood 89 mg/dL (75-99)
== END 2020-01-17 17:20 | disposition home or self-care (01) ==
LOC: EC 13:46 → 1SOBS 16:53
PROVIDERS: ADMIT Family Medicine; ATTEND Family Medicine
DX: I25.10 Atherosclerotic heart disease of native coronary artery without angina pectoris (principal); I11.0 Hypertensive heart disease with heart failure; I50.22 Chronic systolic (congestive) heart failure; I25.5 Ischemic cardiomyopathy; M79.89 Other specified soft tissue disorders; E11.42 Type 2 diabetes mellitus with diabetic polyneuropathy; E11.51 Type 2 diabetes mellitus with diabetic peripheral angiopathy without gangrene; Z91.14 Patient's other noncompliance with medication regimen; E78.5 Hyperlipidemia, unspecified; M10.9 Gout, unspecified; Z95.820 Peripheral vascular angioplasty status with implants and grafts; Z86.73 Personal history of transient ischemic attack (TIA), and cerebral infarction without residual deficits; I25.2 Old myocardial infarction; M19.90 Unspecified osteoarthritis, unspecified site; Z95.1 Presence of aortocoronary bypass graft; Z95.5 Presence of coronary angioplasty implant and graft; Z98.890 Other specified postprocedural states; Z82.49 Family history of ischemic heart disease and other diseases of the circulatory system; Z79.82 Long term (current) use of aspirin; Z79.4 Long term (current) use of insulin; Z79.899 Other long term (current) drug therapy
CPT/HCPCS: 93005 ×2; 96376 ×3; 96374; 96375; 99285; 36415; 83880; 80053 ×2; 83735 ×2; 84484; 85025; 85610; 85730; 71046 ×2; G0378 ×3; J1940 ×3

== ENCOUNTER → 2020-01-25 | Outpatient (CLI) | payer MEDICARE ==
--- NOTE | 2020-01-25 11:53 | US ---
EXAMINATION TYPE: US kidneys/renal and bladder DATE OF EXAM: 01/25/2020 COMPARISON: US 2016 CLINICAL HISTORY: R94.4 abn renal function. Abnormal renal function EXAM MEASUREMENTS: Right Kidney: 10.8 x 5.8 x 6.0 cm Left Kidney: 9.2 x 5.1 x 5.2 cm Right Kidney: no hydronephrosis or masses seen Left Kidney: no hydronephrosis or masses seen Bladder: wnl Bilateral Jets seen: yes IMPRESSION: Normal retroperitoneal ultrasound
== END | disposition home or self-care (01) ==
LOC: RADUSWWP 10:59
PROVIDERS: ATTEND Family Medicine
DX: R94.4 Abnormal results of kidney function studies (principal)
CPT/HCPCS: 76770

== ENCOUNTER 2020-02-19 09:38 | Day surgery (SDC) | payer MEDICARE ==
[2020-02-16 13:36] VITALS: BMI 24.3
[~2020-02-19 09:38] MED LIST changes: +FUROSEMIDE 10 MG/ML 4 ML VIAL IV ONE; +LACTATED RINGERS 1,000 ML IV SCH; +SODIUM CHLORIDE 0.9% 1,000 ML IV SCH; -SODIUM CHLORIDE 0.9% 1,000 ML in EMPTY BAG 1 BAG IV ONE; +ceFAZolin 1,000 MG in SODIUM CHLORIDE 0.9% IRRIGATIO 250 ML IRRIGATION ONE
[2020-02-19] MEDS ORDERED: DEXTROSE 50% SYRINGE 50 ML IVP ONE ×2 (10:01→11:04)
[2020-02-19 10:06] LABS: Glucose,Whole Blood 40 mg/dL (75-99)
[2020-02-19] MEDS ORDERED: SODIUM CHLORIDE 0.9% 500 ML 500 ML IV ONE (10:10)
[2020-02-19] MEDS ORDERED: DEXTROSE 50% SYRINGE 50 ML IVP STA (10:25)
[2020-02-19 10:29] LABS: Glucose,Whole Blood 82 mg/dL (75-99)
[2020-02-19 10:32] LABS: Glucose,Whole Blood 81 mg/dL (75-99)
[2020-02-19 10:37] LABS: Basophils % (A) 0 %; Eosinophils # (A) 0.1 k/uL (0-0.7); Eosinophils % (A) 1 %; HGB 15.1 gm/dL (13.0-17.5); Lymphocytes # (A) 1.1 k/uL (1.0-4.8); Lymphocytes % (A) 11 %; MCH 29.9 pg (25.0-35.0); MCHC 32.1 g/dL (31.0-37.0); Mean Platelet Volume 8.8; Monocytes # (A) 0.5 k/uL (0-1.0); Monocytes % (A) 5 %; Neutrophils # (A) 7.8 k/uL (1.3-7.7); Neutrophils % (A) 81 %; Platelet Count 188 k/uL (150-450); RBC 5.06 m/uL (4.30-5.90); RDW 13.6 % (11.5-15.5); WBC 9.6 k/uL (3.8-10.6)
[2020-02-19 10:39] LABS: Cholesterol 164 mg/dL (<200); HDL Cholesterol 58 mg/dL (40-60); LDL Cholesterol,Calculated 93 mg/dL (0-99); Triglycerides 64 mg/dL (<150)
[2020-02-19 11:01] LABS: Glucose,Whole Blood 66 mg/dL (75-99)
[2020-02-19] MEDS ORDERED: LIDOCAINE 1% INJ 10MG/ML (20 ML MDV) ONE ×2 (11:04→12:58)
[2020-02-19] MEDS: DEXTROSE 5% IN WATER 1,000 ML IV SCH ×2 (11:14→11:19)
[2020-02-19 11:51] LABS: Glucose,Whole Blood 78 mg/dL (75-99)
[2020-02-19] MEDS ORDERED: diphenhydrAMINE 50 MG/ML 1 ML VIAL ONE (12:02)
[2020-02-19] MEDS ORDERED: MIDAZOLAM 2 MG/2 ML VIAL ONE (12:02)
[2020-02-19] MEDS ORDERED: fentaNYL (PF) 50 MCG/ML 2 ML AMP ONE (12:02)
[2020-02-19] MEDS ORDERED: IOPAMIDOL-250 50ML BTL IV ONE (12:25)
[2020-02-19] MEDS ORDERED: LIDOCAINE 1% INJ 10MG/ML (20 ML MDV) SQ ONE ×2 (12:57→13:06)
[2020-02-19] MEDS ORDERED: ACETAMINOPHEN TAB 325 MG TAB PO PRN (14:13)
--- NOTE | 2020-02-19 14:18 | P.PN ---
Progress Note - Text Diagnosis Ischemic coronary myopathy Class III heart failure, acute and chronic Admitted earlier for IV Lasix administration Improvement in orthopnea with IV Lasix Successful dual-chamber ICD implantation for primary prevention of sudden cardiac Chronic LV systolic dysfunction ejection fraction 29% on medical treatment History of CAD old [place] coronary artery bypass grafting Sinus bradycardia on beta blockers, necessary treatment Plan Start Aldactone 25 mg by mouth daily Increase carvedilol to 12.5 mg twice daily if possible Discharge home after IV antibiotics chest x-ray and device interrogation today Follow Dr. River in
[2020-02-19 14:30] LABS: Glucose,Whole Blood 54 mg/dL (75-99)
--- NOTE | 2020-02-19 14:44 | XR ---
EXAMINATION TYPE: XR chest 1V portable DATE OF EXAM: 02/19/2020 COMPARISON: 01/17/2020 HISTORY: Post pacemaker placement TECHNIQUE: Single frontal view of the chest is obtained. FINDINGS: Hyperinflation suggests COPD and there is a diffuse interstitial pattern with cardiomegaly . Postoperative change and a double lead pacemaker seen with the proximal lead overlying the right at rium and the distal lead overlying right ventricle. No sizable pneumothorax. Arthropathy of the shoul ders. IMPRESSION: 1. Pacemaker appears in good position with no sizable pneumothorax. 2. COPD, cardiomegaly correlate for mild venous congestion or interstitial lung disease
--- NOTE | 2020-02-19 15:00 | P.PRLE ---
RE: Rush Krueger Dear Donavan Mr. Krueger underwent dual-chamber ICD implantation for primary prevention of sudden cardiac I have added spironolactone 25 mg by mouth daily and will also attempt to double up on his carvedilol and lethargic and tolerated He will continue to follow with you and Dr. River as before Thank you for entrusting me with the care of the patient Warm regards Sincerely Rick Clancy
--- NOTE | 2020-02-19 15:02 | P.PCN ---
Preoperative Diagnosis: Left upper extremity venogram 15 mL of IV dye was injected in the left arm. The left axillary and subclavian veins are well opacified. No stenosis noted patent veins Plan Proceed with dual-chamber ICD implant
--- NOTE | 2020-02-19 15:02 | PCN ---
PROCEDURE NOTE Mr. Krueger is a 74-year-old male patient who has ischemic cardiomyopathy with congestive heart failure class 3. He is brought in for IV Lasix administration because he had orthopnea. Following that, he was taken for a dual-chamber ICD implant because he also has bradycardia, his ejection fraction chronically reduced 29% despite medical treatment. He has underlying ischemic cardiomyopathy, old [place], coronary artery bypass grafting. Patient was brought to the EP lab in a fasting state. Written informed consent was obtained prior to the procedure. The left shoulder area was prepped and draped as per protocol. 1% lidocaine was used for local anesthesia. A 4 cm incision. A 4 cm incision was made parallel to the deltopectoral groove, about 1.5 cm medial to it. The incision was carried down to the level of the pectoralis muscle. A subfascial pocket was made. Hemostasis was assured. The left axillary vein was accessed at 2 separate points under fluoroscopy and via appropriately-sized introducer sheaths, 2 leads were positioned in the right heart. The atrial lead was an [employer] Tendril SDX model #2088TC, 52 cm in length and serial number [id number]. This was screwed in the right atrial appendage. P waves 1.5 mV, pacing threshold 0.5 V at 0.5 milliseconds, pacing impedance of 450 ohms, 10 V test negative. The RV lead was positioned in the mid RV septum using a Mond stylet. This was an [employer]on Optisure, model #[id number], 58 cm in length and serial #[id number]. Pacing threshold 0.5 V at 0.5 milliseconds. R-waves 11.4 mV, pacing impedance 580 ohms and high-voltage impedance 56 ohms, 10 V test is negative. Both leads were secured to the underlying pectoralis fascia using 2 nonabsorbable sutures. Pocket was irrigated with antibiotic solution. Leads were connected to the generator ([employer] [facility] CDDRA 500Q, serial #[id number]. The leads and generator were then placed in subfascial pocket. The wound was closed in 3 layers and dressed per protocol. DFT testing was deferred at this time on account of his heart failure status. The device was programmed to DDD mode at 50 to 125 ppm with VIP turned with a mid-LAD programming with appropriate antitachycardia pacing, cardioversion defibrillation. First cardioversion 25 joules, first defibrillation at 36 joules. The patient tolerated the procedure well without any acute complications. PLAN: Increase carvedilol if possible to 12.5 mg twice daily. Add spironolactone 25 mg p.o. daily. Follow up with Dr. River in 5-7 days in the [facility]. Followup labs on spironolactone. MMODL / IJN: [id number] /
[2020-02-19 15:25] LABS: Glucose,Whole Blood 184 mg/dL (75-99)
[2020-02-19] MEDS ORDERED: ACETAMINOPHEN IV (For NPO) 1,000 MG in EMPTY BAG 1 BAG IVPB ONE (16:00)
[2020-02-19] MEDS ORDERED: FUROSEMIDE 40 MG TAB PO STA (17:18)
[2020-02-19 17:54] VITALS: BP 152/67; PULSE 65; RESP 16
[2020-02-19] MEDS ORDERED: ALPRAZolam 0.5 MG TAB PO STA (17:56)
[2020-02-19] MEDS ORDERED: ALPRAZolam 0.5 MG TAB ONE (17:57)
== END 2020-02-19 18:49 | disposition home or self-care (01) ==
LOC: CATHEP 09:38
PROVIDERS: ATTEND Internal Medicine Clinical Cardiac Electrophysiology
DX: I25.5 Ischemic cardiomyopathy (principal); R00.1 Bradycardia, unspecified; R06.01 Orthopnea; I13.0 Hypertensive heart and chronic kidney disease with heart failure and stage 1 through stage 4 chronic kidney disease, or unspecified chronic kidney disease; I50.23 Acute on chronic systolic (congestive) heart failure; E11.22 Type 2 diabetes mellitus with diabetic chronic kidney disease; N18.9 Chronic kidney disease, unspecified; I25.10 Atherosclerotic heart disease of native coronary artery without angina pectoris; I25.2 Old myocardial infarction; E78.5 Hyperlipidemia, unspecified; E78.00 Pure hypercholesterolemia, unspecified; E11.51 Type 2 diabetes mellitus with diabetic peripheral angiopathy without gangrene; I70.201 Unspecified atherosclerosis of native arteries of extremities, right leg; Z95.1 Presence of aortocoronary bypass graft; Z98.61 Coronary angioplasty status; Z79.82 Long term (current) use of aspirin; Z79.899 Other long term (current) drug therapy; Z79.4 Long term (current) use of insulin; Z95.820 Peripheral vascular angioplasty status with implants and grafts; Z97.2 Presence of dental prosthetic device (complete) (partial); Z86.73 Personal history of transient ischemic attack (TIA), and cerebral infarction without residual deficits; Z82.49 Family history of ischemic heart disease and other diseases of the circulatory system
CPT/HCPCS: 33249; 80061; 85025; 71045; C1769 ×4; C1721; C1892 ×2; C1898; C1777; J2250; J1200; J1940; J0690 ×2; J2001; J3010; J0131; Q9966

== ENCOUNTER → 2020-03-21 | Outpatient (CLI) | payer MEDICARE | END | disposition home or self-care (01) | LOC: LABWHC1 15:50 | PROVIDERS: ATTEND Family Medicine | DX: Z20.828 Contact with and (suspected) exposure to other viral communicable diseases (principal) | CPT/HCPCS: U0003; C9803 ==

== ENCOUNTER 2020-04-15 08:54 | Observation (INO) | payer MEDICARE ==
[2020-04-15] MEDS ORDERED: SODIUM CHLORIDE 0.9% 500 ML 500 ML IV ONE (09:23)
[2020-04-15] MEDS ORDERED: SODIUM CHLORIDE 0.9% 500 ML 500 ML IV STA (09:27)
--- NOTE | 2020-04-15 09:32 | ED ---
General Adult HPI - General Chief complaint: Weakness Stated complaint: AMS Time Seen by Provider: 04/15/20 08:55 Source: patient, EMS, RN notes reviewed, old records reviewed Mode of arrival: EMS Limitations: altered mental status - History of Present Illness Initial comments: This a 74-year-old male who presents emergency Department after becoming very lightheaded and slightly disoriented while doing a stress test. Patient also states he started having some blurred vision as well. Patient was a [facility] and was sent over with an EKG that showed multiple PVCs. Patient states he had no chest pain or difficulty breathing he states currently he feels much better after having rested for a second. Patient denies any fever chills or cough. Patient did have some exposure more than 10 days ago to COVID. Patient denies any abdominal pain patient denies nausea vomiting diarrhea. Patient currently denies any symptoms. - Related Data Home Medications Medication Instructions Recorded Confirmed ALPRAZolam [Xanax] 0.5 mg PO TID PRN 09/26/13 04/15/20 metFORMIN HCL [Glucophage] 500 mg PO BID 03/30/17 04/15/20 lisinopriL [Zestril] 20 mg PO BID 04/20/17 04/15/20 Atorvastatin [Lipitor] 40 mg PO DAILY 11/27/18 04/15/20 Furosemide [Lasix] 80 mg PO DAILY 11/27/18 04/15/20 Insulin Degludec [Tresiba 40 units SQ BID 11/27/18 04/15/20 Flextouch U-100] Isosorbide Mononitrate ER [Imdur] 60 mg PO DAILY 01/26/19 04/15/20 Furosemide [Lasix] 40 mg PO DAILY@1700 01/15/20 04/15/20 Aspirin EC [Ecotrin Low Dose] 81 mg PO DAILY 04/15/20 04/15/20 carvediloL [Coreg] 12.5 mg PO BID 04/15/20 04/15/20 Previous Rx's Medication Instructions Recorded Spironolactone [Aldactone] 25 mg PO DAILY #90 tablet 02/19/20 Allergies Allergy/AdvReac Type Severity Reaction Status Date / Time No Known Allergies Allergy Verified 04/15/20 09:38 Review of Systems ROS Statement: Those systems with pertinent positive or pertinent negative responses have been documented in the HPI. ROS Other: All systems not noted in ROS Statement are negative. Past Medical History Past Medical History: Coronary Artery Disease (CAD), Heart Failure, CVA/TIA, Diabetes Mellitus, Hyperlipidemia, Hypertension, Myocardial Infarction (CO), Osteoarthritis (OA) Additional Past Medical History / Comment(s): GOUT,NEUROPATHY IN FEET, TIA 2014- no residual effects, SEE DR POLLOCK'S HISTORY FOR CARDIAC HISTORY Last Myocardial Infarction Date:: 2010 History of Any Multi-Drug Resistant Organisms: None Reported Past Surgical History: AICD, Coronary Bypass/CABG, Heart Catheterization With Stent, Hernia Repair Additional Past Surgical History / Comment(s): 5 VESSELS, LEFT CAROTID STENT (03/19/17). Past Anesthesia/Blood Transfusion Reactions: No Reported Reaction Date of Last Stent Placement:: 2015 Past Psychological History: Anxiety Smoking Status: Never smoker Past Alcohol Use History: None Reported Past Drug Use History: None Reported - Past Family History Mother Family Medical History: No Reported History, Myocardial Infarction (CO) Brother(s) Family Medical History: Hypertension, Myocardial Infarction (CO) General Exam - General Exam Comments Initial Comments: GENERAL: Patient is well-developed and well-nourished. Patient is nontoxic and well- hydrated and is in mild distress. ENT: Neck is soft and supple. No significant lymphadenopathy is noted. Oropharynx is clear. Moist mucous membranes. Neck has full range of motion without eliciting any pain. EYES: The sclera were anicteric and conjunctiva were pink and moist. Extraocular movements were intact and pupils were equal round and reactive to light. Eyelids were unremarkable. PULMONARY: Unlabored respirations. Good breath sounds bilaterally. No audible rales rhonchi or wheezing was noted. CARDIOVASCULAR: There is a regular rate and rhythm without any murmurs gallops or rubs. ABDOMEN: Soft and nontender with normal bowel sounds. SKIN: Skin is clear with no lesions or rashes and otherwise unremarkable. NEUROLOGIC: Patient is alert and oriented 2. Cranial nerves II through XII are grossly intact. Motor and sensory are also intact. Normal speech, volume and content. Symmetrical smile. MUSCULOSKELETAL: Normal extremities with adequate strength and full range of motion. No lower extremity swelling or edema. No calf tenderness. LYMPHATICS: No significant lymphadenopathy is noted PSYCHIATRIC: Normal psychiatric evaluation. Limitations: no limitations Course Vital Signs 04/15/20 04/15/20 08:55 11:00 Temperature 97.6 F 97.7 F Pulse Rate 65 67 Respiratory 18 18 Rate Blood Pressure 141/68 167/87 O2 Sat by Pulse 99 99 Oximetry Medical Decision Making - Medical Decision Making Patient is a poor historian because of his altered mental status. EKG shows sinus tachycardia at 118 bpm MI interval 148 QRSs 100 a QT interval 360 QTC is 504. Patient's EKG shows no ST segment elevation or depression. Chest x-ray shows no acute abnormality. Spoke with Dr. Cordova and admitted the patient and wrote admitting orders I consult cardiology EKG shows a paced rhythm with frequent PVCs at 65 bpm MI interval is 202 QRS is 114 QT interval 484 QTC is 503. - Lab Data Result diagrams: 04/15/20 09:29 04/15/20 09:29 Lab Results 04/15/20 04/15/20 04/15/20 Range/Units 09:29 09:29 09:29 WBC 7.8 (3.8-10.6) k/uL RBC 5.12 (4.30-5.90) m/uL Hgb 15.3 (13.0-17.5) gm/dL Hct 44.5 (39.0-53.0) % MCV 86.9 D (80.0-100.0) fL MCH 29.9 (25.0-35.0) pg MCHC 34.4 (31.0-37.0) g/dL RDW 12.5 (11.5-15.5) % Plt Count 176 (150-450) k/uL MPV 8.7 Neutrophils % 82 % Lymphocytes % 8 % Monocytes % 6 % Eosinophils % 2 % Basophils % 1 % Neutrophils # 6.4 (1.3-7.7) k/uL Lymphocytes # 0.7 L (1.0-4.8) k/uL Monocytes # 0.5 (0-1.0) k/uL Eosinophils # 0.2 (0-0.7) k/uL Basophils # 0.0 (0-0.2) k/uL PT 10.7 (9.0-12.0) sec INR 1.0 (<1.2) APTT 22.9 (22.0-30.0) sec Sodium 135 L (137-145) mmol/L Potassium 5.1 (3.5-5.1) mmol/L Chloride 101 (98-107) mmol/L Carbon Dioxide 26 (22-30) mmol/L Anion Gap 8 mmol/L BUN 28 H (9-20) mg/dL Creatinine 1.44 H (0.66-1.25) mg/dL Est GFR (CKD-EPI)AfAm 55 (>60 ml/min/1.73 sqM) Est GFR (CKD-EPI)NonAf 47 (>60 ml/min/1.73 sqM) Glucose 299 H (74-99) mg/dL Plasma Lactic Acid Jonh (0.7-2.0) mmol/L Calcium 10.1 (8.4-10.2) mg/dL Magnesium 2.0 (1.6-2.3) mg/dL Total Bilirubin 1.2 (0.2-1.3) mg/dL AST 19 (17-59) U/L ALT 16 (4-49) U/L Alkaline Phosphatase 96 (38-126) U/L Troponin I (0.000-0.034) ng/mL Total Protein 7.1 (6.3-8.2) g/dL Albumin 4.1 (3.5-5.0) g/dL Urine Color Urine Appearance (Clear) Urine pH (5.0-8.0) Ur Specific Risco (1.001-1.035) Urine Protein (Negative) Urine Glucose (UA) (Negative) Urine Ketones (Negative) Urine Blood (Negative) Urine Nitrite (Negative) Urine Bilirubin (Negative) Urine Urobilinogen (<2.0) mg/dL Ur Leukocyte Esterase (Negative) Urine RBC (0-5) /hpf Urine WBC (0-5) /hpf Ur Squamous Epith Cells (0-4) /hpf Urine Bacteria (None) /hpf Hyaline Casts (0-2) /lpf Urine Mucus (None) /hpf 04/15/20 04/15/20 04/15/20 Range/Units 09:29 09:29 11:25 WBC (3.8-10.6) k/uL RBC (4.30-5.90) m/uL Hgb (13.0-17.5) gm/dL Hct (39.0-53.0) % MCV (80.0-100.0) fL MCH (25.0-35.0) pg MCHC (31.0-37.0) g/dL RDW (11.5-15.5) % Plt Count (150-450) k/uL MPV Neutrophils % % Lymphocytes % % Monocytes % % Eosinophils % % Basophils % % Neutrophils # (1.3-7.7) k/uL Lymphocytes # (1.0-4.8) k/uL Monocytes # (0-1.0) k/uL Eosinophils # (0-0.7) k/uL Basophils # (0-0.2) k/uL PT (9.0-12.0) sec INR (<1.2) APTT (22.0-30.0) sec Sodium (137-145) mmol/L Potassium (3.5-5.1) mmol/L Chloride (98-107) mmol/L Carbon Dioxide (22-30) mmol/L Anion Gap mmol/L BUN (9-20) mg/dL Creatinine (0.66-1.25) mg/dL Est GFR (CKD-EPI)AfAm (>60 ml/min/1.73 sqM) Est GFR (CKD-EPI)NonAf (>60 ml/min/1.73 sqM) Glucose (74-99) mg/dL Plasma Lactic Acid Jonh 1.6 (0.7-2.0) mmol/L Calcium (8.4-10.2) mg/dL Magnesium (1.6-2.3) mg/dL Total Bilirubin (0.2-1.3) mg/dL AST (17-59) U/L ALT (4-49) U/L Alkaline Phosphatase (38-126) U/L Troponin I 0.024 (0.000-0.034) ng/mL Total Protein (6.3-8.2) g/dL Albumin (3.5-5.0) g/dL Urine Color Yellow Urine Appearance Clear (Clear) Urine pH 6.0 (5.0-8.0) Ur Specific R[place] 1.020 (1.001-1.035) Urine Protein 1+ H (Negative) Urine Glucose (UA) 4+ H (Negative) Urine Ketones 1+ H (Negative) Urine Blood Negative (Negative) Urine Nitrite Negative (Negative) Urine Bilirubin Negative (Negative) Urine Urobilinogen <2.0 (<2.0) mg/dL Ur Leukocyte Esterase Negative (Negative) Urine RBC <1 (0-5) /hpf Urine WBC 9 H (0-5) /hpf Ur Squamous Epith Cells <1 (0-4) /hpf Urine Bacteria Rare H (None) /hpf Hyaline Casts 11 H (0-2) /lpf Urine Mucus Rare H (None) /hpf Disposition Clinical Impression: Near syncope Disposition: ADMITTED IP TO THIS HOSP Referrals: Donavan Hill MD [Primary Care Provider] - 1-2 days Time of Disposition: 12:57
[2020-04-15 09:53] LABS: Albumin 4.1 g/dL (3.5-5.0); Calcium 10.1 mg/dL (8.4-10.2); Potassium 5.1 mmol/L (3.5-5.1); Total Bilirubin 1.2 mg/dL (0.2-1.3); Total Protein 7.1 g/dL (6.3-8.2)
[2020-04-15 09:55] LABS: Partial Thromboplastin Time 22.9 sec (22.0-30.0); Prothrombin Time 10.7 sec (9.0-12.0)
--- NOTE | 2020-04-15 10:02 | XR ---
EXAMINATION TYPE: XR chest 2V DATE OF EXAM: 04/15/2020 COMPARISON: Chest x-ray February 19, 2020. Chest CT January 27, 2019 HISTORY: Weakness. TECHNIQUE: Frontal and lateral views of the chest are obtained. FINDINGS: There is some chronic parenchymal changes bilaterally without suspicious focal air space o pacity, pleural effusion, or pneumothorax seen. Persistent cardiomegaly with multi lead pacemaker/def ibrillator. Overlying sternal wires and mediastinal clips are seen. The osseous structures are inta ct. IMPRESSION: Chronic changes and cardiomegaly without acute pulmonary process.
[2020-04-15 10:11] LABS: Basophils % (A) 1 %; Eosinophils # (A) 0.2 k/uL (0-0.7); Eosinophils % (A) 2 %; HCT 44.5 % (39.0-53.0); HGB 15.3 gm/dL (13.0-17.5); Lymphocytes # (A) 0.7 k/uL (1.0-4.8); Lymphocytes % (A) 8 %; MCH 29.9 pg (25.0-35.0); MCHC 34.4 g/dL (31.0-37.0); Mean Platelet Volume 8.7; Monocytes # (A) 0.5 k/uL (0-1.0); Monocytes % (A) 6 %; Neutrophils # (A) 6.4 k/uL (1.3-7.7); Neutrophils % (A) 82 %; Platelet Count 176 k/uL (150-450); RBC 5.12 m/uL (4.30-5.90); RDW 12.5 % (11.5-15.5); WBC 7.8 k/uL (3.8-10.6)
[2020-04-15 10:13] LABS: MCV 86.9 fL (80.0-100.0)
--- NOTE | 2020-04-15 10:23 | XR ---
Sacrum and coccyx HISTORY: Trauma and pain 3 views of the sacrum and coccyx Bone mineralization is maintained, alignment is within normal limits. There are vascular calcificatio ns noted within the pelvis as well as prostate calcifications. Degenerative disc changes are noted in the lower lumbar spine. There is facet arthropathy change. IMPRESSION: No acute fracture or dislocation is evident. Additional findings above, MRI or bone scan may be of benefit for increased sensitivity as indicated.
[2020-04-15 11:54] LABS: Appearance,Urine Clear (Clear); Bacteria,Urine Rare /hpf; Bilirubin,Urine Negative (Negative); Blood,Urine Negative (Negative); Color,Urine Yellow; Glucose,Urine (UA) 4+ (Negative); Hyaline Casts,Urine 11 /lpf (0-2); Ketones,Urine 1+ (Negative); Leukocyte Esterase,Urine Negative (Negative); Mucus,Urine Rare /hpf; Nitrite,Urine Negative (Negative); Protein,Urine 1+ (Negative); RBC,Urine <1 /hpf (0-5); Squamous Epithelial Cell,Urine <1 /hpf (0-4); Urobilinogen,Urine <2.0 mg/dL (<2.0); WBC,Urine 9 /hpf (0-5)
[2020-04-15] MEDS ORDERED: SODIUM CHLORIDE 0.9% 1,000 ML IV ONE (14:00)
--- NOTE | 2020-04-15 14:36 | P.HPIM ---
History of Present Illness This is a pleasant 74 years old male with past medical history of coronary artery disease, status post CABG and cardiac stent heart failure, CVA with no residual weakness per patient, diabetes mellitus, hyperlipidemia, hypertension, osteoarthritis, gout, neuropathy of the feet, pulmonary fibrosis and he follows up with Dr. Edmonds He recently lost his for Covid. However he does not have similar symptoms. He presents because he passed out during stress test today Patient states that he had a defibrillator placed for him about 4 weeks ago because his proof technician Dr. River noticed fluctuation in his heart rate, as a follow-up he is supposed to get stress test today when he almost , he did not close consciousness completely go as per patient Patient currently is at baseline, he is alert awake and alert and oriented, no chest pain or dyspnea, no palpitation or dizziness, no abdominal pain or nausea vomiting or change in urine or bowel habits. No fever He denies smoking, alcohol or illicit drugs Vitals are stable. Labs are unremarkable insulin CBC, INR, liver enzymes however creatinine is elevated at 1.4 with baseline 1.2. Urinalysis does not show infection however shows glucosuria. Sacrum/coccyx x-ray showing no acute fracture or dislocation Chest x-ray: Chronic changes weren't cardiomegaly without acute pulmonary process per radiologist EKG showing heart rate of 61 BPM with no significant ST-T changes and few PVCs An emergency room he received 1 L of normal saline Review of Systems CONSTITUTIONAL: No fever, no malaise, no fatigue. HEENT: No recent visual problems or hearing problems. Denied any sore throat. CARDIOVASCULAR: No orthopnea, PND, no palpitations, no syncope. PULMONARY: No shortness of breath, no cough, no hemoptysis. GASTROINTESTINAL: No diarrhea, no nausea, no vomiting, no abdominal pain. Normoactive bowel sounds. NEUROLOGICAL: No headaches, no weakness, no numbness. HEMATOLOGICAL: Denies any bleeding or petechiae. GENITOURINARY: Denies any burning micturition, frequency, or urgency. MUSCULOSKELETAL/RHEUMATOLOGICAL: Denies any joint pain, swelling, or any muscle pain. ENDOCRINE: Denies any polyuria or polydipsia. Past Medical History Past Medical History: Coronary Artery Disease (CAD), Heart Failure, CVA/TIA, Diabetes Mellitus, Hyperlipidemia, Hypertension, Myocardial Infarction ([place]), Osteoarthritis (OA) Additional Past Medical History / Comment(s): GOUT,NEUROPATHY IN FEET, TIA 2014- no residual effects, SEE DR POLLOCK'S HISTORY FOR CARDIAC HISTORY Last Myocardial Infarction Date:: 2010 History of Any Multi-Drug Resistant Organisms: None Reported Past Surgical History: AICD, Coronary Bypass/CABG, Heart Catheterization With Stent, Hernia Repair Additional Past Surgical History / Comment(s): 5 VESSELS, LEFT CAROTID STENT (03/19/17). Past Anesthesia/Blood Transfusion Reactions: No Reported Reaction Date of Last Stent Placement:: 2015 Past Psychological History: Anxiety Smoking Status: Never smoker Past Alcohol Use History: None Reported Past Drug Use History: None Reported - Past Family History Mother Family Medical History: No Reported History, Myocardial Infarction ([place]) Brother(s) Family Medical History: Hypertension, Myocardial Infarction ([place]) Medications and Allergies Home Medications Medication Instructions Recorded Confirmed Type ALPRAZolam [Xanax] 0.5 mg PO TID PRN 09/26/13 04/15/20 History metFORMIN HCL [Glucophage] 500 mg PO BID 03/30/17 04/15/20 History lisinopriL [Zestril] 20 mg PO BID 04/20/17 04/15/20 History Atorvastatin [Lipitor] 40 mg PO DAILY 11/27/18 04/15/20 History Furosemide [Lasix] 80 mg PO DAILY 11/27/18 04/15/20 History Insulin Degludec [Tresiba 40 units SQ BID 11/27/18 04/15/20 History Flextouch U-100] Isosorbide Mononitrate ER [Imdur] 60 mg PO DAILY 01/26/19 04/15/20 History Furosemide [Lasix] 40 mg PO DAILY@1700 01/15/20 04/15/20 History Spironolactone [Aldactone] 25 mg PO DAILY #90 tablet 02/19/20 04/15/20 Rx Aspirin EC [Ecotrin Low Dose] 81 mg PO DAILY 04/15/20 04/15/20 History carvediloL [Coreg] 12.5 mg PO BID 04/15/20 04/15/20 History Allergies Allergy/AdvReac Type Severity Reaction Status Date / Time No Known Allergies Allergy Verified 04/15/20 09:38 Physical Exam Vitals: Vital Signs Temp Pulse Resp BP Pulse Ox 04/15/20 11:00 97.7 F 67 18 167/87 99 04/15/20 08:55 97.6 F 65 18 141/68 99 Intake and Output 04/14/20 04/15/20 04/15/20 22:59 06:59 14:59 Other: Weight 72.575 kg GENERAL: The patient is alert and oriented x3, not in any acute distress. Well developed, well nourished. HEENT: Pupils are round and equally reacting to light. EOMI. No scleral icterus. No conjunctival pallor. Normocephalic, atraumatic. No pharyngeal erythema. No thyromegaly. CARDIOVASCULAR: S1 and S2 present. No murmurs, rubs, or gallops. PULMONARY: Chest is clear to auscultation, no wheezing or crackles. ABDOMEN: Soft, nontender, nondistended, normoactive bowel sounds. No palpable organomegaly. MUSCULOSKELETAL: No joint swelling or deformity. EXTREMITIES: No cyanosis, clubbing, or pedal edema. NEUROLOGICAL: Gross neurological examination did not reveal any focal deficits. SKIN: No rashes. No petechiae Results CBC & Chem 7: 04/15/20 09:29 04/15/20 09:29 Labs: Abnormal Lab Results - Last 24 Hours (Table) 04/15/20 04/15/20 04/15/20 Range/Units 09:29 09:29 11:25 Lymphocytes # 0.7 L (1.0-4.8) k/uL Sodium 135 L (137-145) mmol/L BUN 28 H (9-20) mg/dL Creatinine 1.44 H (0.66-1.25) mg/dL Glucose 299 H (74-99) mg/dL Urine Protein 1+ H (Negative) Urine Glucose (UA) 4+ H (Negative) Urine Ketones 1+ H (Negative) Urine WBC 9 H (0-5) /hpf Urine Bacteria Rare H (None) /hpf Hyaline Casts 11 H (0-2) /lpf Urine Mucus Rare H (None) /hpf Assessment and Plan Assessment: preSyncope while undergoing stress test possible mild acute kidney injury History of coronary artery disease status post CABG and stent Chronic heart failure Diabetes mellitus Hypertension Hyperlipidemia History of CVA/TIA Osteoarthritis History of gout. Peripheral neuropathy of the lower extremity History of pulmonary fibrosis Status post AICD Plan: This is a pleasant 74 years old male who presents with syncope, patient admitted from ED with cardiology consulted for syncopeing stress test. we'll check ortho static vitals although patient is a well-developed of normal saline. check hemoglobin A1c Labs and medication were reviewed.. Continue same treatment. Continue with symptomatic treatment. Resume home medication. Monitor lytes and vitals. DVT and GI prophylaxis. Further recommendations depends on the clinical course of the patient DVT prophylaxis: Subcutaneous heparin GI Prophylaxis: Pepcid
[2020-04-15] MEDS ORDERED: FUROSEMIDE 40 MG TAB PO SCH (17:00)
[2020-04-15] MEDS: carvediloL 12.5 MG TAB PO SCH (18:58)
[2020-04-15] MEDS: metFORMIN 500 MG TAB PO SCH (18:58)
[2020-04-15] MEDS: HEPARIN SODIUM,PORCINE 5,000 UNIT/ML 1 ML VIAL SQ SCH (21:17)
[2020-04-15] MEDS: FAMOTIDINE 20 MG/2 ML VIAL IV SCH (21:17)
[2020-04-15] MEDS: lisinopriL 20 MG TAB PO SCH (21:17)
[2020-04-15 21:35] LABS: Glucose,Whole Blood 284 mg/dL (75-99)
[2020-04-15] MEDS ORDERED: ALPRAZolam 0.5 MG TAB PO PRN (21:41)
[2020-04-15] MEDS: INSULIN ASPART (NovoLOG) 100 UNIT/ML VIAL SQ SCH (21:51)
[2020-04-16 06:31] LABS: Glucose,Whole Blood 244 mg/dL (75-99)
[2020-04-16] MEDS: carvediloL 12.5 MG TAB PO SCH (06:38)
[2020-04-16] MEDS: INSULIN ASPART (NovoLOG) 100 UNIT/ML VIAL SQ SCH ×2 (06:38→11:55)
[2020-04-16 07:41] LABS: Calcium 9.7 mg/dL (8.4-10.2); Potassium 4.1 mmol/L (3.5-5.1)
[2020-04-16 07:43] LABS: Basophils % (A) 1 %; Eosinophils # (A) 0.2 k/uL (0-0.7); Eosinophils % (A) 3 %; Lymphocytes # (A) 1.1 k/uL (1.0-4.8); Lymphocytes % (A) 18 %; MCH 29.2 pg (25.0-35.0); MCHC 33.4 g/dL (31.0-37.0); MCV 87.4 fL (80.0-100.0); Mean Platelet Volume 8.7; Monocytes # (A) 0.4 k/uL (0-1.0); Monocytes % (A) 7 %; Neutrophils # (A) 4.2 k/uL (1.3-7.7); Neutrophils % (A) 69 %; Platelet Count 168 k/uL (150-450); RBC 5.15 m/uL (4.30-5.90); RDW 12.6 % (11.5-15.5); WBC 6.1 k/uL (3.8-10.6)
[2020-04-16] MEDS ORDERED: SODIUM CHLORIDE 0.9% 1,000 ML IV SCH (08:00)
[2020-04-16 08:07] VITALS: BP 149/90; PULSE 76; RESP 14; TEMP 97.6
[2020-04-16] MEDS ORDERED: ATORVASTATIN 40 MG TAB PO SCH (09:00)
[2020-04-16] MEDS ORDERED: ASPIRIN 81 MG PO SCH (09:00)
[2020-04-16] MEDS ORDERED: SPIRONOLACTONE 25 MG TAB PO SCH (09:00)
[2020-04-16] MEDS ORDERED: FUROSEMIDE 40 MG TAB PO SCH (09:00)
[2020-04-16] MEDS ORDERED: ISOSORBIDE MONONITRATE ER 60 MG TAB.ER.24H PO SCH (09:00)
[2020-04-16] MEDS: metFORMIN 500 MG TAB PO SCH (10:45)
[2020-04-16] MEDS: HEPARIN SODIUM,PORCINE 5,000 UNIT/ML 1 ML VIAL SQ SCH (10:45)
[2020-04-16] MEDS: lisinopriL 20 MG TAB PO SCH (10:45)
[2020-04-16] MEDS: FAMOTIDINE 20 MG/2 ML VIAL IV SCH (10:45)
[2020-04-16 11:53] LABS: Glucose,Whole Blood 264 mg/dL (75-99)
[2020-04-16 14:12] LABS: Hemoglobin A1C 8.6 % (4.0-6.0)
--- NOTE | 2020-04-16 17:48 | P.CRDCN ---
History of Present Illness History of present illness: This is Dr. Clancy dictating a consult on this patient The patient was interviewed and examined IMPRESSION / ASSESSMENT: An episode of lightheadedness with normal orthostatics normal [place] enzymes no evidence for hypotension Patient is a dual-chamber ICD which is functioning normally No arrhythmias have been documented on ICD interrogation Known ischemic coronary myopathy. CAD PLAN: From [place] standpoint patient may go home, continue his current medications and follow-up HPI Yesterday patient was at the cardiology office and he became extremely lightheaded with blurry vision while sitting. For the stress test. EKGs showed multiple PVCs. He has an ICD which did not go off at that time no ICD shocks line he was brought in by EMS Estuardo enzymes normal 1 He denied any chest discomfort no undue shortness of breath he just felt extremely dizzy while sitting. No chest symptoms no palpitations ROS: No fever chills or rigors, no cough, phlegm or expectoration, no nausea, vomiting or diarrhea, no hematuria, dysuria, no musculoskeletal complaints, no strokes or seizures, no skin lesions. EXAMINATION: On examination he is resting comfortably sitting in bed. Blood pressure 149/90 mmHg. He is not orthostatic afebrile 97.6 pulse rate in the 70s Breath sounds are clear no rhonchi no crackles Normal heart sounds normal S1 normal S2 no murmurs or gallop or rub ICD site is healed well Abdomen soft Extremities warm No JVD REVIEW OF LABS, ECG & MEDICAL DATA Medication list is reviewed and is documented in the chart The ICD site is healing well. At implant an ICD about [address] is [facility] ICD which was interrogated and no arrhythmias have been documented Hemoglobin 15, sodium 138 potassium 4.1 BUN 24 creatinine 1.28 Past Medical History Past Medical History: Coronary Artery Disease (CAD), Heart Failure, CVA/TIA, Diabetes Mellitus, Hyperlipidemia, Hypertension, Myocardial Infarction ([place]), Osteoarthritis (OA) Additional Past Medical History / Comment(s): GOUT,NEUROPATHY IN FEET, TIA 2014- no residual effects, SEE DR CLANCY'S HISTORY FOR CARDIAC HISTORY Last Myocardial Infarction Date:: 2010 History of Any Multi-Drug Resistant Organisms: None Reported Past Surgical History: AICD, Coronary Bypass/CABG, Heart Catheterization With Stent, Hernia Repair Additional Past Surgical History / Comment(s): 5 VESSELS, LEFT CAROTID STENT (03/19/17). Past Anesthesia/Blood Transfusion Reactions: No Reported Reaction Date of Last Stent Placement:: 2015 Type of Cardiac Device: AICD Device Placement Date:: 02/19/2020 Past Psychological History: Anxiety Smoking Status: Never smoker Past Alcohol Use History: None Reported Past Drug Use History: None Reported - Past Family History Mother Family Medical History: No Reported History, Myocardial Infarction ([place]) Brother(s) Family Medical History: Hypertension, Myocardial Infarction ([place]) Medications and Allergies Home Medications Medication Instructions Recorded Confirmed Type ALPRAZolam [Xanax] 0.5 mg PO TID PRN 09/26/13 04/15/20 History metFORMIN HCL [Glucophage] 500 mg PO BID 03/30/17 04/15/20 History lisinopriL [Zestril] 20 mg PO BID 04/20/17 04/15/20 History Atorvastatin [Lipitor] 40 mg PO DAILY 11/27/18 04/15/20 History Furosemide [Lasix] 80 mg PO DAILY 11/27/18 04/15/20 History Insulin Degludec [Tresiba 40 units SQ BID 11/27/18 04/15/20 History Flextouch U-100] Isosorbide Mononitrate ER [Imdur] 60 mg PO DAILY 01/26/19 04/15/20 History Furosemide [Lasix] 40 mg PO DAILY@1700 01/15/20 04/15/20 History Spironolactone [Aldactone] 25 mg PO DAILY #90 tablet 02/19/20 04/15/20 Rx Aspirin EC [Ecotrin Low Dose] 81 mg PO DAILY 04/15/20 04/15/20 History carvediloL [Coreg] 12.5 mg PO BID 04/15/20 04/15/20 History Allergies Allergy/AdvReac Type Severity Reaction Status Date / Time No Known Allergies Allergy Verified 04/15/20 09:38 Physical Exam Vitals: Vital Signs Temp Pulse Resp BP BP BP BP 04/16/20 08:04 97.6 F 76 14 04/16/20 06:43 159/98 04/16/20 02:12 98 04/16/20 02:09 97.9 F 98 18 159/90 04/15/20 21:00 97 F L 66 18 164/86 156/77 141/82 BP Pulse Ox 04/16/20 08:04 149/90 98 04/16/20 06:43 04/16/20 02:12 04/16/20 02:09 98 04/15/20 21:00 96 Intake and Output 04/16/20 04/16/20 04/16/20 06:59 14:59 22:59 Other: # Voids 1 Results 04/16/20 07:05 04/16/20 07:05 CBC 04/16/20 Range/Units 07:05 WBC 6.1 (3.8-10.6) k/uL RBC 5.15 (4.30-5.90) m/uL Hgb 15.0 (13.0-17.5) gm/dL Hct 45.0 (39.0-53.0) % Plt Count 168 (150-450) k/uL Comprehensive Metabolic Panel 04/16/20 Range/Units 07:05 Sodium 138 (137-145) mmol/L Potassium 4.1 (3.5-5.1) mmol/L Chloride 102 (98-107) mmol/L Carbon Dioxide 28 (22-30) mmol/L BUN 24 H (9-20) mg/dL Creatinine 1.28 H (0.66-1.25) mg/dL Glucose 222 H (74-99) mg/dL Calcium 9.7 (8.4-10.2) mg/dL Intake and Output 04/16/20 04/16/20 04/16/20 06:59 14:59 22:59 Other: # Voids 1 04/16/20 07:05 04/16/20 07:05
[2020-04-17] MEDS ORDERED: FAMOTIDINE 20 MG TAB PO SCH (09:00)
== END 2020-04-16 14:16 | disposition home or self-care (01) ==
LOC: EC 08:54 → 1SOBS 14:01
PROVIDERS: ADMIT Hospitalist; ATTEND Hospitalist
DX: R55 Syncope and collapse (principal); R41.0 Disorientation, unspecified; H53.8 Other visual disturbances; R42 Dizziness and giddiness; N17.9 Acute kidney failure, unspecified; I49.3 Ventricular premature depolarization; R00.0 Tachycardia, unspecified; I25.10 Atherosclerotic heart disease of native coronary artery without angina pectoris; I11.0 Hypertensive heart disease with heart failure; I50.9 Heart failure, unspecified; E11.42 Type 2 diabetes mellitus with diabetic polyneuropathy; E78.5 Hyperlipidemia, unspecified; M19.90 Unspecified osteoarthritis, unspecified site; M10.9 Gout, unspecified; J84.10 Pulmonary fibrosis, unspecified; I25.2 Old myocardial infarction; F41.9 Anxiety disorder, unspecified; I25.5 Ischemic cardiomyopathy; Z86.73 Personal history of transient ischemic attack (TIA), and cerebral infarction without residual deficits; Z95.810 Presence of automatic (implantable) cardiac defibrillator; Z79.899 Other long term (current) drug therapy; Z79.4 Long term (current) use of insulin; Z79.82 Long term (current) use of aspirin; Z95.1 Presence of aortocoronary bypass graft; Z95.5 Presence of coronary angioplasty implant and graft; Z98.890 Other specified postprocedural states; Z87.19 Personal history of other diseases of the digestive system; Z95.828 Presence of other vascular implants and grafts; Z82.49 Family history of ischemic heart disease and other diseases of the circulatory system
CPT/HCPCS: 96372 ×2; 96374; 96376; 99285; 36415; 93005; 97161; 80053; 80048; 83605; 83735; 84484; 85025 ×2; 85610; 85730; 81001; 83036; 72220; 71046; G0378 ×2; J1644 ×2

== ENCOUNTER 2020-09-17 15:47 | Emergency (ER) | payer MEDICARE ==
[2020-09-17 15:53] LABS: Glucose,Whole Blood 448 mg/dL (75-99)
[2020-09-17] MEDS ORDERED: SODIUM CHLORIDE 0.9% 500 ML 500 ML IV STA (15:53)
[2020-09-17] MEDS ORDERED: DIPH,PERTUS(ACELL)TETVAC-LF 0.5 ML VIAL IM ONE (15:53)
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
[2020-09-17 16:05] LABS: Basophils % (A) 0 %; Eosinophils # (A) 0.1 k/uL (0-0.7); Eosinophils % (A) 1 %; HCT 48.5 % (39.0-53.0); HGB 16.1 gm/dL (13.0-17.5); Lymphocytes # (A) 1.4 k/uL (1.0-4.8); Lymphocytes % (A) 14 %; MCH 30.6 pg (25.0-35.0); MCHC 33.2 g/dL (31.0-37.0); MCV 92.1 fL (80.0-100.0); Mean Platelet Volume 9.5; Monocytes # (A) 0.5 k/uL (0-1.0); Monocytes % (A) 5 %; Neutrophils # (A) 7.5 k/uL (1.3-7.7); Neutrophils % (A) 78 %; Platelet Count 215 k/uL (150-450); RBC 5.27 m/uL (4.30-5.90); RDW 12.4 % (11.5-15.5); WBC 9.6 k/uL (3.8-10.6)
[2020-09-17 16:14] LABS: ALT 24 U/L (4-49); AST 36 U/L (17-59); African American GFR (CKD) 56 (>60 ml/min/1.73 sqM); Albumin 3.7 g/dL (3.5-5.0); Alcohol <10 mg/dL; Alkaline Phosphatase 133 U/L (38-126); Anion Gap 11 mmol/L; Blood Urea Nitrogen 29 mg/dL (9-20); Calcium 9.4 mg/dL (8.4-10.2); Carbon Dioxide 23 mmol/L (22-30); Chloride 101 mmol/L (98-107); Non-African American GFR(CKD) 49 (>60 ml/min/1.73 sqM); Potassium 4.4 mmol/L (3.5-5.1); Sodium 135 mmol/L (137-145); Total Bilirubin 0.7 mg/dL (0.2-1.3); Total Protein 6.3 g/dL (6.3-8.2)
--- NOTE | 2020-09-17 16:14 | XR ---
EXAMINATION TYPE: XR chest 1V portable DATE OF EXAM: 09/17/2020 COMPARISON: Chest x-ray 04/15/2020 HISTORY: Trauma, pain TECHNIQUE: Single frontal view of the chest is obtained. FINDINGS: Patient is post median sternotomy, cardiac mediastinal silhouette is stable. Generators pr esent in left pectoral region, there are leads in the right atrium and ventricle which are stable. Th ere is no evident airspace disease, pneumothorax, or pleural effusion. Multiple left-sided rib fractu res are noted to include fifth, sixth, seventh and eighth ribs some displacement. IMPRESSION: Multilevel left-sided rib fractures.
--- NOTE | 2020-09-17 16:15 | XR ---
AP pelvis HISTORY: Trauma and pain Single frontal view the pelvis There is overlying backboard. Vascular calcifications are noted. Bone mineralization is reduced. Join t spaces and alignment are maintained. Stents are present in the distribution superficial femoral art maldonado on the right. IMPRESSION: No fracture or dislocation.
[2020-09-17 16:24] LABS: INR 0.9 (<1.2)
[2020-09-17 16:28] VITALS: BP 130/85; PULSE 104; RESP 18; TEMP 98.7
[2020-09-17] MEDS ORDERED: MORPHINE SULFATE 4 MG/ML SYRINGE IVP STA ×2 (16:29→17:00)
[2020-09-17 16:31] LABS: Glucose 503 mg/dL (74-99)
[2020-09-17] MEDS ORDERED: INSULIN REGULAR 100 UNIT/ML VIAL (IV) SQ STA (16:35)
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
[2020-09-17 16:49] LABS: Partial Thromboplastin Time 19.5 sec (22.0-30.0)
[2020-09-17 16:50] LABS: Amphetamine Screen,Urine Not Detected (NotDetected); Barbiturate Screen,Urine Not Detected (NotDetected); Benzodiazepines Screen,Urine Not Detected (NotDetected); Cocaine Screen,Urine Not Detected (NotDetected); Methadone Screen, Urine Not Detected (NotDetected); Opiate Screen,Urine Detected (NotDetected); Oxycodone Screen, Urine Not Detected (NotDetected); Phencyclidine Screen,Urine Not Detected (NotDetected); Tricyclic Antidepressant,Urine Not Detected (NotDetected); Urn Cannabinoid Scrn Not Detected (NotDetected)
[2020-09-17 16:51] LABS: Appearance,Urine Clear (Clear); Bilirubin,Urine Negative (Negative); Blood,Urine Negative (Negative); Color,Urine Light Yellow; Glucose,Urine (UA) 4+ (Negative); Ketones,Urine Negative (Negative); Leukocyte Esterase,Urine Negative (Negative); Nitrite,Urine Negative (Negative); PH, Urine 5.5 (5.0-8.0); Protein,Urine Trace (Negative); Urobilinogen,Urine <2.0 mg/dL (<2.0)
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
--- NOTE | 2020-09-17 17:44 | XR ---
EXAMINATION TYPE: XR humerus LT DATE OF EXAM: 09/17/2020 COMPARISON: None HISTORY: Trauma, pain TECHNIQUE: Left humerus is examined in 2 projections FINDINGS: Humeral head articulates with the glenoid. There appears to be some subluxation superiorly in relation to the glenoid of the humeral head suggesting possible rotator cuff tear. This could be e valuated with MRI if clinically appropriate. Multiple left-sided rib fractures are again noted with pneumothorax. Please see CT report performed e arlier No acute fractures of the humerus are evident. There couple of linear densities adjacent to the mid d iaphysis of the humerus within soft tissues. This is nonspecific. Foreign bodies or external artifact could be present. IMPRESSION: 1. Multiple left sided rib fractures with pneumothorax. 2. Rotator cuff tear may be present. 3. Possible foreign bodies medial upper extremity soft tissue. 4. No acute osseous abnormality of the left humerus.
--- NOTE | 2020-09-17 17:45 | XR ---
EXAMINATION TYPE: XR forearm LT DATE OF EXAM: 09/17/2020 COMPARISON: None HISTORY: Trauma, pain TECHNIQUE: 2 view left forearm FINDINGS: No acute fracture of the forearm is evident. Vascular calcification is noted. There are 2 radiopaque foreign bodies within the dorsum of the forearm approximately one third of the distance from the elbow. The larger fragment measures 1.2 cm. The smaller fragment measures 0.6 cm. IMPRESSION: 1. 2 radiopaque foreign bodies within the subcutaneous tissues dorsal proximal forearm. 2. No acute fracture identified.
== END 2020-09-17 18:39 | disposition other institution (70) ==
LOC: EC 15:47
DX: S22 Fracture of rib(s), sternum and thoracic spine (principal); S02.5XXA Fracture of tooth (traumatic), initial encounter for closed fracture; S01.112A Laceration without foreign body of left eyelid and periocular area, initial encounter; S27.0XXA Traumatic pneumothorax, initial encounter; E87.2 Acidosis; I11.0 Hypertensive heart disease with heart failure; I50.9 Heart failure, unspecified; I25.2 Old myocardial infarction; M19.90 Unspecified osteoarthritis, unspecified site; E11.9 Type 2 diabetes mellitus without complications; E78.5 Hyperlipidemia, unspecified; I25.10 Atherosclerotic heart disease of native coronary artery without angina pectoris; Z95.1 Presence of aortocoronary bypass graft; Z95.5 Presence of coronary angioplasty implant and graft; Z86.73 Personal history of transient ischemic attack (TIA), and cerebral infarction without residual deficits; Z79.4 Long term (current) use of insulin; Z79.82 Long term (current) use of aspirin; Z79.899 Other long term (current) drug therapy; Z86.79 Personal history of other diseases of the circulatory system; Z95.810 Presence of automatic (implantable) cardiac defibrillator; Z23 Encounter for immunization; V94.89XA Other water transport accident, initial encounter; Y93.I9 Activity, other involving external motion
CPT/HCPCS: 99291; 90471; 96365; 96375; 96376; 90715 ×2; 36415; 93005; 86900; 86901; 80053; 83605; 84484; 85025; 85610; 85730; 86850; 81003; 80306; 72170; 73060; 73090; 71045; 72125; 70486; 70450; 71260; 74177; G0480; J2270; J0690; Q9967; 31500; 80320

== ENCOUNTER 2021-08-29 09:19 | Day surgery (SDC) | payer MEDICARE, OTHER ==
[~2021-08-29 09:19] MED LIST changes: -FUROSEMIDE 10 MG/ML 4 ML VIAL IV ONE; +LIDOCAINE 1% (10MG/ML) FOR IV START INTRADERMA PRN; -SODIUM CHLORIDE 0.9% 1,000 ML IV SCH; -ceFAZolin 1,000 MG in SODIUM CHLORIDE 0.9% IRRIGATIO 250 ML IRRIGATION ONE
[2021-08-29 10:06] VITALS: TEMP 97.2
[2021-08-29 10:10] LABS: Glucose,Whole Blood 198 mg/dL (75-99)
[2021-08-29] MEDS ORDERED: PROPOFOL 10 MG/ML 20 ML VIAL IV ONE (10:31)
--- NOTE | 2021-08-29 10:52 | P.PCN ---
Date of Procedure: 08/29/21 Procedure(s) Performed: BRIEF HISTORY: Patient is a 76-year-old, pleasant, white male scheduled for an upper endoscopy as a part of evaluation of chronic nausea vomiting for the last 3-4 months duration. He usually has about 5-6 episodes of emesis a day. His been to the emergency room on several different occasions. Tried Zofran with no help. Currently and Reglan 10 mg twice daily with not much help. He has long- standing history of diverticulitis.. PROCEDURE PERFORMED: Esophagogastroduodenoscopy with biopsy. PREOPERATIVE DIAGNOSIS: Chronic nausea vomiting a few months duration. IV sedation per anesthesia. PROCEDURE: After informed consent was obtained, the patient was brought into the endoscopy unit. IV sedation was administered by Anesthesia under continuous monitoring. Initially the Olympus GIF-140 video endoscope was inserted into the mouth. Esophagus intubated without any difficulty. It was gradually advanced into the stomach and duodenum and carefully examined. The bulb and the second part of the duodenum appeared normal. The scope at this time was withdrawn to the stomach, adequately insufflated with air, and upon careful examination, mucosa of the antrum, had mild gastritis and biopsies were done from this area. There was large amount of food in the stomach suggestive of diabetic gastroparesis. There was no evidence of gastric outlet. The visualized portions of the body, cardia and the fundus appeared normal. The scope was then withdrawn into the esophagus. The GE junction was located at 39 cm from the incisors. Small to moderate size hernia noted. There was a 2 cm length of Bateman's appearing mucosa just proximal to the GE junction extending from 36-38 cm from the incisors and multiple biopsies were done from this area. The rest of the esophagus appeared normal. There were no erosions or ulcerations seen and the patient tolerated the procedure well. IMPRESSION: 1. Retained food in the stomach suggestive of diabetic gastroparesis with no evidence of gastric outlet obstruction. 2. Moderate size hiatal hernia 3. 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 RECOMMENDATIONS: The findings of this examination were discussed with the patient as his family. His symptoms are related to diabetic gastroparesis continue with omeprazole 20 mg twice daily and Reglan 10 mg 4 times daily and continue with small frequent meals. Recommended aggressive control of blood sugars.. he will be seen in office in 3-4 weeks
[2021-08-29 10:58] VITALS: RESP 16
[2021-08-29 11:24] VITALS: BP 149/69; PULSE 64
== END 2021-08-29 11:41 | disposition home or self-care (01) ==
LOC: ORWHC2ENDO 09:19
PROVIDERS: ATTEND Internal Medicine Gastroenterology
DX: K22.70 Barrett's esophagus without dysplasia (principal); K29.50 Unspecified chronic gastritis without bleeding; K44.9 Diaphragmatic hernia without obstruction or gangrene; Z79.899 Other long term (current) drug therapy; Z98.890 Other specified postprocedural states
CPT/HCPCS: 43239; 88305; J2704

== ENCOUNTER 2022-04-07 23:36 | Inpatient (IN) | payer OTHER, MEDICARE ==
[2022-04-07 23:43] LABS: Glucose,Whole Blood 199 mg/dL (70-110)
[2022-04-07 23:43] LABS: Glucose,Whole Blood 350 mg/dL (70-110)
[2022-04-08 00:02] LABS: Basophils % (A) 1 %; Eosinophils # (A) 0.2 k/uL (0-0.7); Eosinophils % (A) 2 %; HCT 40.1 % (39.0-53.0); HGB 12.5 gm/dL (13.0-17.5); Hypochromasia Marked; Lymphocytes % (A) 11 %; MCH 28.2 pg (25.0-35.0); MCHC 31.1 g/dL (31.0-37.0); MCV 90.8 fL (80.0-100.0); Monocytes # (A) 0.5 k/uL (0-1.0); Monocytes % (A) 6 %; Neutrophils % (A) 80 %; Platelet Count 215 k/uL (150-450); RBC 4.42 m/uL (4.30-5.90); RDW 14.5 % (11.5-15.5); WBC 8.8 k/uL (3.8-10.6)
[2022-04-08 00:04] LABS: VBG PH 7.33 (7.31-7.41)
--- NOTE | 2022-04-08 00:10 | CT ---
EXAMINATION TYPE: CT brain wo con for TPA CT DLP: 1198.2 mGycm, Automated exposure control for dose reduction was used. DATE OF EXAM: 04/08/2022 12:03 AM COMPARISON: 09/17/2020. CLINICAL INDICATION:Male, 76 years old with history of Neuro deficit, acute, stroke suspected, Stroke TECHNIQUE: Brain: Axial CT images of the brain were obtained with coronal and sagittal reformats created and rev iewed. Contrast used: None. Oral contrast used: None. FINDINGS: Brain: Extra-axial spaces: No abnormal extra-axial fluid collections. Ventricular system: Dilatation in proportion to cerebral atrophy. Cerebral parenchyma: Remote injury to the right anguiano radiata and centrum semiovale. Cerebral atroph y. No acute intraparenchymal hemorrhage or mass effect. The campbell-white junction is well differentiat ed. Scattered hypoattenuating areas are seen within the white matter. Cerebellum: Unremarkable. Mass effect: No evidence of midline shift. Intracranial vasculature: Atherosclerotic calcifications of the intracranial vessels. Soft tissues: Metallic radiopaque foreign body near the left orbit. Calvarium/osseous structures: No depressed skull fracture. Paranasal sinuses and mastoid air cells: Mild scattered paranasal sinus disease. Visualized orbits: Orbital contents are intact. Findings communicated to Dr. Jorje Patterson MD on 04/08/2022 12:[address] Sarkis William. IMPRESSION: 1. No acute intracranial process. 2. Remote lacunar injuries along with nonspecific white matter changes likely secondary to chronic mi croangiopathy. Findings are not significantly changed from 2020. 3. Radiopaque metallic foreign body near the left orbit similar to prior.
[2022-04-08 00:15] LABS: INR 1.1 (<1.2); Partial Thromboplastin Time 24.2 sec (22.0-30.0); Prothrombin Time 11.6 sec (9.0-12.0)
[2022-04-08 00:22] LABS: Albumin 3.4 g/dL (3.5-5.0); Total Bilirubin 0.7 mg/dL (0.2-1.3); Total Protein 6.1 g/dL (6.3-8.2)
--- NOTE | 2022-04-08 00:23 | CT ---
EXAMINATION TYPE: CT angio head neck CT DLP: 551.1 mGycm, Automated exposure control for dose reduction was used. DATE OF EXAM: 04/08/2022 12:08 AM COMPARISON: Brain 10/06/[address] brain.. CLINICAL INDICATION:Male, 76 years old with history of AMS, code stroke, Possible stroke TECHNIQUE: Axially acquired helical CT angiogram of the head and neck was obtained with contrast. Axi al images are supplemented with 3D reconstructions which were post-processed at an independent [facility]. NASCET criteria used. Contrast used:65 ml mL of Isovue 370 with IV Contrast, Oral contrast used: None. FINDINGS: CTA HEAD: No evidence of acute intracranial hemorrhage, mass effect, or midline shift. The ventricles, sulci, a nd cisterns are unremarkable. The visualized portions of the internal carotid arteries, middle cerebral arteries, anterior cerebral arteries, and posterior cerebral arteries are patent. The basilar and vertebral arteries are patent. CTA NECK: Right Carotid System: The origin of the right common carotid artery is patent. There is calcified and noncalcified plaque b ifurcation. Motion limits evaluation for stenosis is felt to be at least 25% stenosis. There is scatt ered calcified and noncalcified plaque along the course of the internal carotid artery most pronounce d in the petrous portion and intracranial portions. Short segment of narrowing portion of at least 50 -75%. Left Carotid System: There is calcified plaque with at least 25% stenosis at its origin. Stent graft is present at the car otid bifurcations which appears patent. The remainder of the internal carotid artery demonstrate sca ttered areas of calcified and noncalcified plaque with up to 75% % stenosis which extends into the pe trous portion and intracranial portions. There is a diminutive appearance of the left vertebral artery extending from its origin to the conflu ence with the right vertebral artery. Right vertebral artery is dominant there is atherosclerosis thr oughout its course scattered areas of at least 25% stenosis. Atherosclerosis of the right vertebral a rtery origin with blooming artifact which limits evaluation for stenosis. There is a three-vessel aortic arch. Atherosclerosis of the jugular vessels. The origins of the great vessels are patent. There is narrowing of the brachiocephalic trunk at its bifurcation with calcifie d plaque with at least 25-50% stenosis. Thickening of interlobular septa. Cardiac conduction device is patent. IMPRESSION: 1. No evidence of occlusion extensive atherosclerosis with areas of high-grade stenosis throughout a ll the major vessels at the skull. 2. Right internal carotid artery scattered calcified and noncalcified plaque with at least 50-75% st enosis in the petrous portion. 3. Multiple areas of high-grade stenosis of the left internal carotid artery along its course into t he skull secondary to calcified and noncalcified plaque. 4. Left internal carotid artery areas of high-grade stenosis involving the petrous portion secondary to calcified and noncalcified plaque. Up to 50-76% stenosis. 5. 25% stenosis of the origin of the left common carotid artery secondary to calcified plaque. 6. 25% stenosis of the right carotid bifurcation secondary to calcified plaque. This is slightly sub optimally evaluated due to motion. 7. Brachiocephalic trunk bifurcation calcified plaque with at least 25-50% stenosis. 8. Diminutive appearance to the left vertebral artery which is poorly visualized on this exam. Right vertebral artery dominance which does demonstrate multiple areas of narrowing along its course. 9. Pulmonary vascular congestion correlate with serum BNP for congestive heart failure.
[2022-04-08] MEDS ORDERED: hydrALAZINE HCL 20 MG/ML 1 ML VIAL IVP STA ×2 (00:34→02:28)
[2022-04-08 00:36] LABS: Lactic Acid, Venous 1.7 mmol/L (0.7-2.0)
--- NOTE | 2022-04-08 01:36 | XR ---
EXAM: XR Chest, 1 View CLINICAL HISTORY: ITS.REASON XR Reason: AMS TECHNIQUE: Frontal view of the chest. COMPARISON: Chest x-ray 09/17/20. FINDINGS: Lungs: Diffuse vascular/interstitial thickening has developed, nonspecific, probable fluid overload or CHF. Pneumonia not excluded. No consolidation. Pleural space: No pneumothorax. Heart: Progressive, moderate to severe cardiomegaly. Mediastinum: Stable. Bones/Soft Tissues: No acute abnormality. Tubes/Lines: Stable dual lead pacemaker. IMPRESSION: 1. Interval development vascular prominence and progressive cardiomegaly, nonspecific, probable fluid overload or CHF. 2. Underlying pneumonia not excluded.
[2022-04-08 02:07] LABS: Appearance,Urine Clear (Clear); Bilirubin,Urine Negative (Negative); Blood,Urine Negative (Negative); Color,Urine Yellow; Glucose,Urine (UA) 4+ (Negative); Ketones,Urine Negative (Negative); Leukocyte Esterase,Urine Negative (Negative); Mucus,Urine Rare /hpf; Nitrite,Urine Negative (Negative); PH, Urine 5.5 (5.0-8.0); Protein,Urine 1+ (Negative); RBC,Urine <1 /hpf (0-5); Specific Gravity,Urine 1.044 (1.001-1.035); Squamous Epithelial Cell,Urine <1 /hpf (0-4); WBC,Urine <1 /hpf (0-5)
[2022-04-08] MEDS ORDERED: FUROSEMIDE 10 MG/ML 4 ML VIAL IV STA (02:24)
[2022-04-08] MEDS ORDERED: NALOXONE 0.4 MG/ML 1 ML VIAL IV PRN (02:49)
--- NOTE | 2022-04-08 02:59 | ED ---
General Adult HPI - General Chief complaint: Neuro Symptoms/Deficit Stated complaint: Poss DKA Source: EMS Mode of arrival: EMS Limitations: altered mental status - History of Present Illness Initial comments: This is a 76-year-old male who presents emergency department via EMS for altered mental status. The patient's was present at home however was a poor story and cannot provide many details. It was reported the patient was altered however a last known normal was not noted at this time. The patient presents emergency department with an intermittent left-sided gaze however was a phasic and unable to answer any questions. The patient was however not any acute dist ress. No further history could be obtained at this time by EMS and family was not present at the bedside on arrival. - Related Data Home Medications Medication Instructions Recorded Confirmed ALPRAZolam [Xanax] 0.5 mg PO TID PRN 09/26/13 08/29/21 metFORMIN HCL [Glucophage] 500 mg PO BID 03/30/17 08/29/21 lisinopriL [Zestril] 20 mg PO BID 04/20/17 08/29/21 Atorvastatin [Lipitor] 40 mg PO DAILY 11/27/18 08/29/21 Furosemide [Lasix] 80 mg PO DAILY 11/27/18 08/29/21 Insulin Degludec [Tresiba 40 units SQ BID 11/27/18 08/29/21 Flextouch U-100 Pen] Isosorbide Mononitrate ER [Imdur] 60 mg PO DAILY 01/26/19 08/29/21 Furosemide [Lasix] 40 mg PO DAILY@1700 01/15/20 08/29/21 Aspirin EC [Ecotrin Low Dose] 81 mg PO DAILY 04/15/20 08/29/21 carvediloL [Coreg] 12.5 mg PO BID 04/15/20 08/29/21 Previous Rx's Medication Instructions Recorded Spironolactone [Aldactone] 25 mg PO DAILY #90 tablet 02/19/20 Allergies Allergy/AdvReac Type Severity Reaction Status Date / Time No Known Allergies Allergy Verified 08/29/21 09:48 Review of Systems ROS Statement: Those systems with pertinent positive or pertinent negative responses have been documented in the HPI. Limitations: ROS unobtainable due to patients medical condition Past Medical History Past Medical History: Coronary Artery Disease (CAD), Heart Failure, CVA/TIA, Diabetes Mellitus, Hyperlipidemia, Hypertension, Myocardial Infarction (AR), Osteoarthritis (OA) Additional Past Medical History / Comment(s): GOUT,NEUROPATHY IN FEET, TIA 2014- no residual effects, SEE DR POLLOCK'S HISTORY FOR CARDIAC HISTORY Last Myocardial Infarction Date:: 2010 History of Any Multi-Drug Resistant Organisms: None Reported Past Surgical History: Coronary Bypass/CABG, Heart Catheterization With Stent, Hernia Repair Additional Past Surgical History / Comment(s): 5 VESSELS, LEFT CAROTID STENT (03/19/17). Past Anesthesia/Blood Transfusion Reactions: No Reported Reaction Date of Last Stent Placement:: 2015 Type of Cardiac Device: AICD Device Placement Date:: 02/19/2020 Past Psychological History: Anxiety Past Alcohol Use History: Rare - Past Family History Mother Family Medical History: No Reported History, Myocardial Infarction (AR) Brother(s) Family Medical History: Hypertension, Myocardial Infarction (AR) General Exam Limitations: altered mental status General appearance: in no apparent distress, obtunded Head exam: Present: atraumatic, normocephalic Eye exam: Present: normal appearance, PERRL Pupils: Present: normal accommodation ENT exam: Present: normal exam, normal oropharynx, mucous membranes moist Neck exam: Present: normal inspection, full ROM Respiratory exam: Present: normal lung sounds bilaterally Cardiovascular Exam: Present: regular rate, normal rhythm, normal heart sounds GI/Abdominal exam: Present: soft, normal bowel sounds Extremities exam: Present: normal inspection, full ROM, normal capillary refill Back exam: Present: normal inspection, full ROM Neurological exam: Present: altered, other (Unable to follow commands) Psychiatric exam: Present: other (aphasic, unable to answer any questions.) Skin exam: Present: warm, dry Course Vital Signs 04/07/22 04/07/22 04/08/22 23:41 23:59 01:10 Temperature 98.4 F Pulse Rate 80 76 76 Respiratory 24 22 22 Rate Blood Pressure 212/110 212/124 170/90 O2 Sat by Pulse 94 L 97 97 Oximetry 04/08/22 02:22 Temperature Pulse Rate 78 Respiratory 18 Rate Blood Pressure 213/127 O2 Sat by Pulse 22 L Oximetry EKG Findings - EKG Comments: EKG Findings:: An EKG was obtained and was interpreted by myself. EKG showed a rate of 82, P renal of 122, QR mosque 105 and QTC of 439. This EKG showed a normal sinus rhythm without any ST segment elevations or depressions noted. Medical Decision Making - Medical Decision Making The patient was seen and evaluated emergency department. Physical exam, the patient was resting in bed without any acute distress. The patient was altered and evaluation and a code stroke was called immediately on arrival. The patient's blood sugar was also evaluated and was elevated at 300. Per EMS, they did obtain a blood sugar of 500 however the patient's blood sugar was decreased urine emergency department. All imaging including CT and CTA of the head and neck were obtained. CT of the head was interpreted by myself and showed no acute intracranial process. CTA of the head and neck was obtained and was interpreted by myself and showed no evidence of occlusion extensive atherosclerosis with areas of high-grade stenosis throughout any of the major vessels in the skull. There was a right internal carotid artery with scattered calcified and noncalcified plaque with at least 50-75% stenosis. There are multiple areas of high-grade stenosis of the left internal carotid artery along its course into the skull secondary to calcified and noncalcified plaques. They're also other findings of stenosis noted. Laboratory workup was obtained and was largely within normal limits. A chest x-ray was obtained and was interpreted by myself and showed interval development of vascular prominence and progressive cardiomegaly probable fluid overload or CHF. An underlying pneumonia is not excluded at this time. The patient did not have any cough or congestion noted therefore was unlikely that it was pneumonia at this time. The patient was given a dose of Lasix as it did show increased fluid on the lungs. The patient continued to remain altered in the emergency department. The patient did not have any improvement and when the patient's arrived at the bedside, no further history could be obtained as the patient was also pleasantly confused. The neuro interventional list, Dr. Kaminski was contacted per the stroke protocol at [phone] and he did not recommend any further intervention at this time. Due to the patient's continued altered mental status and possible likely continued CVA, the patient's primary care physician, Dr. Hill was contacted at [phone] and did accept the patient for admission. Due to the nature the patient's current status, the patient will be placed in the stepdown unit. The patient and his were told of this and they were agreeable. The patient was admitted stable condition. - Lab Data Result diagrams: 04/07/22 23:47 04/07/22 23:47 Lab Results 04/07/22 04/07/22 04/07/22 Range/Units 23:39 23:41 23:47 WBC 8.8 (3.8-10.6) k/uL RBC 4.42 (4.30-5.90) m/uL Hgb 12.5 L (13.0-17.5) gm/dL Hct 40.1 (39.0-53.0) % MCV 90.8 (80.0-100.0) fL MCH 28.2 (25.0-35.0) pg MCHC 31.1 (31.0-37.0) g/dL RDW 14.5 (11.5-15.5) % Plt Count 215 (150-450) k/uL MPV 11.0 Neutrophils % 80 % Lymphocytes % 11 % Monocytes % 6 % Eosinophils % 2 % Basophils % 1 % Neutrophils # 7.0 (1.3-7.7) k/uL Lymphocytes # 1.0 (1.0-4.8) k/uL Monocytes # 0.5 (0-1.0) k/uL Eosinophils # 0.2 (0-0.7) k/uL Basophils # 0.0 (0-0.2) k/uL Hypochromasia Marked PT (9.0-12.0) sec INR (<1.2) APTT (22.0-30.0) sec VBG pH (7.31-7.41) VBG pCO2 (37-51) mmHg VBG HCO3 (24-28) mmol/L Sodium (137-145) mmol/L Potassium (3.5-5.1) mmol/L Chloride (98-107) mmol/L Carbon Dioxide (22-30) mmol/L Anion Gap mmol/L BUN (9-20) mg/dL Creatinine (0.66-1.25) mg/dL Est GFR (CKD-EPI)AfAm (>60 ml/min/1.73 sqM) Est GFR (CKD-EPI)NonAf (>60 ml/min/1.73 sqM) Glucose (74-99) mg/dL POC Glucose (mg/dL) 199 H 350 H (70-110) mg/dL POC Glu Tip Printer ID Hdez, Cayla Hdez, Cayla Plasma Lactic Acid Jonh (0.7-2.0) mmol/L Calcium (8.4-10.2) mg/dL Total Bilirubin (0.2-1.3) mg/dL AST (17-59) U/L ALT (4-49) U/L Alkaline Phosphatase (38-126) U/L Ammonia (<30) umol/L Troponin I (0.000-0.034) ng/mL Total Protein (6.3-8.2) g/dL Albumin (3.5-5.0) g/dL Urine Color Urine Appearance (Clear) Urine pH (5.0-8.0) Ur Specific [place] (1.001-1.035) Urine Protein (Negative) Urine Glucose (UA) (Negative) Urine Ketones (Negative) Urine Blood (Negative) Urine Nitrite (Negative) Urine Bilirubin (Negative) Urine Urobilinogen (<2.0) mg/dL Ur Leukocyte Esterase (Negative) Urine RBC (0-5) /hpf Urine WBC (0-5) /hpf Ur Squamous Epith Cells (0-4) /hpf Urine Mucus (None) /hpf 04/07/22 04/07/22 04/07/22 Range/Units 23:47 23:47 23:47 WBC (3.8-10.6) k/uL RBC (4.30-5.90) m/uL Hgb (13.0-17.5) gm/dL Hct (39.0-53.0) % MCV (80.0-100.0) fL MCH (25.0-35.0) pg MCHC (31.0-37.0) g/dL RDW (11.5-15.5) % Plt Count (150-450) k/uL MPV Neutrophils % % Lymphocytes % % Monocytes % % Eosinophils % % Basophils % % Neutrophils # (1.3-7.7) k/uL Lymphocytes # (1.0-4.8) k/uL Monocytes # (0-1.0) k/uL Eosinophils # (0-0.7) k/uL Basophils # (0-0.2) k/uL Hypochromasia PT 11.6 (9.0-12.0) sec INR 1.1 (<1.2) APTT 24.2 (22.0-30.0) sec VBG pH (7.31-7.41) VBG pCO2 (37-51) mmHg VBG HCO3 (24-28) mmol/L Sodium 137 (137-145) mmol/L Potassium 5.0 (3.5-5.1) mmol/L Chloride 107 (98-107) mmol/L Carbon Dioxide 24 (22-30) mmol/L Anion Gap 6 mmol/L BUN 23 H (9-20) mg/dL Creatinine 1.70 H (0.66-1.25) mg/dL Est GFR (CKD-EPI)AfAm 45 (>60 ml/min/1.73 sqM) Est GFR (CKD-EPI)NonAf 39 (>60 ml/min/1.73 sqM) Glucose 367 H (74-99) mg/dL POC Glucose (mg/dL) (70-110) mg/dL POC Glu Tip Printer ID Plasma Lactic Acid Jonh (0.7-2.0) mmol/L Calcium 9.0 (8.4-10.2) mg/dL Total Bilirubin 0.7 (0.2-1.3) mg/dL AST 20 (17-59) U/L ALT 14 (4-49) U/L Alkaline Phosphatase 168 H (38-126) U/L Ammonia (<30) umol/L Troponin I 0.029 (0.000-0.034) ng/mL Total Protein 6.1 L (6.3-8.2) g/dL Albumin 3.4 L (3.5-5.0) g/dL Urine Color Urine Appearance (Clear) Urine pH (5.0-8.0) Ur Specific [place] (1.001-1.035) Urine Protein (Negative) Urine Glucose (UA) (Negative) Urine Ketones (Negative) Urine Blood (Negative) Urine Nitrite (Negative) Urine Bilirubin (Negative) Urine Urobilinogen (<2.0) mg/dL Ur Leukocyte Esterase (Negative) Urine RBC (0-5) /hpf Urine WBC (0-5) /hpf Ur Squamous Epith Cells (0-4) /hpf Urine Mucus (None) /hpf 04/07/22 04/07/22 04/08/22 Range/Units 23:47 23:47 01:10 WBC (3.8-10.6) k/uL RBC (4.30-5.90) m/uL Hgb (13.0-17.5) gm/dL Hct (39.0-53.0) % MCV (80.0-100.0) fL MCH (25.0-35.0) pg MCHC (31.0-37.0) g/dL RDW (11.5-15.5) % Plt Count (150-450) k/uL MPV Neutrophils % % Lymphocytes % % Monocytes % % Eosinophils % % Basophils % % Neutrophils # (1.3-7.7) k/uL Lymphocytes # (1.0-4.8) k/uL Monocytes # (0-1.0) k/uL Eosinophils # (0-0.7) k/uL Basophils # (0-0.2) k/uL Hypochromasia PT (9.0-12.0) sec INR (<1.2) APTT (22.0-30.0) sec VBG pH 7.33 (7.31-7.41) VBG pCO2 48 (37-51) mmHg VBG HCO3 25 (24-28) mmol/L Sodium (137-145) mmol/L Potassium (3.5-5.1) mmol/L Chloride (98-107) mmol/L Carbon Dioxide (22-30) mmol/L Anion Gap mmol/L BUN (9-20) mg/dL Creatinine (0.66-1.25) mg/dL Est GFR (CKD-EPI)AfAm (>60 ml/min/1.73 sqM) Est GFR (CKD-EPI)NonAf (>60 ml/min/1.73 sqM) Glucose (74-99) mg/dL POC Glucose (mg/dL) (70-110) mg/dL POC Glu Tip Printer ID Plasma Lactic Acid Jonh 1.7 (0.7-2.0) mmol/L Calcium (8.4-10.2) mg/dL Total Bilirubin (0.2-1.3) mg/dL AST (17-59) U/L ALT (4-49) U/L Alkaline Phosphatase (38-126) U/L Ammonia <9 (<30) umol/L Troponin I (0.000-0.034) ng/mL Total Protein (6.3-8.2) g/dL Albumin (3.5-5.0) g/dL Urine Color Yellow Urine Appearance Clear (Clear) Urine pH 5.5 (5.0-8.0) Ur Specific [place] 1.044 H (1.001-1.035) Urine Protein 1+ H (Negative) Urine Glucose (UA) 4+ H (Negative) Urine Ketones Negative (Negative) Urine Blood Negative (Negative) Urine Nitrite Negative (Negative) Urine Bilirubin Negative (Negative) Urine Urobilinogen 2.0 (<2.0) mg/dL Ur Leukocyte Esterase Negative (Negative) Urine RBC <1 (0-5) /hpf Urine WBC <1 (0-5) /hpf Ur Squamous Epith Cells <1 (0-4) /hpf Urine Mucus Rare H (None) /hpf Critical Care Time Critical Care Time: Yes Total Critical Care Time: 42 Disposition Clinical Impression: Cerebrovascular accident (CVA), AMS (altered mental status), Fluid overload, CHF exacerbation Disposition: ADMITTED IP TO THIS [facility] Condition: Stable Is patient prescribed a controlled substance at d/c from ED?: No Referrals: Donavan Hill MD [Primary Care Provider] - 1-2 days Time of Disposition: 02:32 Decision to Admit Reason: Admit from EC Decision Date: 04/08/22 Decision Time: :32
[2022-04-08 04:29] LABS: Amphetamine Screen,Urine Not Detected (NotDetected); Barbiturate Screen,Urine Not Detected (NotDetected); Benzodiazepines Screen,Urine Not Detected (NotDetected); Cocaine Screen,Urine Not Detected (NotDetected); Methadone Screen, Urine Not Detected (NotDetected); Opiate Screen,Urine Not Detected (NotDetected); Oxycodone Screen, Urine Not Detected (NotDetected); Phencyclidine Screen,Urine Not Detected (NotDetected); Tricyclic Antidepressant,Urine Not Detected (NotDetected); Urn Cannabinoid Scrn Not Detected (NotDetected)
[2022-04-08] MEDS ORDERED: DEXTROSE 50% SYRINGE 50 ML IVP PRN ×4 (08:29→09:50)
--- NOTE | 2022-04-08 08:34 | P.HPIM ---
History of Present Illness H&P Date: 04/08/22 Chief Complaint: Altered mental status History obtained from nursing staff. The patient is a 76-year-old white male with history of poorly controlled diabetes who had traumatic brain injury remotely. Her bony accident on the [place] and has been somewhat lost to follow-up over the last 3-4 months. He is been living with his significant other who has been doing a good judging care of him but states yesterday he was nonverbal and brought in for appropriate workup. He has not been following commands. I feel he did not necessarily recognize me completely. Workup so far for CVA has been negative. Neurology has been consulted. History of CHF in the past. History of angina as well. Echocardiogram has been ordered. The results of otherwise been reviewed. Poor historian Review of Systems ROS unobtainable: due to mental status Past Medical History Past Medical History: Coronary Artery Disease (CAD), Heart Failure, CVA/TIA, Diabetes Mellitus, Hyperlipidemia, Hypertension, Myocardial Infarction ([place]), Osteoarthritis (OA) Additional Past Medical History / Comment(s): GOUT,NEUROPATHY IN FEET, TIA 2014- no residual effects, SEE DR POLLOCK'S HISTORY FOR CARDIAC HISTORY Last Myocardial Infarction Date:: 2010 History of Any Multi-Drug Resistant Organisms: None Reported Past Surgical History: Coronary Bypass/CABG, Heart Catheterization With Stent, Hernia Repair Additional Past Surgical History / Comment(s): 5 VESSELS, LEFT CAROTID STENT (03/19/17). Past Anesthesia/Blood Transfusion Reactions: No Reported Reaction Date of Last Stent Placement:: 2015 Type of Cardiac Device: AICD Device Placement Date:: 02/19/2020 Past Psychological History: Anxiety Past Alcohol Use History: Rare - Past Family History Mother Family Medical History: No Reported History, Myocardial Infarction ([place]) Brother(s) Family Medical History: Hypertension, Myocardial Infarction ([place]) Medications and Allergies Home Medications Medication Instructions Recorded Confirmed Type ALPRAZolam [Xanax] 0.5 mg PO TID PRN 09/26/13 08/29/21 History metFORMIN HCL [Glucophage] 500 mg PO BID 03/30/17 08/29/21 History lisinopriL [Zestril] 20 mg PO BID 04/20/17 08/29/21 History Atorvastatin [Lipitor] 40 mg PO DAILY 11/27/18 08/29/21 History Furosemide [Lasix] 80 mg PO DAILY 11/27/18 08/29/21 History Insulin Degludec [Tresiba 40 units SQ BID 11/27/18 08/29/21 History Flextouch U-100 Pen] Isosorbide Mononitrate ER [Imdur] 60 mg PO DAILY 01/26/19 08/29/21 History Furosemide [Lasix] 40 mg PO DAILY@1700 01/15/20 08/29/21 History Spironolactone [Aldactone] 25 mg PO DAILY #90 tablet 02/19/20 08/29/21 Rx Aspirin EC [Ecotrin Low Dose] 81 mg PO DAILY 04/15/20 08/29/21 History carvediloL [Coreg] 12.5 mg PO BID 04/15/20 08/29/21 History Allergies Allergy/AdvReac Type Severity Reaction Status Date / Time No Known Allergies Allergy Verified 08/29/21 09:48 Physical Exam Vitals: Vital Signs Temp Pulse Resp BP Pulse Ox 04/08/22 08:00 97 22 107/84 97 04/08/22 07:38 95 20 107/84 98 04/08/22 07:30 93 25 H 126/77 95 04/08/22 06:04 90 16 126/77 96 04/08/22 04:56 90 18 162/98 95 04/08/22 03:26 84 16 177/98 96 04/08/22 02:22 78 18 213/127 22 L 04/08/22 01:10 76 22 170/90 97 04/07/22 23:59 76 22 212/124 97 04/07/22 23:41 98.4 F 80 24 212/110 94 L Intake and Output 04/07/22 04/08/22 04/08/22 22:59 06:59 14:59 Other: Weight 72.575 kg - Constitutional General appearance: no cooperative, no acute distress - EENT Eyes: EOMI - Neck Neck: no lymphadenopathy - Respiratory Respiratory: bilateral: diminished - Cardiovascular Rhythm: regular Heart sounds: normal: S1, S2 Abnormal Heart Sounds: no S3 Gallop - Gastrointestinal General gastrointestinal: soft, no tenderness - Integumentary Integumentary: no cellulitis - Psychiatric Psychiatric: no A&O x's 3, no appropriate affect, no intact judgment & insight Results CBC & Chem 7: 04/07/22 23:47 04/07/22 23:47 Labs: Abnormal Lab Results - Last 24 Hours (Table) 04/07/22 04/07/22 04/07/22 Range/Units 23:39 23:41 23:47 Hgb 12.5 L (13.0-17.5) gm/dL BUN (9-20) mg/dL Creatinine (0.66-1.25) mg/dL Glucose (74-99) mg/dL POC Glucose (mg/dL) 199 H 350 H (70-110) mg/dL Alkaline Phosphatase (38-126) U/L Total Protein (6.3-8.2) g/dL Albumin (3.5-5.0) g/dL Ur Specific [place] (1.001-1.035) Urine Protein (Negative) Urine Glucose (UA) (Negative) Urine Mucus (None) /hpf 04/07/22 04/08/22 Range/Units 23:47 01:10 Hgb (13.0-17.5) gm/dL BUN 23 H (9-20) mg/dL Creatinine 1.70 H (0.66-1.25) mg/dL Glucose 367 H (74-99) mg/dL POC Glucose (mg/dL) (70-110) mg/dL Alkaline Phosphatase 168 H (38-126) U/L Total Protein 6.1 L (6.3-8.2) g/dL Albumin 3.4 L (3.5-5.0) g/dL Ur Specific [place] 1.044 H (1.001-1.035) Urine Protein 1+ H (Negative) Urine Glucose (UA) 4+ H (Negative) Urine Mucus Rare H (None) /hpf Assessment and Plan (1) AMS (altered mental status) Current Visit: Yes Status: Acute Code(s): R41.82 - ALTERED MENTAL STATUS, UNSPECIFIED SNOMED Code(s): 613378234 (2) CHF exacerbation Current Visit: Yes Status: Acute Code(s): I50.9 - HEART FAILURE, UNSPECIFIED SNOMED Code(s): 541234236 (3) Cerebrovascular accident (CVA) Current Visit: Yes Status: Acute Code(s): I63.9 - CEREBRAL INFARCTION, UNSPECIFIED SNOMED Code(s): 552456489 (4) Fluid overload Current Visit: Yes Status: Acute Code(s): E87.70 - FLUID OVERLOAD, UNSPECIFI ED SNOMED Code(s): 96442511 (5) CAD (coronary artery disease) Current Visit: No Status: Acute Code(s): I25.10 - ATHSCL HEART DISEASE OF [place] CORONARY ARTERY W/O ANG PCTRS SNOMED Code(s): 749963213 (6) Cardiomyopathy Current Visit: No Status: Acute Code(s): I42.9 - CARDIOMYOPATHY, UNSPECIFIED SNOMED Code(s): 35398221 (7) Noncompliance with diabetes treatment Current Visit: No Status: Acute Code(s): Z91.19 - PATIENT'S NONCOMPLIANCE W OTH MEDICAL TREATME * DO NOT USE * SNOMED Code(s): 4044325 Plan: Workup so far is now showing significant etiology finding. Appreciate neurology consult. Reconcile medications if possible given his by mouth status. Check CBC and CMP in a.m. She orders otherwise
[2022-04-08] MEDS: FUROSEMIDE 10 MG/ML 4 ML VIAL IV SCH ×2 (09:25→20:52)
[2022-04-08] MEDS ORDERED: traMADol 50 MG TAB PO PRN (09:36)
[2022-04-08] MEDS ORDERED: ALPRAZolam 0.5 MG TAB PO PRN (09:40)
[2022-04-08 11:44] LABS: Glucose,Whole Blood 341 mg/dL (70-110)
[2022-04-08 12:40] LABS: Albumin 3.8 g/dL (3.5-5.0); Calcium 9.7 mg/dL (8.4-10.2); Potassium 4.3 mmol/L (3.5-5.1); Total Bilirubin 0.8 mg/dL (0.2-1.3); Total Protein 6.7 g/dL (6.3-8.2)
[2022-04-08] MEDS: METOCLOPRAMIDE 10 MG TAB PO SCH ×2 (12:53→17:33)
[2022-04-08] MEDS: ASPIRIN 300 MG SUPP RECTAL SCH ×2 (12:53→13:32)
[2022-04-08] MEDS: INSULIN ASPART (NovoLOG) 100 UNIT/ML VIAL SQ SCH ×3 (12:58→20:50)
--- NOTE | 2022-04-08 13:04 | P.CNNES ---
History of Present Illness Consult date: 04/08/22 Requesting physician: Jorje Patterson Reason for Consult: CVA, AMS History of Present Illness: This is a 76-year-old gentleman with history of stroke, left carotid stenting in 2017, coronary artery disease status post stents, CABG, AICD diabetes mellitus presented emergency department for altered mental status. Patient presents our facility on 04/07/2022 around close to midnight (23:36). History is obtained from medical record as well as the patient nurse. According to the ED note patient presented because of confusion and in emergency the patient had intermittent left gaze and was aphasic and unable to answer any questions. Unknown last normal state. According to the nurse per patient's had his symptoms yesterday but unknown last normal. Patient is on home dose of aspirin 81 mg and Lipitor 40 mg daily. He continues to have left gaze deviation and unable to respond to questions or follow commands. Some of the workup during this hospital visit consisted of: Patient is afebrile Initial blood pressure is 212/110 and most recent blood pressure is 127/117. CBC with differential seems unremarkable. Chemistry panel is initial POC glucose is 199 and a repeat is 350 credits 1.70 ambulance 23 ammonia is less than 9 sodium is 137 calcium is 9.0. Urinalysis is negative for urinary tract infection Urine drug screen is not detected CT of the head is reported as no acute intracranial process. Remote lacunar injuries along with nonspecific white matter changes likely secondary due to chronic micro-angiopathy. Finding are not significant change from 2020. Radio opaque metallic foreign body near the left orbit similar to prior. I personally reviewed the CT and there is no acute or subacute ischemia and there is no typical hemorrhage. I felt the patient has old lacunar stroke in the basal ganglia mostly over the right. CT angiography of the head and neck was reported as no evidence of occlusion e xtensive atherosclerosis with area of high-grade stenosis throughout all major vessel at the skull. Right internal carotid arteries scattered calcified and noncalcified plaque with at least 50-75% stenosis in the petrous portion. Multiple area of high-grade stenosis of left ICA along its course into the skull secondary to calcified noncalcified plaque. Left ICA area of high-grade stenosis involving the petrous portion secondary to calcified and noncalcified plaque up to 50-76%. Sed rate 25% stenosis origin of left common carotid artery secondary to calcified plaque. 25% stenosis right carotid bifurcations to continue to calcified plaque. Brachiocephalic trunk bifurcation calcified plaq ue with at least 25-50% stenosis. Diminutive appearance of left vertebral artery which is poorly visualized on this exam. Right vertebral area dominance which does demonstrate multiple areas of narrowing along its course. Pulmonary vascular congestion correlate for serum BMP for congestive heart failure. A stroke code was activated by the ED team in the ED spoke with the stroke attending (Dr. Kaminski) and no IV tpa since likely unknown last normal and the risk out weight the benefit. As well per ED no intervention. Review of Systems Review of system is limited and the pertinent positive and negative as per HPI. Past Medical History Past Medical History: Coronary Artery Disease (CAD), Heart Failure, CVA/TIA, Diabetes Mellitus, Hyperlipidemia, Hypertension, Myocardial Infarction ([place]), Osteoarthritis (OA) Additional Past Medical History / Comment(s): GOUT,NEUROPATHY IN FEET, TIA 2014- no residual effects, SEE DR POLLOCK'S HISTORY FOR CARDIAC HISTORY Last Myocardial Infarction Date:: 2010 History of Any Multi-Drug Resistant Organisms: None Reported Past Surgical History: Coronary Bypass/CABG, Heart Catheterization With Stent, Hernia Repair Additional Past Surgical History / Comment(s): 5 VESSELS, LEFT CAROTID STENT (03/19/17). Past Anesthesia/Blood Transfusion Reactions: No Reported Reaction Date of Last Stent Placement:: 2015 Type of Cardiac Device: AICD Device Placement Date:: 02/19/2020 Past Psychological History: Anxiety Past Alcohol Use History: Rare - Past Family History Mother Family Medical History: No Reported History, Myocardial Infarction ([place]) Brother(s) Family Medical History: Hypertension, Myocardial Infarction ([place]) Medications and Allergies Home Medications Medication Instructions Recorded Confirmed Type ALPRAZolam [Xanax] 0.5 mg PO TID PRN 09/26/13 04/08/22 History Atorvastatin [Lipitor] 40 mg PO HS 11/27/18 04/08/22 History Aspirin EC [Ecotrin] 325 mg PO DAILY 04/08/22 04/08/22 History Insulin Aspart [NovoLOG Flexpen] See Protocol SQ ACHS 04/08/22 04/08/22 History Insulin Glargine,Hum.rec.anlog 20 units SQ DAILY 04/08/22 04/08/22 History [Insulin Glargine Solostar] Isosorbide Mononitrate ER [Imdur] 30 mg PO DAILY 04/08/22 04/08/22 History Metoclopramide [Reglan] 10 mg PO TID 04/08/22 04/08/22 History Sertraline [Zoloft] 50 mg PO DAILY 04/08/22 04/08/22 History carvediloL [Coreg] 25 mg PO BID 04/08/22 04/08/22 History traMADol HCL 50 mg PO Q6H PRN 04/08/22 04/08/22 History Allergies Allergy/AdvReac Type Severity Reaction Status Date / Time No Known Allergies Allergy Verified 04/08/22 09:20 Physical Examination - Vital Signs Vital Signs: Vital Signs Temp Pulse Resp BP Pulse Ox 04/08/22 11:00 90 24 127/117 95 04/08/22 10:30 90 20 115/79 96 04/08/22 10:00 89 23 92/78 96 04/08/22 09:30 90 27 H 106/81 97 04/08/22 09:00 94 28 H 109/96 96 04/08/22 08:30 92 34 H 113/70 93 L 04/08/22 08:00 97 22 107/84 97 04/08/22 07:38 95 20 107/84 98 04/08/22 07:30 93 25 H 126/77 95 04/08/22 06:04 90 16 126/77 96 04/08/22 04:56 90 18 162/98 95 04/08/22 03:26 84 16 177/98 96 04/08/22 02:22 78 18 213/127 22 L 04/08/22 01:10 76 22 170/90 97 04/07/22 23:59 76 22 212/124 97 04/07/22 23:41 98.4 F 80 24 212/110 94 L Intake and Output 04/07/22 04/08/22 04/08/22 22:59 06:59 14:59 Output Total 900 Balance -900 Output: Urine 900 Other: Weight 72.575 kg GENERAL: The patient is laying in bed and does not appear in acute distress. CHEST: The heart rate is regular rate rhythm. No murmurs to auscultation. LUNG: Clear to auscultation bilaterally no wheezing noted throughout. Not labored breathing. ABDOMEN/GI: Bowel sounds present in all 4 quadrants. No tenderness to palpation throughout. NEUROLOGICAL: Limited because of his condition. Higher mental function: The patient is awake but in non verbal and not following commands. Cranial nerves: Has left gaze deviation and maybe slightly looks midline at rare occasions. The pupils are round, equal and reactive to light. No facial weakness. Is mute. Motor: The strength is hard to assess individual muscle strength because of his condition. But would lift the right upper above gravity on own and not left. Normal tone and bulk. Cerebellum: Unable to assess. Sensation: Unable to assess light touch. Reflexes (right/left): 1+ throughout. Plantars are mute bilaterally. Results - Laboratory Findings CBC and BMP: 04/07/22 23:47 04/08/22 11:55 Abnormal Lab Findings: Abnormal Labs 04/07/22 04/07/22 04/07/22 23:39 23:41 23:47 Hgb 12.5 L Carbon Dioxide BUN Creatinine Glucose POC Glucose (mg/dL) 199 H 350 H Alkaline Phosphatase Total Protein Albumin Ur Specific [place] Urine Protein Urine Glucose (UA) Urine Mucus 04/07/22 04/08/22 04/08/22 23:47 01:10 11:42 Hgb Carbon Dioxide BUN 23 H Creatinine 1.70 H Glucose 367 H POC Glucose (mg/dL) 341 H Alkaline Phosphatase 168 H Total Protein 6.1 L Albumin 3.4 L Ur Specific [place] 1.044 H Urine Protein 1+ H Urine Glucose (UA) 4+ H Urine Mucus Rare H 04/08/22 11:55 Hgb Carbon Dioxide 21 L BUN 24 H Creatinine 1.44 H Glucose 349 H POC Glucose (mg/dL) Alkaline Phosphatase 175 H Total Protein Albumin Ur Specific [place] Urine Protein Urine Glucose (UA) Urine Mucus Assessment and Plan Assessment: Acute global aphasia/mute with left gaze deviation and confusion (also on examination moving the right more than left): Likely acute ischemic stroke. Severe Left ICA according to CTA Right ICA 50-75% at petrous portion and Diminutive appearance of left vertebral artery which is poorly visualized on this exam. Right vertebral area dominance which does demonstrate multiple areas of narrowing along its course on CTA History of stroke History of left carotid stenting in 2017 History of coronary artery disease status post stents History of CABG AICD Diabetes mellitus Plan: I will get repeat CT head by tomorrow to assess if any visible stroke not seen on initial CT. Cannot obtain MRI since has AICD. Ordered routine EEG to rule out seizure. Ordered carotid duplex, consulted vascular surgery for carotid stenosis. I stopped PO ASA since not swallowing and started on ASA 300mg daily suppository. On Lipitor 40mg qhs for secondary stroke prophylaxis. 2D echo is ordered and pending. Ordered lipid panel and TSH. Continue neuro checks On cardiac monitoring. Consulted PT, OT. VARNISHING MACHINE OPERATOR is consulted. For DVT prophylaxis: started on subq heparin 5000U every 8 hours. Will defer the rest of medical management to primary team. Condition is very guarded. The plan is discussed with his nurse multiple times and vascular surgery team. Thank your for the consultation. Time with Patient: Greater than 30
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
--- NOTE | 2022-04-08 15:10 | US ---
EXAMINATION TYPE: US carotid duplex BILAT DATE OF EXAM: 04/08/2022 COMPARISON: CTa, US 2013 CLINICAL HISTORY: carotid stenosis. stroke. Carotid stenosis. Stroke per order. Hx left stent. TECHNIQUE: Carotid duplex ultrasound examination. Indirect Doppler criteria was utilized. FINDINGS: EXAM MEASUREMENTS: RIGHT: Peak Systolic Velocity (PSV) cm/sec ----- Right CCA: 105.6 ----- Right ICA: 117.2 ----- Right ECA: 198.9 ICA/CCA ratio: 1.1 RIGHT: End Diastole cm/sec ----- Right CCA: 25.6 ----- Right ICA: 21.2 ----- Right ECA: 31.6 LEFT: Peak Systolic Velocity (PSV) cm/sec ----- Left CCA: 39.8 ----- Left ICA: 98.5 ----- Left ECA: 425.0 ICA/CCA ratio: 2.5 LEFT: End Diastole cm/sec ----- Left CCA: 12.7 ----- Left ICA: 21.5 ----- Left ECA: 70.8 VERTEBRALS (direction of flow): Right Vertebral: Unable to visualize possibly due to patient's neck position and constant movement. Left Vertebral: Unable to visualize. Rhythm: Arrhythmia ACETYLENE OPERATOR NOTES: Left carotid bifurcation stent per Cta. Elevated velocities within right ECA and l eft ECA. Left ICA/CCA ratio was 2.5. Exam is extremely limited due to patient breathing, snoring, mov ement, and neck position. Plaque seen bilaterally. IMPRESSION: 1. Elevated ratio involving the left carotid artery suggestive of a 50-69% stenosis of the proximal l eft ICA. Correlate with dedicated arteriogram as clinically warranted given limitation of the exam. 2. Bilateral atherosclerotic changes. Correlate for previous left carotid artery stenting. 3. Findings suggest stenosis of the origin of the external carotid artery bilaterally. 4. Cardiac dysrhythmia Criteria for Assigning % of Stenosis / Diameter reduction (Estimation based on the indirect measurements of the internal carotid artery velocities (ICA PSV). 1. Normal (no stenosis)=ICA PSV < 125 cm/s: ratio < 2.0: ICA EDV<40 cm/s. 2. Less than 50% stenosis=ICA PSV < 125 cm/s: ratio < 2.0: ICA EDV<40 cm/s. 3. 50 to 69% stenosis=ICA PSV of 125 to 230 cm/s: ration 2.0 ? 4.0: ICA EDV 40-100 cm/s. 4. Greater than 70% stenosis to near occlusion= ICA PSV > 230 cm/s: ratio > 4.0: ICA EDV > 100 cm/s. 5. Near occlusion= ICA PSV velocities may be low or undetectable: variable ratio and ICA EDV. 6. Total occlusion=unable to detect flow.
[2022-04-08] MEDS: carvediloL 12.5 MG TAB PO SCH (17:32)
[2022-04-08] MEDS: HEPARIN SODIUM,PORCINE/PF 5,000 UNIT/0.5 ML SYRINGE SQ SCH (17:32)
[2022-04-08 17:38] LABS: Glucose,Whole Blood 214 mg/dL (70-110)
[2022-04-08 18:36] LABS: Chol/HDL Ratio 2.98 Ratio; VLDL Calculation 17.84 mg/dL (5.00-40.00)
[2022-04-08] MEDS: ATORVASTATIN 40 MG TAB PO SCH (20:45)
[2022-04-08 20:49] LABS: Glucose,Whole Blood 205 mg/dL (70-110)
[2022-04-08 23:53] LABS: Glucose,Whole Blood 221 mg/dL (70-110)
[2022-04-09] MEDS: HEPARIN SODIUM,PORCINE/PF 5,000 UNIT/0.5 ML SYRINGE SQ SCH ×4 (00:02→23:57)
--- NOTE | 2022-04-09 01:42 | EEG ---
ELECTROENCEPHALOGRAM REPORT CLINICAL HISTORY: This is a 76-year-old gentleman with altered mental status. The video EEG is obtained to evaluate for seizure epileptiform activity. RELEVANT MEDICATION: The patient is not on any antiepileptic drugs. EEG TYPE: A routine 21-channel EEG is performed with video using the 10/20 electrode placement system. DESCRIPTION: The background consists of [id number] voltage of 2 to 3 hertz delta activity that is nonrhythmic. There is no physiological stage 2 sleep architecture. There is no focal slowing. Interictal and ictal is none. ACTIVATION PROCEDURE: Photic stimulation did not evoke a posterior driving response. There is no abnormality during the photic stimulation. Hyperventilation is not performed. CLINICAL INTERPRETATION: This is an abnormal routine EEG. The background slowing is suggestive of severe encephalopathy. Otherwise, there is no focal slowing, epileptiform discharge, or seizure on the EEG. Clinical correlation is recommended. [place] / PREET: [id number] / MTDD
[2022-04-09] MEDS: ENALAPRILAT 1.25 MG/ML 1 ML VIAL IVP PRN ×3 (03:11→13:48)
[2022-04-09] MEDS: INSULIN ASPART (NovoLOG) 100 UNIT/ML VIAL SQ SCH ×4 (06:56→20:39)
[2022-04-09] MEDS: carvediloL 12.5 MG TAB PO SCH ×2 (06:56→16:35)
[2022-04-09] MEDS: METOCLOPRAMIDE 10 MG TAB PO SCH ×3 (06:56→16:35)
--- NOTE | 2022-04-09 08:45 | P.PN ---
Subjective Progress Note Date: 04/09/22 Principal diagnosis: Altered mental status This is a 76-year-old male admitted for altered mental status. His significant other is at the bedside this morning. He continues to not be able to follow commands. Neurology has been consult. An EEG was done yesterday which was abno rmal and suggestive of severe encephalopathy. Patient is a poor historian Objective - Vital Signs Vital signs: Vital Signs Temp 97.7 F 04/09/22 04:00 Pulse 77 04/09/22 04:00 Resp 20 04/09/22 04:00 BP 156/94 04/09/22 04:00 Pulse Ox 93 L 04/09/22 04:00 FiO2 Intake & Output 04/08/22 04/09/22 04/09/22 18:59 06:59 18:59 Intake Total 0 0 Output Total 1600 500 Balance -1600 -500 0 Weight 63 kg Intake: Oral 0 0 Output: Urine 1600 500 Other: Voiding Method Diaper # Voids 2 - Constitutional General appearance: Absent: cooperative, no acute distress - EENT Eyes: Present: EOMI - Neck Neck: Absent: lymphadenopathy - Respiratory Respiratory: bilateral: diminished - Cardiovascular Rhythm: regular Heart sounds: normal: S1, S2 - Gastrointestinal General gastrointestinal: Present: soft. Absent: tenderness - Integumentary Integumentary: Absent: cellulitis - Psychiatric Psychiatric: Absent: A&O x's 3, appropriate affect, intact judgment & insight - Labs CBC & Chem 7: 04/07/22 23:47 04/08/22 11:55 Labs: Abnormal Lab Results - Last 24 Hours (Table) 04/07/22 04/08/22 04/08/22 Range/Units 23:47 10:55 11:42 Carbon Dioxide (22-30) mmol/L BUN (9-20) mg/dL Creatinine (0.66-1.25) mg/dL Glucose (74-99) mg/dL POC Glucose (mg/dL) 341 H (70-110) mg/dL Hemoglobin A1c 8.7 H 8.9 H (0.0-6.0) % Alkaline Phosphatase (38-126) U/L HDL Cholesterol (40.00-60.00) mg/dL 04/08/22 04/08/22 04/08/22 Range/Units 11:55 11:55 17:31 Carbon Dioxide 21 L (22-30) mmol/L BUN 24 H (9-20) mg/dL Creatinine 1.44 H (0.66-1.25) mg/dL Glucose 349 H (74-99) mg/dL POC Glucose (mg/dL) 214 H (70-110) mg/dL Hemoglobin A1c (0.0-6.0) % Alkaline Phosphatase 175 H (38-126) U/L HDL Cholesterol 36.20 L (40.00-60.00) mg/dL 04/08/22 04/08/22 Range/Units 20:48 23:51 Carbon Dioxide (22-30) mmol/L BUN (9-20) mg/dL Creatinine (0.66-1.25) mg/dL Glucose (74-99) mg/dL POC Glucose (mg/dL) 205 H 221 H (70-110) mg/dL Hemoglobin A1c (0.0-6.0) % Alkaline Phosphatase (38-126) U/L HDL Cholesterol (40.00-60.00) mg/dL Assessment and Plan (1) AMS (altered mental status) Current Visit: Yes Status: Acute Code(s): R41.82 - ALTERED MENTAL STATUS, UNSPECIFIED SNOMED Code(s): 165694257 (2) CHF exacerbation Current Visit: Yes Status: Acute Code(s): I50.9 - HEART FAILURE, UNSPECIFIED SNOMED Code(s): 925985500 (3) Cerebrovascular accident (CVA) Current Visit: Yes Status: Acute Code(s): I63.9 - CEREBRAL INFARCTION, UNSPECIFIED SNOMED Code(s): 730935660 (4) Fluid overload Current Visit: Yes Status: Acute Code(s): E87.70 - FLUID OVERLOAD, UNSPECIFIED SNOMED Code(s): 74756433 (5) CAD (coronary artery disease) Current Visit: No Status: Acute Code(s): I25.10 - ATHSCL HEART DISEASE OF [place] CORONARY ARTERY W/O ANG PCTRS SNOMED Code(s): 176476176 (6) Cardiomyopathy Current Visit: No Status: Acute Code(s): I42.9 - CARDIOMYOPATHY, UNSPECIFIED SNOMED Code(s): 74662340 (7) Noncompliance with diabetes treatment Current Visit: No Status: Acute Code(s): Z91.19 - PATIENT'S NONCOMPLIANCE W OTH MEDICAL TREATME * DO NOT USE * SNOMED Code(s): 3260324 Plan: Appreciate neurology consult. Will check CBC and CMP in the morning. Prognosis remains guarded. Patient seen and evaluated by nurse practitioner, physician in agreement with plan
[2022-04-09] MEDS ORDERED: ASPIRIN 325 MG TAB PO SCH (09:00)
[2022-04-09] MEDS: FUROSEMIDE 10 MG/ML 4 ML VIAL IV SCH ×2 (09:12→20:31)
--- NOTE | 2022-04-09 09:45 | P.PN ---
Subjective Progress Note Date: 04/09/22 Principal diagnosis: Carotid stenosis, TIA Patient is seen and examined today as a follow-up for carotid stenosis, TIA. Patient's significant other is at the bedside states that he was verbal prior to his episode as well as able to ambulate at home with a walker. She states that he also has been complaining of lower extremity pain for some time. Patient does have a history of peripheral arterial disease. Patient seems a little more alert today although nonverbal. He is able to follow some simple commands. Speech was at the bedside however patient was not alert enough to undergo further evaluation for swallow study. Carotid duplex reported elevated ratio involving left carotid artery suggestive of 50-69% stenosis of proximal left ICA. EEG was abnormal with background slowing suggestive of severe encephalopathy otherwise no focal slowing, with deformed discharge or seizure on EEG. Repeat brain CT ordered from neurology. Objective - Vital Signs Vital signs: Vital Signs Temp 97.7 F 04/09/22 04:00 Pulse 77 04/09/22 04:00 Resp 20 04/09/22 04:00 BP 156/94 04/09/22 04:00 Pulse Ox 93 L 04/09/22 04:00 FiO2 Intake & Output 04/08/22 04/09/22 04/09/22 18:59 06:59 18:59 Intake Total 0 0 Output Total 1600 500 Balance -1600 -500 0 Weight 63 kg Intake: Oral 0 0 Output: Urine 1600 500 Other: Voiding Method Diaper # Voids 2 - Exam General appearance: The patient is awake and alert. Nonverbal HET: Head is normocephalic and atraumatic. Pupils are equal and reactive. Neck: Supple. Heart: Regular. Lungs: Equal expansion, normal respiratory effort. Abdomen: Soft, nontender, nondistended. Extremities: Normal skin color and turgor. No cyanosis, rash, ulceration, clubbing, or edema. Radial pulses palpable bilaterally, nonpalpable DP PT pulses. Feet warm to the touch with good capillary refill. Neurological: Patient with left deviated gaze. Patient was able to follow simple commands and was able to squeeze with bilateral upper extremities and raise bilateral upper extremities. Able to move bilateral lower extremities, unable to raise right leg off bed and was able to minimally raise left leg off the bed. Grasp strength bilaterally 3/5. Nonverbal. - Labs CBC & Chem 7: 04/07/22 23:47 04/08/22 11:55 Labs: Abnormal Lab Results - Last 24 Hours (Table) 04/07/22 04/08/22 04/08/22 Range/Units 23:47 10:55 11:42 Carbon Dioxide (22-30) mmol/L BUN (9-20) mg/dL Creatinine (0.66-1.25) mg/dL Glucose (74-99) mg/dL POC Glucose (mg/dL) 341 H (70-110) mg/dL Hemoglobin A1c 8.7 H 8.9 H (0.0-6.0) % Alkaline Phosphatase (38-126) U/L HDL Cholesterol (40.00-60.00) mg/dL 04/08/22 04/08/22 04/08/22 Range/Units 11:55 11:55 17:31 Carbon Dioxide 21 L (22-30) mmol/L BUN 24 H (9-20) mg/dL Creatinine 1.44 H (0.66-1.25) mg/dL Glucose 349 H (74-99) mg/dL POC Glucose (mg/dL) 214 H (70-110) mg/dL Hemoglobin A1c (0.0-6.0) % Alkaline Phosphatase 175 H (38-126) U/L HDL Cholesterol 36.20 L (40.00-60.00) mg/dL 04/08/22 04/08/22 Range/Units 20:48 23:51 Carbon Dioxide (22-30) mmol/L BUN (9-20) mg/dL Creatinine (0.66-1.25) mg/dL Glucose (74-99) mg/dL POC Glucose (mg/dL) 205 H 221 H (70-110) mg/dL Hemoglobin A1c (0.0-6.0) % Alkaline Phosphatase (38-126) U/L HDL Cholesterol (40.00-60.00) mg/dL Assessment and Plan Assessment: 1. Bilateral internal carotid artery stenosis left greater than right at 50-69% 2. Acute mental status changes with symptoms of aphasia/meal with a left gaze deviation likely TIA 3. Lower extremity pain 4. History of stroke 5. History coronary artery disease status post stenting and CABG 6. History of ICA stenosis, left carotid stent 7. Diabetes mellitus 8. AICD 9. History of peripheral arterial disease status post stenting Plan: 1. Carotid ultrasound ordered and reviewed 2. Continue with recommendations/workup from neurology 3. PT/OT/ST on consultation 4. Continue aspirin and statin await further recommendations from neurology 5. Arterial ultrasound bilateral lower extremities ordered after further review of chart, further patient history obtaine. patient is known to Dr. morrow, he underwent left carotid stent in 2017 as well as peripheral arterial disease intervention in [address] Benoit for right SFA occlusion. Will defer further management to Dr. Benoit. Cardiology consulted. Thank you for this consultation, we will continue to follow. The impression and plan of care has been dictated as directed. I performed a history and examination of this patient, discussed the same with the dictator. I agree with the dictator's note ,documented as a scribe. Any additional findings or plans will be noted.
--- NOTE | 2022-04-09 10:39 | CT ---
EXAMINATION TYPE: CT brain wo con DATE OF EXAM: 04/09/2022 COMPARISON: 04/07/2022 HISTORY: Stroke, Non verbal CT DLP: 1172.[address] of the brain was performed. The ventricles, basal cisterns and sulci overlying the cerebral convexities demonstrate mild enlargem ent. Remote lacunar infarcts. There is no evidence for intracranial hemorrhage or sulcal effacement. There is decreased attenuation about the periventricular white matter and deep white matter of both c erebral hemispheres, compatible with chronic small vessel ischemia. Differential diagnosis does inclu de demyelination. No mass effects are seen.No midline shift. Osseous calvarium is intact. If symptoms persist consider MRI. IMPRESSION: 1. Age related atrophic and chronic small vessel ischemic change without acute intracranial process s een at this time.
[2022-04-09 11:59] LABS: Glucose,Whole Blood 231 mg/dL (70-110)
--- NOTE | 2022-04-09 12:08 | P.PN ---
Subjective Progress Note Date: 04/09/22 The patient is seen at bedside and is more awake today according to vascular surgery team. Objective - Vital Signs Vital signs: Vital Signs Temp 99.2 F 04/09/22 09:10 Pulse 74 04/09/22 09:10 Resp 18 04/09/22 09:10 BP 195/97 04/09/22 09:10 Pulse Ox 99 04/09/22 09:10 FiO2 Intake & Output 04/08/22 04/09/22 04/09/22 18:59 06:59 18:59 Intake Total 0 0 Output Total 1600 500 Balance -1600 -500 0 Weight 63 kg Intake: Oral 0 0 Output: Urine 1600 500 Other: Voiding Method Diaper Diaper External Catheter # Voids 2 - Exam GENERAL: The patient is laying in bed and is not in acute distress. NEUROLOGICAL: Limited because of his condition/cooperation. Higher mental function: The patient is awake but continues to be non-verbal. He is following minimal commands by mimicking. Global aphasia. , Cranial nerves: The pupils are round, equal and reactive to light. He is tracking throughout the room and no further left gaze deviation. No facial weakness. Is mute. Rest is limited. Motor: The strength is hard to assess individual muscle. He is lifting all extremities above gravity but I felt lifting the left upper > right upper. Normal tone and bulk. Cerebellum: Unable to asses. Sensation: Unable to assess. Reflexes (right/left): 1+ throughout. Plantars are mute bilaterally. Some of the workup during this hospital visit consisted of: Urinalysis is negative for urinary tract infection Urine drug screen is not detected Lipid panel: TG 89, kayley 108, LDL 54 and HDL 36. TSH: 2.86 HbA1c: 8.9 CT of the head is reported as no acute intracranial process. Remote lacunar injuries along with nonspecific white matter changes likely secondary due to chronic micro-angiopathy. Finding are not significant change from 2020. Radio opaque metallic foreign body near the left orbit similar to prior. I personally reviewed the CT and there is no acute or subacute ischemia and there is no t ypical hemorrhage. I felt the patient has old lacunar stroke in the basal ganglia mostly over the right. CT angiography of the head and neck was reported as no evidence of occlusion extensive atherosclerosis with area of high-grade stenosis throughout all major vessel at the skull. Right internal carotid arteries scattered calcified and noncalcified plaque with at least 50-75% stenosis in the petrous portion. Multiple area of high-grade stenosis of left ICA along its course into the skull secondary to calcified noncalcified plaque. Left ICA area of high-grade stenosis involving the petrous portion secondary to calcified and noncalcified plaque up to 50-76%. Sed rate 25% stenosis origin of left common carotid artery secondary to calcified plaque. 25% stenosis right carotid bifurcations to continue to calcified plaque. Brachiocephalic trunk bifurcation calcified plaque with at least 25-50% stenosis. Diminutive appearance of left vertebral artery which is poorly visualized on this exam. Right vertebral area dominance which does demonstrate multiple areas of narrowing along its course. Pulmonary vascular congestion correlate for serum BMP for congestive heart failure. Routine EEG. Is abnormal. The background slowing is suggestive of severe encephalopathy. Otherwise, there is no focal slowing, epileptiform dischargee or seizure on the EEG. Carotid duplex is reported as elevated ratio involving the left carotid artery suggestive of 50-69 stenosis of proximal left ICA. Correlate with ad dedicated arteriogram as clinically warranted given limitations exam. Bilateral atherosclerotic changes. Correlate for previous left carotid stenting. Finding suggest stenosis of the origin of the external carotid artery bilaterally. Heart dysrhythmia. - Labs CBC & Chem 7: 04/07/22 23:47 04/08/22 11:55 Labs: Abnormal Lab Results - Last 24 Hours (Table) 04/07/22 04/08/22 04/08/22 Range/Units 23:47 10:55 11:55 Carbon Dioxide 21 L (22-30) mmol/L BUN 24 H (9-20) mg/dL Creatinine 1.44 H (0.66-1.25) mg/dL Glucose 349 H (74-99) mg/dL POC Glucose (mg/dL) (70-110) mg/dL Hemoglobin A1c 8.7 H 8.9 H (0.0-6.0) % Alkaline Phosphatase 175 H (38-126) U/L HDL Cholesterol (40.00-60.00) mg/dL 04/08/22 04/08/22 04/08/22 Range/Units 11:55 17:31 20:48 Carbon Dioxide (22-30) mmol/L BUN (9-20) mg/dL Creatinine (0.66-1.25) mg/dL Glucose (74-99) mg/dL POC Glucose (mg/dL) 214 H 205 H (70-110) mg/dL Hemoglobin A1c (0.0-6.0) % Alkaline Phosphatase (38-126) U/L HDL Cholesterol 36.20 L (40.00-60.00) mg/dL 04/08/22 Range/Units 23:51 Carbon Dioxide (22-30) mmol/L BUN (9-20) mg/dL Creatinine (0.66-1.25) mg/dL Glucose (74-99) mg/dL POC Glucose (mg/dL) 221 H (70-110) mg/dL Hemoglobin A1c (0.0-6.0) % Alkaline Phosphatase (38-126) U/L HDL Cholesterol (40.00-60.00) mg/dL Assessment and Plan Assessment: Acute global aphasia/mute with left gaze deviation and confusion (also on examination moving the right more than left): Likely acute ischemic stroke. Severe Left ICA according to CTA and on carotid duplex 50-69% Right ICA 50-75% at petrous portion and Diminutive appearance of left vertebral artery which is poorly visualized on this exam. Right vertebral area dominance which does demonstrate multiple areas of narrowing along its course on CTA Dysphagia due to stroke History of stroke History of left carotid stenting in 2017 History of coronary artery disease status post stents History of CABG AICD Diabetes mellitus Plan: I will get repeat CT head today to assess if any visible stroke not seen on initial CT. Cannot obtain MRI since has AICD. Vascular surgery team is consulted for carotid stenosis. Continue ASA 300mg daily suppository (still dysphagic). On Lipitor 40mg qhs for secondary stroke prophylaxis. 2D echo is ordered and pending. Continue neuro checks On cardiac monitoring. For Dysrhythmia repoted on carotid will defer management to primary team. PT, OT and CLIENT TECHNOLOGIES ANALYST are consulted. For DVT prophylaxis: On subq heparin 5000U every 8 hours. Will defer the rest of medical management to primary team. Condition is very guarded. The plan is discussed with his vascular surgery team. Time with Patient: Less than 30
--- NOTE | 2022-04-09 12:12 | CA ---
Transthoracic Echo Report Name: Rush Krueger Age: 76 Gender: M : 1945 Exam Date: 04/09/2022 09:01 Exam Location: [facility] Ht (in): 69 Wt (lb): 139 Ordering Physician: Donavan Hill MD Attending/Referring Phys: Consultant Technology Verenice Marroquin RDCS Procedure CPT: Indications: altered MS. CHF Cardiac Hx: Pacemaker. Technical Quality: Contrast 1: Total Dose (mL): Contrast 2: Total Dose (mL): MEASUREMENTS (Male / Female) Normal Values 2D ECHO LV Diastolic Diameter PLAX 5.5 cm 4.2 - 5.9 / 3.9 - 5.3 cm LV Systolic Diameter PLAX 4.8 cm IVS Diastolic Thickness 1.3 cm 0.6 - 1.0 / 0.6 - 0.9 cm LVPW Diastolic Thickness 1.7 cm 0.6 - 1.0 / 0.6 - 0.9 cm LV Relative Wall Thickness 0.5 RV Internal Dim ED PLAX 3.3 cm LA Systolic Diameter LX 4.7 cm 3.0 - 4.0 / 2.7 - 3.8 cm M-MODE Aortic Root Diameter MM 3.1 cm LA Systolic Diameter MM 5.1 cm LA Ao Ratio MM 1.7 MV E Point Septal Separation 1.1 cm AV Cusp Separation MM 1.1 cm DOPPLER MV Area PHT 4.2 cm??? Mitral E Point Velocity 73.6 cm/s Mitral A Point Velocity 66.4 cm/s Mitral E to A Ratio 1.1 MV Deceleration Time 182.4 ms TR Peak Velocity 375.5 cm/s TR Peak Gradient 56.4 mmHg Right Ventricular Systolic Press 56.8 mmHg FINDINGS Left Ventricle Severely reduced global left ventricular systolic function. Left ventricular ejection fraction is estimated at 10%. Right Ventricle Normal right ventricular size and function. Moderate pulmonary hypertension. Right ventricular systolic pressure estimated at 56 mm hg. Right Atrium Normal right atrial size. Left Atrium Moderately increased left atrial diameter. Mitral Valve Structurally normal mitral valve. Aortic Valve Trileaflet aortic valve. Tricuspid Valve Structurally normal tricuspid valve. Moderate tricuspid regurgitation. Pulmonic Valve Structurally normal pulmonic valve. Pericardium Normal pericardium. Aorta Normal size aortic root and proximal ascending aorta. CONCLUSIONS Severe LV dysfunction with EF of around 10% and global hypokinesia Previewed by: Dr. Ryan Benoit MD (Electronically Signed) Final Date: 09 April 2022 12:11
[2022-04-09] MEDS: ASPIRIN 300 MG SUPP RECTAL SCH (12:19)
[2022-04-09] MEDS: ISOSORBIDE MONONITRATE ER 30 MG TAB.ER.24H PO SCH (13:33)
[2022-04-09] MEDS: SERTRALINE 50 MG TAB PO SCH (13:33)
[2022-04-09 16:49] LABS: Glucose,Whole Blood 144 mg/dL (70-110)
[2022-04-09] MEDS ORDERED: FUROSEMIDE 10 MG/ML 4 ML VIAL IV STA (17:44)
[2022-04-09] MEDS: ATORVASTATIN 40 MG TAB PO SCH (20:16)
[2022-04-09 20:23] LABS: Glucose,Whole Blood 173 mg/dL (70-110)
[2022-04-10] MEDS: ENALAPRILAT 1.25 MG/ML 1 ML VIAL IVP PRN
[2022-04-10 06:32] LABS: Glucose,Whole Blood 148 mg/dL (70-110)
[2022-04-10] MEDS: INSULIN ASPART (NovoLOG) 100 UNIT/ML VIAL SQ SCH ×4 (06:42→20:15)
[2022-04-10] MEDS: carvediloL 12.5 MG TAB PO SCH ×2 (06:42→17:19)
[2022-04-10] MEDS: METOCLOPRAMIDE 10 MG TAB PO SCH ×3 (06:43→17:19)
[2022-04-10 07:52] LABS: HCT 45.5 % (39.0-53.0); Hypochromasia Marked; MCH 27.9 pg (25.0-35.0); MCHC 30.8 g/dL (31.0-37.0); MCV 90.6 fL (80.0-100.0); Mean Platelet Volume 10.3; Platelet Count 223 k/uL (150-450); RBC 5.02 m/uL (4.30-5.90); RDW 14.2 % (11.5-15.5); WBC 8.8 k/uL (3.8-10.6)
--- NOTE | 2022-04-10 08:16 | XR ---
EXAMINATION TYPE: XR chest 1V portable DATE OF EXAM: 04/10/2022 COMPARISON: 04/08/2022 HISTORY: Shortness of breath TECHNIQUE: Single frontal view of the chest is obtained. FINDINGS: Heart is enlarged and there is postoperative change. Cardiac device seen. No overt failure . No pleural effusion or pneumothorax. Underlying COPD noted. IMPRESSION: COPD and cardiomegaly with interval resolution of interstitial changes. Correlate for im proving interstitial pneumonitis or venous congestion.
[2022-04-10 08:22] LABS: Albumin 3.8 g/dL (3.5-5.0); Calcium 9.6 mg/dL (8.4-10.2); Potassium 3.9 mmol/L (3.5-5.1); Total Protein 6.9 g/dL (6.3-8.2)
--- NOTE | 2022-04-10 08:39 | P.HPIM ---
History of Present Illness H&P Date: 04/10/22 Chief Complaint: CVA This 76-year-old white male with essentially dysphagia and CVA. Appreciate multiple consultants input. The patient's echogram showed 10% ejection fraction with severe global dyskinesia. The patient does not seem much more awake to meet compared to yesterday. Review of Systems ROS unobtainable: due to mental status Past Medical History Past Medical History: Coronary Artery Disease (CAD), Heart Failure, CVA/TIA, Diabetes Mellitus, Hyperlipidemia, Hypertension, Myocardial Infarction (AR), Osteoarthritis (OA) Additional Past Medical History / Comment(s): GOUT,NEUROPATHY IN FEET, TIA 2014- no residual effects, SEE DR POLLOCK'S HISTORY FOR CARDIAC HISTORY Last Myocardial Infarction Date:: 2010 History of Any Multi-Drug Resistant Organisms: None Reported Past Surgical History: Coronary Bypass/CABG, Heart Catheterization With Stent, Hernia Repair Additional Past Surgical History / Comment(s): 5 VESSELS, LEFT CAROTID STENT (03/19/17). Past Anesthesia/Blood Transfusion Reactions: No Reported Reaction Date of Last Stent Placement:: 2015 Type of Cardiac Device: AICD Device Placement Date:: 02/19/2020 Past Psychological History: Anxiety Past Alcohol Use History: Rare - Past Family History Mother Family Medical History: No Reported History, Myocardial Infarction (AR) Brother(s) Family Medical History: Hypertension, Myocardial Infarction (AR) Medications and Allergies Home Medications Medication Instructions Recorded Confirmed Type ALPRAZolam [Xanax] 0.5 mg PO TID PRN 09/26/13 04/08/22 History Atorvastatin [Lipitor] 40 mg PO HS 11/27/18 04/08/22 History Aspirin EC [Ecotrin] 325 mg PO DAILY 04/08/22 04/08/22 History Insulin Aspart [NovoLOG Flexpen] See Protocol SQ ACHS 04/08/22 04/08/22 History Insulin Glargine,Hum.rec.anlog 20 units SQ DAILY 04/08/22 04/08/22 History [Insulin Glargine Solostar] Isosorbide Mononitrate ER [Imdur] 30 mg PO DAILY 04/08/22 04/08/22 History Metoclopramide [Reglan] 10 mg PO TID 04/08/22 04/08/22 History Sertraline [Zoloft] 50 mg PO DAILY 04/08/22 04/08/22 History carvediloL [Coreg] 25 mg PO BID 04/08/22 04/08/22 History traMADol HCL 50 mg PO Q6H PRN 04/08/22 04/08/22 History Allergies Allergy/AdvReac Type Severity Reaction Status Date / Time No Known Allergies Allergy Verified 04/08/22 09:20 Physical Exam Vitals: Vital Signs Temp Pulse Pulse Resp BP Pulse Ox 04/10/22 06:50 70 145/90 04/10/22 04:00 98.6 F 70 18 169/70 96 04/10/22 02:00 70 18 04/10/22 00:00 98.3 F 77 18 175/84 96 04/09/22 20:00 99.2 F 70 70 16 119/71 98 04/09/22 16:40 98.9 F 75 18 177/69 96 04/09/22 14:00 74 04/09/22 12:15 99.2 F 76 20 177/96 93 L 04/09/22 09:10 99.2 F 74 74 18 195/97 99 Intake and Output 04/09/22 04/10/22 04/10/22 22:59 06:59 14:59 Intake Total 0 Output Total 450 Balance -450 Intake: Oral 0 Output: Urine 450 Other: Voiding Method Diaper Diaper External Catheter # Voids 2 Weight 63.5 kg - Constitutional General appearance: no acute distress - EENT Eyes: EOMI - Neck Neck: no lymphadenopathy - Respiratory Respiratory: bilateral: diminished - Cardiovascular Rhythm: regular Heart sounds: normal: S1, S2 Abnormal Heart Sounds: no S3 Gallop - Gastrointestinal General gastrointestinal: soft, no tenderness Results CBC & Chem 7: 04/10/22 06:44 04/10/22 06:44 Labs: Abnormal Lab Results - Last 24 Hours (Table) 04/09/22 04/09/22 04/09/22 Range/Units 11:45 16:42 20:22 MCHC (31.0-37.0) g/dL BUN (9-20) mg/dL Glucose (74-99) mg/dL POC Glucose (mg/dL) 231 H 144 H 173 H (70-110) mg/dL AST (17-59) U/L Alkaline Phosphatase (38-126) U/L 04/10/22 04/10/22 04/10/22 Range/Units 06:31 06:44 06:44 MCHC 30.8 L (31.0-37.0) g/dL BUN 22 H (9-20) mg/dL Glucose 146 H (74-99) mg/dL POC Glucose (mg/dL) 148 H (70-110) mg/dL AST 14 L (17-59) U/L Alkaline Phosphatase 151 H (38-126) U/L Thrombosis Risk Factor Assmnt - Choose All That Apply Each Factor Represents 1 point: Medical pt on bed rest Other Risk Factors: Yes Each Risk Factor Represents 2 Points: Patient confined to bed Each Risk Factor Represents 3 Points: Age 75 years or older Thrombosis Risk Factor Assessment Total Risk Factor Score: 6 Thrombosis Risk Factor Assessment Level: High Risk Assessment and Plan (1) AMS (altered mental status) Current Visit: Yes Status: Acute Code(s): R41.82 - ALTERED MENTAL STATUS, UN SPECIFIED SNOMED Code(s): 394121356 (2) CHF exacerbation Current Visit: Yes Status: Acute Code(s): I50.9 - HEART FAILURE, UNSPECIFIED SNOMED Code(s): 856101960 (3) Cerebrovascular accident (CVA) Current Visit: Yes Status: Acute Code(s): I63.9 - CEREBRAL INFARCTION, UNSPECIFIED SNOMED Code(s): 373427269 (4) Fluid overload Current Visit: Yes Status: Acute Code(s): E87.70 - FLUID OVERLOAD, UNSPECIFIED SNOMED Code(s): 34843904 (5) CAD (coronary artery disease) Current Visit: No Status: Acute Code(s): I25.10 - ATHSCL HEART DISEASE OF [place] CORONARY ARTERY W/O ANG PCTRS SNOMED Code(s): 507250242 (6) Cardiomyopathy Current Visit: No Status: Acute Code(s): I42.9 - CARDIOMYOPATHY, UNSPECIFIED SNOMED Code(s): 86569988 (7) Noncompliance with diabetes treatment Current Visit: No Status: Acute Code(s): Z91.19 - PATIENT'S NONCOMPLIANCE W OTH MEDICAL TREATME * DO NOT USE * SNOMED Code(s): 8426958 Plan: Continue diuresis. New chest x-ray seems better. Continue Lasix. Prognosis is guarded secondary to his current condition. Dr. Cordova's group will be covering for the weekend. Check CBC and CMP in a.m. Discharge planning for hospice
[2022-04-10] MEDS: SERTRALINE 50 MG TAB PO SCH (08:48)
[2022-04-10] MEDS: ISOSORBIDE MONONITRATE ER 30 MG TAB.ER.24H PO SCH (08:48)
[2022-04-10] MEDS: HEPARIN SODIUM,PORCINE/PF 5,000 UNIT/0.5 ML SYRINGE SQ SCH ×3 (08:52→23:46)
[2022-04-10] MEDS: FUROSEMIDE 10 MG/ML 4 ML VIAL IV SCH ×3 (08:52→20:23)
--- NOTE | 2022-04-10 10:43 | P.PN ---
Subjective Progress Note Date: 04/10/22 Principal diagnosis: Carotid stenosis, TIA Patient is seen and examined today as a follow-up for carotid stenosis, TIA. After careful review of the chart patient has a history with Dr. Benoit. This was discussed with the patient's at the bedside. Discussed with Dr. Benoit this morning who is willing to follow-up with patient regarding carotid stenosis as well as history of peripheral arterial disease. In not much change with the patient today. Nursing reports he remains nonverbal, able to follow a couple simple commands at times. Objective - Vital Signs Vital signs: Vital Signs Temp 98.6 F 04/10/22 04:00 Pulse 70 04/10/22 06:50 Resp 18 04/10/22 04:00 BP 145/90 04/10/22 06:50 Pulse Ox 96 04/10/22 04:00 FiO2 Intake & Output 04/09/22 04/10/22 04/10/22 18:59 06:59 18:59 Intake Total 0 Output Total 450 Balance -450 Weight 63.5 kg Intake: Oral 0 Output: Urine 450 Other: Voiding Method Diaper Diaper External Catheter External Catheter # Voids 2 2 - Exam General appearance: The patient is awake and alert. Nonverbal HET: Head is normocephalic and atraumatic. Pupils are equal and reactive. Neck: Supple. Extremities: Normal skin color and turgor. Neurological: Patient resting, appears comfortable. Nonverbal. - Labs CBC & Chem 7: 04/10/22 06:44 04/10/22 06:44 Labs: Abnormal Lab Results - Last 24 Hours (Table) 04/09/22 04/09/22 04/09/22 Range/Units 11:45 16:42 20:22 POC Glucose (mg/dL) 231 H 144 H 173 H (70-110) mg/dL 04/10/22 Range/Units 06:31 POC Glucose (mg/dL) 148 H (70-110) mg/dL Assessment and Plan Assessment: 1. Bilateral internal carotid artery stenosis left greater than right at 50-69% 2. Acute mental status changes with symptoms of aphasia/meal with a left gaze deviation likely TIA 3. Lower extremity pain 4. History of stroke 5. History coronary artery disease status post stenting and CABG 6. History of ICA stenosis, left carotid stent 7. Diabetes mellitus 8. AICD 9. History of peripheral arterial disease status post stenting Plan: 1. Carotid ultrasound ordered and reviewed 2. Continue with recommendations/workup from neurology 3. PT/OT/ST on consultation 4. Continue aspirin and statin await further recommendations from neurology 5. Arterial ultrasound bilateral lower extremities ordered after further review of chart, further patient history obtaine. Patient is known to Dr. Benoit he underwent left carotid stent in 2017 as well as peripheral arterial disease intervention in [address] Benoit for right SFA occlusion. Will defer further management to Dr. Benoit. Dr. Benoit notified and agreeable to follow patient. Thank you for this consultation, we will sign off at this time. The impression and plan of care has been dictated as directed. I performed a history and examination of this patient, discussed the same with the dictator. I agree with the dictator's note ,documented as a scribe. Any additional findings or plans will be noted.
--- NOTE | 2022-04-10 12:15 | CT ---
EXAMINATION TYPE: CT brain wo con DATE OF EXAM: 04/10/2022 COMPARISON: 04/09/2022 HISTORY: CVA, AMS CT DLP: 1131.[address] of the brain was performed. The ventricles, basal cisterns and sulci overlying the cerebral convexities demonstrate mild enlargem ent. Remote infarcts redemonstrated. There is no evidence for intracranial hemorrhage or sulcal effacement. There is decreased attenuation about the periventricular white matter and deep white matter of both c erebral hemispheres, compatible with chronic small vessel ischemia. Differential diagnosis does inclu de demyelination. No mass effects are seen.No midline shift. Osseous calvarium is intact. If symptoms persist consider MRI. IMPRESSION: 1. Age related atrophic and chronic small vessel ischemic change without acute intracranial process s een at this time.
[2022-04-10 12:17] LABS: Glucose,Whole Blood 141 mg/dL (70-110)
--- NOTE | 2022-04-10 12:24 | P.PN ---
Subjective Progress Note Date: 04/10/22 The patient is seen at bedside and is accompanied by his . His stated at baseline he verbalizes and has not been doing so since this admission. Objective - Vital Signs Vital signs: Vital Signs Temp 97.8 F 04/10/22 08:00 Pulse 69 04/10/22 08:00 Resp 20 04/10/22 08:00 BP 132/81 04/10/22 08:00 Pulse Ox 98 04/10/22 08:00 FiO2 Intake & Output 04/09/22 04/10/22 04/10/22 18:59 06:59 18:59 Intake Total 0 Output Total 450 Balance -450 Weight 63.5 kg Intake: Oral 0 Output: Urine 450 Other: Voiding Method Diaper Diaper Diaper External Catheter External Catheter External Catheter # Voids 2 2 - Exam GENERAL: The patient is laying in bed and is not in acute distress. NEUROLOGICAL: Limited because of his condition/cooperation. Higher mental function: The patient is awake but continues to be non-verbal. He is following minimal commands by mimicking. Global aphasia. , Cranial nerves: The pupils are round, equal and reactive to light. He is tracking throughout the room and no further left gaze deviation. No facial weakness. Is mute. Rest is limited. Motor: The strength is hard to assess individual muscle. He is lifting all extremities above gravity but I felt lifting the left upper > right upper. Normal bulk. Increase tone in bilateral uppers. Cerebellum: Unable to asses. Sensation: Unable to assess. Reflexes (right/left): 1+ throughout. Plantars are mute bilaterally. Some of the workup during this hospital visit consisted of: Urinalysis is negative for urinary tract infection Urine drug screen is not detected Lipid panel: TG 89, kayley 108, LDL 54 and HDL 36. TSH: 2.86 HbA1c: 8.9 CT of the head is reported as no acute intracranial process. Remote lacunar injuries along with nonspecific white matter changes likely secondary due to chronic micro-angiopathy. Finding are not significant change from 2020. Radio opaque metallic foreign body near the left orbit similar to prior. I personally reviewed the CT and there is no acute or subacute ischemia and there is no typical hemorrhage. I felt the patient has old lacunar stroke in the basal ganglia mostly over the right. CT angiography of the head and neck was reported as no evidence of occlusion extensive atherosclerosis with area of high-grade stenosis throughout all major vessel at the skull. Right internal carotid arteries scattered calcified and noncalcified plaque with at least 50-75% stenosis in the petrous portion. Multiple area of high-grade stenosis of left ICA along its course into the skull secondary to calcified noncalcified plaque. Left ICA area of high-grade stenosis involving the petrous portion secondary to calcified and noncalcified plaque up to 50-76%. Sed rate 25% stenosis origin of left common carotid artery secondary to calcified plaque. 25% stenosis right carotid bifurcations to continue to calcified plaque. Brachiocephalic trunk bifurcation calcified anh que with at least 25-50% stenosis. Diminutive appearance of left vertebral artery which is poorly visualized on this exam. Right vertebral area dominance which does demonstrate multiple areas of narrowing along its course. Pulmonary vascular congestion correlate for serum BMP for congestive heart failure. Repeat CT head: It is reported as age-related atrophy and chronic small vessel ischemic change without acute intracranial process seen at this time. I personally reviewed the CT of the head and I feel the patient has acute to subacute ischemic changes over the left basal ganglia, subcortical left frontal, questionable left medial temporal. There is no bleed was able to appreciate Routine EEG. Is abnormal. The background slowing is suggestive of severe encephalopathy. Otherwise, there is no focal slowing, epileptiform dischargee or seizure on the EEG. Carotid duplex is reported as elevated ratio involving the left carotid artery suggestive of 50-69 stenosis of proximal left ICA. Correlate with ad dedicated arteriogram as clinically warranted given limitations exam. Bilateral atherosclerotic changes. Correlate for previous left carotid stenting. Finding suggest stenosis of the origin of the external carotid artery bilaterally. Heart dysrhythmia. 2-D echo was reported as severe left ventricular dysfunction with ejection fraction of 10% and global hypokinesis. - Labs CBC & Chem 7: 04/10/22 06:44 04/10/22 06:44 Labs: Abnormal Lab Results - Last 24 Hours (Table) 04/09/22 04/09/22 04/10/22 Range/Units 16:42 20:22 06:31 MCHC (31.0-37.0) g/dL BUN (9-20) mg/dL Glucose (74-99) mg/dL POC Glucose (mg/dL) 144 H 173 H 148 H (70-110) mg/dL AST (17-59) U/L Alkaline Phosphatase (38-126) U/L 04/10/22 04/10/22 Range/Units 06:44 06:44 MCHC 30.8 L (31.0-37.0) g/dL BUN 22 H (9-20) mg/dL Glucose 146 H (74-99) mg/dL POC Glucose (mg/dL) (70-110) mg/dL AST 14 L (17-59) U/L Alkaline Phosphatase 151 H (38-126) U/L Assessment and Plan Assessment: Acute global aphasia/mute with left gaze deviation and confusion (also on examination moving the right more than left): Likely acute ischemic stroke (and likely stemming in the left hemisphere). Severe Left ICA according to CTA and on carotid duplex 50-69% Right ICA 50-75% at petrous portion and Diminutive appearance of left vertebral artery which is poorly visualized on this exam. Right vertebral area dominance which does demonstrate multiple areas of narrowing along its course on CTA Dysphagia due to stroke History of stroke History of left carotid stenting in 2017 History of coronary artery disease status post stents History of CABG AICD Diabetes mellitus Plan: I will get repeat CT head today. Cannot obtain MRI since has AICD. Initially Vascular surgery team is consulted for carotid stenosis. But it seems, patient is known to Dr. Benoit who performed his left carotid stent in 2017 and PAD intervention in 2017. Continue ASA 300mg daily suppository (still dysphagic). On Lipitor 40mg qhs for secondary stroke prophylaxis. Continue neuro checks On cardiac monitoring. 2-D echo was reported as severe left ventricular dysfunction with ejection fraction of 10% and global hypokinesis. Cardiology is consulted. For Dysrhythmia repoted on carotid will defer management to primary team. PT, OT and CLINIC PHYSICIAN are consulted. For DVT prophylaxis: On subq heparin 5000U every 8 hours. Will defer the rest of medical management to primary team. Condition is very guarded. The plan is discussed with his who is at bedside. Time with Patient: Less than 30
[2022-04-10] MEDS: ASPIRIN 300 MG SUPP RECTAL SCH (12:32)
[2022-04-10 17:12] LABS: Glucose,Whole Blood 149 mg/dL (70-110)
[2022-04-10 19:54] LABS: Glucose,Whole Blood 133 mg/dL (70-110)
[2022-04-10] MEDS: ATORVASTATIN 40 MG TAB PO SCH (20:23)
--- NOTE | 2022-04-10 23:45 | P.CRDCN ---
History of Present Illness History of present illness: HISTORY OF PRESENTING ILLNESS This is a pleasant 76-year-old with past medical history significant for CAD with history of CABG, CVA, diabetes mellitus, hypertension, hyperlipidemia. Patient currently nonresponsive and history is supplied by family/friends. Apparently patient with decompensation new over the last 3-4 months. More recently he has had slurred speech and dysphagia with concern of stroke. Echocardiogram 04/09 showed left ventricular ejection fraction 10% with global hypokinesis without any apical thrombus. Patient continues to have altered mental status and unable to supply history. Cardiology was consult secondary to hypertension and stroke as well as known carotid artery stenosis. CTA showed 50-75% right internal carotid artery stenosis, multiple areas of hi gh-grade stenosis of the left internal carotid artery. Given history of internal carotid artery stenosis as her surgery was consult did however he does follow with Dr Benoit. He has not had any meaningful recovery per nursing and remains confused. He does have a history of left carotid artery stenting in 2017 as well as PAD with stenting in 2018 for SFA occlusion. REVIEW OF SYSTEMS At the time of my exam: Unable to obtain secondary to altered mental status PHYSICAL EXAMINATION Vital signs reviewed. CONSTITUTIONAL: No apparent distress, ill-appearing unable to answer questions on his own HEENT: Head is normocephalic. Pupils are equal, round. Sclerae anicteric. Mucous membranes of the mouth are moist. No JVD. No carotid bruit. CHEST EXAMINATION: Lungs are clear to auscultation. No chest wall tenderness is noted on palpation or with deep breathing. HEART EXAMINATION: Regular rate and rhythm. S1, S2 heard. No murmurs, gallops or rub. ABDOMEN: Soft, nontender. Positive bowel sounds. EXTREMITIES: 2+ peripheral pulses, no lower extremity edema and no calf tenderness. NEUROLOGIC EXAMINATION: Patient is somnolent however arousable ASSESSMENT 1. Acute ischemic stroke 2. Severe left internal carotid artery stenosis and right internal carotid artery 50-75% stenosis per CTA 3. Previous history of left carotid artery stenting 2017 4. CAD with history of CABG 5. Debility 6. Diabetes mellitus type 2 7. Dysphagia 8. Failure to thrive PLAN Neuro recommendations appreciated. Patient does have significant carotid disease however unclear if any carotid intervention/ treatment will change course of patient's prognosis. Patient with significant decline in functional status over the last few months. Monitor response of any neurologic progress before any repeat carotid stenting considered. Continue with current medical therapy. Further recommendations to follow. Past Medical History Past Medical History: Coronary Artery Disease (CAD), Heart Failure, CVA/TIA, Diabetes Mellitus, Hyperlipidemia, Hypertension, Myocardial Infarction ([place]), Osteoarthritis (OA) Additional Past Medical History / Comment(s): GOUT,NEUROPATHY IN FEET, TIA 2014- no residual effects, SEE DR POLLOCK'S HISTORY FOR CARDIAC HISTORY Last Myocardial Infarction Date:: 2010 History of Any Multi-Drug Resistant Organisms: None Reported Past Surgical History: Coronary Bypass/CABG, Heart Catheterization With Stent, Hernia Repair Additional Past Surgical History / Comment(s): 5 VESSELS, LEFT CAROTID STENT (03/19/17). Past Anesthesia/Blood Transfusion Reactions: No Reported Reaction Date of Last Stent Placement:: 2015 Type of Cardiac Device: AICD Device Placement Date:: 02/19/2020 Past Psychological History: Anxiety Past Alcohol Use History: Rare - Past Family History Mother Family Medical History: No Reported History, Myocardial Infarction ([place]) Brother(s) Family Medical History: Hypertension, Myocardial Infarction ([place]) Medications and Allergies Home Medications Medication Instructions Recorded Confirmed Type ALPRAZolam [Xanax] 0.5 mg PO TID PRN 09/26/13 04/08/22 History Atorvastatin [Lipitor] 40 mg PO HS 11/27/18 04/08/22 History Aspirin EC [Ecotrin] 325 mg PO DAILY 04/08/22 04/08/22 History Insulin Aspart [NovoLOG Flexpen] See Protocol SQ ACHS 04/08/22 04/08/22 History Insulin Glargine,Hum.rec.anlog 20 units SQ DAILY 04/08/22 04/08/22 History [Insulin Glargine Solostar] Isosorbide Mononitrate ER [Imdur] 30 mg PO DAILY 04/08/22 04/08/22 History Metoclopramide [Reglan] 10 mg PO TID 04/08/22 04/08/22 History Sertraline [Zoloft] 50 mg PO DAILY 04/08/22 04/08/22 History carvediloL [Coreg] 25 mg PO BID 04/08/22 04/08/22 History traMADol HCL 50 mg PO Q6H PRN 04/08/22 04/08/22 History Allergies Allergy/AdvReac Type Severity Reaction Status Date / Time No Known Allergies Allergy Verified 04/08/22 09:20 Physical Exam Vitals: Vital Signs Temp Pulse Pulse Resp BP Pulse Ox 04/10/22 20:00 97.9 F 80 22 113/69 96 04/10/22 16:00 97.9 F 77 20 149/77 100 04/10/22 12:00 97.9 F 69 20 149/79 99 04/10/22 08:00 97.8 F 69 20 132/81 98 04/10/22 06:50 70 145/90 04/10/22 04:00 98.6 F 70 18 169/70 96 04/10/22 02:00 70 18 04/10/22 00:00 98.3 F 77 18 175/84 96 Intake and Output 04/10/22 04/10/22 04/11/22 14:59 22:59 06:59 Output Total 400 Balance -400 Output: Urine 400 Other: Voiding Method Diaper Diaper External Catheter External Catheter # Voids 1 Results 04/10/22 06:44 04/10/22 06:44 Cardiac Enzymes 04/10/22 Range/Units 06:44 AST 14 L (17-59) U/L CBC 04/10/22 Range/Units 06:44 WBC 8.8 (3.8-10.6) k/uL RBC 5.02 (4.30-5.90) m/uL Hgb 14.0 (13.0-17.5) gm/dL Hct 45.5 (39.0-53.0) % Plt Count 223 (150-450) k/uL Comprehensive Metabolic Panel 04/10/22 Range/Units 06:44 Sodium 142 (137-145) mmol/L Potassium 3.9 (3.5-5.1) mmol/L Chloride 105 (98-107) mmol/L Carbon Dioxide 27 (22-30) mmol/L BUN 22 H (9-20) mg/dL Creatinine 1.14 (0.66-1.25) mg/dL Glucose 146 H (74-99) mg/dL Calcium 9.6 (8.4-10.2) mg/dL AST 14 L (17-59) U/L ALT 12 (4-49) U/L Alkaline Phosphatase 151 H (38-126) U/L Total Protein 6.9 (6.3-8.2) g/dL Albumin 3.8 (3.5-5.0) g/dL Current Medications Generic Name Dose Route Start Last Admin Trade Name Mervin PRN Reason Stop Dose Admin Alprazolam 0.5 mg 04/08/22 09:40 Alprazolam 0.5 Mg Tab PO TID PRN Anxiety Aspirin 300 mg 04/08/22 13:00 04/10/22 12:32 Aspirin 300 Mg Supp RECTAL 300 mg DAILY TODD Administration Atorvastatin Calcium 40 mg 04/08/22 21:00 04/10/22 20:23 Atorvastatin 40 Mg Tab PO Not Given HS TODD Carvedilol 25 mg 04/08/22 17:30 04/10/22 17:19 Carvedilol 12.5 Mg Tab PO Not Given BID-W/MEALS TODD Dextrose/Water 25 ml 04/08/22 08:29 Dextrose 50% Syringe 50 Ml IVP PER PROTOCOL PRN Hypoglycemia Protocol Dextrose/Water 50 ml 04/08/22 08:29 Dextrose 50% Syringe 50 Ml IVP PER PROTOCOL PRN Hypoglycemia Protocol Dextrose/Water 25 ml 04/08/22 09:50 Dextrose 50% Syringe 50 Ml IVP PER PROTOCOL PRN Hypoglycemia Protocol Dextrose/Water 50 ml 04/08/22 09:50 Dextrose 50% Syringe 50 Ml IVP PER PROTOCOL PRN Hypoglycemia Protocol Enalaprilat 2.5 mg 04/09/22 13:36 04/10/22 00:00 Enalaprilat 1.25 Mg/Ml 1 Ml Vial IVP 2.5 mg Q6HR PRN Administration SBP greater than 140 Furosemide 40 mg 04/09/22 22:00 04/10/22 20:23 Furosemide 10 Mg/Ml 4 Ml Vial IV 40 mg TID TODD Administration Heparin Sodium (Porcine) 5,000 unit 04/08/22 16:00 04/10/22 17:35 Heparin Sodium,Porcine/Pf 5,000 Unit/0.5 Ml Syringe SQ 5,000 unit Q8HR OTDD Administration Insulin Aspart 0 unit 04/08/22 12:30 04/10/22 20:15 Insulin Aspart (Novolog) 100 Unit/Ml Vial SQ Not Given ACHS [facility] Protocol Isosorbide Mononitrate 30 mg 04/09/22 09:00 04/10/22 08:48 Isosorbide Mononitrate Er 30 Mg Tab.Er.24h PO Not Given DAILY TODD Metoclopramide HCl 10 mg 04/08/22 12:30 04/10/22 17:19 Metoclopramide 10 Mg Tab PO Not Given AC-TID [facility] Naloxone HCl 0.2 mg 04/08/22 02:49 Naloxone 0.4 Mg/Ml 1 Ml Vial IV Q2M PRN Opioid Reversal Sertraline HCl 50 mg 04/09/22 09:00 04/10/22 08:48 Sertraline 50 Mg Tab PO Not Given DAILY [facility] Tramadol HCl 50 mg 04/08/22 09:36 Tramadol 50 Mg Tab PO QID PRN Moderate to Severe Pain (4-10) Intake and Output 04/10/22 04/10/22 04/11/22 14:59 22:59 06:59 Output Total 400 Balance -400 Output: Urine 400 Other: Voiding Method Diaper Diaper External Catheter External Catheter # Voids 1 04/10/22 06:44 04/10/22 06:44
[2022-04-11 06:02] LABS: Glucose,Whole Blood 140 mg/dL (70-110)
[2022-04-11] MEDS: METOCLOPRAMIDE 10 MG TAB PO SCH ×3 (06:13→17:13)
[2022-04-11] MEDS: INSULIN ASPART (NovoLOG) 100 UNIT/ML VIAL SQ SCH ×4 (06:13→21:00)
[2022-04-11] MEDS: carvediloL 12.5 MG TAB PO SCH ×2 (06:13→17:13)
[2022-04-11 08:53] LABS: HGB 14.3 gm/dL (13.0-17.5); Hypochromasia Marked; MCH 27.7 pg (25.0-35.0); MCHC 31.2 g/dL (31.0-37.0); Mean Platelet Volume 10.2; Platelet Count 241 k/uL (150-450); RBC 5.17 m/uL (4.30-5.90); RDW 14.3 % (11.5-15.5)
[2022-04-11 09:10] LABS: Albumin 3.9 g/dL (3.5-5.0); Calcium 9.6 mg/dL (8.4-10.2); Potassium 4.1 mmol/L (3.5-5.1); Total Bilirubin 0.9 mg/dL (0.2-1.3); Total Protein 7.1 g/dL (6.3-8.2)
[2022-04-11] MEDS: ISOSORBIDE MONONITRATE ER 30 MG TAB.ER.24H PO SCH (09:53)
[2022-04-11] MEDS: SERTRALINE 50 MG TAB PO SCH (09:53)
[2022-04-11] MEDS: FUROSEMIDE 10 MG/ML 4 ML VIAL IV SCH ×3 (10:26→21:00)
[2022-04-11] MEDS: ASPIRIN 300 MG SUPP RECTAL SCH (10:26)
[2022-04-11] MEDS: HEPARIN SODIUM,PORCINE/PF 5,000 UNIT/0.5 ML SYRINGE SQ SCH ×3 (10:26→23:50)
--- NOTE | 2022-04-11 11:34 | P.PN ---
Subjective Progress Note Date: 04/11/22 76-year-old with past medical history significant for CAD with history of CABG, CVA, diabetes mellitus, hypertension, hyperlipidemia. Patient currently nonresponsive and history is supplied by family/friends. Apparently patient with decompensation new over the last 3-4 months. More recently he has had slurred speech and dysphagia with concern of stroke. Echocardiogram 04/09 showed left ventricular ejection fraction 10% with global hypokinesis without any apical thrombus. Patient continues to have altered mental status and unable to supply history. Cardiology was consult secondary to hypertension and stroke as well as known carotid artery stenosis. CTA showed 50-75% right internal carotid artery stenosis, multiple areas of high-grade stenosis of the left internal carotid artery. Given history of internal carotid artery stenosis as her surgery was consult did however he does follow with Dr Benoit. He has not had any meaningful recovery per nursing and remains confused. He does have a history of left carotid artery stenting in 2017 as well as PAD with stenting in 2018 for SFA occlusion. Objective - Vital Signs Vital signs: Vital Signs Temp 97.8 F 04/11/22 04:00 Pulse 76 04/11/22 04:00 Resp 20 04/11/22 04:00 BP 126/79 04/11/22 04:00 Pulse Ox 95 04/11/22 04:00 FiO2 Intake & Output 04/10/22 04/11/22 04/11/22 18:59 06:59 18:59 Intake Total 100 Output Total 400 Balance -400 100 Weight 60 kg Intake: Oral 100 Output: Urine 400 Other: Voiding Method Diaper Diaper External Catheter External Catheter # Voids 1 1 - Exam CONSTITUTIONAL: No apparent distress, ill-appearing unable to answer questions on his own HEENT: Head is normocephalic. Pupils are equal, round. Sclerae anicteric. Mucous membranes of the mouth are moist. No JVD. No carotid bruit. CHEST EXAMINATION: Lungs are clear to auscultation. No chest wall tenderness is noted on palpation or with deep breathing. HEART EXAMINATION: Regular rate and rhythm. S1, S2 heard. No murmurs, gallops or rub. ABDOMEN: Soft, nontender. Positive bowel sounds. EXTREMITIES: 2+ peripheral pulses, no lower extremity edema and no calf ten derness. NEUROLOGIC EXAMINATION: Patient is somnolent however arousable - Labs CBC & Chem 7: 04/11/22 08:34 04/11/22 08:34 Labs: Abnormal Lab Results - Last 24 Hours (Table) 04/10/22 04/10/22 04/10/22 Range/Units 12:15 17:11 19:53 WBC (3.8-10.6) k/uL BUN (9-20) mg/dL Creatinine (0.66-1.25) mg/dL Glucose (74-99) mg/dL POC Glucose (mg/dL) 141 H 149 H 133 H (70-110) mg/dL AST (17-59) U/L Alkaline Phosphatase (38-126) U/L 04/11/22 04/11/22 04/11/22 Range/Units 06:01 08:34 08:34 WBC 12.0 H (3.8-10.6) k/uL BUN 40 H (9-20) mg/dL Creatinine 1.52 H (0.66-1.25) mg/dL Glucose 167 H (74-99) mg/dL POC Glucose (mg/dL) 140 H (70-110) mg/dL AST 15 L (17-59) U/L Alkaline Phosphatase 150 H (38-126) U/L Assessment and Plan Assessment: 1. Acute ischemic stroke ---Acute global aphasia/mute with left gaze deviation and confusion (also on examination moving the right more than left): Likely acute ischemic stroke (and likely stemming in the left hemisphere). Severe Left ICA according to CTA and on carotid duplex 50-69% Neuro recommendations appreciated. Patient does have significant carotid disease however unclear if any carotid intervention/ treatment will change course of patient's prognosis. Patient with significant decline in functional status over the last few months. Monitor response of any neurologic progress before any repeat carotid stenting considered. Continue with current medical therapy. Further recommendations to follow. ---- repeat CT head today. Cannot obtain MRI since has AICD. Initially Vascular surgery team is consulted for carotid stenosis. But it seems, patient is known to Dr. Benoit who performed his left carotid stent in 2017 and PAD intervention in 2017. Continue ASA 300mg daily suppository (still dysphagic). On Lipitor 40mg qhs for secondary stroke prophylaxis. Continue neuro checks On cardiac monitoring. 2-D echo was reported as severe left ventricular dysfunction with ejection fraction of 10% and global hypokinesis. 2. Severe left internal carotid artery stenosis and right internal carotid artery 50-75% stenosis per CTA ---Right ICA 50-75% at petrous portion and Diminutive appearance of left vertebral artery which is poorly visualized on this exam. Right vertebral area dominance which does demonstrate multiple areas of narrowing along its course on CTA 3. Previous history of left carotid artery stenting 2016 4. CAD with history of CABG; echocardiogram reveals severe left ventricular dysfunction with EF of 10% and global hypokinesis; cardiology is on board 5. Debility; PT/OT/SOLAR PANEL INSTALLATION SUPERVISOR consulted 6. Diabetes mellitus type 2; monitor Accu-Cheks every 6 hours as with insulin sliding scale 7. Dysphagia; await SOLAR PANEL INSTALLATION SUPERVISOR evaluation 8. Failure to thrive DVT prophylaxis; SCDs/subcu heparin CODE STATUS; DO NOT RESUSCITATE
[2022-04-11 11:58] LABS: Glucose,Whole Blood 154 mg/dL (70-110)
--- NOTE | 2022-04-11 12:06 | P.PN ---
Subjective Progress Note Date: 04/11/22 HISTORY OF PRESENTING ILLNESS This is a pleasant 76-year-old with past medical history significant for CAD with history of CABG, CVA, diabetes mellitus, hypertension, hyperlipidemia. Patient currently nonresponsive and history is supplied by family/friends. Apparently patient with decompensation new over the last 3-4 months. More recently he has had slurred speech and dysphagia with concern of stroke. Echocardiogram 04/09 showed left ventricular ejection fraction 10% with global hypokinesis without any apical thrombus. Patient continues to have altered mental status and unable to supply history. Cardiology was consult secondary to hypertension and stroke as well as known carotid artery stenosis. CTA showed 50-75% right internal carotid artery stenosis, multiple areas of high-grade stenosis of the left internal carotid artery. Given history of internal carotid artery stenosis as her surgery was consult did however he does follow with Dr Benoit. He has not had any meaningful recovery per nursing and remains confused. He does have a history of left carotid artery stenting in 2017 as well as PAD with stenting in 2018 for SFA occlusion. 04/11 Patient remains somnolent Blood pressure 151/63, heart rate in the 80s, pulse ox 91% on 3 L. compliance monitor sinus rhythm. Hemoglobin is 14.3, BUN 40 creatinine 1.52. PHYSICAL EXAMINATION Vital signs reviewed. CONSTITUTIONAL: No apparent distress, ill-appearing unable to answer questions on his own HEENT: Head is normocephalic. Pupils are equal, round. Sclerae anicteric. CHEST EXAMINATION: Lungs are clear to auscultation. No chest wall tenderness is noted on palpation or with deep breathing. HEART EXAMINATION: Regular rate and rhythm. S1, S2 heard. No murmurs, gallops or rub. ABDOMEN: Soft, nontender. Positive bowel sounds. EXTREMITIES: 2+ peripheral pulses, no lower extremity edema and no calf tenderness. NEUROLOGIC EXAMINATION: Patient is somnolent however arousable ASSESSMENT 1. Acute ischemic stroke 2. Severe left internal carotid artery stenosis and right internal carotid artery 50-75% stenosis per CTA 3. Previous history of left carotid artery stenting 2016 4. CAD with history of CABG 5. Debility 6. Diabetes mellitus type 2 7. Dysphagia 8. Failure to thrive PLAN Neuro recommendations appreciated. Patient does have significant carotid disease however unclear if any carotid intervention/ treatment will change course of patient's prognosis. Patient with significant decline in functional status over the last few months. Monitor response of any neurologic progress before any repeat carotid stenting considered. Continue with current medical therapy. Further recommendations to follow. Nurse practitioner note has been reviewed, I agree with the documented findings and plan of care. Patient was seen and examined. Objective - Vital Signs Vital signs: Vital Signs Temp 97.8 F 04/11/22 04:00 Pulse 76 04/11/22 04:00 Resp 20 04/11/22 04:00 BP 126/79 04/11/22 04:00 Pulse Ox 95 04/11/22 04:00 FiO2 Intake & Output 04/10/22 04/11/22 04/11/22 18:59 06:59 18:59 Intake Total 100 Output Total 400 Balance -400 100 Weight 60 kg Intake: Oral 100 Output: Urine 400 Other: Voiding Method Diaper Diaper External Catheter External Catheter # Voids 1 1 - Labs CBC & Chem 7: 04/11/22 08:34 04/11/22 08:34 Labs: Abnormal Lab Results - Last 24 Hours (Table) 04/10/22 04/10/22 04/10/22 Range/Units 12:15 17:11 19:53 WBC (3.8-10.6) k/uL BUN (9-20) mg/dL Creatinine (0.66-1.25) mg/dL Glucose (74-99) mg/dL POC Glucose (mg/dL) 141 H 149 H 133 H (70-110) mg/dL AST (17-59) U/L Alkaline Phosphatase (38-126) U/L 04/11/22 04/11/22 04/11/22 Range/Units 06:01 08:34 08:34 WBC 12.0 H (3.8-10.6) k/uL BUN 40 H (9-20) mg/dL Creatinine 1.52 H (0.66-1.25) mg/dL Glucose 167 H (74-99) mg/dL POC Glucose (mg/dL) 140 H (70-110) mg/dL AST 15 L (17-59) U/L Alkaline Phosphatase 150 H (38-126) U/L
--- NOTE | 2022-04-11 12:59 | P.PN ---
Subjective Progress Note Date: 04/11/22 The patient is seen at bedside and that is accompanied by his who feels that he is about the same and he is not verbally responding or following commands. She stated this happened all the sudden at home. Objective - Vital Signs Vital signs: Vital Signs Temp 97.9 F 04/11/22 10:00 Pulse 80 04/11/22 10:00 Resp 16 04/11/22 10:00 BP 151/63 04/11/22 10:00 Pulse Ox 91 L 04/11/22 10:00 FiO2 Intake & Output 04/10/22 04/11/22 04/11/22 18:59 06:59 18:59 Intake Total 100 Output Total 400 Balance -400 100 Weight 60 kg Intake: Oral 100 Output: Urine 400 Other: Voiding Method Diaper Diaper Diaper External Catheter External Catheter # Voids 1 1 - Exam GENERAL: The patient is laying in bed and is not in acute distress. NEUROLOGICAL: Limited because of his condition/cooperation. Higher mental function: The patient is awake but continues to be non-verbal. He is following minimal commands by mimicking. Global aphasia. , Cranial nerves: The pupils are round, equal and reactive to light. He is tracking throughout the room and no further left gaze deviation. Has mild right lower facial weakness. Is mute. Rest is limited. Motor: The strength is hard to assess individual muscle. He is lifting all extremities above gravity but I felt lifting the left upper > right upper. Normal bulk. Increase tone in bilateral uppers. Cerebellum: Unable to asses. Sensation: Unable to assess. Reflexes (right/left): 1+ throughout. Plantars are mute bilaterally. Some of the workup during this hospital visit consisted of: Urinalysis is negative for urinary tract infection Urine drug screen is not detected Lipid panel: TG 89, kayley 108, LDL 54 and HDL 36. TSH: 2.86 HbA1c: 8.9 CT of the head is reported as no acute intracranial process. Remote lacunar injuries along with nonspecific white matter changes likely secondary due to chronic micro-angiopathy. Finding are not significant change from 2020. Radio opaque metallic foreign body near the left orbit similar to prior. I personally reviewed the CT and there is no acute or subacute ischemia and there is no typical hemorrhage. I felt the patient has old lacunar stroke in the basal ganglia mostly over the right. CT angiography of the head and neck was reported as no evidence of occlusion extensive atherosclerosis with area of high-grade stenosis throughout all major vessel at the skull. Right internal carotid arteries scattered calcified and noncalcified plaque with at least 50-75% stenosis in the petrous portion. M ultiple area of high-grade stenosis of left ICA along its course into the skull secondary to calcified noncalcified plaque. Left ICA area of high-grade stenosis involving the petrous portion secondary to calcified and noncalcified plaque up to 50-76%. Sed rate 25% stenosis origin of left common carotid artery secondary to calcified plaque. 25% stenosis right carotid bifurcations to continue to calcified plaque. Brachiocephalic trunk bifurcation calcified plaque with at least 25-50% stenosis. Diminutive appearance of left vertebral artery which is poorly visualized on this exam. Right vertebral area dominance which does demonstrate multiple areas of narrowing along its course. Pulmonary vascular congestion correlate for serum BMP for congestive heart failure. Repeat CT head 04/09: It is reported as age-related atrophy and chronic small vessel ischemic change without acute intracranial process seen at this time. I personally reviewed the CT of the head and I feel the patient has acute to subacute ischemic changes over the left basal ganglia, subcortical left frontal, questionable left medial temporal. There is no bleed was able to appreciate Repeat CT head on 04/10: It is reported as age-related atrophic and chronic small vessel ischemic change without acute intracranial process seen at this time. I feel the patient has acute subacute changes over the left basal ganglia as well as subcortical left frontal region Routine EEG. Is abnormal. The background slowing is suggestive of severe encephalopathy. Otherwise, there is no focal slowing, epileptiform dischargee or seizure on the EEG. Carotid duplex is reported as elevated ratio involving the left carotid artery suggestive of 50-69 stenosis of proximal left ICA. Correlate with ad dedicated arteriogram as clinically warranted given limitations exam. Bilateral atherosclerotic changes. Correlate for previous left carotid stenting. Finding suggest stenosis of the origin of the external carotid artery bilaterally. Heart dysrhythmia. 2-D echo was reported as severe left ventricular dysfunction with ejection fraction of 10% and global hypokinesis. - Labs CBC & Chem 7: 04/11/22 08:34 04/11/22 08:34 Labs: Abnormal Lab Results - Last 24 Hours (Table) 04/10/22 04/10/22 04/11/22 Range/Units 17:11 19:53 06:01 WBC (3.8-10.6) k/uL BUN (9-20) mg/dL Creatinine (0.66-1.25) mg/dL Glucose (74-99) mg/dL POC Glucose (mg/dL) 149 H 133 H 140 H (70-110) mg/dL AST (17-59) U/L Alkaline Phosphatase (38-126) U/L 04/11/22 04/11/22 04/11/22 Range/Units 08:34 08:34 11:47 WBC 12.0 H (3.8-10.6) k/uL BUN 40 H (9-20) mg/dL Creatinine 1.52 H (0.66-1.25) mg/dL Glucose 167 H (74-99) mg/dL POC Glucose (mg/dL) 154 H (70-110) mg/dL AST 15 L (17-59) U/L Alkaline Phosphatase 150 H (38-126) U/L Assessment and Plan Assessment: Acute global aphasia/mute with left gaze deviation and confusion (gaze deviation has resolved but has right lower facial droop): Likely acute ischemic stroke (and likely stemming in the left hemisphere). Severe Left ICA according to CTA and on carotid duplex 50-69% Right ICA 50-75% at petrous portion and Diminutive appearance of left vertebral artery which is poorly visualized on this exam. Right vertebral area dominance which does demonstrate multiple areas of narrowing along its course on CTA Dysphagia due to stroke History of stroke History of left carotid stenting in 2017 History of coronary artery disease status post stents History of CABG AICD Diabetes mellitus Plan: Had recent repeat CT head on 04/10 and I feel the patient has acute to subacute ischemia over the left basal ganglia and the left subcortical frontal. Cannot obtain MRI since has AICD. Initially Vascular surgery team is consulted for carotid stenosis. But it seems, patient is known to Dr. Benoit who performed his left carotid stent in 2017 and PAD intervention in 2017. Continue ASA 300mg daily suppository (still dysphagic). On Lipitor 40mg qhs for secondary stroke prophylaxis. Continue neuro checks On cardiac monitoring. 2-D echo was reported as severe left ventricular dysfunction with ejection fraction of 10% and global hypokinesis. Cardiology is consulted. For Dysrhythmia repoted on carotid will defer management to primary team. PT, OT and [employer] are consulted. For DVT prophylaxis: On subq heparin 5000U every 8 hours. Will defer the rest of medical management to primary team. Condition is very guarded. The plan is discussed with his who is at bedside and his nurse. Will follow-up with patient sporadically. Dr. Freeman will start neurology service Wednesday A.M. Time with Patient: Less than 30
[2022-04-11 17:11] LABS: Glucose,Whole Blood 166 mg/dL (70-110)
[2022-04-11 20:57] LABS: Glucose,Whole Blood 159 mg/dL (70-110)
[2022-04-11] MEDS: ATORVASTATIN 40 MG TAB PO SCH (21:46)
[2022-04-12] MEDS ORDERED: LABETALOL 5 MG/ML VIAL MDV IVP STA (00:16)
[2022-04-12] MEDS: METOCLOPRAMIDE 10 MG TAB PO SCH ×3 (06:04→15:09)
[2022-04-12] MEDS: carvediloL 12.5 MG TAB PO SCH ×2 (06:04→15:09)
[2022-04-12 06:13] LABS: Glucose,Whole Blood 216 mg/dL (70-110)
[2022-04-12] MEDS: INSULIN ASPART (NovoLOG) 100 UNIT/ML VIAL SQ SCH ×4 (06:26→21:04)
[2022-04-12] MEDS: FUROSEMIDE 10 MG/ML 4 ML VIAL IV SCH ×3 (10:21→21:04)
[2022-04-12] MEDS: HEPARIN SODIUM,PORCINE/PF 5,000 UNIT/0.5 ML SYRINGE SQ SCH ×2 (10:21→18:18)
[2022-04-12] MEDS: ASPIRIN 300 MG SUPP RECTAL SCH (10:21)
[2022-04-12 11:32] LABS: Glucose,Whole Blood 212 mg/dL (70-110)
[2022-04-12] MEDS ORDERED: cloNIDine 0.1 MG/24HR PATCH TRANSDERM SCH (11:36)
--- NOTE | 2022-04-12 11:38 | P.PN ---
Subjective Progress Note Date: 04/12/22 HISTORY OF PRESENTING ILLNESS This is a pleasant 76-year-old with past medical history significant for CAD with history of CABG, CVA, diabetes mellitus, hypertension, hyperlipidemia. Patient currently nonresponsive and history is supplied by family/friends. Apparently patient with decompensation new over the last 3-4 months. More recently he has had slurred speech and dysphagia with concern of stroke. Echocardiogram 04/09 showed left ventricular ejection fraction 10% with global hypokinesis without any apical thrombus. Patient continues to have altered mental status and unable to supply history. Cardiology was consult secondary to hypertension and stroke as well as known carotid artery stenosis. CTA showed 50-75% right internal carotid artery stenosis, multiple areas of high-grade stenosis of the left internal carotid artery. Given history of internal carotid artery stenosis as her surgery was consult did however he does follow with Dr Benoit. He has not had any meaningful recovery per nursing and remains confused. He does have a history of left carotid artery stenting in 2017 as well as PAD with stenting in 2018 for SFA occlusion. 04/11 Patient remains somnolent Blood pressure 151/63, heart rate in the 80s, pulse ox 91% on 3 L. 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 Hemoglobin is 14.3, BUN 40 creatinine 1.52. 04/12 Patient remains somnolent during evaluation. Patient's is at bedside. Patient is completely nothing by mouth status. Blood pressure is elevated at 199/85 and patient will be started on Catapres patch. PHYSICAL EXAMINATION Vital signs reviewed. CONSTITUTIONAL: No apparent distress, ill-appearing unable to answer questions on his own HEENT: Head is normocephalic. Pupils are equal, round. Sclerae anicteric. CHEST EXAMINATION: Lungs are clear to auscultation. No chest wall tenderness is noted on palpation or with deep breathing. HEART EXAMINATION: Regular rate and rhythm. S1, S2 heard. No murmurs, gallops or rub. ABDOMEN: Soft, nontender. Positive bowel sounds. EXTREMITIES: 2+ peripheral pulses, no lower extremity edema and no calf tenderness. NEUROLOGIC EXAMINATION: Patient is somnolent ASSESSMENT 1. Acute ischemic stroke 2. Severe left internal carotid artery stenosis and right internal carotid artery 50-75% stenosis per CTA 3. Previous history of left carotid artery stenting 2016 4. CAD with history of CABG 5. Debility 6. Diabetes mellitus type 2 7. Dysphagia 8. Failure to thrive PLAN Neuro recommendations appreciated. Patient does have significant carotid disease however unclear if any carotid intervention/ treatment will change course of patient's prognosis. Patient with significant decline in functional status over the last few months. Monitor response of any neurologic progress before any repeat carotid stenting considered. Add Catapres patch 0.1 mg and continue to monitor blood pressure closely Further recommendations to follow. Nurse practitioner note has been reviewed, I agree with the documented findings and plan of care. Patient was seen and examined. Objective - Vital Signs Vital signs: Vital Signs Temp 97.9 F 04/12/22 04:00 Pulse 88 04/12/22 04:00 Resp 22 04/12/22 04:00 BP 132/79 04/12/22 04:00 Pulse Ox 91 L 04/12/22 09:31 FiO2 Intake & Output 04/11/22 04/12/22 04/12/22 18:59 06:59 18:59 Intake Total 240 Balance 240 Weight 59.5 kg Intake: Oral 240 Other: Voiding Method Diaper Diaper # Voids 2 1 - Labs CBC & Chem 7: 04/11/22 08:34 04/11/22 08:34 Labs: Abnormal Lab Results - Last 24 Hours (Table) 04/11/22 04/11/22 04/11/22 Range/Units 11:47 16:45 20:55 POC Glucose (mg/dL) 154 H 166 H 159 H (70-110) mg/dL 04/12/22 Range/Units 06:12 POC Glucose (mg/dL) 216 H (70-110) mg/dL
--- NOTE | 2022-04-12 12:10 | P.PN ---
Subjective Progress Note Date: 04/12/22 The patient is seen at bedside and is accompanied by his . Per and nurse, he has not been making any improvement. Objective - Vital Signs Vital signs: Vital Signs Temp 98.7 F 04/12/22 08:00 Pulse 90 04/12/22 08:00 Resp 22 04/12/22 08:00 BP 199/85 04/12/22 08:00 Pulse Ox 91 L 04/12/22 09:31 FiO2 Intake & Output 04/11/22 04/12/22 04/12/22 18:59 06:59 18:59 Intake Total 240 Balance 240 Weight 59.5 kg Intake: Oral 240 Other: Voiding Method Diaper Diaper Diaper # Voids 2 1 - Exam GENERAL: The patient is laying in bed and is not in acute distress. NEUROLOGICAL: Limited because of his condition/cooperation. Higher mental function: The patient is awake but continues to be non-verbal. He is following minimal commands by mimicking. Global aphasia. , Cranial nerves: The pupils are round, equal and reactive to light. He is tracking throughout the room and no further left gaze deviation. Has mild right lower facial weakness. Is mute. Rest is limited. Motor: The strength is hard to assess individual muscle. He is lifting all extremities above gravity but I felt lifting the left upper > right upper. Normal bulk. Increase tone in bilateral uppers. Cerebellum: Unable to asses. Sensation: Unable to assess. Reflexes (right/left): 1+ throughout. Plantars are mute bilaterally. Some of the workup during this hospital visit consisted of: Urinalysis is negative for urinary tract infection Urine drug screen is not detected Lipid panel: TG 89, kayley 108, LDL 54 and HDL 36. TSH: 2.86 HbA1c: 8.9 CT of the head is reported as no acute intracranial process. Remote lacunar injuries along with nonspecific white matter changes likely secondary due to chronic micro-angiopathy. Finding are not significant change from 2020. Radio opaque metallic foreign body near the left orbit similar to prior. I personally reviewed the CT and there is no acute or subacute ischemia and there is no typical hemorrhage. I felt the patient has old lacunar stroke in the basal ganglia mostly over the right. CT angiography of the head and neck was reported as no evidence of occlusion extensive atherosclerosis with area of high-grade stenosis throughout all major vessel at the skull. Right internal carotid arteries scattered calcified and noncalcified plaque with at least 50-75% stenosis in the petrous portion. Multiple area of high-grade stenosis of left ICA along its course into the skull secondary to calcified noncalcified plaque. Left ICA area of high-grade stenosis involving the petrous portion secondary to calcified and noncalcified plaque up to 50-76%. Sed rate 25% stenosis origin of left common carotid artery secondary to calcified plaque. 25% stenosis right carotid bifurcations to continue to calcified plaque. Brachiocephalic trunk bifurcation calcified plaque with at least 25-50% stenosis. Diminutive appearance of left vertebral artery which is poorly visualized on this exam. Right vertebral area dominance which does demonstrate multiple areas of narrowing along its course. Pulmonary vascular congestion correlate for serum BMP for congestive heart failure. Repeat CT head 04/09: It is reported as age-related atrophy and chronic small vessel ischemic change without acute intracranial process seen at this time. I personally reviewed the CT of the head and I feel the patient has acute to subacute ischemic changes over the left basal ganglia, subcortical left frontal, questionable left medial temporal. There is no bleed was able to appreciate Repeat CT head on 04/10: It is reported as age-related atrophic and chronic small vessel ischemic change without acute intracranial process seen at this time. I feel the patient has acute subacute changes over the left basal ganglia as well as subcortical left frontal region Routine EEG. Is abnormal. The background slowing is suggestive of severe encephalopathy. Otherwise, there is no focal slowing, epileptiform dischargee or seizure on the EEG. Carotid duplex is reported as elevated ratio involving the left carotid artery suggestive of 50-69 stenosis of proximal left ICA. Correlate with ad dedicated arteriogram as clinically warranted given limitations exam. Bilateral atherosclerotic changes. Correlate for previous left carotid stenting. Finding suggest stenosis of the origin of the external carotid artery bilaterally. Heart dysrhythmia. 2-D echo was reported as severe left ventricular dysfunction with ejection fraction of 10% and global hypokinesis. - Labs CBC & Chem 7: 04/11/22 08:34 04/11/22 08:34 Labs: Abnormal Lab Results - Last 24 Hours (Table) 04/11/22 04/11/22 04/12/22 Range/Units 16:45 20:55 06:12 POC Glucose (mg/dL) 166 H 159 H 216 H (70-110) mg/dL 04/12/22 Range/Units 11:31 POC Glucose (mg/dL) 212 H (70-110) mg/dL Assessment and Plan Assessment: Acute global aphasia/mute with left gaze deviation and confusion (gaze deviation has resolved but has right lower facial droop): Likely acute ischemic stroke (and likely stemming in the left hemisphere). Severe Left ICA according to CTA and on carotid duplex 50-69% Right ICA 50-75% at petrous portion and Diminutive appearance of left vertebral artery which is poorly visualized on this exam. Right vertebral area dominance which does demonstrate multiple areas of narrowing along its course on CTA Dysphagia due to stroke History of stroke History of left carotid stenting in 2017 History of coronary artery disease status post stents History of CABG AICD Diabetes mellitus Plan: Had recent repeat CT head on 04/10 and I feel the patient has acute to subacute ischemia over the left basal ganglia and the left subcortical frontal. Cannot obtain MRI since has AICD. Initially Vascular surgery team is consulted for carotid stenosis. But it seem s, patient is known to Dr. Benoit who performed his left carotid stent in 2016 and PAD intervention in 2017. Continue ASA 300mg daily suppository (still dysphagic). On Lipitor 40mg qhs for secondary stroke prophylaxis. Continue neuro checks On cardiac monitoring. 2-D echo was reported as severe left ventricular dysfunction with ejection fraction of 10% and global hypokinesis. Cardiology is consulted. For Dysrhythmia repoted on carotid will defer management to primary team. PT, OT and TEACHING [employer] are consulted. For DVT prophylaxis: On subq heparin 5000U every 8 hours. Will defer the rest of medical management to primary team. Condition is very guarded and his quality of life is poor. Patient has not had any drastic improvement in his neurological condition. Likely he will continue to have deficit from his stroke. The has decided to pursue with hospice. The plan is discussed with his who is at bedside and his nurse. There is no further neurological work-up. Please notify neurology team if any further concerns. Dr. Freeman will start neurology service tomorrow A.M. Time with Patient: Less than 30
[2022-04-12] MEDS: ISOSORBIDE MONONITRATE ER 30 MG TAB.ER.24H PO SCH (12:55)
[2022-04-12] MEDS: SERTRALINE 50 MG TAB PO SCH (12:55)
--- NOTE | 2022-04-12 16:03 | P.PN ---
Subjective Progress Note Date: 04/12/22 Principal diagnosis: Acute global aphasia/mute with left gaze deviation/ acute ischemic stroke Severe Left ICA according to CTA and on carotid duplex 50-69% Right ICA 50-75% Dysphagia due to stroke 76-year-old with past medical history significant for CAD with history of CABG, CVA, diabetes mellitus, hypertension, hyperlipidemia. Patient currently nonresponsive and history is supplied by family/friends. Apparently patient with decompensation new over the last 3-4 months. More recently he has had slurred speech and dysphagia with concern of stroke. Echocardiogram 04/09 showed left ventricular ejection fraction 10% with global hypokinesis without any apical thrombus. Patient continues to have altered mental status and unable to supply history. Cardiology was consult secondary to hypertension and stroke as well as known carotid artery stenosis. CTA showed 50-75% right internal carotid artery stenosis, multiple areas of high-grade stenosis of the left internal carotid artery. Given history of internal carotid artery stenosis as her surgery was consult did however he does follow with Dr Benoit. He has not had any meaningful recovery per nursing and remains confused. He does have a history of left carotid artery stenting in 2017 as well as PAD with stenting in 2018 for SFA occlusion. 04/12/2022 Patient is seen and evaluated in room at bedside; patient continues to be unchanged- laying in bed without any response to any verbal or tactile stimulation Vital signs are reviewed and are temperature 98.7, pulse 90, respiration 22, blood pressure 05/07/1984 and O2 saturation of 91% --recent repeat CT head on 04/10, has acute to subacute ischemia over the left basal ganglia and the left subcortical frontal. Cannot obtain MRI since has AICD. -- Patient has seen Dr. Benoit in the past who performed his left carotid stent in 2017 and PAD intervention in 2017. Continue ASA 300mg daily suppository (still dysphagic). On Lipitor 40mg qhs for secondary stroke prophylaxis. -- Patient has not had any improvement in his neurological condition; patient's was able to have detailed discussion regarding prognosis and course of action with neurology and has decided to pursue hospice Objective - Vital Signs Vital signs: Vital Signs Temp 98.7 F 04/12/22 08:00 Pulse 90 04/12/22 08:00 Resp 22 04/12/22 08:00 BP 199/85 04/12/22 08:00 Pulse Ox 91 L 04/12/22 09:31 FiO2 Intake & Output 04/11/22 04/12/22 04/12/22 18:59 06:59 18:59 Intake Total 240 Balance 240 Weight 59.5 kg Intake: Oral 240 Other: Voiding Method Diaper Diaper Diaper # Voids 2 1 - Exam CONSTITUTIONAL: No apparent distress, ill-appearing unable to answer questions on his own HEENT: Head is normocephalic. Pupils are equal, round. Sclerae anicteric. Mucous membranes of the mouth are moist. No JVD. No carotid bruit. CHEST EXAMINATION: Lungs are clear to auscultation. No chest wall tenderness is noted on palpation or with deep breathing. HEART EXAMINATION: Regular rate and rhythm. S1, S2 heard. No murmurs, gallops or rub. ABDOMEN: Soft, nontender. Positive bowel sounds. EXTREMITIES: 2+ peripheral pulses, no lower extremity edema and no calf tenderness. NEUROLOGIC EXAMINATION: Patient is somnolent however arousable - Labs CBC & Chem 7: 04/11/22 08:34 04/11/22 08:34 Labs: Abnormal Lab Results - Last 24 Hours (Table) 04/11/22 04/11/22 04/12/22 Range/Units 16:45 20:55 06:12 POC Glucose (mg/dL) 166 H 159 H 216 H (70-110) mg/dL 04/12/22 Range/Units 11:31 POC Glucose (mg/dL) 212 H (70-110) mg/dL Assessment and Plan Assessment: 1. Acute ischemic stroke ---Acute global aphasia/mute with left gaze deviation and confusion (also on examination moving the right more than left): Likely acute ischemic stroke (and likely stemming in the left hemisphere). Severe Left ICA according to CTA and on carotid duplex 50-69% Neuro recommendations appreciated. Patient does have significant carotid disease however unclear if any carotid intervention/ treatment will change course of patient's prognosis. Patient with significant decline in functional status over the last few months. Monitor response of any neurologic progress before any repeat carotid stenting considered. Continue with current medical therapy. Further recommendations to follow. ---- repeat CT head today. Cannot obtain MRI since has AICD. Initially Vascular surgery team is consulted for carotid stenosis. But it seems, patient is known to Dr. Benoit who performed his left carotid stent in 2017 and PAD intervention in 2017. Continue ASA 300mg daily suppository (still dysphagic). On Lipitor 40mg qhs for secondary stroke prophylaxis. Continue neuro checks On cardiac monitoring. 2-D echo was reported as severe left ventricular dysfunction with ejection fraction of 10% and global hypokinesis. 2. Severe left internal carotid artery stenosis and right internal carotid artery 50-75% stenosis per CTA ---Right ICA 50-75% at petrous portion and Diminutive appearance of left vertebral artery which is poorly visualized on this exam. Right vertebral area dominance which does demonstrate multiple areas of narrowing along its course on CTA 3. Previous history of left carotid artery stenting 2016 4. CAD with history of CABG; echocardiogram reveals severe left ventricular dysfunction with EF of 10% and global hypokinesis; cardiology is on board 5. Debility; PT/OT/SCREEN WRITER consulted 6. Diabetes mellitus type 2; monitor Accu-Cheks every 6 hours as with insulin sliding scale 7. Dysphagia; await SCREEN WRITER evaluation 8. Failure to thrive DVT prophylaxis; SCDs/subcu heparin CODE STATUS; DO NOT RESUSCITATE
[2022-04-12 16:36] LABS: Glucose,Whole Blood 202 mg/dL (70-110)
[2022-04-12 20:00] LABS: Glucose,Whole Blood 213 mg/dL (70-110)
[2022-04-12] MEDS: ATORVASTATIN 40 MG TAB PO SCH (20:57)
[2022-04-13] MEDS: HEPARIN SODIUM,PORCINE/PF 5,000 UNIT/0.5 ML SYRINGE SQ SCH ×4 (00:52→23:28)
[2022-04-13 05:56] LABS: Glucose,Whole Blood 195 mg/dL (70-110)
[2022-04-13] MEDS: carvediloL 12.5 MG TAB PO SCH ×2 (06:43→17:36)
[2022-04-13] MEDS: METOCLOPRAMIDE 10 MG TAB PO SCH ×3 (06:43→17:36)
[2022-04-13] MEDS: INSULIN ASPART (NovoLOG) 100 UNIT/ML VIAL SQ SCH ×4 (06:49→21:37)
[2022-04-13] MEDS: SERTRALINE 50 MG TAB PO SCH (08:55)
[2022-04-13] MEDS: ASPIRIN 300 MG SUPP RECTAL SCH (08:55)
[2022-04-13] MEDS: ISOSORBIDE MONONITRATE ER 30 MG TAB.ER.24H PO SCH (08:55)
[2022-04-13] MEDS: FUROSEMIDE 10 MG/ML 4 ML VIAL IV SCH ×3 (08:55→21:37)
[2022-04-13 12:06] LABS: Glucose,Whole Blood 191 mg/dL (70-110)
--- NOTE | 2022-04-13 12:45 | P.PN ---
Subjective Progress Note Date: 04/13/22 HISTORY OF PRESENTING ILLNESS This is a pleasant 76-year-old with past medical history significant for CAD with history of CABG, CVA, diabetes mellitus, hypertension, hyperlipidemia. Patient currently nonresponsive and history is supplied by family/friends. Apparently patient with decompensation new over the last 3-4 months. More recently he has had slurred speech and dysphagia with concern of stroke. Echocardiogram 04/09 showed left ventricular ejection fraction 10% with global hypokinesis without any apical thrombus. Patient continues to have altered mental status and unable to supply history. Cardiology was consult secondary to hypertension and stroke as well as known carotid artery stenosis. CTA showed 50-75% right internal carotid artery stenosis, multiple areas of high-grade stenosis of the left internal carotid artery. Given history of internal carotid artery stenosis as her surgery was consult did however he does follow with Dr Benoit. He has not had any meaningful recovery per nursing and remains confused. He does have a history of left carotid artery stenting in 2017 as well as PAD with stenting in 2018 for SFA occlusion. 04/11 Patient remains somnolent Blood pressure 151/63, heart rate in the 80s, pulse ox 91% on 3 L. 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 Hemoglobin is 14.3, BUN 40 creatinine 1.52. 04/12 Patient remains somnolent during evaluation. Patient's is at bedside. Patient is completely nothing by mouth status. Blood pressure is elevated at 199/85 and patient will be started on Catapres patch. 04/13 Patient remains unresponsive and somnolent. Patient's is at bedside. Heart rate is in the 80s, blood pressures improved today 132/79 after starting Catapres patch. Patient's has decided to pursue hospice care. PHYSICAL EXAMINATION Vital signs reviewed. CONSTITUTIONAL: No apparent distress, ill-appearing unable to answer questions on his own HEENT: Head is normocephalic. CHEST EXAMINATION: Respirations are even, nonlabored. HEART EXAMINATION: Regular rate and rhythm. S1, S2 heard. No murmurs, gallops or rub. EXTREMITIES: 2+ peripheral pulses, no lower extremity edema and no calf tenderness. NEUROLOGIC EXAMINATION: Patient is somnolent ASSESSMENT 1. Acute ischemic stroke 2. Severe left internal carotid artery stenosis and right internal carotid artery 50-75% stenosis per CTA 3. Previous history of left carotid artery stenting 2016 4. CAD with history of CABG 5. Debility 6. Diabetes mellitus type 2 7. Dysphagia 8. Failure to thrive 9. Hypertension PLAN Continue patient on Catapres patch 0.1 mg Family has decided on hospice care Cardiology we'll sign off and follow on an as-needed basis. Nurse practitioner note has been reviewed, I agree with the documented findings and plan of care. Patient was seen and examined. Objective - Vital Signs Vital signs: Vital Signs Temp 98.1 F 04/13/22 08:00 Pulse 85 04/13/22 08:00 Resp 32 H 04/13/22 08:00 BP 132/79 04/13/22 08:00 Pulse Ox 93 L 04/13/22 08:00 FiO2 Intake & Output 04/12/22 04/13/22 04/13/22 18:59 06:59 18:59 Weight 60.5 kg Other: Voiding Method Diaper Diaper Diaper # Voids 1 - Labs CBC & Chem 7: 04/11/22 08:34 04/11/22 08:34 Labs: Abnormal Lab Results - Last 24 Hours (Table) 04/12/22 04/12/22 04/12/22 Range/Units 11:31 16:35 19:55 POC Glucose (mg/dL) 212 H 202 H 213 H (70-110) mg/dL 04/13/22 Range/Units 05:54 POC Glucose (mg/dL) 195 H (70-110) mg/dL
[2022-04-13 16:27] LABS: Glucose,Whole Blood 242 mg/dL (70-110)
[2022-04-13 20:29] LABS: Glucose,Whole Blood 215 mg/dL (70-110)
[2022-04-13] MEDS: ATORVASTATIN 40 MG TAB PO SCH (20:39)
--- NOTE | 2022-04-13 22:44 | P.PN ---
Subjective Progress Note Date: 04/13/22 Principal diagnosis: Acute Ischemic Stroke Mr. Krueger is a 76-year-old male with a past medical history of CAD status post CABG, stroke, diabetes mellitus, hypertension, hyperlipidemia admitted for encephalopathy. Patient had a acute ischemic stroke and also severe left internal carotid artery stenosis. Today patient was lying in bed and responded by opening his eyes on calling his name. Patient was not able to communicate or follow commands. Patient's a t the bedside and provided the history for most part. There has been ongoing discussions about considering hospice care for him as the patient did not show significant progress since admission. Patient's vitals reviewed temperature of 99.8, heart rate of 82 respiratory rate 24 blood pressure 134/67 saturating at 93% on 4 L of nasal cannula. Patient did not have labs for the past 2 days. Objective - Vital Signs Vital signs: Vital Signs Temp 99.1 F 04/13/22 12:00 Pulse 82 04/13/22 12:00 Resp 24 04/13/22 12:00 BP 126/71 04/13/22 12:00 Pulse Ox 94 L 04/13/22 12:00 FiO2 Intake & Output 04/12/22 04/13/22 04/13/22 18:59 06:59 18:59 Weight 60.5 kg 60.5 kg Other: Voiding Method Diaper Diaper Diaper # Voids 1 - Exam GENERAL - : No apparent distress, ill-appearing HEENT: Head is normocephalic. Pupils are equal, round. CHEST EXAMINATION: Lungs are clear to auscultation. HEART EXAMINATION: Regular rate and rhythm. S1, S2 heard. No murmurs, gallops or rub. ABDOMEN: Soft, nontender. Positive bowel sounds. EXTREMITIES: 2+ peripheral pulses, no lower extremity edema NEUROLOGIC EXAMINATION: Patient is somnolent however opned his eyes on calling his name - Labs CBC & Chem 7: 04/11/22 08:34 04/11/22 08:34 Labs: Abnormal Lab Results - Last 24 Hours (Table) 04/12/22 04/12/22 04/13/22 Range/Units 16:35 19:55 05:54 POC Glucose (mg/dL) 202 H 213 H 195 H (70-110) mg/dL 04/13/22 Range/Units 12:05 POC Glucose (mg/dL) 191 H (70-110) mg/dL Assessment and Plan Assessment: ASSESSMENT Acute ischemic stroke Acute global aphasia secondary to above Severe left internal carotid artery stenosis Right internal carotid artery stenosis History of coronary artery disease status post CABG Type 2 diabetes mellitus Acute dysphagia Failure to thrive PLAN As the patient had no improvement in his neurological condition since admission, decided to pursue hospice care. Had a lengthy discussion with the at bedside today and the patient is DNR. field irrigation worker and rehabilitation caseworker aware - looking for hospice options.
[2022-04-13] MEDS: ENALAPRILAT 1.25 MG/ML 1 ML VIAL IVP PRN (23:33)
[2022-04-14 06:07] LABS: Glucose,Whole Blood 205 mg/dL (70-110)
[2022-04-14] MEDS: INSULIN ASPART (NovoLOG) 100 UNIT/ML VIAL SQ SCH (06:32)
[2022-04-14] MEDS: carvediloL 12.5 MG TAB PO SCH (06:32)
[2022-04-14] MEDS: METOCLOPRAMIDE 10 MG TAB PO SCH (06:32)
[2022-04-14 07:57] VITALS: RESP 44
[2022-04-14] MEDS ORDERED: MORPHINE SULFATE 2 MG/ML SYRINGE IVP STA (10:07)
[2022-04-14] MEDS ORDERED: MORPHINE SULFATE 2 MG/ML SYRINGE IVP PRN (10:07)
[2022-04-14] MEDS ORDERED: LORazepam 2 MG/ML INJ IV PRN (10:08)
[2022-04-14] MEDS: SERTRALINE 50 MG TAB PO SCH (11:10)
[2022-04-14] MEDS: FUROSEMIDE 10 MG/ML 4 ML VIAL IV SCH (11:10)
[2022-04-14] MEDS: HEPARIN SODIUM,PORCINE/PF 5,000 UNIT/0.5 ML SYRINGE SQ SCH (11:10)
[2022-04-14] MEDS: ASPIRIN 300 MG SUPP RECTAL SCH (11:10)
[2022-04-14] MEDS: ISOSORBIDE MONONITRATE ER 30 MG TAB.ER.24H PO SCH (11:10)
[2022-04-14 11:14] VITALS: BP 103/68; PULSE 94; TEMP 100.1
[2022-04-14 11:26] LABS: Glucose,Whole Blood 192 mg/dL (70-110)
[2022-04-14 14:05] VITALS: BMI 18.3
--- NOTE | 2022-04-15 01:46 | P.DS ---
Providers Date of admission: 04/08/22 02:50 Expected date of discharge: 04/14/22 Attending physician: Donavan Hill Consults: 04/08/22 02:49 Consult Physician Routine Consulting Provider: Richardson Santiago Consult Reason/Comments: CVA, AMS Do you want consulting provider notified?: Yes, Notify in am 04/09/22 13:36 Consult Physician Routine Consulting Provider: Dewey Plaza Consult Reason/Comments: HTN/CVA Do you want consulting provider notified?: Yes 04/09/22 15:36 Consult Physician Routine Consulting Provider: Ryan Benoit Consult Reason/Comments: carotid stenosis, known to you. You did L ICA stent Do you want consulting provider notified?: Yes Primary care physician: Donavan Hill Hospital Course: Final diagnosis Acute ischemic stroke Acute global aphasia secondary to above Severe left internal carotid artery stenosis Right internal carotid artery stenosis History of coronary artery disease status post CABG Type 2 diabetes mellitus Acute dysphagia Failure to thrive No code Discharge disposition Patient is being transferred to [facility] comfort measures only. Patient follows with Dr. Hill in the outpatient setting. Patient is to continue with comfort medications only. Total time taken is greater than 35 minutes. Hospital course Acute Ischemic Stroke Mr. Krueger is a 76-year-old male with a past medical history of CAD status post CABG, stroke, diabetes mellitus, hypertension, hyperlipidemia admitted for encephalopathy. Patient had a acute ischemic stroke and also severe left internal carotid artery stenosis. Today patient was lying in bed and responded by opening his eyes on calling his name. Patient was not able to communicate or follow commands. Patient's at the bedside and provided the history for most part. There has been ongoing discussions about considering hospice care for him as the patient did not show significant progress since admission. Patient's vitals reviewed temperature of 99.8, heart rate of 82 respiratory rate 24 blood pressure 134/67 saturating at 93% on 4 L of nasal cannula. Patient did not have labs for the past 2 days. 04/14/2022 Patient seen in follow-up and family met with hospice with visiting nurses following and at the time patient was not appropriate for inpatient hospice although clinically deteriorating becoming more tachypneic and unresponsive and appears to be actively dying. [facility] to follow and will be made inpatient hospice GIP appropriate with comfort measures only per family. We'll continue to monitor and follow along with [facility]. Physical exam: Gen: This is a 76-year-old male, ill-appearing, minimally responsive, thin built HEENT: Head is atraumatic, normocephalic. Pupils equal, round. Sclerae is a nicteric. NECK: Supple. No JVD. No lymphadenopathy. No thyromegaly. LUNGS: Diminished breath sounds bilaterally with crackles and rhonchi noted throughout No intercostal retractions. HEART: 1, S2 are muffled ABDOMEN: Soft. Bowel sounds are present. No masses. No tenderness. EXTREMITIES: No pedal edema. No calf tenderness. NEUROLOGICAL: Patient is asleep, minimally arousable Please refer to medication reconciliation sheet for a list of medications. The impression and plan of care has been dictated by Raquel Fuentes, Nurse Practitioner as directed. Dr. Tammi MD I have performed a history and examination and MDM of this patient, discussed the same with the dictator, and agree with the dictator's assessment and plan as written ,documented as a scribe. Based on total visit time, I have performed more than 50% of the visit. Patient Condition at Discharge: Poor Plan - Discharge Summary Discharge Rx Participant: No New Discharge Prescriptions: No Action ALPRAZolam [Xanax] 0.5 mg PO TID PRN PRN Reason: Anxiety Atorvastatin [Lipitor] 40 mg PO HS Metoclopramide [Reglan] 10 mg PO TID Isosorbide Mononitrate ER [Imdur] 30 mg PO DAILY Aspirin EC [Ecotrin] 325 mg PO DAILY traMADol HCL 50 mg PO Q6H PRN PRN Reason: Pain Sertraline [Zoloft] 50 mg PO DAILY Insulin Glargine,Hum.rec.anlog [Insulin Glargine Solostar] 20 units SQ DAILY Insulin Aspart [NovoLOG Flexpen] See Protocol SQ ACHS carvediloL [Coreg] 25 mg PO BID Discharge Medication List ALPRAZolam [Xanax] 0.5 mg PO TID PRN 09/26/13 [History] Atorvastatin [Lipitor] 40 mg PO HS 11/27/18 [History] Aspirin EC [Ecotrin] 325 mg PO DAILY 04/08/22 [History] Insulin Aspart [NovoLOG Flexpen] See Protocol SQ ACHS 04/08/22 [History] Insulin Glargine,Hum.rec.anlog [Insulin Glargine Solostar] 20 units SQ DAILY 04/08/22 [History] Isosorbide Mononitrate ER [Imdur] 30 mg PO DAILY 04/08/22 [History] Metoclopramide [Reglan] 10 mg PO TID 04/08/22 [History] Sertraline [Zoloft] 50 mg PO DAILY 04/08/22 [History] carvediloL [Coreg] 25 mg PO BID 04/08/22 [History] traMADol HCL 50 mg PO Q6H PRN 04/08/22 [History] Follow up Appointment(s)/Referral(s): Donavan Hill MD [Primary Care Provider] - 1-2 days [facility] Visiting Nurse, [NON-STAFF] - 1 Week Discharge Disposition: DC/TRNS IP HOSP W/PLND IP READ
--- NOTE | 2022-04-16 21:45 | CDI ---
Documentation Clarification Form Date: 04/16/2022 09:32:04 PM From: Ivelisse Boogie Phone: Admit Date: 04/08/2022 02:50:00 AM Patient Name: Rush Krueger Visit Number: [id number] Discharge Date: 04/14/2022 02:20:00 PM ATTENTION: The Clinical Documentation Specialists (CDI) and [facility] Coding Staff appreciate your assistance in clarifying documentation. Please respond to the clarification below the line at the bottom and electronically sign. The CDI & [facility] Coding staff will review the response and follow-up if needed. Please note: Queries are made part of the Legal Health Record. If you have any questions, please contact the author of this message via ITS. Dr. Dewey Plaza Your patient has the documented diagnosis of exacerbation of Hx CHF H&P. Additional information regarding the type of CHF is requested. History/Risk Factors: 76yo M, ischemic stroke d/t BCA occlusion, CAD sp CABG & stent, DMII med noncompliance with PVD and neuropathy, FTT, BMI 19, global aphasia, dysphagia Clinical Indicators: VS/Pulse OX: 94L BNP: [id number] 04/08 [id number] 04/09 Echocardiogram Results: Severe LV dysfunction with EF of around 10% and global hypokinesia Chest X Ray: Interval development vascular prominence and progressive cardiomegaly, nonspecific, probable fluid overload or CHF. Underlying pneumonia not excluded. Treatment: Continue diuresis. New chest x-ray seems better. Continue Lasix. In your professional opinion, can you please clarify the type of CHF if known? [ X ] Acute on Chronic Systolic Heart Failure (reduced EF) [ ] Acute on Chronic Diastolic Heart Failure (preserved EF) [ ] Acute on Chronic Heart Failure Systolic & Diastolic Heart Failure [ ] Other, please specify [ ] Unable to determine (Template Last Revised: May 2020) MTDD
== END 2022-04-14 14:20 | disposition still patient (30) | DRG 64 ==
LOC: EC 23:36 → 3SCARD 04-08 02:50
PROVIDERS: ADMIT Family Medicine; ATTEND Family Medicine
DX: I63.233 Cerebral infarction due to unspecified occlusion or stenosis of bilateral carotid arteries (principal); I50.23 Acute on chronic systolic (congestive) heart failure; G93.40 Encephalopathy, unspecified; I42.9 Cardiomyopathy, unspecified; Z68.1 Body mass index [BMI] 19.9 or less, adult; I27.20 Pulmonary hypertension, unspecified; I11.0 Hypertensive heart disease with heart failure; E11.42 Type 2 diabetes mellitus with diabetic polyneuropathy; E11.51 Type 2 diabetes mellitus with diabetic peripheral angiopathy without gangrene; I07.1 Rheumatic tricuspid insufficiency; I70.209 Unspecified atherosclerosis of native arteries of extremities, unspecified extremity; E11.65 Type 2 diabetes mellitus with hyperglycemia; R47.01 Aphasia; R62.7 Adult failure to thrive; I25.10 Atherosclerotic heart disease of native coronary artery without angina pectoris; E78.5 Hyperlipidemia, unspecified; R13.10 Dysphagia, unspecified; H51.8 Other specified disorders of binocular movement; Z51.5 Encounter for palliative care; Z66 Do not resuscitate; R47.81 Slurred speech; R53.81 Other malaise; R29.810 Facial weakness; T38.3X6A Underdosing of insulin and oral hypoglycemic [antidiabetic] drugs, initial encounter; Z95.820 Peripheral vascular angioplasty status with implants and grafts; Z95.828 Presence of other vascular implants and grafts; Z79.899 Other long term (current) drug therapy; Z82.49 Family history of ischemic heart disease and other diseases of the circulatory system; Z79.84 Long term (current) use of oral hypoglycemic drugs; Z79.82 Long term (current) use of aspirin; Z79.4 Long term (current) use of insulin; Z86.73 Personal history of transient ischemic attack (TIA), and cerebral infarction without residual deficits; I25.2 Old myocardial infarction; Z95.1 Presence of aortocoronary bypass graft; Z95.5 Presence of coronary angioplasty implant and graft; Z87.820 Personal history of traumatic brain injury; Z91.199 Patient's noncompliance with other medical treatment and regimen due to unspecified reason; Z95.810 Presence of automatic (implantable) cardiac defibrillator
CPT/HCPCS: 36415; 70450; 70496; 70498; 71045; 80053; 80061; 80306; 81001; 82140; 82803; 83036; 83605; 83880; 84443; 84484; 85025; 85027; 85610; 85730; 93005; 93306; 93880; 93922; 93923; 94760; 95816; 96372; 96374; 96375; 96376; 99291

== ENCOUNTER 2022-04-14 14:09 | Inpatient (IN) | payer MEDICAID ==
[2022-04-14] MEDS ORDERED: ACETAMINOPHEN TAB 325 MG TAB PO PRN (14:11)
[2022-04-14] MEDS ORDERED: GLYCOPYRROLATE 0.2 MG/ML 2 ML VIAL IVP PRN (14:11)
[2022-04-14] MEDS ORDERED: ONDANSETRON 4 MG/2 ML VIAL IVP PRN (14:11)
[2022-04-14] MEDS ORDERED: MORPHINE SULFATE 2 MG/ML SYRINGE IV PRN (14:11)
[2022-04-14] MEDS ORDERED: DRY MOUTH SPRAY 44.3 SPRAY/44.3 ML SPRAY MUCOUS MEM PRN (14:11)
[2022-04-14] MEDS ORDERED: LORazepam 2 MG/ML INJ IV PRN (14:11)
[2022-04-14] MEDS ORDERED: MORPHINE SULFATE (100 MG/2 ML) 100 MG in SODIUM CHLORIDE 0.9% 100 ML IV SCH (14:15)
[2022-04-14] MEDS ORDERED: SCOPOLAMINE 1 MG/72 HR PATCH TRANSDERM SCH (15:00)
[2022-04-14] MEDS ORDERED: ACETAMINOPHEN SUPPOSITORY 650 MG SUPP RECTAL PRN (17:45)
[2022-04-14 21:31] VITALS: BP 115/84; RESP 30; TEMP 102
--- NOTE | 2022-04-15 01:52 | P.HPIM ---
History of Present Illness H&P Date: 04/15/22 Acute Ischemic Stroke Mr. Krueger is a 76-year-old male with a past medical history of CAD status post CABG, stroke, diabetes mellitus, hypertension, hyperlipidemia admitted for encephalopathy. Patient had a acute ischemic stroke and also severe left internal carotid artery stenosis. Today patient was lying in bed and responded by opening his eyes on calling his name. Patient was not able to communicate or follow commands. Patient's at the bedside and provided the history for most part. There has been ongoing discussions about considering hospice care for him as the patient did not show significant progress since admission. Patient's vitals reviewed temperature of 99.8, heart rate of 82 respiratory rate 24 blood pressure 134/67 saturating at 93% on 4 L of nasal cannula. Patient did not have labs for the past 2 days. 04/15/2022 Patient was admitted to the hospital and being monitored for acute CVA with the clinical deterioration and patient made hospice and continue to deteriorate making him GIP appropriate in [facility] evaluated the family has signed on and patient will be continued hospice comfort measures only. Review of systems: Unable to tenderness patient is minimally responsive Physical exam: GENERAL - : No apparent distress, ill-appearing HEENT: Head is normocephalic. Pupils are equal, round. CHEST EXAMINATION: Lungs are clear to auscultation. HEART EXAMINATION: Regular rate and rhythm. S1, S2 heard. No murmurs, gallops or rub. ABDOMEN: Soft, nontender. Positive bowel sounds. EXTREMITIES: 2+ peripheral pulses, no lower extremity edema NEUROLOGIC EXAMINATION: Patient is somnolent however opened his eyes on calling his name Assessment: Acute ischemic stroke Acute global aphasia secondary to above Severe left internal carotid artery stenosis Right internal carotid artery stenosis History of coronary artery disease status post CABG Type 2 diabetes mellitus Acute dysphagia Failure to thrive No code PLAN: Patient was evaluated by [facility] may GIP appropriate and patient is signing on with comfort pressures only per family. Will continue to monitor and patient care will be resumed by Dr. Hill primary care provider on 04/15/2022. Overall prognosis is poor and guarded. The impression and plan of care has been dictated by Raquel Fuentes, Nurse Practitioner as directed. Dr. Tammi MD I have performed a history and examination and MDM of this patient, discussed the same with the dictator, and agree with the dictator's assessment and plan as written ,documented as a scribe. Based on total visit time, I have performed more than 50% of the visit. Past Medical History Past Medical History: Coronary Artery Disease (CAD), Heart Failure, CVA/TIA, Diabetes Mellitus, Hyperlipidemia, Hypertension, Myocardial Infarction (VT), Osteoarthritis (OA) Additional Past Medical History / Comment(s): GOUT,NEUROPATHY IN FEET, TIA 2014- no residual effects, SEE DR POLLOCK'S HISTORY FOR CARDIAC HISTORY Last Myocardial Infarction Date:: 2010 History of Any Multi-Drug Resistant Organisms: None Reported Past Surgical History: Coronary Bypass/CABG, Heart Catheterization With Stent, Hernia Repair Additional Past Surgical History / Comment(s): 5 VESSELS, LEFT CAROTID STENT (03/19/17). Past Anesthesia/Blood Transfusion Reactions: No Reported Reaction Date of Last Stent Placement:: 2015 Type of Cardiac Device: AICD Device Placement Date:: 02/19/2020 Past Psychological History: Anxiety Past Alcohol Use History: Rare - Past Family History Mother Family Medical History: No Reported History, Myocardial Infarction (VT) Brother(s) Family Medical History: Hypertension, Myocardial Infarction (VT) Medications and Allergies Home Medications Medication Instructions Recorded Confirmed Type ALPRAZolam [Xanax] 0.5 mg PO TID PRN 09/26/13 04/08/22 History Atorvastatin [Lipitor] 40 mg PO HS 11/27/18 04/08/22 History Aspirin EC [Ecotrin] 325 mg PO DAILY 04/08/22 04/08/22 History Insulin Aspart [NovoLOG Flexpen] See Protocol SQ ACHS 04/08/22 04/08/22 History Insulin Glargine,Hum.rec.anlog 20 units SQ DAILY 04/08/22 04/08/22 History [Insulin Glargine Solostar] Isosorbide Mononitrate ER [Imdur] 30 mg PO DAILY 04/08/22 04/08/22 History Metoclopramide [Reglan] 10 mg PO TID 04/08/22 04/08/22 History Sertraline [Zoloft] 50 mg PO DAILY 04/08/22 04/08/22 History carvediloL [Coreg] 25 mg PO BID 04/08/22 04/08/22 History traMADol HCL 50 mg PO Q6H PRN 04/08/22 04/08/22 History Allergies Allergy/AdvReac Type Severity Reaction Status Date / Time No Known Allergies Allergy Verified 04/08/22 09:20 Physical Exam Vitals: Vital Signs Temp Resp BP Pulse Ox 04/14/22 20:00 102 F H 30 H 115/84 04/14/22 18:50 101.9 F H 48 H 04/14/22 16:00 101.3 F H 42 H 105/60 93 L Intake and Output 04/14/22 04/14/22 04/15/22 14:59 22:59 06:59 Intake Total 5.457 Balance 5.457 Intake: Intake, IV Titration 5.457 Amount Morphine Sulfate (100 mg/ 5.457 2 ml) 100 mg In Sodium Chloride 0.9% 100 ml @ 1 MG/HR 1.02 mls/hr IV . Q24H [facility] Rx#:[id number] Oral 0 Other: Voiding Method Indwelling Catheter Weight 60.5 kg Assessment and Plan Time with Patient: Greater than 30
== END 2022-04-15 05:19 | disposition expired | DRG 951 ==
LOC: 3SCARD 14:29 → 5NMEDONC 22:20
PROVIDERS: ADMIT Internal Medicine; ATTEND Internal Medicine
DX: Z51.5 Encounter for palliative care (principal); I63.9 Cerebral infarction, unspecified; R47.01 Aphasia; R62.7 Adult failure to thrive; E78.5 Hyperlipidemia, unspecified; F41.9 Anxiety disorder, unspecified; Z66 Do not resuscitate; I25.10 Atherosclerotic heart disease of native coronary artery without angina pectoris; I50.9 Heart failure, unspecified; I65.23 Occlusion and stenosis of bilateral carotid arteries; I11.0 Hypertensive heart disease with heart failure; M19.90 Unspecified osteoarthritis, unspecified site; M10.9 Gout, unspecified; E11.42 Type 2 diabetes mellitus with diabetic polyneuropathy; I25.2 Old myocardial infarction; R13.10 Dysphagia, unspecified; Z79.82 Long term (current) use of aspirin; Z79.899 Other long term (current) drug therapy; Z86.73 Personal history of transient ischemic attack (TIA), and cerebral infarction without residual deficits; Z95.1 Presence of aortocoronary bypass graft; Z87.19 Personal history of other diseases of the digestive system; Z95.810 Presence of automatic (implantable) cardiac defibrillator